=== PATIENT | female | born 1990 | race African-American/Black ===

== ENCOUNTER 2016-08-31 15:48 | Outpatient (CLI) | payer MEDICAID ==
[~2016-08-31 15:48] MED LIST: CETI10TA17 PO; CIPR500T78 PO; FLT11013 IH; FLUC100T6 PO; LISI5TAB14 PO; LOSA50TA36 PO; METF500T4 PO; METF750T2 PO; METR500T PO; METR500T21 PO; MULT-608; MUPI22OI TP; ONDA8TAB13 PO; TOPI50TA13 PO
[2016-08-31 16:35] VITALS: BP 121/81
--- NOTE | 2016-09-01 09:18 | Physician Query-Final Dx ---
PARKER PINEDO 09/01/16 0918: Clinic Account Progress/Dx Physician Query: Please give diagnosis Date of Service Aug 31, 2016 at 15:48 NED MULLINS DO 09/03/16 0920: Clinic Account Progress/Dx DIAGNOSIS: Diagnosis please check nursing notes on which physician they called.. I did not take a call nor know that this patient was there. PARKER PINEDO Sep 01, 2016 09:18 NED MULLINS DO Sep 03, 2016 09:20
--- NOTE | 2016-09-04 10:04 | Physician Query-Final Dx ---
PARKER PINEDO 09/04/16 1003: Clinic Account Progress/Dx Physician Query: Please give diagnosis Date of Service Aug 31, 2016 at 15:48 SELENE STONE MD 09/04/16 1236: Clinic Account Progress/Dx DIAGNOSIS: Diagnosis false labor PARKER PINEDO Sep 04, 2016 10:03 SELENE STONE MD Sep 04, 2016 12:36
== END 2016-08-31 16:35 | disposition home or self-care (01) ==
LOC: WSo 15:48 → LDRP 15:48 → WSo 16:35
PROVIDERS: ATTEND Obstetrics & Gynecology
DX: O47.9 False labor, unspecified (principal); Z3A.00 Weeks of gestation of pregnancy not specified
CPT/HCPCS: 99212

== ENCOUNTER 2016-10-04 20:58 | Outpatient (CLI) | payer MEDICAID ==
[~2016-10-04] VITALS: Ht 157.5 cm; Wt 103.9 kg
[2016-10-04 20:40] VITALS: BP 133/64
[2016-10-04 21:05] VITALS: BP 125/63
[2016-10-04 21:31] LABS: BILIRUBIN,URINE NEGATIVE (NEGATIVE); KETONES,URINE NEGATIVE (NEGATIVE); LEUKOCYTE ESTERASE ,URINE 3+ (NEGATIVE); NITRITE,URINE NEGATIVE (NEGATIVE); PH,URINE 8 (5-9); PROTEIN,URINE 1+ (NEGATIVE); UROBILINOGEN,URINE NORMAL (NORMAL)
[2016-10-04 21:41] LABS: SQUAMOUS EPITHELIAL CELL,UR >50 /HPF
[2016-10-04] MEDS ORDERED: PROMETHAZINE INJ 25 MG/ML (PHENERGAN) AMP IM ONE (22:00)
[2016-10-04] MEDS ORDERED: CEPH-507 PO (22:15)
[2016-10-04] MEDS ORDERED: CEPHALEXIN 250 MG (KEFLEX) CAP PO ONE (22:30)
[2016-10-04] MEDS ORDERED: APAP 300 MG/CODEINE 30 MG (TYLENOL #3) TAB PO ONE (23:00)
[2016-10-04] MEDS ORDERED: D5 LR IV SOLUTION 1,000 ML IV ONE (23:36)
[2016-10-05] MEDS ORDERED: ONDANSETRON 4 MG/2 ML (SDV) Z0FRAN ONE (00:19)
[2016-10-05] MEDS ORDERED: ONDANSETRON 4 MG/2 ML (SDV) Z0FRAN IVP PRN (00:30)
[2016-10-05] MEDS ORDERED: HYDROmorphone (DILAUDID) 2 MG/ML VIAL IVP ONE (00:30)
[2016-10-05] MEDS ORDERED: D5 LR IV SOLUTION 1,000 ML IV SCH (00:30)
[2016-10-05 00:40] VITALS: BP 126/66
[2016-10-05] MEDS ORDERED: ACET325T38 PO (06:03)
[2016-10-05] MEDS ORDERED: VALA500T PO (06:03)
[2016-10-05] MEDS ORDERED: SERT25TA PO (06:03)
[2016-10-05] MEDS ORDERED: PREN1TAB71 PO (06:03)
[2016-10-05] MEDS ORDERED: ASPI1TAB22 PO (06:03)
[2016-10-05 06:10] VITALS: BP 100/51
--- NOTE | 2016-10-05 08:27 | History & Physical-OB ---
OB - Chief Complaint & HPI Date Date of Admission: Date of Admission: Chief Complaint/History Hx : 2 Hx Para: 0 Expected Date of Delivery: January 06, 2017 Gestational Age in Weeks: 26 Other reason for admission: Patient admitted for observation overnight due to uncontrolled headache. Was given phenergan IM and continued to have nausea overnight, so IV with D5LR was started and 0.5 mg dilaudid given. Patient was able to rest afterward. Admission Nurse Assessment Rev: Yes History of Labs O pos Antibody neg RI RPR NR HIV NR HBsAg NR GC neg Allergies and Home Medications Allergies Coded Allergies: latex (Unverified Allergy, Unknown, 05/14/16) tramadol (Unverified Allergy, Unknown, 05/14/16) Home Medications Acetaminophen 325 Mg Tablet 1,000 MG PO PRN (Reported) Aspirin/Acetaminophen/Caffeine 1 Each Tablet 1 EACH PO PRN (Reported) Cephalexin 500 Mg Capsule 7Days 500 MG PO QID Prescribed by: EMANUEL DIAZ on 10/04/16 Vit/Iron Fumarate/FA 1 Each Tablet 1 EACH PO DAILY (Reported) Sertraline HCl 25 Mg Tablet 25 MG PO DAILY (Reported) Valacyclovir HCl 500 Mg Tablet 500 MG PO PRN (Reported) OB - History Hx of Present Care: Yes Ultrasounds: Normal mid trimester US Obstetrical Complications: None Medical Complications: Other (Migraines) Obstetrical History Hx : 2 Hx Para: 0 Hx Total # of Abortions (Spona: 1 Delivery History Hx Blood Disorders: No Adverse Rxn to Tranfusion: No Patient Past Medical History migraines Social History/Family History Recent Infectious Disease Expo: No Sexually Transmitted Disease: Yes (CHLAM AND GC) Immunizations Date of Influenza Vaccine: May 19, 2016 OB - Admission Exam Physical Exam Vitals: Vital Signs 10/04/16 10/05/16 20:40 06:10 Temp 97.2 Pulse 67 Resp 18 B/P 100/51 HEENT: NCAT Heart: Rhythm Normal Abdomen: Gravid Heart Rate: 130's Contractions on Admission: None Labs Laboratory Tests Test 10/04/16 21:00 Range/Units Urine Bacteria LARGE H /HPF Urine Bilirubin NEGATIVE NEGATIVE Urine Casts NONE /LPF Urine Clarity SLIGHTLY CLOUDY Urine Color YELLOW Urine Crystals NONE /LPF Urine Culture Indicated NO Urine Glucose (UA) NEGATIVE NEGATIVE Urine Ketones NEGATIVE NEGATIVE Urine Leukocyte Esterase 3+ H NEGATIVE Urine Mucus NEGATIVE /LPF Urine Nitrite NEGATIVE NEGATIVE Urine Protein 1+ H NEGATIVE Urine RBC NONE /HPF Urine RBC (Auto) NEGATIVE NEGATIVE Urine Specific [place] 1.010 L 1.016-1.022 Urine Squamous Epithelial Cells >50 H /HPF Urine Urobilinogen NORMAL NORMAL MG/DL Urine WBC 10-25 H /HPF Urine pH 8 5-9 OB - Assessment/Plan/Diagnosis Plan Other Plan Patient to try regular diet this am and Tylenol 3, if tolerates patient to be discharged. Discharge Diagnosis Diagnosis: 26 yo @ 26.5 Migraine headache- improved Nausea/ Vomitting- improved NED MULLINS DO Oct 05, 2016 08:27
[2016-10-05] MEDS ORDERED: CATHETER FLUSH 10 ML SYR IV PRN (08:30)
[2016-10-05] MEDS ORDERED: APAP 300 MG/CODEINE 30 MG (TYLENOL #3) TAB PO PRN (08:30)
[2016-10-05] MEDS ORDERED: ACET-789 PO (08:57)
[2016-10-05 09:00] VITALS: BP 133/67
[2016-12-18] MEDS ORDERED: DOCU100C37 PO (10:53)
[2016-12-18] MEDS ORDERED: IBUP-1773 PO (10:53)
[2016-12-18] MEDS ORDERED: HYDR-3812 PO (10:53)
== END 2016-10-05 10:15 | disposition home or self-care (01) ==
LOC: WSo 20:58 → LDRP 20:59 → WSo 10-05 10:15
PROVIDERS: ATTEND Obstetrics & Gynecology
DX: O99.353 Diseases of the nervous system complicating pregnancy, third trimester (principal); G43.909 Migraine, unspecified, not intractable, without status migrainosus; O21.9 Vomiting of pregnancy, unspecified; Z3A.26 26 weeks gestation of pregnancy
CPT/HCPCS: 81000; 96361; 96372; 96374; 99214

== ENCOUNTER → 2016-10-15 | Outpatient (CLI) | payer MEDICAID ==
[~2016-10-15] MED LIST changes: +ACET-789 PO; +ACET325T38 PO; +ASPI1TAB22 PO; +CEPH-507 PO; +DOCU100C37 PO; +FAMO-119 PO; +HYDR-3812 PO; +IBUP-1773 PO; +OMEP20TA33 PO; +OXYC-197 PO; +PREN1TAB71 PO; +SERT25TA PO; +VALA500T PO
--- NOTE | 2016-10-15 19:01 | Diagnostic Imaging Report ---
OB ultrasound. INDICATION: incomplete views. FINDINGS: The heart rate is 143 beats per minute. The placenta is posterior. There is no placenta previa. The amniotic fluid index is 9.4 cm. The posterior fossa, the lateral ventricles, stomach, four-chamber view, urinary bladder and two umbilical arteries are demonstrated. The spine appears unremarkable. No hydronephrosis or cystic mass in the region of the kidneys seen. The growth parameters are biparietal diameter at 26 weeks and 5 days, at 5th percentile, head circumference at 27 weeks and 1 day, 4th percentile, abdominal circumference at 26 weeks and 6 days, 10th percentile and femur length at 27 weeks and 4 days at 28th percentile. The average growth parameters are 27 weeks and 1 day. This compares to a gestational age of 28 weeks and 1 day based on dating by first trimester ultrasound performed 05/14/2016 with RENNY of 01/06/2017. IMPRESSION: Completed survey. The growth parameters are near the lower limits of normal. Followup studies to monitor growth suggested. Dictated by: Dictated on workstation # [id number]
== END ==
LOC: RAD 11:57
PROVIDERS: ATTEND Obstetrics & Gynecology
DX: Z36 Encounter for antenatal screening of mother (principal)
CPT/HCPCS: 76805

== ENCOUNTER 2016-10-26 17:11 | Outpatient (CLI) | payer OTHER, MEDICAID ==
[~2016-10-26] VITALS: Ht 156.2 cm; Wt 105.7 kg
[~2016-10-26 17:11] MED LIST changes: -DOCU100C37 PO; -FAMO-119 PO; -HYDR-3812 PO; -IBUP-1773 PO; -OMEP20TA33 PO; -OXYC-197 PO
[2016-10-26 17:27] VITALS: BP 133/68
--- NOTE | 2016-10-27 11:23 | Physician Query-Final Dx ---
PARKER PINEDO 10/27/16 1123: Clinic Account Progress/Dx Physician Query: Please give diagnosis Date of Service Oct 26, 2016 at 17:11 SELENE STONE MD 10/27/16 1728: Clinic Account Progress/Dx DIAGNOSIS: Diagnosis decreased movement PARKER PINEDO Oct 27, 2016 11:23 SELENE STONE MD Oct 27, 2016 17:28
[2016-12-18] MEDS ORDERED: HYDR-3812 PO (10:53)
[2016-12-18] MEDS ORDERED: DOCU100C37 PO (10:53)
[2016-12-18] MEDS ORDERED: IBUP-1773 PO (10:53)
== END 2016-10-26 18:30 | disposition home or self-care (01) ==
LOC: WSo 17:11 → LDRP 17:11 → WSo 18:30
PROVIDERS: ATTEND Obstetrics & Gynecology
DX: O36.8130 Decreased fetal movements, third trimester, not applicable or unspecified (principal); Z3A.29 29 weeks gestation of pregnancy
CPT/HCPCS: 99213

== ENCOUNTER 2016-11-15 17:49 | Outpatient (CLI) | payer OTHER, MEDICAID ==
[~2016-11-15] VITALS: Ht 157.5 cm; Wt 105.4 kg
[2016-11-15] VITALS (8 sets, daily range): BP systolic 101–124; BP diastolic 53–60
[2016-11-15] MEDS ORDERED: oxyCODONE/APAP 10/325MG (PERCOCET 10) TABLET PO ONE (18:15)
[2016-11-15 18:43] LABS: BASOPHILS % (AUTO) 0 % (0-10); EOSINOPHILS # (AUTO) 0.1 10^3/uL (0.0-0.3); EOSINOPHILS % (AUTO) 1 % (0-10); LYMPHOCYTES # (AUTO) 2.3 X 10^3 (1.0-4.0); LYMPHOCYTES % (AUTO) 21 % (12-44); MEAN CORPUSCULAR HEMOGLOBIN 31 PG (25-34); MEAN CORPUSCULAR HGB CONC 35 G/DL (32-36); MEAN CORPUSCULAR VOLUME 90 FL (80-99); MEAN PLATELET VOLUME 11.1 FL (7.4-10.4); MONOCYTES # (AUTO) 0.6 X 10^3 (0.0-1.0); MONOCYTES % (AUTO) 5 % (0-12); NEUTROPHILS % (AUTO) 73 % (42-75); PLATELET COUNT 253 10^3/uL (130-400); RED BLOOD COUNT 3.61 10^6/uL (4.35-5.85); WHITE BLOOD COUNT 10.9 10^3/uL (4.3-11.0)
[2016-11-15 18:53] LABS: PROTEIN/CREATININE RATIO 0.11
[2016-11-15 19:11] LABS: ALANINE AMINOTRANSFERASE 9 U/L (0-55); ALBUMIN 3.1 G/DL (3.2-4.5); ANION GAP 8 MMOL/L (5-14); ASPARTATE AMINO TRANSFERASE 14 U/L (5-34); BILIRUBIN,TOTAL 0.2 MG/DL (0.1-1.0); BLOOD UREA NITROGEN 7 MG/DL (7-18); BUN/CREATININE RATIO 11; CALCIUM 8.8 MG/DL (8.5-10.1); CARBON DIOXIDE 19 MMOL/L (21-32); CHLORIDE 111 MMOL/L (98-107); CREATININE SERUM 0.61 MG/DL (0.60-1.30); GFR ESTIMATED > 60; GLUCOSE 75 MG/DL (70-105); POTASSIUM 3.6 MMOL/L (3.6-5.0); SODIUM 138 MMOL/L (135-145)
[2016-11-15] MEDS ORDERED: ONDANSETRON 8 MG (ZOFRAN) ORAL DISSOLVE TAB ONE (19:40)
[2016-11-15] MEDS ORDERED: ONDANSETRON 8 MG (ZOFRAN) ORAL DISSOLVE TAB PO ONE (20:00)
--- NOTE | 2016-11-16 13:10 | Physician Query-Final Dx ---
AYE LEUNG 11/16/16 1310: Clinic Account Progress/Dx Physician Query: Please give diagnosis Date of Service Nov 15, 2016 at 17:49 SELENE STONE MD 11/17/16 0756: Clinic Account Progress/Dx DIAGNOSIS: Diagnosis hypertension AYE LEUNG Nov 16, 2016 13:10 SELENE STONE MD Nov 17, 2016 07:56
[2016-12-18] MEDS ORDERED: IBUP-1773 PO (10:53)
[2016-12-18] MEDS ORDERED: DOCU100C37 PO (10:53)
[2016-12-18] MEDS ORDERED: HYDR-3812 PO (10:53)
== END 2016-11-15 20:17 | disposition home or self-care (01) ==
LOC: DELPENDDIS → LDRP 17:49 → WSo 17:49
PROVIDERS: ATTEND Obstetrics & Gynecology
DX: O13.3 Gestational [pregnancy-induced] hypertension without significant proteinuria, third trimester (principal)
CPT/HCPCS: 36415; 80053; 82570; 84156; 85025; 99213

== ENCOUNTER 2016-12-07 12:15 | Outpatient (CLI) | payer OTHER, MEDICAID ==
[~2016-12-07] VITALS: Ht 157.5 cm; Wt 104.8 kg
[2016-12-07 12:20] VITALS: BP 130/69
[2016-12-07] MEDS ORDERED: OMEP20TA33 PO (12:49)
[2016-12-07 12:55] LABS: BILIRUBIN,URINE NEGATIVE (NEGATIVE); KETONES,URINE NEGATIVE (NEGATIVE); LEUKOCYTE ESTERASE ,URINE 2+ (NEGATIVE); NITRITE,URINE NEGATIVE (NEGATIVE); PH,URINE 6 (5-9); PROTEIN,URINE 1+ (NEGATIVE); UROBILINOGEN,URINE NORMAL (NORMAL)
--- NOTE | 2016-12-08 10:02 | Physician Query-Final Dx ---
PARKER PINEDO 12/08/16 1002: Clinic Account Progress/Dx Physician Query: Please give diagnosis Date of Service Dec 07, 2016 at 12:15 SELENE STONE MD 12/08/16 1833: Clinic Account Progress/Dx DIAGNOSIS: Diagnosis decreased movement and false labor PARKER PINEDO Dec 08, 2016 10:02 SELENE STONE MD Dec 08, 2016 18:33
[2016-12-18] MEDS ORDERED: HYDR-3812 PO (10:53)
[2016-12-18] MEDS ORDERED: IBUP-1773 PO (10:53)
[2016-12-18] MEDS ORDERED: DOCU100C37 PO (10:53)
== END 2016-12-07 13:40 | disposition home or self-care (01) ==
LOC: WSo 12:15 → LDRP 12:15 → WSo 13:40
PROVIDERS: ATTEND Obstetrics & Gynecology
DX: O47.03 False labor before 37 completed weeks of gestation, third trimester (principal); O36.8130 Decreased fetal movements, third trimester, not applicable or unspecified; Z3A.35 35 weeks gestation of pregnancy
CPT/HCPCS: 81000; 87088; 99213

== ENCOUNTER 2016-12-16 16:42 | Outpatient (CLI) | payer OTHER, MEDICAID ==
[~2016-12-16] VITALS: Ht 157.5 cm; Wt 104.8 kg
[~2016-12-16 16:42] MED LIST changes: +OMEP20TA33 PO
[2016-12-16 17:01] VITALS: BP 123/60
--- NOTE | 2016-12-16 18:30 | Diagnostic Imaging Report ---
INDICATION: Decreased movement. TECHNIQUE: The fetus was observed by the shear operator automatic for purposes of a nonstress biophysical profile evaluation. FINDINGS: Intrauterine is currently in a cephalic presentation. The placenta is along the fundal aspect without evidence for previa. cardiac activity at 123 beats per minute. Normal amount of amniotic fluid with an index at 12.4 cm. Biophysical Profile Scoring: breathin Body movement: 2 tone: 2 Amniotic fluid: 2 Total BPP Score: 8/8 IMPRESSION: 1. Normal biophysical profile score. Dictated by: Dictated on workstation # [id number]
--- NOTE | 2016-12-17 10:48 | Physician Query-Final Dx ---
PARKER PINEDO 12/17/16 1048: Clinic Account Progress/Dx Physician Query: Please give diagnosis Date of Service December 16, 2016 at 16:42 RADHA MUHAMMAD MD 12/17/16 1903: Clinic Account Progress/Dx DIAGNOSIS: Diagnosis Decreased movement at term PARKER PINEDO December 17, 2016 10:48 RADHA MUHAMMAD MD December 17, 2016 19:03
== END 2016-12-16 18:30 | disposition home or self-care (01) ==
LOC: WSo 16:42 → LDRP 16:44 → WSo 18:30
PROVIDERS: ATTEND Obstetrics & Gynecology
DX: O36.8130 Decreased fetal movements, third trimester, not applicable or unspecified (principal); Z3A.37 37 weeks gestation of pregnancy
CPT/HCPCS: 76819; 99213

== ENCOUNTER 2016-12-18 05:26 | Inpatient (IN) | payer MEDICAID ==
[~2016-12-18] VITALS: Ht 157.5 cm; Wt 103.9 kg
[2016-12-18] VITALS (8 sets, daily range): BP systolic 115–137; BP diastolic 56–70
[2016-12-18 06:05] LABS: BILIRUBIN,URINE NEGATIVE (NEGATIVE); KETONES,URINE NEGATIVE (NEGATIVE); LEUKOCYTE ESTERASE ,URINE 2+ (NEGATIVE); NITRITE,URINE NEGATIVE (NEGATIVE); PH,URINE 6.5 (5-9); PROTEIN,URINE 1+ (NEGATIVE); UROBILINOGEN,URINE NORMAL (NORMAL)
[2016-12-18] MEDS ORDERED: FAMO-119 PO (06:08)
[2016-12-18] MEDS ORDERED: D5 LR IV SOLUTION 1,000 ML IV SCH (09:24)
[2016-12-18] MEDS ORDERED: CATHETER FLUSH 10 ML SYR IV PRN (09:30)
[2016-12-18] MEDS ORDERED: FAMOTIDINE 20MG/2ML IV (PEPCID) IV ONE (09:30)
[2016-12-18] MEDS ORDERED: ceFAZolin 2 GM/50 ML NS 50 ML IV ONE (09:30)
[2016-12-18] MEDS ORDERED: METOCLOPRAMIDE INJ 10 MG/2 ML (REGLAN) IV ONE (09:30)
[2016-12-18] MEDS ORDERED: CITRIC ACID/SOB CIT (BICITRA) 30 ML UDC PO ONE (09:30)
--- NOTE | 2016-12-18 09:36 | History & Physical-OB ---
OB - Chief Complaint & HPI Date Date of Admission: Date of Admission: 12/18/2016 Chief Complaint/History OB-Reason for Admission/Chief: Onset of Labor Hx : 2 Hx Para: 0 Expected Date of Delivery: January 06, 2017 Gestational Age in Weeks: 37 Gestational Age in Days: 2 Indication for : other (Vaginal lesion with HSV history) Other reason for admission: Patient reports some non-compliance with taking Valtrex as directed, and has a questionable area that is erythematous and tender on the left vulva just outside of the hymenal ring. Admission Nurse Assessment Rev: Yes History of Labs O pos Antibody neg RI RPR NR HBsAg NR HIV NR GC neg GBS neg Allergies and Home Medications Allergies Coded Allergies: latex (Unverified Allergy, Unknown, 05/14/16) tramadol (Unverified Allergy, Unknown, 05/14/16) Home Medications Famotidine 20 Mg Tablet, 20 MG PO BID, (Reported) Vit/Iron Fumarate/FA 1 Each Tablet, 1 EACH PO DAILY, (Reported) Valacyclovir HCl 500 Mg Tablet, 500 MG PO PRN, (Reported) OB - History Hx of Present Care: Yes Ultrasounds: Normal mid trimester US Obstetrical Complications: None Medical Complications: None Obstetrical History Hx : 2 Hx Para: 0 Hx Total # of Abortions (Spona: 1 Delivery History Hx Blood Disorders: No Adverse Rxn to Tranfusion: No Patient Past Medical History migraines Social History/Family History Recent Infectious Disease Expo: No Sexually Transmitted Disease: Yes (CHLAM AND GC) Immunizations Date of Influenza Vaccine: May 19, 2016 OB - Admission Exam Physical Exam Vitals: Vital Signs 12/18/16 12/18/16 05:45 07:00 Temp 96.7 Pulse 88 Resp 20 B/P (MAP) 125/58 O2 Delivery Room Air HEENT: NCAT Heart: Rhythm Normal Lungs: Clear Abdomen: Gravid Extremities: Normal Reflexes: Normal Cervical Dilatation: 5cm Membranes: Intact Heart Rate: 130's Accelerations: Accelerations Present Decelerations: No Decelerations Short Term Variability: Present Fdc Variability: Average (6-25) Contractions on Admission: 6-10 Minutes Apart Intensity: Mild Labs Laboratory Tests Test 12/18/16 05:40 Range/Units Urine Color YELLOW Urine Clarity CLEAR Urine pH 6.5 5-9 Urine Specific [place] 1.015 L 1.016-1.022 Urine Protein 1+ H NEGATIVE Urine Glucose (UA) NEGATIVE NEGATIVE Urine Ketones NEGATIVE NEGATIVE Urine Nitrite NEGATIVE NEGATIVE Urine Bilirubin NEGATIVE NEGATIVE Urine Urobilinogen NORMAL NORMAL MG/DL Urine Leukocyte Esterase 2+ H NEGATIVE Urine RBC (Auto) NEGATIVE NEGATIVE Urine RBC NONE /HPF Urine WBC 5-10 H /HPF Urine Squamous Epithelial Cells 5-10 /HPF Urine Crystals NONE /LPF Urine Bacteria TRACE /HPF Urine Casts NONE /LPF Urine Mucus NEGATIVE /LPF Urine Culture Indicated YES OB - Assessment/Plan/Diagnosis Assessment Assessment: section Plan Plan: Section Discharge Diagnosis Diagnosis: 26 yo @ 37.1 Active labor Vulvovaginal lesion suspecious for HSV GBS neg NED MULLINS DO December 18, 2016 09:36
[2016-12-18 09:51] LABS: BASOPHILS % (AUTO) 0 % (0-10); EOSINOPHILS % (AUTO) 0 % (0-10); LYMPHOCYTES # (AUTO) 2.4 X 10^3 (1.0-4.0); LYMPHOCYTES % (AUTO) 20 % (12-44); MEAN CORPUSCULAR HEMOGLOBIN 30 PG (25-34); MEAN CORPUSCULAR HGB CONC 34 G/DL (32-36); MEAN CORPUSCULAR VOLUME 87 FL (80-99); MEAN PLATELET VOLUME 11.5 FL (7.4-10.4); MONOCYTES # (AUTO) 0.7 X 10^3 (0.0-1.0); MONOCYTES % (AUTO) 6 % (0-12); NEUTROPHILS # (AUTO) 8.8 X 10^3 (1.8-7.8); NEUTROPHILS % (AUTO) 73 % (42-75); PLATELET COUNT 249 10^3/uL (130-400); RED BLOOD COUNT 4.13 10^6/uL (4.35-5.85); RED CELL DISTRIBUTION WIDTH 13.4 % (10.0-14.5); WHITE BLOOD COUNT 11.9 10^3/uL (4.3-11.0)
[2016-12-18] MEDS ORDERED: LACTATED RINGERS 1,000 ML IV ONE (09:59)
[2016-12-18] MEDS ORDERED: LACTATED RINGERS 1,000 ML IV PRN (10:14)
[2016-12-18] MEDS ORDERED: OXYTOCIN/NORMAL SALINE 1,000 ML IV ONE (10:37)
[2016-12-18] MEDS ORDERED: BUPIVACAINE SPINAL 0.75% (SENSORCAINE) 2 ML AMP ONE (10:37)
[2016-12-18] MEDS ORDERED: fentaNYL INJECTION 100 MCG/2 ML AMP ONE (10:37)
[2016-12-18] MEDS ORDERED: OXYTOCIN/NORMAL SALINE 500 ML IV SCH (10:49)
--- NOTE | 2016-12-18 10:52 | Discharge Inst-Women's Service ---
Discharge Inst-Women's Serv Depart Medication/Instructions New, Converted or Re-Newed RX: RX on Chart Consults/Follow Up Additional Follow Up: Yes Orders/Referrals Dr. Bryant in 7-10 days Activity Activity: Activity as Tolerated Driving Instructions: No Driving for 1 Week NO SMOKING: NO SMOKING Nothing Inside Vagina: No Douching, No [place], No Tampons Diet Discharge Diet: No Restrictions Symptoms to Report to : Bleeding Excessive, Pain Increased, Fever Over 101 Degrees F, Vaginal Bleeding Increase, Questions/Concerns For Any Problems or Questions: Contact Your Physician Skin/Wound Care Infection Signs and Symptoms: Increased Redness, Foul Odor of Wound, Increased Drainage, Skin Itchy or Has a Rash, Increased Swelling, Temperature Above 101 F Operative Area Clean and Dry: Keep Incision Clean/Dry Stitches/Leyla/Dermabond: Dermabond, Care of Stitches Bathing Instructions: NED Velasquez DO December 18, 2016 10:52
[2016-12-18] MEDS ORDERED: HYDR-3812 PO (10:53)
[2016-12-18] MEDS ORDERED: IBUP-1773 PO (10:53)
[2016-12-18] MEDS ORDERED: DOCU100C37 PO (10:53)
[2016-12-18] MEDS ORDERED: ONDANSETRON 4 MG/2 ML (SDV) Z0FRAN IVP PRN (11:00)
[2016-12-18] MEDS ORDERED: MEASLES,MUMPS,RUBELLA 1 EA INJ SC SCH (11:00)
[2016-12-18] MEDS ORDERED: TETANUS,DIPTH,PERTUSS P/F (BOOSTRIX) 0.5 ML VIAL IM SCH (11:00)
[2016-12-18] MEDS ORDERED: HYDROmorphone (DILAUDID) 2 MG/ML VIAL IVP PRN (11:00)
[2016-12-18] MEDS ORDERED: PHENYLEPHRINE 100 MCG/ML 10 ML (ANESTHESIA) SYR ONE (11:37)
[2016-12-18] MEDS ORDERED: METHYLERGONOVINE 0.2 MG/ML (METHERGINE) AMP ONE (11:56)
[2016-12-18] MEDS ORDERED: METHYLERGONOVINE 0.2 MG/ML (METHERGINE) AMP IM ONE (12:15)
[2016-12-18] MEDS ORDERED: CATHETER FLUSH 10 ML SYR IV SCH (14:00)
[2016-12-18] MEDS: KETOROLAC 30 MG/ML VIAL IVP SCH ×2 (14:15→19:57)
[2016-12-18] MEDS: HYDROcodone/APAP 5 MG/325 MG (LORTAB) TAB PO PRN ×2 (14:15→18:21)
[2016-12-19] VITALS: BP 103/55
[2016-12-19] MEDS: HYDROcodone/APAP 5 MG/325 MG (LORTAB) TAB PO PRN ×2 (00:10→05:31)
[2016-12-19] MEDS: KETOROLAC 30 MG/ML VIAL IVP SCH (02:43)
[2016-12-19 04:00] VITALS: BP 108/61
[2016-12-19] MEDS: DOCUSATE SODIUM 100 MG (COLACE) CAP PO SCH ×2 (05:36→21:57)
[2016-12-19 06:02] LABS: BASOPHILS % (AUTO) 0 % (0-10); EOSINOPHILS % (AUTO) 0 % (0-10); LYMPHOCYTES # (AUTO) 0.9 X 10^3 (1.0-4.0); LYMPHOCYTES % (AUTO) 10 % (12-44); MEAN CORPUSCULAR HEMOGLOBIN 30 PG (25-34); MEAN CORPUSCULAR HGB CONC 34 G/DL (32-36); MEAN CORPUSCULAR VOLUME 89 FL (80-99); MEAN PLATELET VOLUME 11.7 FL (7.4-10.4); MONOCYTES # (AUTO) 0.5 X 10^3 (0.0-1.0); MONOCYTES % (AUTO) 6 % (0-12); NEUTROPHILS # (AUTO) 7.8 X 10^3 (1.8-7.8); NEUTROPHILS % (AUTO) 84 % (42-75); PLATELET COUNT 198 10^3/uL (130-400); RED BLOOD COUNT 3.76 10^6/uL (4.35-5.85); RED CELL DISTRIBUTION WIDTH 13.5 % (10.0-14.5); WHITE BLOOD COUNT 9.3 10^3/uL (4.3-11.0)
--- NOTE | 2016-12-19 07:34 | OPERATIVE REPORT ---
DATE OF SERVICE: 12/18/2016 PREOPERATIVE DIAGNOSES: 1. A 26-year-old at 37 weeks and one day gestation. 2. Active labor. 3. Active herpes simplex virus outbreak. POSTOPERATIVE DIAGNOSES: 1. A 26-year-old at 37 weeks and one day gestation. 2. Active labor. 3. Active herpes simplex virus outbreak. PROCEDURE: Primary low transverse section. SURGEON: James Mullins MD ANESTHESIA: Spinal. ESTIMATED BLOOD LOSS: 600 mL. URINE OUTPUT: 75 mL, clear at the end of procedure. FLUIDS: 1300 mL lactated Ringer's solution. FINDINGS: A live female weighing 6 pounds, 1 ounces. Apgars of 5, 8 and 9. Grossly normal appearing uterus, bilateral fallopian tubes and ovaries SPECIMEN SENT: None. INDICATIONS FOR PROCEDURE: This 26-year-old female presented to labor and delivery early this morning and found to be 3 cm at approximately 4:30 a.m. I presented to the hospital about 8 this morning and checked the patient, who was found to be 5 cm. However, upon my inspection, I did notice an area that was erythematous and possibly ulcerative at the hymenal ring just outside of it on the vulva on the left side. The patient does have a significant history of HSV and had an outbreak in the . She was on prophylaxis therapy. However, admits to missing of few doses. Due to my concerns of this being an HSV lesion, I discussed with the patient proceeding with delivery. Risk of procedure was discussed with the patient in details, including risk of bleeding, infection, damage to any surrounding structures including, but not limited to bowel, bladder, ureter, kidneys, damage to the infant, risk for hysterectomy, need for blood transfusion and even . After everything was discussed with the patient in detail, her consent was obtained after discussing the alternatives of delivery through HSV infected area. All of her questions were answered with her and her mother present. Consent was obtained. The patient taken to the operating room. OPERATIVE REPORT IN DETAIL: Once in the operating room, spinal anesthesia was found to be adequate, placed in the supine position with leftward tilt, prepped and draped in the normal sterile fashion. A Pfannenstiel skin incision was made with a knife and carried down to the underlying fascia using Bovie cautery. The fascial incision was extended laterally using Bovie cautery. The superior aspect of facial incision was then grasped with Raven clamps, tilted upward and dissected off the underlying rectus muscles. The inferior aspect of the fascial incisions was then grasped with Raven clamps, tilted upward and dissected off the underlying rectus muscles. The rectus muscles were then dissected down the midline using Stone scissors, which exposes the peritoneum and allows me to enter it bluntly. I extended peritoneal incision superiorly and inferiorly using the Metzenbaum scissors with good visualization of the underlying bowel and bladder. Once adequate peritoneal access was obtained, I placed the Willi reamer retractor at the peritoneal incision, which offers excellent lateral and side wall retraction. I identified the lower uterine segment, which was found to be grossly thinned out. I made a transverse incision through the vesicouterine peritoneum and bluntly dissected the bladder off of the lower uterine segment. I then proceeded with my myotomy in a low transverse fashion until membranes were visualized, at which point I extended the uterine incision laterally and superiorly using bandage scissors. An amniotomy was performed using an Allis clamp, clear fluid was noted. The infant was found to be in vertex presentation. With gentle fundal pressure, the 's head was elevated up out of the pelvis, into the incision and delivered to the incision, where the nares and oropharynx were copiously bulb suctioned. Anterior and posterior shoulders were delivered. The infant was then brought to the operative field, where the cord was doubly clamped and cut and infant handed off to waiting pediatric nurses in attendance. Cord blood was collected, three vessel cord with intact placenta delivered thereafter. IV Pitocin is initiated to facilitate uterine contraction. Uterine fundus became firmer with bimanual massage. The uterus was then exteriorized and cleared of all endometrial clots and debris. I then closed the uterine incision using 0 Vicryl suture in running locked fashion, a second layer of imbricating 0 Monocryl was placed. Excellent hemostasis was noted after doing so. I then placed the uterus, followed by fallopian tubes and ovaries back within the pelvis after inspecting them and copiously irrigated the pelvis using normal saline. No active bleeding was noted from any of my dissections points. I then placed Intercede antiadhesive on my low transverse incision and proceeded with closing the peritoneum using 2-0 Vicryl suture in a running fashion, the rectus muscles were reapproximated using 3-0 Vicryl in interrupted fashion, the fascia was reapproximated with 0 Vicryl suture in running fashion, the subcutaneous tissues were reapproximated using 3-0 plain in an interrupted subcutaneous stitch and the skin was reapproximated using 4-0 Monocryl in a running subcuticular. Dermabond was applied to the incision and the sterile dressing was adhesed with white tape. The patient tolerated the procedure well and was taken to the recovery area in stable condition. Lap and sponge counts correct at the end of the procedure. Instrument count was correct as well. Two gm of Ancef were given preoperatively for infection prophylaxis. Job ID: [id number] DocumentID: [id number] Dictated Date: 12/18/2016 11:54:57 Delivery Helper Date: 12/19/2016 05:19:54 Dictated By: JAMES MULLINS DO
--- NOTE | 2016-12-19 07:50 | Postpartum Progress Note ---
Post Op Post-operative Day #1 Subjective: Patient is without complaints. Ambulating, voiding after potts removed. Tolerating a regular diet without nausea or vomiting. Normal lochia. Pain is not well controlled on oral pain meds - reports lortab "takes the edge off" for 30 mins but then has quite a bit of pain again. Breast feeding/pumping. Objective: Vital Sign - Last 12Hours 12/19/16 12/19/16 00:00 04:00 Temp 98.0 97.8 Pulse 75 85 Resp 18 18 B/P (MAP) 103/55 108/61 Pulse Ox 97 92 O2 Delivery Room Air Room Air Intake and Output 12/19/16 00:00 Intake Total 3100 ml Output Total 350 ml Balance 2750 ml Physical Exam: General - Alert and oriented, no apparent distress Abdomen - Soft, appropriately tender to palpation, non-distended, fundus firm at umbilicus Incision - clean, dry and intact; no erythema or induration, no drainage Extremities - no edema, negative Heather's bilaterally Laboratory Tests Test 12/18/16 09:41 12/19/16 05:30 Range/Units White Blood Count 11.9 H 9.3 4.3-11.0 10^3/uL Red Blood Count 4.13 L 3.76 L 4.35-5.85 10^6/uL Hemoglobin 12.3 11.2 L 11.5-16.0 G/DL Hematocrit 36 33 L 35-52 % Mean Corpuscular Volume 87 89 80-99 FL Mean Corpuscular Hemoglobin 30 30 25-34 PG Mean Corpuscular Hemoglobin Concent 34 34 32-36 G/DL Red Cell Distribution Width 13.4 13.5 10.0-14.5 % Platelet Count 249 198 130-400 10^3/uL Mean Platelet Volume 11.5 H 11.7 H 7.4-10.4 FL Neutrophils (%) (Auto) 73 84 H 42-75 % Lymphocytes (%) (Auto) 20 10 L 12-44 % Monocytes (%) (Auto) 6 6 0-12 % Eosinophils (%) (Auto) 0 0 0-10 % Basophils (%) (Auto) 0 0 0-10 % Neutrophils # (Auto) 8.8 H 7.8 1.8-7.8 X 10^3 Lymphocytes # (Auto) 2.4 0.9 L 1.0-4.0 X 10^3 Monocytes # (Auto) 0.7 0.5 0.0-1.0 X 10^3 Eosinophils # (Auto) 0.0 0.0 0.0-0.3 10^3/uL Basophils # (Auto) 0.0 0.0 0.0-0.1 10^3/uL Assessment: 26 y/o post-operative day # 1, status post PLTCS for active labor with HSV outbreak. Recovering well, hemodynamically stable Rh+ Class III obesity Plan: Routine post-operative care. Will switch to percocet for oral pain control, continue scheduled motrin. Encourage breast feeding. Encourage ambulation. VTE prophylaxis: SCDs and Lovenox given multiple risk factors Plan for discharge POD#2-3 Vitals - Labs Vital Signs - I&O Vital Signs Date Time Temp Pulse Resp B/P (MAP) Pulse Ox O2 Delivery O2 Flow Rate FiO2 12/19/16 04:00 97.8 85 18 108/61 92 Room Air 12/19/16 00:00 98.0 75 18 103/55 97 Room Air 12/18/16 17:15 97.9 80 18 115/70 Room Air 12/18/16 13:25 97.9 82 20 137/67 Room Air 12/18/16 08:30 88 20 124/56 Room Air 12/18/16 08:00 90 18 123/58 Room Air I & O 12/19/16 07:00 Intake Total 3450 ml Output Total 825 ml Balance 2625 ml Labs Laboratory Tests 12/18/16 09:41: White Blood Count 11.9H, Red Blood Count 4.13L, Hemoglobin 12.3, Hematocrit 36, Mean Corpuscular Volume 87, Mean Corpuscular Hemoglobin 30, Mean Corpuscular Hemoglobin Concent 34, Red Cell Distribution Width 13.4, Platelet Count 249, Mean Platelet Volume 11.5H, Neutrophils (%) (Auto) 73, Lymphocytes (%) (Auto) 20 , Monocytes (%) (Auto) 6, Eosinophils (%) (Auto) 0, Basophils (%) (Auto) 0, Neutrophils # (Auto) 8.8H, Lymphocytes # (Auto) 2.4, Monocytes # (Auto) 0.7, Eosinophils # (Auto) 0.0, Basophils # (Auto) 0.0 12/19/16 05:30: White Blood Count 9.3, Red Blood Count 3.76L, Hemoglobin 11.2L, Hematocrit 33L, Mean Corpuscular Volume 89, Mean Corpuscular Hemoglobin 30, Mean Corpuscular Hemoglobin Concent 34, Red Cell Distribution Width 13.5, Platelet Count 198, Mean Platelet Volume 11.7H, Neutrophils (%) (Auto) 84H, Lymphocytes (%) (Auto) 10L, Monocytes (%) (Auto) 6, Eosinophils (%) (Auto) 0, Basophils (%) (Auto) 0, Neutrophils # (Auto) 7.8, Lymphocytes # (Auto) 0.9L, Monocytes # (Auto) 0.5, Eosinophils # (Auto) 0.0, Basophils # (Auto) 0.0 RADHA MUHAMMAD MD December 19, 2016 07:50
[2016-12-19] MEDS: IBUPROFEN 600 MG (MOTRIN) TAB PO SCH ×3 (08:08→21:55)
[2016-12-19 08:09] VITALS: BP 99/64
[2016-12-19] MEDS: ENOXAPARIN 40 MG/0.4 ML (LOVENOX) SYR SC SCH (09:33)
[2016-12-19] MEDS: oxyCODONE/APAP 5/325MG (PERCOCET 5) TABLET PO PRN ×4 (09:33→21:55)
--- NOTE | 2016-12-19 13:43 | Anesthesia-Regional Post-Op ---
Regional Patient Condition Mental Status: Alert, Oriented x3 Circulation: Same as Pre-Op Headache: Absent Sensation: Full Recovery Motor Block: Absent Post Op Complications Complications None Follow Up Care/Instructions Patient Instructions None needed. Anesthesia/Patient Condition Patient is doing well, no complaints, stable vital signs, no apparent adverse anesthesia problems. No complications reported per nursing. THIAGO BROWN CRNA December 19, 2016 13:43
[2016-12-19 13:45] VITALS: BP 116/65
[2016-12-19 19:45] VITALS: BP 108/60
[2016-12-20 02:00] VITALS: BP 104/62
[2016-12-20] MEDS: IBUPROFEN 600 MG (MOTRIN) TAB PO SCH ×2 (03:48→11:27)
[2016-12-20] MEDS: oxyCODONE/APAP 5/325MG (PERCOCET 5) TABLET PO PRN ×2 (03:48→08:39)
[2016-12-20 04:00] VITALS: BP 104/62
[2016-12-20] MEDS: DOCUSATE SODIUM 100 MG (COLACE) CAP PO SCH ×2 (08:39→08:40)
[2016-12-20] MEDS: ENOXAPARIN 40 MG/0.4 ML (LOVENOX) SYR SC SCH (08:40)
[2016-12-20] MEDS ORDERED: OXYC-197 PO (09:28)
[2016-12-20] MEDS ORDERED: fluCOnazole (DIFLUCAN) 100 MG TAB PO NR (09:30)
--- NOTE | 2016-12-20 09:30 | Postpartum Progress Note ---
Post Op Post-operative Day #2 Subjective: Patient is without complaints. Ambulating, voiding. Tolerating a regular diet without nausea or vomiting. Did have some nausea this morning before eating when taking narcotics. Does report percocet is working better than lortab did. Normal lochia. Pain is well controlled with oral pain medications. Passing flatus. Objective: Vital Sign - Last 12Hours 12/20/16 02:00 Temp 98.0 Pulse 76 Resp 18 B/P (MAP) 104/62 Pulse Ox 98 O2 Delivery Room Air Physical Exam: General - Alert and oriented, no apparent distress Abdomen - Soft, appropriately tender to palpation, non-distended, fundus firm at umbilicus Incision - clean, dry and intact; no erythema or induration, no drainage Extremities - no edema, negative Heather's bilaterally no new labs Assessment: 26 y/o post-operative day # 2, status post PLTCS for active labor with HSV outbreak. Recovering well, hemodynamically stable Rh+ Class III obesity Plan: Routine post-operative care. Encourage breast feeding. Encourage ambulation. VTE prophylaxis: SCDs and Lovenox given multiple risk factors Plan for discharge today, f/u with Dr. Bryant as per d/c instructions Vitals - Labs Vital Signs - I&O Vital Signs Date Time Temp Pulse Resp B/P (MAP) Pulse Ox O2 Delivery O2 Flow Rate FiO2 12/20/16 02:00 98.0 76 18 104/62 98 Room Air 12/19/16 19:45 97.8 76 18 108/60 97 Room Air 12/19/16 13:45 98.3 74 18 116/65 100 Room Air Labs Microbiology 12/18/16 Urine Culture - Preliminary, Resulted RADHA MUHAMMAD MD December 20, 2016 09:30
[2016-12-20 11:00] VITALS: BP 116/74
== END 2016-12-20 16:15 | disposition home or self-care (01) | DRG 765 ==
LOC: WSo 05:26 → LDRP 05:28 → WSo 09:25 → LDRP 09:26 → WS 12:55
PROVIDERS: ADMIT Obstetrics & Gynecology; ATTEND Obstetrics & Gynecology
PROC: 10D00Z1 Extraction of Products of Conception, Low, Open Approach (ICD-10-PCS; principal; 2016-12-18 10:47)
DX: O98.513 Other viral diseases complicating pregnancy, third trimester (principal); Z3A.37 37 weeks gestation of pregnancy; Z68.41 Body mass index [BMI] 40.0-44.9, adult; E66.9 Obesity, unspecified; Z37.0 Single live birth
CPT/HCPCS: 36415; 81000; 85025; 86850; 86900; 86901; 87088; 94664; 99212

== ENCOUNTER 2016-12-27 15:50 | Emergency (ER) | payer MEDICAID ==
[~2016-12-27] VITALS: Ht 157.5 cm; Wt 104.3 kg
[~2016-12-27 15:50] MED LIST changes: +DOCU100C37 PO; +FAMO-119 PO; +HYDR-3812 PO; +IBUP-1773 PO; +OXYC-197 PO
--- NOTE | 2016-12-27 16:24 | ED Fever ---
History of Present Illness General Chief Complaint: Skin/Wound Problems Stated Complaint: POST OP/BILAT LEG SWELLING/FEVER/INCISION PAIN Nursing Triage Note: to ER with complaints of incisional drainage, which is not noted upon exam, bilateral lower extremity edema, and chills at home. Patient is slightly febrile upon exam. Sepsis Screen: Possible Sepsis Risk Source: patient Exam Limitations: no limitations History of Present Illness Time seen by provider: 16:16 Initial Comments Patient presents with a one-day history of abdominal pain around her wound from 9 days ago and fever MAXIMUM TEMPERATURE of 102.8. The patient took Tylenol and ibuprofen at 3:00 this afternoon. She was still febrile upon arrival 100.8. She is having pain around the incision site and swelling there that has gotten worse and she saw her OB Dr. MULLINS on approximately 4 days ago. The past day she also started developing some swelling around her ankles and her legs are very tender. She remarks that yesterday she went on a long road trip with her significant other to [place] for a constitution party and she just sat during the constitution party. She also is sedentary at home and does not attend with job. She has been using her Percocet daily to control the pain. She is not on any kind of control. She denies any shortness of breath or chest pain. She remarks that her lochia has been this morning heavier than a heavy period which is the heaviest is been since her . Right now she says it's about the same as a regular period which for her is normally heavy. She had the at 37 weeks because she was having gestational hypertension on chronic essential hypertension. Prior to she was controlled losartan. She is on nothing right now other than vitamins. She denies dysuria or discharge. She is both breast and bottle feeding and denies any redness, swelling, hot breasts. No cough or SOB. delivered at 37 weeks by primary C/S. Allergies and Home Medications Allergies Coded Allergies: latex (Unverified Allergy, Unknown, 05/14/16) tramadol (Unverified Allergy, Unknown, 05/14/16) Home Medications Docusate Sodium 100 Mg Capsule, 100 MG PO BID, #40 Prescribed by: NED MULLINS on 12/18/16 1053 Famotidine 20 Mg Tablet, 20 MG PO BID, (Reported) Ibuprofen 600 Mg Tablet, 600 MG PO Q6H, #80 Prescribed by: NED MULLINS on 12/18/16 1053 Oxycodone HCl/Acetaminophen 1 Each Tablet, 1-2 EACH PO Q4H PRN for pain, #40 Prescribed by: RADHA MUHAMMAD on 12/20/16 0928 Vit/Iron Fumarate/FA 1 Each Tablet, 1 EACH PO DAILY, (Reported) Constitutional: see HPI, chills, fever, malaise EENTM: no symptoms reported Respiratory: No cough, No dyspnea on exertion, No orthopnea, No phlegm, No short of breath, No wheezing Cardiovascular: No chest pain, edema Gastrointestinal: see HPI, abdominal pain Genitourinary: see HPI : No Past Ykdklla-Elbrvp-Kzinsp Hx Patient Social History Alcohol Use: Denies Use Recreational Drug Use: No Smoking Status: Former Smoker Type Used: Cigarettes 2nd Hand Smoke Exposure: No Recent Foreign Travel: No Contact w/Someone Who Travel: No Recent Infectious Disease Expo: No Recent Hopitalizations: Yes ( 12/18/16) Immunizations Up To Date Tetanus Booster (TDap): Less than 5yrs PED Vaccines UTD: Yes Date of Influenza Vaccine: May 19, 2016 Seasonal Allergies Seasonal Allergies: Yes Surgeries HX Surgeries: Yes (L ANKLE; D&C, BX NECK) Surgeries: Adenoidectomy, Section, Orthopedic, Tonsillectomy Respiratory Hx Respiratory Disorders: No Respiratory Disorders: Asthma Cardiovascular Hx Cardiac Disorders: Yes Cardiac Disorders: Hypertension Neurological Hx Neurological Disorders: Yes Neurological Disorders: Headaches /Migraines Reproductive System Hx Reproductive Disorders: Yes Sexually Transmitted Disease: Yes HIV/AIDS: No Female Reproductive Disorders: Polycystic Ovarian Dis Genitourinary Hx Genitourinary Disorders: No Gastrointestinal Hx Gastrointestinal Disorders: No Gastrointestinal Disorders: Colitis Musculoskeletal Hx Musculoskeletal Disorders: No Musculoskeletal Disorders: Scoliosis Endocrine Hx Endocrine Disorders: No HEENT HX ENT Disorders: No Cancer Hx Cancer: No Psychosocial Hx Psychiatric Problems: No Behavioral Health Disorders: Anxiety Integumentary HX Skin/Integumentary Disorder: No Skin/Integumentary Disorders: Eczema, Recent Skin Changes, Herpes Blood Transfusions Hx Blood Disorders: No Adverse Reaction to a Blood Tr: No Family Medical History Significant Family History: No Pertinent Family Hx Family Medial History: Alcoholism 19 FATHER (father) Aphasia Arthritis 19 MOTHER (maternal grandmother, mother) Asthma 19 MOTHER (maternal grandmother, sister) Cardiovascular disease 19 FATHER (father) 19 MOTHER (maternal grandparents.) Cataracts 19 MOTHER (grandparents) Completed stroke 19 MOTHER (grandfatgher) Coronary thrombosis 19 MOTHER (grandfather) Dementia 19 MOTHER (grandmother) Diabetes mellitus 19 MOTHER (mother, grandfather) Drug abuse 19 FATHER (father) 19 MOTHER (mother) Dysphasia 19 MOTHER (grandfather) Fibrocystic disease of breast 19 MOTHER (mother) Hypercholesterolemia 19 MOTHER (grandmother, mother) Hypertension 19 FATHER (father) 19 MOTHER (mother, grandfather) Kidney disease 19 MOTHER (grandfather) Myocardial infarction 19 FATHER (dad) 19 MOTHER (grandfather) Psychosocial problem 19 MOTHER (mother-anxiety, depression grandmother. grandfather) Respiratory disorder 19 MOTHER (grandmother- COPD) Seizure disorder Thyroid disease 19 MOTHER (grandfather) Physical Exam Vital Signs Vital Sign - Last 12Hours 12/27/16 16:08 Temp 100.6 Pulse 101 Resp 18 B/P (MAP) 154/71 Pulse Ox 94 O2 Delivery Room Air Capillary Refill : Less Than 3 Seconds General Appearance: WD/WN, mild distress Eyes: Bilateral Eye EOMI, Bilateral Eye Normal Inspection, Bilateral Eye PERRL HEENT: PERRL/EOMI, normal ENT inspection, pharynx normal Neck: non-tender, full range of motion, supple, normal inspection Respiratory: chest non-tender, lungs clear, normal breath sounds, no respiratory distress, no accessory muscle use Cardiovascular: normal peripheral pulses, regular rate, rhythm, no gallop, no JVD, no murmur, other (trace nayeli pedal edema) Gastrointestinal: normal bowel sounds, soft, no organomegaly, other (Uterus fundus palpable between pubis symphisis and umbilicus, approx grapefruit size. Pfannenstiel incision is well approximated without palpable mass, induration, or erythema or discharge.) Genital/Rectal: other (she has some blood at the introitus and dark maroon discharge 15 20 cc in the vaginal vault. 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 II-XII nml as tested, no motor/sensory deficits, alert, oriented x 3 Skin: normal color, warm/dry Lymphatic: no adenopathy Focused Exam Evaluation Sepsis Stage: Sepsis Possible Source: Skin/Soft Tissue Time of Focused Exam: 17:09 Respiratory: Chest Non Tender, Lungs Clear, Normal Breath Sounds, No Accessory Muscle Use, No Respiratory Distress Cardiovascular: Regular Rate, Rhythm, No Gallop, No JVD, No Murmur, Normal Peripheral Pulses, Other (trace bilateral edema) Capillary Refill: Less Than 3 Seconds Peripheral Pulses: 3+ Dorsalis Pedis (R), 3+ Left Dors-Pedis (L) Skin: normal color, warm/dry, other (well-healing Pfannenstiel wound lower abdomen) Lactic Acid Level Laboratory Tests Test 12/27/16 16:30 Lactic Acid Level 1.81 MMOL/L (0.50-2.00) Progress/Results/Core Measures Results/Orders Lab Results Laboratory Tests Test 12/27/16 16:30 12/27/16 16:45 Range/Units White Blood Count 10.7 4.3-11.0 10^3/uL Red Blood Count 3.35 L 4.35-5.85 10^6/uL Hemoglobin 9.9 L 11.5-16.0 G/DL Hematocrit 30 L 35-52 % Mean Corpuscular Volume 90 80-99 FL Mean Corpuscular Hemoglobin 30 25-34 PG Mean Corpuscular Hemoglobin Concent 33 32-36 G/DL Red Cell Distribution Width 12.9 10.0-14.5 % Platelet Count 290 130-400 10^3/uL Mean Platelet Volume 10.4 7.4-10.4 FL Neutrophils (%) (Auto) 84 H 42-75 % Lymphocytes (%) (Auto) 9 L 12-44 % Monocytes (%) (Auto) 7 0-12 % Eosinophils (%) (Auto) 0 0-10 % Basophils (%) (Auto) 0 0-10 % Neutrophils # (Auto) 8.9 H 1.8-7.8 X 10^3 Lymphocytes # (Auto) 1.0 1.0-4.0 X 10^3 Monocytes # (Auto) 0.7 0.0-1.0 X 10^3 Eosinophils # (Auto) 0.0 0.0-0.3 10^3/uL Basophils # (Auto) 0.0 0.0-0.1 10^3/uL Prothrombin Time 14.1 12.2-14.7 SEC INR Comment 1.1 0.8-1.4 Activated Partial Thromboplast Time 38 H 24-35 SEC Sodium Level 139 135-145 MMOL/L Potassium Level 3.7 3.6-5.0 MMOL/L Chloride Level 109 H 98-107 MMOL/L Carbon Dioxide Level 18 L 21-32 MMOL/L Anion Gap 12 5-14 MMOL/L Blood Urea Nitrogen 14 7-18 MG/DL Creatinine 1.00 0.60-1.30 MG/DL Estimat Glomerular Filtration Rate > 60 BUN/Creatinine Ratio 14 Glucose Level 106 H 70-105 MG/DL Lactic Acid Level 1.81 0.50-2.00 MMOL/L Calcium Level 8.7 8.5-10.1 MG/DL Total Bilirubin 0.6 0.1-1.0 MG/DL Aspartate Amino Transf (AST/SGOT) 11 5-34 U/L Alanine Aminotransferase (ALT/SGPT) 11 0-55 U/L Alkaline Phosphatase 70 40-136 U/L Total Protein 5.9 L 6.4-8.2 G/DL Albumin 3.0 L 3.2-4.5 G/DL Amylase Level 41 25-125 U/L Lipase 12 8-78 U/L Thyroid Stimulating Hormone (TSH) 1.28 0.35-4.94 UIU/ML Urine Color YELLOW Urine Clarity CLEAR Urine pH 6 5-9 Urine Specific [place] 1.010 L 1.016-1.022 Urine Protein NEGATIVE NEGATIVE Urine Glucose (UA) NEGATIVE NEGATIVE Urine Ketones NEGATIVE NEGATIVE Urine Nitrite NEGATIVE NEGATIVE Urine Bilirubin NEGATIVE NEGATIVE Urine Urobilinogen NORMAL NORMAL MG/DL Urine Leukocyte Esterase 3+ H NEGATIVE Urine RBC (Auto) 5+ H NEGATIVE Urine RBC 2-5 H /HPF Urine WBC 5-10 H /HPF Urine Squamous Epithelial Cells 2-5 /HPF Urine Crystals NONE /LPF Urine Bacteria NEGATIVE /HPF Urine Casts NONE /LPF Urine Mucus NEGATIVE /LPF Urine Culture Indicated YES My Orders Orders - SHILPA COLE Us Venous Lower Ext Nayeli (12/27/16 16:24) Amylase (12/27/16 16:24) Cbc With Automated Diff (12/27/16 16:24) Comprehensive Metabolic Panel (12/27/16 16:24) Lactic Acid Analyzer (12/27/16 16:24) Lipase (12/27/16 16:24) Protime With Inr (12/27/16 16:24) Partial Thromboplastin Time (12/27/16 16:24) Thyroid Stimulating Hormone (12/27/16 16:24) Ua Culture If Indicated (12/27/16 16:24) Blood Culture (12/27/16 16:24) Saline Lock/Iv-Start (12/27/16 16:24) Urine Culture (12/27/16 16:45) Ceftriaxone Injection (Rocephin Injectio (12/27/16 17:15) Vital Signs/I&O Vital Sign - Last 12Hours 12/27/16 16:08 Temp 100.6 Pulse 101 Resp 18 B/P (MAP) 154/71 Pulse Ox 94 O2 Delivery Room Air Blood Pressure Mean: 98 Progress Note : Time: 16:36 Progress Note Patient with 9 day fever 2.8 and history of gestational hypertension as well as essential hypertension now with swelling and abdominal pain so there is some concern for help syndrome. While her wound is tender it is very unremarkable on exam and appears very well-healed. There is also the possibility she could be having a DVT with a recent history of travel, delivery, surgery and sedentary lifestyle. She is having no shortness of breath, tachypnea or hypoxemia but positive for tachycardia. We will get an ultrasound of her deep veins. We'll also obtain liver enzymes, PT INR, PTT, CBC and a urinalysis as well as a lactate and 2 blood cultures. With her fever and tachycardia as well as concern for her urine infection it is reasonable to call her septic. 1715: Liver enzymes and PT/INR were normal. No elevated white count. Platelets normal. Hb down a point from post-op with 9.9 mg/dl. PTT only marginally elevated. UA is contaminated but may be indicative of a UTI. We will give a gram or Rocephin. In view of an UTI and not very severe lower abdominal wall pain that has not required any pain meds since being here a more urgent surgical cause of abd pain like torsion or ovaries, fallopian's, uterus is much less likely. A cephalosporin such as Keflex would be useful against urinary tract infections as well as safe for breast-feeding mom's and can have some benefit if there is any skin or soft tissue infection concerns such as wound. Diagnostic Imaging Diagonstic Imaging: Ultrasound Plain Films/CT/US/NM/MRI: leg (Nayeli Deep veins) Comments Neg US Duplex Reviewed: Reviewed by Me Consults Consults : Consulting Physician: NED MULLINS DO Consults Notes 1700: Discussed the case with her OB doctor. Only lab back yet was the CBC.Wanted to ask about US of Uterus and Uterine size and lochia. He says if the patient doesn't meet admission criteria that he wanted to see her this week. He doesn't think that an ultrasound is sensitive enough to show anything especially if she doesn't have anything showing at the os and she had a C- section so retained placenta is very unlikely. Departure Impression Impression: Primary Impression: Fever Qualified Codes: R50.9 - Fever, unspecified Additional Impressions: Abdominal pain Qualified Codes: R10.30 - Lower abdominal pain, unspecified UTI (urinary tract infection) Qualified Codes: N30.01 - Acute cystitis with hematuria Disposition: HOME, SELF-CARE Condition: Stable Departure-Patient Inst. Decision time for Depature: 17:50 Referrals: NED MULLINS DO (PCP) Primary Care Physician ZEINA TRIPP DO (Family) Primary Care Physician Patient Instructions: Urinary Tract Infection, Adult (DC) Add. Discharge Instructions: You appear to have a urinary tract infection which is common after delivery. You have been given an antibiotic by IV in the ER and will be allowed to go home with a similar antibiotic to be taken twice daily with some food. It is considered generally safe for breast-feeding but if your baby starts having any diarrhea or concerning symptoms then you should discontinue breast-feeding and pump and dump rest milk until 3 days after you're finished with the antibiotic. You should continue to drink plenty of fluids and use your pain meds appropriately. If you're getting constipated you should use MiraLAX to keep your stool soft. Monitor your wound and if you see any bright redness, draining or increasing pain at the site you should bring this up with your cargo inspector or bring yourself back to the ER if the symptoms are severe. You should make an appointment to see your cargo inspector this week in follow-up from this ER visit. Your blood pressure was elevated in the ER today and you should discuss with her cargo inspector and your personal physician using a medicine to control this as uncontrolled blood pressure can lead to an increased lifelong risk of heart attack and stroke as well as other problems. All discharge instructions reviewed with patient and/or family. Voiced understanding. Scripts Cephalexin (Keflex) 500 Mg Capsule 500 MG PO BID WITH MEALS for 10 Days, #20 CAP 0 Refills Prov: SHILPA COLE 12/27/16 Copy Copies To 1: ZEINA TRIPP DO Copies To 2: NED MULLINS DO SHILPA COLE December 27, 2016 16:24
[2016-12-27 16:44] LABS: BASOPHILS % (AUTO) 0 % (0-10); EOSINOPHILS % (AUTO) 0 % (0-10); LYMPHOCYTES % (AUTO) 9 % (12-44); MEAN CORPUSCULAR HEMOGLOBIN 30 PG (25-34); MEAN CORPUSCULAR HGB CONC 33 G/DL (32-36); MEAN CORPUSCULAR VOLUME 90 FL (80-99); MEAN PLATELET VOLUME 10.4 FL (7.4-10.4); MONOCYTES # (AUTO) 0.7 X 10^3 (0.0-1.0); MONOCYTES % (AUTO) 7 % (0-12); NEUTROPHILS # (AUTO) 8.9 X 10^3 (1.8-7.8); NEUTROPHILS % (AUTO) 84 % (42-75); PLATELET COUNT 290 10^3/uL (130-400); RED BLOOD COUNT 3.35 10^6/uL (4.35-5.85); RED CELL DISTRIBUTION WIDTH 12.9 % (10.0-14.5); WHITE BLOOD COUNT 10.7 10^3/uL (4.3-11.0)
[2016-12-27 17:03] LABS: BILIRUBIN,URINE NEGATIVE (NEGATIVE); KETONES,URINE NEGATIVE (NEGATIVE); LEUKOCYTE ESTERASE ,URINE 3+ (NEGATIVE); NITRITE,URINE NEGATIVE (NEGATIVE); PH,URINE 6 (5-9); PROTEIN,URINE NEGATIVE (NEGATIVE); UROBILINOGEN,URINE NORMAL (NORMAL)
[2016-12-27 17:05] LABS: ALANINE AMINOTRANSFERASE 11 U/L (0-55); AMYLASE 41 U/L (25-125); ANION GAP 12 MMOL/L (5-14); ASPARTATE AMINO TRANSFERASE 11 U/L (5-34); BILIRUBIN,TOTAL 0.6 MG/DL (0.1-1.0); BLOOD UREA NITROGEN 14 MG/DL (7-18); BUN/CREATININE RATIO 14; CALCIUM 8.7 MG/DL (8.5-10.1); CARBON DIOXIDE 18 MMOL/L (21-32); CHLORIDE 109 MMOL/L (98-107); GFR ESTIMATED > 60; GLUCOSE 106 MG/DL (70-105); LIPASE 12 U/L (8-78); POTASSIUM 3.7 MMOL/L (3.6-5.0); SODIUM 139 MMOL/L (135-145); TOTAL PROTEIN 5.9 G/DL (6.4-8.2)
[2016-12-27 17:09] LABS: INR 1.1 (0.8-1.4); PROTHROMBIN TIME PATIENT 14.1 SEC (12.2-14.7)
[2016-12-27] MEDS ORDERED: cefTRIAXone INJECTION 1,000 MG in NS (IVPB) 50 ML IV ONE (17:15)
[2016-12-27 17:25] LABS: THYROID STIMULATING HORMONE 1.28 UIU/ML (0.35-4.94)
[2016-12-27] MEDS ORDERED: CEPH-507 PO (17:42)
--- NOTE | 2016-12-27 18:00 | Diagnostic Imaging Report ---
CLINICAL INDICATION: Patient with bilateral leg swelling postop on 12/18/2016. COMPARISON: None. PROCEDURE: Real-time bilateral lower extremity venous Doppler duplex evaluation is performed from the inguinal region through the popliteal fossa. The calf venous structures are also evaluated. FINDINGS: The deep venous system is well visualized and is easily compressible. There is no evidence of deep venous thrombosis, valvular incompetence, or significant collateral circulation. IMPRESSION: There is no ultrasound Doppler evidence of deep venous thrombosis in the bilateral lower extremities. Dictated by: Dictated on workstation # [id number]
[2016-12-27 18:07] VITALS: BP 151/75
== END 2016-12-27 18:07 | disposition home or self-care (01) ==
LOC: EDUNIT# 15:50 → ER 15:52
DX: O86.22 Infection of bladder following delivery (principal); O16.5 Unspecified maternal hypertension, complicating the puerperium; R50.9 Fever, unspecified; R60.9 Edema, unspecified; G89.18 Other acute postprocedural pain
CPT/HCPCS: 36415; 80053; 81000; 82150; 83605; 83690; 84443; 85025; 85610; 85730; 87040; 87088; 93970; 96374

== ENCOUNTER 2017-04-04 16:11 | Emergency (ER) | payer MEDICAID ==
[~2017-04-04] VITALS: Ht 157.5 cm; Wt 98.0 kg
[~2017-04-04 16:11] MED LIST changes: +ASPI-789 PO; -ASPI1TAB22 PO
[2017-04-04 16:33] LABS: BILIRUBIN,URINE NEGATIVE (NEGATIVE); KETONES,URINE NEGATIVE (NEGATIVE); LEUKOCYTE ESTERASE ,URINE NEGATIVE (NEGATIVE); NITRITE,URINE NEGATIVE (NEGATIVE); PH,URINE 8 (5-9); PROTEIN,URINE NEGATIVE (NEGATIVE); UROBILINOGEN,URINE NORMAL (NORMAL)
[2017-04-04] MEDS ORDERED: KETOROLAC 30 MG/ML VIAL IVP STA (16:36)
[2017-04-04] MEDS ORDERED: NS IV 1000 ML 1,000 ML IV ONE (16:36)
[2017-04-04] MEDS ORDERED: VALA10004 PO (16:38)
[2017-04-04] MEDS ORDERED: TOPI15CA6 PO (16:38)
[2017-04-04] MEDS ORDERED: LOSA25TA21 PO (16:38)
[2017-04-04] MEDS ORDERED: BIRTH CONTROL (16:38)
[2017-04-04] MEDS ORDERED: SERT25TA PO (16:38)
--- NOTE | 2017-04-04 16:43 | ED GU-Female ---
General Chief Complaint: -Female Stated Complaint: SPOTTING/PELVIC PAIN Nursing Triage Note: PT HAVING SPOTTING AND LOW ABD PAIN Nursing Sepsis Screen: No Definite Risk Source: patient Exam Limitations: no limitations History of Present Illness Time seen by provider: 16:32 Initial Comments 26 yo female patient presents to the ED with c/o 3-4 onset of vaginal spotting with moderate to severe lower abdominal pain beginning this AM. Denies fever, chills, n/v/d, dysuria, frequency, or hematuria. MANAGER ACTUARIAL is Dr. Bryant. Delivered 3 months ago. Timing/Duration: getting worse Severity/Quality: cramping, stabbing Location: suprapubic Radiation: none Activities at Onset: none Prior Genitourinary Problems: none Sexual [place] History: less than 2 months ago, single partner Modifying Factors: Worsens With Movement, Worsens With Palpation Allergies and Home Medications Allergies Coded Allergies: latex (Unverified Allergy, Unknown, 05/14/16) tramadol (Unverified Allergy, Unknown, 05/14/16) Home Medications Losartan Potassium 25 Mg Tablet, 25 MG PO DAILY, (Reported) Sertraline HCl 25 Mg Tablet, Unknown Dose PO, (Reported) Topiramate 15 Mg Cap.sprink, Unknown Dose PO, (Reported) Valacyclovir HCl 1,000 Mg Tablet, Unknown Dose PO, (Reported) [ Control] , Unknown Dose, (Reported) Constitutional: No chills, No fever, No malaise Respiratory: no symptoms reported Cardiovascular: no symptoms reported Gastrointestinal: see HPI, abdominal pain, No constipation, No diarrhea, No nausea, No vomiting Genitourinary: see HPI, denies burning, denies discharge (denies yellow or green dsch), denies dysuria, denies frequency, denies flank pain, denies hematuria, pain, other (vaginal spotting) : No LMP: Mar 26, 2017 Musculoskeletal: No back pain Psychiatric/Neurological: No Symptoms Reported All Other Systemes Reviewed Negative Unless Noted: Yes (Negative excepted noted.) Past Nlunkna-Kfhpzx-Pcvnfi Hx Patient Social History Alcohol Use: Denies Use Recreational Drug Use: No Smoking Status: Current Everyday Smoker Type Used: Cigarettes 2nd Hand Smoke Exposure: No Recent Foreign Travel: No Contact w/Someone Who Travel: No Recent Infectious Disease Expo: No Recent Hopitalizations: Yes ( 12/18/16) Immunizations Up To Date Tetanus Booster (TDap): Less than 5yrs PED Vaccines UTD: Yes Date of Influenza Vaccine: May 19, 2016 Seasonal Allergies Seasonal Allergies: Yes Surgeries HX Surgeries: Yes (L ANKLE; D&C, BX NECK) Surgeries: Adenoidectomy, Section, Orthopedic, Tonsillectomy Respiratory Hx Respiratory Disorders: No Respiratory Disorders: Asthma Cardiovascular Hx Cardiac Disorders: Yes Cardiac Disorders: Hypertension Neurological Hx Neurological Disorders: Yes Neurological Disorders: Headaches /Migraines Reproductive System : No Hx : 2 Hx Para: 1 Hx Total # of Abortions (Spona: 1 Hx Reproductive Disorders: Yes Sexually Transmitted Disease: Yes HIV/AIDS: No Female Reproductive Disorders: Polycystic Ovarian Dis Genitourinary Hx Genitourinary Disorders: No Gastrointestinal Hx Gastrointestinal Disorders: No Gastrointestinal Disorders: Colitis Musculoskeletal Hx Musculoskeletal Disorders: No Musculoskeletal Disorders: Scoliosis Endocrine Hx Endocrine Disorders: No HEENT HX ENT Disorders: No Cancer Hx Cancer: No Psychosocial Hx Psychiatric Problems: No Behavioral Health Disorders: Anxiety Integumentary HX Skin/Integumentary Disorder: No Skin/Integumentary Disorders: Eczema, Recent Skin Changes, Herpes Blood Transfusions Hx Blood Disorders: No Adverse Reaction to a Blood Tr: No Reviewed Nursing Assessment Reviewed/Agree w Nursing PMH: Yes Family Medical History Significant Family History: No Pertinent Family Hx Family Medial History: Alcoholism 19 FATHER (father) Aphasia Arthritis 19 MOTHER (maternal grandmother, mother) Asthma 19 MOTHER (maternal grandmother, sister) Cardiovascular disease 19 FATHER (father) 19 MOTHER (maternal grandparents.) Cataracts 19 MOTHER (grandparents) Completed stroke 19 MOTHER (grandfatgher) Coronary thrombosis 19 MOTHER (grandfather) Dementia 19 MOTHER (grandmother) Diabetes mellitus 19 MOTHER (mother, grandfather) Drug abuse 19 FATHER (father) 19 MOTHER (mother) Dysphasia 19 MOTHER (grandfather) Fibrocystic disease of breast 19 MOTHER (mother) Hypercholesterolemia 19 MOTHER (grandmother, mother) Hypertension 19 FATHER (father) 19 MOTHER (mother, grandfather) Kidney disease 19 MOTHER (grandfather) Myocardial infarction 19 FATHER (dad) 19 MOTHER (grandfather) Psychosocial problem 19 MOTHER (mother-anxiety, depression grandmother. grandfather) Respiratory disorder 19 MOTHER (grandmother- COPD) Seizure disorder Thyroid disease 19 MOTHER (grandfather) Physical Exam Vital Signs Vital Sign - Last 12Hours 04/04/17 04/04/17 16:25 19:23 Temp 99.2 Pulse 79 Resp 18 B/P (MAP) 123/66 Pulse Ox 99 O2 Delivery Room Air Capillary Refill : Less Than 3 Seconds General Appearance: WD/WN, no apparent distress, other (patient sitting up in bed with her legs crossed.) HEENT: PERRL/EOMI, pharynx normal Neck: supple, normal inspection Cardiovascular: normal peripheral pulses, regular rate, rhythm, no edema, no murmur Respiratory: lungs clear, normal breath sounds, no respiratory distress, no accessory muscle use Gastrointestinal: normal bowel sounds, soft, no organomegaly, No distended, guarding (suprapubic and LLQ), No rebound, tenderness (suprapubic and LLQ) Back: normal inspection, no CVA tenderness Extremities: no pedal edema, normal capillary refill Neurologic/Psychiatric: alert, normal mood/affect, oriented x 3 Skin: normal color, warm/dry Progress/Results/Core Measures Results/Orders Lab Results Laboratory Tests Test 04/04/17 16:20 04/04/17 16:50 Range/Units Urine Color YELLOW Urine Clarity CLEAR Urine pH 8 5-9 Urine Specific [place] 1.010 L 1.016-1.022 Urine Protein NEGATIVE NEGATIVE Urine Glucose (UA) NEGATIVE NEGATIVE Urine Ketones NEGATIVE NEGATIVE Urine Nitrite NEGATIVE NEGATIVE Urine Bilirubin NEGATIVE NEGATIVE Urine Urobilinogen NORMAL NORMAL MG/DL Urine Leukocyte Esterase NEGATIVE NEGATIVE Urine RBC (Auto) 3+ H NEGATIVE Urine RBC NONE /HPF Urine WBC NONE /HPF Urine Squamous Epithelial Cells 2-5 /HPF Urine Crystals NONE /LPF Urine Bacteria NEGATIVE /HPF Urine Casts NONE /LPF Urine Mucus NEGATIVE /LPF Urine Culture Indicated NO White Blood Count 10.5 4.3-11.0 10^3/uL Red Blood Count 4.21 L 4.35-5.85 10^6/uL Hemoglobin 12.8 11.5-16.0 G/DL Hematocrit 38 35-52 % Mean Corpuscular Volume 91 80-99 FL Mean Corpuscular Hemoglobin 30 25-34 PG Mean Corpuscular Hemoglobin Concent 34 32-36 G/DL Red Cell Distribution Width 12.9 10.0-14.5 % Platelet Count 280 130-400 10^3/uL Mean Platelet Volume 11.8 H 7.4-10.4 FL Neutrophils (%) (Auto) 61 42-75 % Lymphocytes (%) (Auto) 31 12-44 % Monocytes (%) (Auto) 4 0-12 % Eosinophils (%) (Auto) 3 0-10 % Basophils (%) (Auto) 0 0-10 % Neutrophils # (Auto) 6.4 1.8-7.8 X 10^3 Lymphocytes # (Auto) 3.3 1.0-4.0 X 10^3 Monocytes # (Auto) 0.5 0.0-1.0 X 10^3 Eosinophils # (Auto) 0.3 0.0-0.3 10^3/uL Basophils # (Auto) 0.0 0.0-0.1 10^3/uL Sodium Level 140 135-145 MMOL/L Potassium Level 4.1 3.6-5.0 MMOL/L Chloride Level 111 H 98-107 MMOL/L Carbon Dioxide Level 20 L 21-32 MMOL/L Anion Gap 9 5-14 MMOL/L Blood Urea Nitrogen 19 H 7-18 MG/DL Creatinine 0.86 0.60-1.30 MG/DL Estimat Glomerular Filtration Rate > 60 BUN/Creatinine Ratio 22 Glucose Level 83 70-105 MG/DL Calcium Level 9.3 8.5-10.1 MG/DL Total Bilirubin 0.3 0.1-1.0 MG/DL Aspartate Amino Transf (AST/SGOT) 13 5-34 U/L Alanine Aminotransferase (ALT/SGPT) 13 0-55 U/L Alkaline Phosphatase 54 40-136 U/L Total Protein 7.0 6.4-8.2 GM/DL Albumin 4.0 3.2-4.5 GM/DL My Orders Orders - ORTIZ RAY Urine Bedside (04/04/17 16:24) Ua Culture If Indicated (04/04/17 16:24) Cbc With Automated Diff (04/04/17 16:36) Comprehensive Metabolic Panel (04/04/17 16:36) Saline Lock/Iv-Start (04/04/17 16:36) Ketorolac Injection (Toradol Injection) (04/04/17 16:36) Ns Iv 1000 Ml (Sodium Chloride 0.9%) (04/04/17 16:36) Us Non Ob Pelvis Comp/Transvag (04/04/17 16:36) Iv Push Dubbing Machine Operator Ed (04/04/17 ) Medications Given in ED Vital Signs/I&O Blood Pressure Mean: 85 Point of Care Testing Urine -Bedside: Negative Diagnostic Imaging Diagonstic Imaging: Ultrasound Plain Films/CT/US/NM/MRI: pelvis Comments FINDINGS: The uterus is normal in size, shape and position. Myometrium and endometrium appear normal. Ovaries appear normal and have normal blood flow. There is no free fluid. IMPRESSION: Negative pelvic sonogram. Dictated by: Dictated on workstation # [id number] Reviewed: Reviewed by Me (radiology report reviewed by me) Departure Communication Progress Notes all laboratory and diagnostic findings discussed with the patient. patient refuses pelvic exam and states she would like to f/u with dr. bryant for pelvic. i have stressed the importance of contacting his office wednesday for appointment time. patient verbalizes understanding. patient case discussed with dr. friedman, he agrees with the plan of care. Impression Impression: Primary Impression: Abdominal pain Qualified Codes: R10.30 - Lower abdominal pain, unspecified Additional Impression: Vaginal spotting Disposition: HOME, SELF-CARE Condition: Improved Departure-Patient Inst. Decision time for Depature: 18:30 Referrals: KENDALL DAVIS (PCP) Primary Care Physician [facility] (Family) Primary Care Physician Patient Instructions: Acute Abdomen (Belly Pain), Adult (DC), IRREGULAR VAGINAL BLEEDING Add. Discharge Instructions: All discharge instructions reviewed with patient and/or family. Voiced understanding. Tylenol extra strength [id number] as directed for pain. Ibuprofen 800 mg by mouth every 8 hours as needed for pain. No intercourse until seen by Dr. Bryant. Follow-up with Dr. Bryant this week for recheck and for pelvic exam. Call for appointment time. Return immediately to the emergency department for worsened symptoms, fever, inability to urinate, rectal bleeding, black stools, abdominal swelling, or any other concerns. ORTIZ RAY Apr 04, 2017 4:43 pm
[2017-04-04 16:59] LABS: BASOPHILS % (AUTO) 0 % (0-10); EOSINOPHILS # (AUTO) 0.3 10^3/uL (0.0-0.3); EOSINOPHILS % (AUTO) 3 % (0-10); LYMPHOCYTES # (AUTO) 3.3 X 10^3 (1.0-4.0); LYMPHOCYTES % (AUTO) 31 % (12-44); MEAN CORPUSCULAR HEMOGLOBIN 30 PG (25-34); MEAN CORPUSCULAR HGB CONC 34 G/DL (32-36); MEAN CORPUSCULAR VOLUME 91 FL (80-99); MEAN PLATELET VOLUME 11.8 FL (7.4-10.4); MONOCYTES # (AUTO) 0.5 X 10^3 (0.0-1.0); MONOCYTES % (AUTO) 4 % (0-12); NEUTROPHILS # (AUTO) 6.4 X 10^3 (1.8-7.8); NEUTROPHILS % (AUTO) 61 % (42-75); PLATELET COUNT 280 10^3/uL (130-400); RED BLOOD COUNT 4.21 10^6/uL (4.35-5.85); RED CELL DISTRIBUTION WIDTH 12.9 % (10.0-14.5); WHITE BLOOD COUNT 10.5 10^3/uL (4.3-11.0)
[2017-04-04 17:20] LABS: ALANINE AMINOTRANSFERASE 13 U/L (0-55); ANION GAP 9 MMOL/L (5-14); ASPARTATE AMINO TRANSFERASE 13 U/L (5-34); BILIRUBIN,TOTAL 0.3 MG/DL (0.1-1.0); BLOOD UREA NITROGEN 19 MG/DL (7-18); BUN/CREATININE RATIO 22; CALCIUM 9.3 MG/DL (8.5-10.1); CARBON DIOXIDE 20 MMOL/L (21-32); CHLORIDE 111 MMOL/L (98-107); CREATININE SERUM 0.86 MG/DL (0.60-1.30); GFR ESTIMATED > 60; GLUCOSE 83 MG/DL (70-105); POTASSIUM 4.1 MMOL/L (3.6-5.0); SODIUM 140 MMOL/L (135-145)
--- NOTE | 2017-04-04 18:17 | Diagnostic Imaging Report ---
INDICATION: Pelvic pain. EXAMINATION: Pelvic sonogram, transabdominal and endovaginal scanning was performed. FINDINGS: The uterus is normal in size, shape and position. Myometrium and endometrium appear normal. Ovaries appear normal and have normal blood flow. There is no free fluid. IMPRESSION: Negative pelvic sonogram. Dictated by: Dictated on workstation # [id number]
[2017-04-04 19:23] VITALS: BP 124/83
== END 2017-04-04 19:23 | disposition home or self-care (01) ==
LOC: EDUNIT# 16:11 → ER 16:13
DX: N93.9 Abnormal uterine and vaginal bleeding, unspecified (principal); R10.30 Lower abdominal pain, unspecified; G43.909 Migraine, unspecified, not intractable, without status migrainosus; I10 Essential (primary) hypertension; J45.909 Unspecified asthma, uncomplicated; F41.9 Anxiety disorder, unspecified; F17.210 Nicotine dependence, cigarettes, uncomplicated; Z87.39 Personal history of other diseases of the musculoskeletal system and connective tissue; Z87.19 Personal history of other diseases of the digestive system; Z87.42 Personal history of other diseases of the female genital tract; Z86.19 Personal history of other infectious and parasitic diseases; Z90.89 Acquired absence of other organs; Z90.49 Acquired absence of other specified parts of digestive tract; Z87.59 Personal history of other complications of pregnancy, childbirth and the puerperium; Z32.02 Encounter for pregnancy test, result negative
CPT/HCPCS: 36415; 76830; 76856; 80053; 81000; 84703; 85025; 96361; 96374; 99282

== ENCOUNTER → 2018-03-17 | Outpatient (CLI) | payer MEDICAID ==
[~2018-03-17] MED LIST changes: +ACHD5005 PO; +BIRTH CONTROL; -HYDR-3812 PO; +LOSA25TA21 PO; -METF500T4 PO; +METF500T5 PO; +TOPI15CA6 PO; +VALA10004 PO
--- NOTE | 2018-03-17 16:49 | Diagnostic Imaging Report ---
INDICATION: Undergoing anatomical assessment. TECHNIQUE: Multiple real-time grayscale images were obtained over the gravid uterus. COMPARISON: None FINDINGS: There is presence of a single viable intrauterine currently in a variable presentation. Placenta fundal aspect without previa. There is normal amount of amniotic fluid present. anatomical assessment demonstrates nonvisualization of the cardiac structures owing to positioning. Otherwise, the kidneys, bladder, stomach, intracranial structures, three-vessel cord and its insertion site as well as spine appear unremarkable. Maternal adnexa not imaged. Cervical length at 4.1 cm. Biometrical measurements are as follows: Biparietal 4.74 cm, age 20 weeks 3 days. Head circumference 17.39 cm, age 20 weeks 0 days. Abdominal circumference 14.26 cm, age 19 weeks 5 days. Femur length 3.19 cm, age 20 weeks 0 days. Sonographic estimate age: 20 weeks 1 days. Sonographic estimated date of delivery: 08/03/2018. Estimated Weight: 314 gm (+/- 46 gm). LMP percentile: 27%. heart rate: 153 beats per minute. number: 1 of 1. IMPRESSION: 1. Single viable intrauterine currently in a variable presentation. Sonographically estimated age 20 weeks 1 day for an estimated date of delivery August 03, 2018. 2. No abnormality is noted at this time. However, four-chamber heart structures are not well assessed owing to positioning. Dictated by: Dictated on workstation # [id number]
== END ==
LOC: RAD 14:03
PROVIDERS: ATTEND Obstetrics & Gynecology
DX: Z34.92 Encounter for supervision of normal pregnancy, unspecified, second trimester (principal); Z3A.20 20 weeks gestation of pregnancy
CPT/HCPCS: 76805

== ENCOUNTER 2018-03-25 10:50 | Emergency (ER) | payer MEDICAID ==
[~2018-03-25] VITALS: Ht 157.5 cm; Wt 104.3 kg
--- OUTSIDE RECORDS SUMMARY | 2018-03-25 10:58 | XMS REPORT ---
Author Author MARY HALL Organization [facility] Address [address] [place] [address] Care Team Providers Care Program Admin Name Role Phone MARY HALL Unavailable PROBLEMS Type Condition ICD9-CM Code [id number] Code Onset Dates Condition Status SNOMED Code Problem Metabolic syndrome E88.81 Active 637110316 Problem Polycystic ovaries E28.2 Active 06580761 Problem Hx of migraines Z86.69 Active 514564310 Problem Chronic headaches R51 Active 541352438 Problem Major depressive disorder, single episode, severe F32.2 Active 100748613116 Problem HTN (hypertension) I10 Active 52912992 Problem Irregular menses N92.6 Active 06087237 Problem Morbid obesity, unspecified obesity type E66.01 Active 218079322 Problem Anxiety state, unspecified F41.1 Active 775969934 Problem Obesity, unspecified E66.9 Active 420860839 ALLERGIES Substance Reaction Event Type Date Status Ultram nausea and vomiting Drug Allergy Oct, Active Latex Unknown Non Drug Allergy Oct, Active ENCOUNTERS Encounter Location Date Diagnosis [facility] [id number] [place] [address] Oct, Sore throat J02.9 ; Viral pharyngitis J02.9 and BMI 40.0- 44.9, adult Z68.41 [facility] [address] [address] Jul, Sore throat J02.9 and Pharyngitis due to other organism J02.8 [facility] [address] [place] [phone] May, Encounter for immunization Z23 [facility] [id number] [place] [address] Mar, Gastroenteritis and colitis, viral A08.4 [facility] [id number] [place] [address] 15 Mar, 2017 Acute middle ear effusion, right H65.191 [facility] [id number] [place] [address] 11 Mar, 2017 Neck pain M54.2 and Chronic headaches R51 [place] [address] [address] 10 Mar, 2017 Chronic headaches R51 ; Neck pain M54.2 ; HTN (hypertension ) I10 ; Major depressive disorder, single episode, severe F32.2 and Polycystic ovaries E28.2 [place] [address] [address] Jan, HTN (hypertension) I10 [place] [address] [address] Jan, [place] [address] [address] Sep, Major depressive disorder, single episode, severe F32.2 [place] [address] [address] Sep, [place] [address] [address] Jul, Gastroenteritis K52.9 [place] [address] [address] 23 Jun, 2016 Tinea pedis of both feet B35.3 and Normal in multigravida in first trimester Z34.81 [place] [address] [address] 14 Jun, 2016 Visit for TB skin test Z11.1 [place] [address] [address] 11 Jun, 2016 Pre-employment drug screening Z02.1 [place] [address] [address] [address] 30 Apr, 2016 [place] [id number] [place] [address] 21 Apr, 2016 confirmed by positive urine test Z32.01 and in first trimester with history of infertility, antepartum O09.01 [facility] [address] [place] [address] 08 Apr, 2016 Laceration T14.8 [facility] [id number] [place] [address] 05 Mar, 2016 Pelvic cramping R10.2 ; Other specified bacterial agents as the cause of diseases classified elsewhere B96.89 and Acute vaginitis N76.0 [place] [id number] [place] [address] 08 Feb, 2016 [place] [id number] [place] [address] Feb, Lower abdominal pain R10.30 ; Metabolic syndrome E88.81 and Morbid obesity, unspecified obesity type E66.01 [place] [id number] [place] [address] Feb, Encounter for test, result unknown Z32.00 [place] [address] [place] [address] December, Herpes simplex vulvovaginitis A60.04 [place] [id number] [place] [address] December, Morbid obesity, unspecified obesity type E66.01 [place] [id number] [place] [address] Nov, Perineal irritation L98.9 [place] [id number] [place] [address] Oct, [place] [id number] [place] [address] Oct, HTN (hypertension) I10 ; Obesity, unspecified E66.9 ; Polycystic ovaries E28.2 ; Hx of migraines Z86.69 ; Headache R51 and Fungal dermatitis B36.9 [place] [id number] [place] [address] Oct, [address] [address] Sep, Metabolic syndrome E88.81 ; Chronic headaches R51 ; Polycystic ovaries E28.2 ; History of PCOS Z87.42 and HTN (hypertension) I10 [address] [address] Aug, [address] [address] Jul, Low grade intrepith lesion cyto smr crvx (LGSIL) R87.[address] [address] Jul, Encounter for screening for malignant neoplasm of cervix Z12.4 ; Well woman exam Z01.419 ; Morbid obesity, unspecified obesity type E66.01 ; Unprotected sexual intercourse Z72.51 ; Vaginal discharge N89.8 ; Lower abdominal pain R10.30 ; Cervicitis N72 ; History of PCOS Z87.42 ; Vaginal dryness N89.8 and Hx of migraines Z86.[address] [address] Jun, Nausea & vomiting R11.2 ; Acute upper respiratory infection , unspecified J06.9 and Other viral agents as the cause of diseases classified elsewhere B97.[address] [address] May, Chronic headaches R51 ; Metabolic syndrome E88.81 ; Environmental allergies Z91.09 and HTN (hypertension) I10 [address] [address] May, [facility] [address] [address] 18 Apr, 2015 Kimberly albicans infection 112.9 [facility] [address] [place] [address] 15 Apr, 2015 [facility] [address] [place] [address] 14 Apr, 2015 [facility] [id number] [place] [address] Apr, Obesity, unspecified 278.00 ; Polycystic ovaries 256.4 ; Headache 784.0 ; Environmental allergies V15.09 and UTI (urinary tract infection ) 599.0 [facility] [address] [address] Feb, Routine general medical examination at a health care facility V70.0 ; Polycystic ovaries 256.4 ; Obesity, unspecified 278.00 and Essential hypertension 401.9 [facility] [address] [address] Nov, [facility] [address] [place] [address] Nov, [facility] [address] [place] [address] Oct, [facility] [address] [place] [address] Oct, [facility] [address] [address] Sep, [facility] [address] [address] Sep, [facility] [address] [place] [address] Sep, [facility] [address], [place] [address] Sep, [facility] [id number] [address] Sep, [facility] [address], [place] [address] Sep, [facility] [address] [address] Aug, [facility] [address] [place] [address] Aug, [facility] [address], [place] [address] Aug, [facility] [address] [address] Aug, [facility] [address], [place] [address] Aug, IMMUNIZATIONS No Known Immunizations SOCIAL HISTORY Never Assessed REASON FOR VISIT Sore throat PLAN OF CARE Activity Details Follow Up prn Reason: VITAL SIGNS Height 62 in 2017-10-28 Weight 231.6 lbs 2017-10-28 Temperature 98.7 degrees Fahrenheit 2017-10-28 Heart Rate 80 bpm 2017-10-28 Respiratory Rate 20 2017-10-28 BMI 42.36 kg/m2 2017-10-28 Blood pressure systolic 118 mmHg 2017-10-28 Blood pressure diastolic 74 mmHg 2017-10-28 MEDICATIONS Medication Instructions Dosage Frequency Start Date End Date Duration Status Lo Loestrin Fe 1 MG-10 MCG / 10 MCG Orally Once a day 1 tablet 24h Not-Taking Promethazine-Codeine 6.25-10 MG/5ML Orally every 6 hrs 5 ml as needed 6h 13 Jul, 2017 Not-Taking Valacyclovir HCl 500 MG Orally Once a day (increase to twice daily x 5 days for acute recurrence) 1 tablet 30 Not-Taking Losartan Potassium 50 mg Orally Once a day 1 tablet 24h Not-Taking Zoloft 25 MG Orally Once a day 1 tablet 24h Not-Taking Flonase 50 mcg/actuation 1 sprays by Nasal route 2 times per day in each nostril Aug, Not-Taking metformin 500 mg take 1 tablet (500 mg) by oral route once daily with the evening meal Aug, Not-Taking Not-Taking Tizanidine HCl 4 MG Orally one hour before bed 1 tablet as needed Mar Not-Taking Topamax 50 mg Orally Twice a day 1 tablet 12h Mar, 30 day(s) Not-Taking Ketoconazole 2 % Externally Once a day 1 application to affected area 24h 23 Jun, 2016 Not-Taking ProAir HFA 90 mcg/actuation inhale 2 puffs by Inhalation route every 4 hours as needed PRN shortness of breath/cough Aug, Active Nystatin 108349 UNIT/GM Externally Twice a day 1 application to affected area 12h 24 Oct, 2015 Not-Taking Topamax 50 mg TAKE ONE TABLET BY MOUTH TWICE DAILY 30 Not-Taking metformin 1,000 mg take 1 tablet (1,000 mg) by oral route once daily Aug, Not-Taking RESULTS Name Result Date Reference Range STREP A (IN HOUSE) 2017-10-28 STREP A negative Control + Lot # [id number] Exp date 06/15/2018 PROCEDURES Procedure Date Ordered Result Body Site STREP A ASSAY W/OPTIC October 28, 2017 INSTRUCTIONS MEDICATIONS ADMINISTERED No Known Medications MEDICAL (GENERAL) HISTORY Type Description Date Medical History hypertension Medical History PCOS Medical History Ulcers as a kid Surgical History D and C 12/2013 Surgical History left ankle surgery 2004 Surgical History tonsillectomy Surgical History c section 2017 Hospitalization History surgery Hospitalization History child
--- OUTSIDE RECORDS SUMMARY | 2018-03-25 10:59 | XMS REPORT ---
Author Author NORMAN THOMAS Organization [facility] Address [address] [place] [address] Care Team Providers Care Reinforcer Name Role Phone NORMAN THOMAS Unavailable PROBLEMS Type Condition ICD9-CM Code RDB30-TP Code Onset Dates Condition Status SNOMED Code Problem Metabolic syndrome E88.81 Active 794061987 Problem Polycystic ovaries E28.2 Active 80405086 Problem Hx of migraines Z86.69 Active 640151189 Problem Chronic headaches R51 Active 880404828 Problem Major depressive disorder, single episode, severe F32.2 Active 259498682305 Problem HTN (hypertension) I10 Active 59893416 Problem Irregular menses N92.6 Active 25059007 Problem Morbid obesity, unspecified obesity type E66.01 Active 837204131 Problem Anxiety state, unspecified F41.1 Active 537377962 Problem Obesity, unspecified E66.9 Active 948629679 ALLERGIES Substance Reaction Event Type Date Status Ultram nausea and vomiting Drug Allergy Jul, Active Latex Unknown Non Drug Allergy Jul, Active ENCOUNTERS Encounter Location Date Diagnosis [facility] [id number] [place] [address] Oct, Sore throat J02.9 ; Viral pharyngitis J02.9 and BMI 40.0- 44.9, adult Z68.41 [facility] [id number] [place] [address]858 Jul, Sore throat J02.9 and Pharyngitis due to other organism J02.8 [facility] [employer] [id number] [place] [id number] May, Encounter for immunization Z23 [facility] [id number] [place] [address]62 [address]256 Mar, Gastroenteritis and colitis, viral A08.4 [facility] [id number] [place] [address]73 [address]95 15 Mar, 2017 Acute middle ear effusion, right H65.191 [facility] [id number] [place] [address] 23852- 0057 Mar, Neck pain M54.2 and Chronic headaches R51 [facility] [address] [address] Mar, Chronic headaches R51 ; Neck pain M54.2 ; HTN (hypertension ) I10 ; Major depressive disorder, single episode, severe F32.2 and Polycystic ovaries E28.2 [place] [address] [address] Jan, HTN (hypertension) I10 [place] [address] [address] Jan, [place] [address] [address] Sep, Major depressive disorder, single episode, severe F32.2 [place] [address] [address] Sep, [facility] [address] [address] Jul, Gastroenteritis K52.9 [place] [address] [address]- [address]146 23 Jun, 2016 Tinea pedis of both feet B35.3 and Normal in multigravida in first trimester Z34.81 [place] [address] [address]- [address]37 14 Jun, 2016 Visit for TB skin test Z11.1 [place] [id number] [place] [address] 50779- 6357 11 Jun, 2016 Pre-employment drug screening Z02.1 [place] [address] [address]- 68[address] 30 Apr, 2016 [place] [id number] [place] [address] 66838- 9783 Apr, confirmed by positive urine test Z32.01 and in first trimester with history of infertility, antepartum O09.01 [facility] [address] [place] [address] 83384 -3095 08 Apr, 2016 Laceration T14.8 [facility] [id number] [place] [address] 82735 -2340 Mar, Pelvic cramping R10.2 ; Other specified bacterial agents as the cause of diseases classified elsewhere B96.89 and Acute vaginitis N76.0 [place] [id number] [place] [address]15- 9149 Feb, [place] [id number] [place] [address] 04105- 7013 Feb, Lower abdominal pain R10.30 ; Metabolic syndrome E88.81 and Morbid obesity, unspecified obesity type E66.01 [place] [id number] [place] [address] 14058- 2789 Feb, Encounter for test, result unknown Z32.00 [place] [id number] [place] [address] 29921- 8365 December, Herpes simplex vulvovaginitis A60.04 [place] [id number] [place] [address] 77318- 2029 December, Morbid obesity, unspecified obesity type E66.01 [place] [id number] [place] [address]48- 6332 Nov, Perineal irritation L98.9 [place] [id number] [place] [address] 99955- 4579 Oct, [place] [id number] [place] [address] 22302- 7228 Oct, HTN (hypertension) I10 ; Obesity, unspecified E66.9 ; Polycystic ovaries E28.2 ; Hx of migraines Z86.69 ; Headache R51 and Fungal dermatitis B36.[address] [address] Oct, [address] [address]- 9[address] Sep, Metabolic syndrome E88.81 ; Chronic headaches R51 ; Polycystic ovaries E28.2 ; History of PCOS Z87.42 and HTN (hypertension) I10 [address] [address]- [address]70 Aug, [address] [address] Jul, Low grade intrepith lesion cyto smr crvx (LGSIL) R87.[address] [address]- [address] Jul, Encounter for screening for malignant neoplasm of cervix Z12.4 ; Well woman exam Z01.419 ; Morbid obesity, unspecified obesity type E66.01 ; Unprotected sexual intercourse Z72.51 ; Vaginal discharge N89.8 ; Lower abdominal pain R10.30 ; Cervicitis N72 ; History of PCOS Z87.42 ; Vaginal dryness N89.8 and Hx of migraines Z86.[address] [address]- [address] Jun, Nausea & vomiting R11.2 ; Acute upper respiratory infection , unspecified J06.9 and Other viral agents as the cause of diseases classified elsewhere B97.[address] [address] 25[address] May, Chronic headaches R51 ; Metabolic syndrome E88.81 ; Environmental allergies Z91.09 and HTN (hypertension) I10 [address] [address]- 4941 May, [address] [id number] [address] 18 Apr, 2015 Kimberly albicans infection 112.9 [facility] [address] [place] [address] 7[address]01- 7174 15 Apr, 2015 [facility] [address] [address] 98[address] 14 Apr, 2015 [facility] [id number] [place] [address] 19385- 2538 Apr, Obesity, unspecified 278.00 ; Polycystic ovaries 256.4 ; Headache 784.0 ; Environmental allergies V15.09 and UTI (urinary tract infection ) 599.0 [facility] [address] [place] [address] 35186- 8727 Feb, Polycystic ovaries 256.4 ; Obesity, unspecified 278.00 ; Routine general medical examination at a health care facility V70.0 and Essential hypertension 401.9 [facility] [address] [address] Nov, [facility] [address] [address] 3[address] Nov, [facility] [id number] [place] [address] 46649- 7001 Oct, [facility] [address] [address] 9[address] Oct, [facility] [address] [address] Sep, [facility] [address] [address] 4[address] Sep, [facility] [id number] [place] [address] 647215- 4389 Sep, [facility] [id number] Sep, [facility] [address] [address] 9[address] Sep, [facility] [id number] [address] Sep, [facility] [id number] [address] 390[address] Aug, [facility] [id number] [address]- 5428 Aug, [facility] [id number] [address]- 8[address] Aug, [facility] [address] [address] 3169 Aug, [facility] [id number] [address] Aug, IMMUNIZATIONS No Known Immunizations SOCIAL HISTORY Never Assessed REASON FOR VISIT sore throat [facility] 3-[facility] VITAL SIGNS Height 62 in 2017-07-28 Weight 228 lbs 2017-07-28 Temperature 97.8 degrees Fahrenheit 2017-07-28 Heart Rate 72 bpm 2017-07-28 Respiratory Rate 22 2017-07-28 BMI 41.70 kg/m2 2017-07-28 Blood pressure systolic 120 mmHg 2017-07-28 Blood pressure diastolic 58 mmHg 2017-07-28 MEDICATIONS Medication Instructions Dosage Frequency Start Date End Date Duration Status Diflucan 150 MG Orally Once a day 1 tablet 24h Jul, Jul, 03 days Active Valacyclovir HCl 500 MG Orally Once a day (increase to twice daily x 5 days for acute recurrence) 1 tablet 30 Active Topamax 50 mg TAKE ONE TABLET BY MOUTH TWICE DAILY 30 Not-Taking Amoxicillin 500 MG Orally every 12 hrs 1 capsule 12h Jul, Jul, 10 day(s) Active ProAir HFA 90 mcg/actuation inhale 2 puffs by Inhalation route every 4 hours as needed PRN shortness of breath/cough Aug, Active Not-Taking Topamax 50 mg Orally Twice a day 1 tablet 12h 10 Mar, 2017 30 day(s) Active Promethazine-Codeine 6.25-10 MG/5ML Orally every 6 hrs 5 ml as needed 6h 13 Jul, 2017 Active Zoloft 25 MG Orally Once a day 1 tablet 24h Not-Taking Losartan Potassium 50 mg Orally Once a day 1 tablet 24h Active metformin 500 mg take 1 tablet (500 mg) by oral route once daily with the evening meal Aug, Not-Taking Lo Loestrin Fe 1 MG-10 MCG / 10 MCG Orally Once a day 1 tablet 24h Active Flonase 50 mcg/actuation 1 sprays by Nasal route 2 times per day in each nostril Aug, Not-Taking Nystatin 237119 UNIT/GM Externally Twice a day 1 application to affected area 12h Oct, Not-Taking Ketoconazole 2 % Externally Once a day 1 application to affected area 24h Jun, Not-Taking metformin 1,000 mg take 1 tablet (1,000 mg) by oral route once daily Aug, Not-Taking Tizanidine HCl 4 MG Orally one hour before bed 1 tablet as needed Mar Active RESULTS Name Result Date Reference Range STREP A (IN HOUSE) 2017-07-28 STREP A negative Control + Lot # [id number] Exp date 07-15-18 PROCEDURES Procedure Date Ordered Result Body Site STREP A ASSAY W/OPTIC Jul 28, 2017 INSTRUCTIONS MEDICATIONS ADMINISTERED No Known Medications MEDICAL (GENERAL) HISTORY Type Description Date Medical History hypertension Medical History PCOS Medical History Ulcers as a kid Surgical History D and C 12/2013 Surgical History left ankle surgery 2004 Surgical History tonsillectomy Surgical History c section 2017 Hospitalization History surgery Hospitalization History child
--- OUTSIDE RECORDS SUMMARY | 2018-03-25 10:59 | XMS REPORT ---
Author Author RYAN TALBOT [facility] Address [address] [place] [address] Care Team Providers Care Jira Administrator Name Role Phone RYAN TALBOT Unavailable PROBLEMS Type Condition ICD9-CM Code CDC39-CC Code Onset Dates Condition Status SNOMED Code Problem Metabolic syndrome E88.81 Active 402925041 Problem Polycystic ovaries E28.2 Active 11208472 Problem Hx of migraines Z86.69 Active 792763276 Problem Chronic headaches R51 Active 027235343 Problem Major depressive disorder, single episode, severe F32.2 Active 207042286494 Problem HTN (hypertension) I10 Active 59325957 Problem Irregular menses N92.6 Active 13453370 Problem Morbid obesity, unspecified obesity type E66.01 Active 504139101 Problem Anxiety state, unspecified F41.1 Active 227486177 Problem Obesity, unspecified E66.9 Active 091426355 ALLERGIES No Information SOCIAL HISTORY Never Assessed PLAN OF CARE Activity Details Follow Up 1 Week Reason:BH F/U VITAL SIGNS MEDICATIONS Medication Instructions Dosage Frequency Start Date End Date Duration Status ProAir HFA 90 mcg/actuation inhale 2 puffs by Inhalation route every 4 hours as needed PRN shortness of breath/cough Aug, Active Active Valacyclovir HCl 500 MG Orally Once a day (increase to twice daily x 5 days for acute recurrence) 1 tablet December, Active RESULTS No Results PROCEDURES Procedure Date Ordered Result Body Site Psych diagnostic evaluation, established patient Oct 06, 2016 IMMUNIZATIONS No Known Immunizations MEDICAL (GENERAL) HISTORY Type Description Date Medical History hypertension Medical History PCOS Medical History Ulcers as a kid Surgical History D and C 12/2013 Surgical History left ankle surgery 2004 Surgical History tonsillectomy Surgical History c section 2017 Hospitalization History surgery Hospitalization History child
--- OUTSIDE RECORDS SUMMARY | 2018-03-25 11:00 | XMS REPORT ---
Author Author SASCHA Torres Organization [facility] Address [address] [place] [address] Care Team Providers Care Classification Case Manager Name Role Phone SASCHA Torres Unavailable PROBLEMS Type Condition ICD9-CM Code TYT53-WY Code Onset Dates Condition Status SNOMED Code Problem Metabolic syndrome E88.81 Active 158042588 Problem Polycystic ovaries E28.2 Active 12923220 Problem Hx of migraines Z86.69 Active 147716686 Problem Chronic headaches R51 Active 078004840 Problem Major depressive disorder, single episode, severe F32.2 Active 835302314534 Problem HTN (hypertension) I10 Active 38784166 Problem Irregular menses N92.6 Active 38962695 Problem Morbid obesity, unspecified obesity type E66.01 Active 749944574 Problem Anxiety state, unspecified F41.1 Active 352854598 Problem Obesity, unspecified E66.9 Active 969189240 ALLERGIES Substance Reaction Event Type Date Status Ultram nausea and vomiting Drug Allergy Mar, Active Latex Unknown Non Drug Allergy Mar, Active ENCOUNTERS Encounter Location Date Diagnosis [facility] [id number] [place] [address] Oct, Sore throat J02.9 ; Viral pharyngitis J02.9 and BMI 40.0- 44.9, adult Z68.41 [facility] [address], [place] [address] Jul, Sore throat J02.9 and Pharyngitis due to other organism J02.8 [facility] [address] [id number] May, Encounter for immunization Z23 [facility] [id number] [place] [address]35 Mar, Gastroenteritis and colitis, viral A08.4 [facility] [id number] [place] [address]14 -5633 Mar, Acute middle ear effusion, right H65.191 [facility] [id number] [place] [address] 33757- 5425 Mar, Neck pain M54.2 and Chronic headaches R51 [place] [address] [address] Mar, Chronic headaches R51 ; Neck pain M54.2 ; HTN (hypertension ) I10 ; Major depressive disorder, single episode, severe F32.2 and Polycystic ovaries E28.2 [place] [id number] [place] [address] 20776- 6368 Jan, HTN (hypertension) I10 [place] [address] [address]- 6882 Jan, [place] [id number] [place] [address] 38545- 3746 Sep, Major depressive disorder, single episode, severe F32.2 [place] [id number] [place] [address] 38993- 4157 Sep, [place] [id number] [place] [address] 55302- 8220 Jul, Gastroenteritis K52.9 [place] [id number] [place] [address] 86813- 9967 Jun, Tinea pedis of both feet B35.3 and Normal in multigravida in first trimester Z34.81 [place] [id number] [place] [address] 96378- 8416 14 Jun, 2016 Visit for TB skin test Z11.1 [place] [id number] [place] [address] 05770- 8248 11 Jun, 2016 Pre-employment drug screening Z02.1 [place] [id number] [place] [address] 26688- 9804 30 Apr, 2016 [place] [id number] [place] [address] 35066- 8656 Apr, confirmed by positive urine test Z32.01 and in first trimester with history of infertility, antepartum O09.01 [facility] [place] [id number] [place] [address] 70900 -0862 08 Apr, 2016 Laceration T14.8 [facility] [place] [id number] [place] [address] 91233 -0259 Mar, Pelvic cramping R10.2 ; Other specified bacterial agents as the cause of diseases classified elsewhere B96.89 and Acute vaginitis N76.0 [place] [id number] [place] [address]49- 0611 Feb, [place] [address] [address]- [address]326 Feb, Lower abdominal pain R10.30 ; Metabolic syndrome E88.81 and Morbid obesity, unspecified obesity type E66.01 [place] [id number] [place] [address] 37688- 4720 Feb, Encounter for test, result unknown Z32.00 [place] [id number] [place] [address] 99741- 4234 December, Herpes simplex vulvovaginitis A60.04 [place] [id number] [place] [address] 28878- 7040 December, Morbid obesity, unspecified obesity type E66.01 [place] [id number] [place] [address] 53492- 5292 Nov, Perineal irritation L98.9 [place] [id number] [place] [address]72- 1962 Oct, [place] [address] [address]- 3862 Oct, HTN (hypertension) I10 ; Obesity, unspecified E66.9 ; Polycystic ovaries E28.2 ; Hx of migraines Z86.69 ; Headache R51 and Fungal dermatitis B36.9 [place] [id number] [place] [address] 60685- 1588 Oct, [address] [address]- 1072 Sep, Metabolic syndrome E88.81 ; Chronic headaches R51 ; Polycystic ovaries E28.2 ; History of PCOS Z87.42 and HTN (hypertension) I10 [address] [address]- 8299 Aug, [address] 14163- 5867 Jul, Low grade intrepith lesion cyto smr crvx (LGSIL) R87.[address] 22571- 8699 Jul, Encounter for screening for malignant neoplasm of cervix Z12.4 ; Well woman exam Z01.419 ; Morbid obesity, unspecified obesity type E66.01 ; Unprotected sexual intercourse Z72.51 ; Vaginal discharge N89.8 ; Lower abdominal pain R10.30 ; Cervicitis N72 ; History of PCOS Z87.42 ; Vaginal dryness N89.8 and Hx of migraines Z86.69 [place] [id number] [place] [address] 89092- 1566 Jun, Nausea & vomiting R11.2 ; Acute upper respiratory infection , unspecified J06.9 and Other viral agents as the cause of diseases classified elsewhere B97.[address] 37937- 3860 May, Chronic headaches R51 ; Metabolic syndrome E88.81 ; Environmental allergies Z91.09 and HTN (hypertension) I10 [address] 91606- 0448 May, [facility] [address], [place] [address]- [address] 18 Apr, 2015 Kimberly albicans infection 112.9 [facility] [address] [address] 15 Apr, 2015 [facility] [address], [place] [address]- 4120 14 Apr, 2015 [facility] [address] [place] [address] 735624- 2834 Apr, Obesity, unspecified 278.00 ; Polycystic ovaries 256.4 ; Headache 784.0 ; Environmental allergies V15.09 and UTI (urinary tract infection ) 599.0 [facility] [address], [place] [address]- [address] Feb, Polycystic ovaries 256.4 ; Obesity, unspecified 278.00 ; Routine general medical examination at a health care facility V70.0 and Essential hypertension 401.9 [facility] [address], [place] [address] 7[address] Nov, [facility] [address], [place] [address]- 3516 Nov, [facility] [address], [place] [address]- 6132 Oct, [facility] [address], [place] [address] 9310 Oct, [facility] [address], [place] [address]- 1700 Sep, [facility] [address], [place] [address]- 9862 Sep, [facility] [address], [place] [address]- 5080 Sep, [facility] [id number], [place] [address]- 0089 Sep, [facility] [address] [facility] [id number] [address] Sep, [facility] [address], [place] [address]- 0377 Sep, [facility] [address], [place] [address]- 3244 Aug, [facility] [address], [place] [address]- 0388 Aug, [facility] [address], [place] [address]- 5320 Aug, [facility] [address], [place] [address]- 57[address] Aug, [facility] [address], [place] [address]- 97[address] Aug, IMMUNIZATIONS No Known Immunizations SOCIAL HISTORY Never Assessed REASON FOR VISIT N/V/D since yesterday. [email or web address] PLAN OF CARE Activity Details Follow Up prn Reason: VITAL SIGNS Height 62 in 2017-04-13 Weight 218.2 lbs 2017-04-13 Temperature 97.9 degrees Fahrenheit 2017-04-13 Heart Rate 84 bpm 2017-04-13 Respiratory Rate 20 2017-04-13 BMI 39.90 kg/m2 2017-04-13 Blood pressure systolic 126 mmHg 2017-04-13 Blood pressure diastolic 76 mmHg 2017-04-13 MEDICATIONS Medication Instructions Dosage Frequency Start Date End Date Duration Status Zoloft 25 MG Orally Once a day 1 tablet 24h Active Losartan Potassium 50 mg Orally Once a day 1 tablet 24h Active Tizanidine HCl 4 MG Orally one hour before bed 1 tablet as needed Mar Active Valacyclovir HCl 500 MG Orally Once a day (increase to twice daily x 5 days for acute recurrence) 1 tablet 30 Active ProAir HFA 90 mcg/actuation inhale 2 puffs by Inhalation route every 4 hours as needed PRN shortness of breath/cough Aug, Active Topamax 50 mg Orally Twice a day 1 tablet 12h Mar, 30 day(s) Active Lo Loestrin Fe 1 MG-10 MCG / 10 MCG Orally Once a day 1 tablet 24h Active RESULTS No Results PROCEDURES No Known procedures INSTRUCTIONS MEDICATIONS ADMINISTERED No Known Medications MEDICAL (GENERAL) HISTORY Type Description Date Medical History hypertension Medical History PCOS Medical History Ulcers as a kid Surgical History D and C 12/2013 Surgical History left ankle surgery 2004 Surgical History tonsillectomy Surgical History c section 2017 Hospitalization History surgery Hospitalization History child
--- OUTSIDE RECORDS SUMMARY | 2018-03-25 11:01 | XMS REPORT ---
Author Author KENDALL Travis Organization [facility] Address [address] [place] [address] Care Team Providers Care Comptroller Name Role Phone robinERIC KENDALL Unavailable PROBLEMS Type Condition ICD9-CM Code [id number] Code Onset Dates Condition Status SNOMED Code Problem Metabolic syndrome E88.81 Active 844343248 Problem Polycystic ovaries E28.2 Active 70350061 Problem Hx of migraines Z86.69 Active 683762504 Problem Chronic headaches R51 Active 914513056 Problem Major depressive disorder, single episode, severe F32.2 Active 484812575800 Problem HTN (hypertension) I10 Active 63226775 Problem Irregular menses N92.6 Active 64811664 Problem Morbid obesity, unspecified obesity type E66.01 Active 330797910 Problem Anxiety state, unspecified F41.1 Active 857474283 Problem Obesity, unspecified E66.9 Active 627506549 ALLERGIES No Information ENCOUNTERS Encounter Location Date Diagnosis [facility] [id number] [place] [address] Oct, Sore throat J02.9 ; Viral pharyngitis J02.9 and BMI 40.0- 44.9, adult Z68.41 [facility] [id number] [place] [address] Jul, Sore throat J02.9 and Pharyngitis due to other organism J02.8 [facility] [id number] [place] [id number] May, Encounter for immunization Z23 [facility] [id number] [place] [address] Mar, Gastroenteritis and colitis, viral A08.4 [facility] [id number] [place] [address] 15 Mar, 2017 Acute middle ear effusion, right H65.191 [facility] [address] [address] 11 Mar, 2017 Neck pain M54.2 and Chronic headaches R51 [place] [id number] [place] [address]87[address] 10 Mar, 2017 Chronic headaches R51 ; Neck pain M54.2 ; HTN (hypertension ) I10 ; Major depressive disorder, single episode, severe F32.2 and Polycystic ovaries E28.2 [place] [address] [address] Jan, HTN (hypertension) I10 [place] [address] [address] Jan, [place] [address] [address] Sep, Major depressive disorder, single episode, severe F32.2 [place] [id number] [place] [address] Sep, [place] [id number] [place] [address] 49[address]- [address] Jul, Gastroenteritis K52.9 [place] [id number] [place] [address]- 8832 23 Jun, 2016 Tinea pedis of both feet B35.3 and Normal in multigravida in first trimester Z34.81 [place] [id number] [place] [address] 86231- 5517 14 Jun, 2016 Visit for TB skin test Z11.1 [place] [id number] [place] [address] 39151- 0[address] 11 Jun, 2016 Pre-employment drug screening Z02.1 [place] [id number] [place] [address]38- [address] 30 Apr, 2016 [place] [address] [place] [address] 85594- [address]88 Apr, confirmed by positive urine test Z32.01 and in first trimester with history of infertility, antepartum O09.01 [facility] [address] [address] 08 Apr, 2016 Laceration T14.8 [facility] [place] [id number] [place] [address] Mar, Pelvic cramping R10.2 ; Other specified bacterial agents as the cause of diseases classified elsewhere B96.89 and Acute vaginitis N76.0 [place] [id number] [place] [address]- 4699 Feb, [place] [id number] [place] [address] 66195- 1549 Feb, Lower abdominal pain R10.30 ; Metabolic syndrome E88.81 and Morbid obesity, unspecified obesity type E66.01 [place] [id number] [place] [address]79- 7751 Feb, Encounter for test, result unknown Z32.00 [place] [id number] [place] [address] 14189- 5184 December, Herpes simplex vulvovaginitis A60.04 [place] [id number] [place] [address]3766- 2[address] December, Morbid obesity, unspecified obesity type E66.01 [place] [id number] [place] [address] 9[address]89- 1795 Nov, Perineal irritation L98.9 [place] [id number] [place] [address]32- 7633 Oct, [place] [id number] [place] [address] 99405- 2330 Oct, HTN (hypertension) I10 ; Obesity, unspecified E66.9 ; Polycystic ovaries E28.2 ; Hx of migraines Z86.69 ; Headache R51 and Fungal dermatitis B36.[address] [address] Oct, [address] [address]- [address] 09 Sep, 2015 Metabolic syndrome E88.81 ; Chronic headaches R51 ; Polycystic ovaries E28.2 ; History of PCOS Z87.42 and HTN (hypertension) I10 [address] [address] Aug, [address] [address]- [address] Jul, Low grade intrepith lesion cyto smr crvx (LGSIL) R87.[address] [address] Jul, Encounter for screening for malignant neoplasm of cervix Z12.4 ; Well woman exam Z01.419 ; Morbid obesity, unspecified obesity type E66.01 ; Unprotected sexual intercourse Z72.51 ; Vaginal discharge N89.8 ; Lower abdominal pain R10.30 ; Cervicitis N72 ; History of PCOS Z87.42 ; Vaginal dryness N89.8 and Hx of migraines Z86.[address] [address] Jun, Nausea & vomiting R11.2 ; Acute upper respiratory infection , unspecified J06.9 and Other viral agents as the cause of diseases classified elsewhere B97.89 [place] [id number] [place] [address] 05441[address] 3846 May, Chronic headaches R51 ; Metabolic syndrome E88.81 ; Environmental allergies Z91.09 and HTN (hypertension) I10 [address] [address] May, [address] [address] 18 Apr, 2015 Kimberly albicans infection 112.9 [facility] [address] [address] 15 Apr, 2015 [facility] [address] [address] 14 Apr, 2015 [facility] [address] [place] [address] 611869- 1974 Apr, Obesity, unspecified 278.00 ; Polycystic ovaries 256.4 ; Headache 784.0 ; Environmental allergies V15.09 and UTI (urinary tract infection ) 599.0 [facility] [address] [place] [address] 946412- 9537 Feb, Polycystic ovaries 256.4 ; Obesity, unspecified 278.00 ; Routine general medical examination at a health care facility V70.0 and Essential hypertension 401.9 [facility] [address] [place] [address] 59319- 6060 Nov, [facility] [address] [address] Nov, [facility] [address] [address] Oct, [facility] [address] [address] Oct, [facility] [address] [address] Sep, [facility] [address] [address] Sep, [facility] [address] [address] Sep, [facility] [address] [address] Sep, [facility] [address] [place] [address] 02570- 4865 Sep, [facility] [address] [facility] [id number] [address] Sep, [facility] [id number] [address] Aug, [facility] [address] [facility] [id number] [address] Aug, [facility] [id number] [address] Aug, [facility] [address] [facility] [id number] [address] Aug, [facility] [id number] [address] Aug, IMMUNIZATIONS No Known Immunizations SOCIAL HISTORY Never Assessed REASON FOR VISIT Other PLAN OF CARE VITAL SIGNS MEDICATIONS Medication Instructions Dosage Frequency Start Date End Date Duration Status Losartan Potassium 50 mg Orally Once a day 1 tablet 24h 30 days Active RESULTS No Results PROCEDURES No Known [...]
--- OUTSIDE RECORDS SUMMARY | 2018-03-25 11:04 | XMS REPORT | Continuity of Care Document ---
Author Author [facility] Address Unknown Phone Unavailable Allergies Active Description Code Type Severity Reaction Onset Reported/Identified Relationship to Patient Clinical Status Yes NKANo Known Allergies NKA Miscellaneous Allergy Mild N/A 08/10/2009 Yes latex OA N/A N/A 09/03/2014 Yes latex [id number] Drug Allergy Unknown N/A 05/14/2016 Yes tramadol [id number] Drug Allergy Unknown N/A 05/14/2016 Medications There is no data. Problems Date Dx Coded Attending Type Code Diagnosis Diagnosed By 11/15/2006 Ot 719.46 11/15/2006 Ot 724.2 11/15/2006 Ot V57.1 04/04/2008 LUCINA CORTEZ APRN A V70.5 PREEMPLOYMENT/PRESCHOOL EXAM 04/04/2008 DORA FRANCISCO APRN V70.5 PREEMPLOYMENT/PRESCHOOL EXAM 04/04/2008 LUCINA CORTEZ APRN A V70.5 PREEMPLOYMENT/PRESCHOOL EXAM 04/04/2008 LORRIE BOND APRN V70.5 PREEMPLOYMENT/PRESCHOOL EXAM 04/04/2008 LORRIE BOND APRN V70.5 PREEMPLOYMENT/PRESCHOOL EXAM 04/04/2008 MERLENE GUIDO MD V70.5 PREEMPLOYMENT/PRESCHOOL EXAM 09/03/2014 LUCINA CORTEZ APRN A 278.00 OBESITY 09/03/2014 LUCINA CORTEZ APRN A 465.9 UPPER RESPIRATORY INFECTION 09/03/2014 DORA FRANCISCO APRN R 278.00 OBESITY 09/03/2014 DORA FRANCISCO APRN R 465.9 UPPER RESPIRATORY INFECTION 09/03/2014 LUCINA CORTEZ APRN A 278.00 OBESITY 09/03/2014 LUCINA CORTEZ APRN A 465.9 UPPER RESPIRATORY INFECTION 09/03/2014 LORRIE BOND APRN R 278.00 OBESITY 09/03/2014 VARUN HOME MAKER, LORRIE R 465.9 UPPER RESPIRATORY INFECTION 09/03/2014 VARUN HOME [employer]KER, LORRIE R 278.00 OBESITY 09/03/2014 [employer], LORRIE R 465.9 UPPER RESPIRATORY INFECTION 09/03/2014 [place], MERLENE 278.00 OBESITY 09/03/2014 [place], MERLENE 465.9 UPPER RESPIRATORY INFECTION 09/10/2014 DANA HOME MAKER, LUCINA A 256.4 POLYCYSTIC OVARIES 09/10/2014 DANA HOME MAKER, LUCINA A 300.00 ANXIETY STATE UNSPECIFIED 09/10/2014 DANA HOME MAKER, LUCINA A 626.4 IRREGULAR MENSTRUAL CYCLE 09/10/2014 DANA HOME MAKER, LUCINA A V74.5 STD SCREEN 09/10/2014 MARYAM DONAHUEN, DORA R 256.4 POLYCYSTIC OVARIES 09/10/2014 MARYAM DONAHUEN, DORA R 300.00 ANXIETY STATE UNSPECIFIED 09/10/2014 MARYAM DONAHUEN, DORA R 626.4 IRREGULAR MENSTRUAL CYCLE 09/10/2014 MARYAM DONAHUEN, DORA R V74.5 STD SCREEN 09/10/2014 DANA HOME MAKER, LUCINA A 256.4 POLYCYSTIC OVARIES 09/10/2014 DANA HOME MAKER, LUCINA A 300.00 ANXIETY STATE UNSPECIFIED 09/10/2014 DANA HOME MAKER, LUCINA A 626.4 IRREGULAR MENSTRUAL CYCLE 09/10/2014 DANA HOME MAKER, LUCINA A V74.5 STD SCREEN 09/10/2014 VARUN DONAHUEN, LORRIE R 256.4 POLYCYSTIC OVARIES 09/10/2014 VARUN DONAHUEN, LORRIE R 300.00 ANXIETY STATE UNSPECIFIED 09/10/2014 VARUN DONAHUEN, LORRIE R 626.4 IRREGULAR MENSTRUAL CYCLE 09/10/2014 VARUN DONAHUEN, LORRIE R V74.5 STD SCREEN 09/10/2014 VARUN DONAHUEN, LORRIE R 256.4 POLYCYSTIC OVARIES 09/10/2014 VARUN DONAHUEN, LORRIE R 300.00 ANXIETY STATE UNSPECIFIED 09/10/2014 VARUN DONAHUEN, LORRIE R 626.4 IRREGULAR MENSTRUAL CYCLE 09/10/2014 VARUN DONAHUEN, LORRIE R V74.5 STD SCREEN 09/10/2014 MERLENE GUIDO MD 256.4 POLYCYSTIC OVARIES 09/10/2014 MERLENE GUIDO MD 300.00 ANXIETY STATE UNSPECIFIED 09/10/2014 MERLENE GUIDO MD 626.4 IRREGULAR MENSTRUAL CYCLE 09/10/2014 MERLENE GUIDO MD V74.5 STD SCREEN 09/24/2014 DAVID FRANCISCO APRNIA R 487.1 INFLUENZA 09/24/2014 LUCINA CORTEZ APRN A 487.1 INFLUENZA 09/24/2014 VARUN MONTELONGO, LORRIE R 487.1 INFLUENZA 09/24/2014 VARUN MONTELONGO, LORRIE R 487.1 INFLUENZA 09/24/2014 MERLENE GUIDO MD 487.1 INFLUENZA 10/11/2014 LUCINA CORTEZ APRN A 796.2 ELEVATED BLOOD PRESSURE READING WITHOUT DIAGNOSIS OF HYPERTENSION 10/11/2014 VARUN MONTELONGO, LORRIE R 796.2 ELEVATED BLOOD PRESSURE READING WITHOUT DIAGNOSIS OF HYPERTENSION 10/11/2014 VARUN MONTELONGO, LORRIE R 796.2 ELEVATED BLOOD PRESSURE READING WITHOUT DIAGNOSIS OF HYPERTENSION 10/11/2014 MERLENE GUIDO MD 796.2 ELEVATED BLOOD PRESSURE READING WITHOUT DIAGNOSIS OF HYPERTENSION 11/08/2014 LUCINA CORTEZ APRN A V72.62 LAB SCREENING- GENERAL PHYSICAL 11/08/2014 VARUN MONTELONGO, LORRIE R V72.62 LAB SCREENING- GENERAL PHYSICAL 11/08/2014 VARUN MONTELONGO, LORRIE R V72.62 LAB SCREENING- GENERAL PHYSICAL 11/08/2014 MERLENE GUIDO MD V72.62 LAB SCREENING- GENERAL PHYSICAL 11/22/2014 KOBE BOND APRNINA R 401.1 HYPERTENSION, BENIGN ESSENTIAL 11/22/2014 VARUN MONTELONGO LORRIE R 623.5 LEUKORRHEA NOT SPECIFIED INFECTIVE 11/22/2014 VARUN MONTELONGO, LORIRE R 788.41 URINARY FREQUENCY 11/22/2014 VARUN MONTELONGO, LORRIE R V70.0 ROUTINE GENERAL MEDICAL EXAMINATION AT A HEALTH CARE FACILITY 11/22/2014 KOBE BOND APRNINA R 401.1 HYPERTENSION, BENIGN ESSENTIAL 11/22/2014 VARUN MONTELONGO, LORRIE R 623.5 LEUKORRHEA NOT SPECIFIED INFECTIVE 11/22/2014 VARUN MONTELONGO, LORRIE R 788.41 URINARY FREQUENCY 11/22/2014 VARUN MONTELONGO, LORRIE R V70.0 ROUTINE GENERAL MEDICAL EXAMINATION AT A HEALTH CARE FACILITY 11/22/2014 MERLENE GUIDO MD 401.1 HYPERTENSION, BENIGN ESSENTIAL 11/22/2014 MERLENE GUIDO MD 623.5 LEUKORRHEA NOT SPECIFIED INFECTIVE 11/22/2014 MERLENE GUIDO MD 788.41 URINARY FREQUENCY 11/22/2014 MERLENE GUIDO MD V70.0 ROUTINE GENERAL MEDICAL EXAMINATION AT A HEALTH CARE FACILITY 12/07/2014 MERLENE GUIDO MD 466.0 ACUTE BRONCHITIS 01/06/2015 [place], CARMELITA Balderas Ot 599.0 URIN TRACT INFECTION NOS 01/06/2015 [place] [place], CARMELITA Balderas Ot 789.04 ABDOMINAL PAIN, LEFT LOWER QUADRANT 05/11/2015 ORTIZ DELACRUZ L Ot 616.10 VAGINITIS NOS 05/11/2015 ASHA DELACRUZEN L Ot 878.6 OPEN WOUND OF VAGINA 05/11/2015 ORTIZ DELACRUZ L Ot 911.0 ABRASION TRUNK 05/11/2015 ORTIZ DELACRUZ L Ot E928.8 ACCIDENT NEC 05/14/2016 NORMAN DE LA CRUZ DO Ot E66.9 OBESITY, UNSPECIFIED 05/14/2016 NORMAN DE LA CRUZ DO Ot O26.891 OT RELATED CONDITIONS, FIRST 05/14/2016 NORMAN DE LA CRUZ DO Ot R10.32 LEFT LOWER QUADRANT PAIN 05/14/2016 NORMAN DE LA CRUZ DO Ot Z3A.01 LESS THAN 8 WEEKS GESTATION OF 05/15/2016 NORMAN DE LA CRUZ DO Ot E66.9 OBESITY, UNSPECIFIED 05/15/2016 NORMAN DE LA CRUZ DO Ot O26.891 OT RELATED CONDITIONS, FIRST 05/15/2016 NORMAN DE LA CRUZ DO Ot R10.32 LEFT LOWER QUADRANT PAIN 05/15/2016 NORMAN DE LA CRUZ DO Ot Z3A.01 LESS THAN 8 WEEKS GESTATION OF 07/11/2016 CESAR ESTRADA DO Ot R11.10 VOMITING, UNSPECIFIED 07/11/2016 CESAR ESTRADA DO Ot Z3A.14 14 WEEKS GESTATION OF 07/11/2016 CESAR ESTRADA DO Ot Z53.21 PROC/TRTMT NOT CRD OUT D/T PT LV BEF SEE 07/13/2016 CESAR ESTRADA DO Ot R11.10 VOMITING, UNSPECIFIED 07/13/2016 CESAR ESTRADA DO Ot Z3A.14 14 WEEKS GESTATION OF 07/13/2016 CESAR ESTRADA DO, Ot Z53.21 PROC/TRTMT NOT CRD OUT D/T PT LV BEF SEE 07/16/2016 CESAR ESTRADA DO Ot R11.10 VOMITING, UNSPECIFIED 07/16/2016 CESAR ESTRADA DO Ot Z3A.14 14 WEEKS GESTATION OF 07/16/2016 CESAR ESTRADA DO Ot Z53.21 PROC/TRTMT NOT CRD OUT D/T PT LV BEF SEE 07/30/2016 CESAR ESTRADA DO Ot R11.10 VOMITING, UNSPECIFIED 07/30/2016 CESAR ESTRADA DO Ot Z3A.14 14 WEEKS GESTATION OF 07/30/2016 CESAR ESTRADA DO Ot Z53.21 PROC/TRTMT NOT CRD OUT D/T PT LV BEF SEE 08/31/2016 FENECH DO NED S Ot O47.9 FALSE LABOR, UNSPECIFIED 08/31/2016 FENECH DO NED S Ot Z3A.00 WEEKS OF GESTATION OF NOT SPEC 09/09/2016 FENECH DO NED S Ot O47.9 FALSE LABOR, UNSPECIFIED 09/09/2016 FENECH DO, NED S Ot Z3A.00 WEEKS OF GESTATION OF NOT SPEC 10/05/2016 FENECH DO, NED S Ot G43.909 MIGRAINE, UNSP, NOT INTRACTABLE, WITHOUT 10/05/2016 FENECH DO, NED S Ot O21.9 VOMITING OF , UNSPECIFIED 10/05/2016 FENECH DO, NED S Ot O99.353 DISEASES OF THE NERVOUS SYS COMP PREGNAN 10/05/2016 FENECH DO, NED S Ot Z3A.26 26 WEEKS GESTATION OF 10/05/2016 FENECH DO, NED S Ot G43.909 MIGRAINE, UNSP, NOT INTRACTABLE, WITHOUT 10/05/2016 FENECH DO, NED S Ot O21.9 VOMITING OF , UNSPECIFIED 10/05/2016 FENECH DO, NED S Ot O99.353 DISEASES OF THE NERVOUS SYS COMP PREGNAN 10/05/2016 FENECH DO, NED S Ot Z3A.26 26 WEEKS GESTATION OF 10/10/2016 FENECH DO, NED S Ot G43.909 MIGRAINE, UNSP, NOT INTRACTABLE, WITHOUT 10/10/2016 FENECH DO, NED S Ot O21.9 VOMITING OF , UNSPECIFIED 10/10/2016 NED MULLINS DO Ot O99.353 DISEASES OF THE NERVOUS SYS COMP PREGNAN 10/10/2016 NED MULLINS DO, Ot Z3A.26 26 WEEKS GESTATION OF 10/15/2016 NED MULLINS DO Ot Z36 ENCOUNTER FOR SCREENING OF MOT 10/16/2016 NED MULLINS DO Ot Z36 ENCOUNTER FOR SCREENING OF MOT 10/21/2016 NED MULLINS DO Ot Z36 ENCOUNTER FOR SCREENING OF MOT 10/26/2016 SELENE STONE MD, Ot O36.8130 DECREASED MOVEMENTS, THIRD TRIMEST 10/26/2016 SELENE STONE MD, Ot Z3A.29 29 WEEKS GESTATION OF 10/28/2016 SELENE STONE MD, Ot O36.8130 DECREASED MOVEMENTS, THIRD TRIMEST 10/28/2016 SELENE STONE MD, Ot Z3A.29 29 WEEKS GESTATION OF 10/28/2016 NED MULLINS DO Ot Z36 ENCOUNTER FOR SCREENING OF MOT 11/03/2016 NED MULLINS DO Ot Z36 ENCOUNTER FOR SCREENING OF MOT 11/15/2016 SELENE STONE MD, Ot O13.3 GESTATIONAL HTN W/O SIGNIFICANT PROTEINU 11/18/2016 SELENE STONE MD, Ot O13.3 GESTATIONAL HTN W/O SIGNIFICANT PROTEINU 12/07/2016 SELENE STONE MD, Ot O36.8130 DECREASED MOVEMENTS, THIRD TRIMEST 12/07/2016 SELENE STONE MD, Ot O47.03 FALSE LABOR BEFORE 37 COMPLETED WEEKS OF 12/07/2016 SELENE STONE MD, Ot Z3A.35 35 WEEKS GESTATION OF 12/09/2016 SELENE STONE MD, Ot O36.8130 DECREASED MOVEMENTS, THIRD TRIMEST 12/09/2016 SELENE STONE MD, Ot O47.03 FALSE LABOR BEFORE 37 COMPLETED WEEKS OF 12/09/2016 SELENE STONE MD, Ot Z3A.35 35 WEEKS GESTATION OF 12/16/2016 NED MULLINS DO, Ot O36.8130 DECREASED MOVEMENTS, THIRD TRIMEST 12/16/2016 FENECH DO, NED S Ot Z3A.37 37 WEEKS GESTATION OF 12/18/2016 NED MULLINS DO Ot O36.8130 DECREASED MOVEMENTS, THIRD TRIMEST 12/18/2016 NED MULLINS DO Ot Z3A.37 37 WEEKS GESTATION OF 12/20/2016 NED MULLINS DO Ot E66.9 OBESITY, UNSPECIFIED 12/20/2016 NED MULLINS DO Ot O98.513 OTHER VIRAL DISEASES COMPLICATING PREGNA 12/20/2016 NED MULLINS DO Ot Z37.0 SINGLE LIVE 12/20/2016 NED MULLINS DO Ot Z3A.37 37 WEEKS GESTATION OF 12/20/2016 NED MULLINS DO Ot Z68.41 BODY MASS INDEX (BMI) 40.0-44.9, ADULT 12/27/2016 SHILPA COLE MD Ot G89.18 OTHER ACUTE POSTPROCEDURAL PAIN 12/27/2016 SHILPA COLE MD Ot O16.5 UNSPECIFIED MATERNAL HYPERTENSION, COMP 12/27/2016 SHILPA COLE MD Ot O86.22 INFECTION OF BLADDER FOLLOWING DELIVERY 12/27/2016 SHILPA COLE MD Ot R10.30 LOWER ABDOMINAL PAIN, UNSPECIFIED 12/27/2016 SHILPA COLE MD Ot R50.9 FEVER, UNSPECIFIED 12/27/2016 SHILPA COLE MD Ot R60.9 EDEMA, UNSPECIFIED 01/02/2017 SHILPA COLE MD Ot G89.18 OTHER ACUTE POSTPROCEDURAL PAIN 01/02/2017 SHILPA COLE MD Ot O16.5 UNSPECIFIED MATERNAL HYPERTENSION, COMP 01/02/2017 SHILPA COLE MD Ot O86.22 INFECTION OF BLADDER FOLLOWING DELIVERY 01/02/2017 SHILPA COLE MD Ot R10.30 LOWER ABDOMINAL PAIN, UNSPECIFIED 01/02/2017 SHILPA COLE MD Ot R50.9 FEVER, UNSPECIFIED 01/02/2017 SHILPA COLE MD Ot R60.9 EDEMA, UNSPECIFIED 04/04/2017 ORTIZ DELACRUZ Ot F17.210 NICOTINE DEPENDENCE, CIGARETTES, UNCOMPL 04/04/2017 ORTIZ DELACRUZ Ot F41.9 ANXIETY DISORDER, UNSPECIFIED 04/04/2017 ORTIZ DELACRUZ Ot G43.909 MIGRAINE, UNSP, NOT INTRACTABLE, WITHOUT 04/04/2017 ORTIZ DELACRUZ Ot I10 ESSENTIAL (PRIMARY) HYPERTENSION 04/04/2017 ORTIZ DELACRUZ Ot J45.909 UNSPECIFIED ASTHMA, UNCOMPLICATED 04/04/2017 ORTIZ DELACRUZ Ot N93.9 ABNORMAL UTERINE AND VAGINAL BLEEDING, U 04/04/2017 ORTIZ DELACRUZ Ot R10.30 LOWER ABDOMINAL PAIN, UNSPECIFIED 04/04/2017 ORTIZ DELACRUZ Ot Z32.02 ENCOUNTER FOR TEST, RESULT NEG 04/04/2017 ORTIZ DELACRUZ Ot Z86.19 PERSONAL HISTORY OF OTHER INFECTIOUS AND 04/04/2017 ORTIZ DELACRUZ Ot Z87.19 PERSONAL HISTORY OF OTHER DISEASES OF TH 04/04/2017 ORTIZ DELACRUZ Ot Z87.39 PERSONAL HISTORY OF DISEASES OF THE MS S 04/04/2017 ORTIZ DELACRUZ Ot Z87.42 PERSONAL HISTORY OF OTH DISEASES OF THE 04/04/2017 ORTIZ DELACRUZ Ot Z87.59 PERSONAL HISTORY OF COMP OF PREG, CHLDBR 04/04/2017 ORTIZ DELACRUZ Ot Z90.49 ACQUIRED ABSENCE OF OTHER SPECIFIED PART 04/04/2017 ORTIZ DELACRUZ Ot Z90.89 ACQUIRED ABSENCE OF OTHER ORGANS 04/05/2017 ORTIZ DELACRUZ Ot F17.210 NICOTINE DEPENDENCE, CIGARETTES, UNCOMPL 04/05/2017 ORTIZ DELACRUZ Ot F41.9 ANXIETY DISORDER, UNSPECIFIED 04/05/2017 ORTIZ DELACRUZ Ot G43.909 MIGRAINE, UNSP, NOT INTRACTABLE, WITHOUT 04/05/2017 ORTIZ DELACRUZ Ot I10 ESSENTIAL (PRIMARY) HYPERTENSION 04/05/2017 ORTIZ DELACRUZ Ot J45.909 UNSPECIFIED ASTHMA, UNCOMPLICATED 04/05/2017 ORTIZ DELACRUZ Ot N93.9 ABNORMAL UTERINE AND VAGINAL BLEEDING, U 04/05/2017 ORTIZ DELACRUZ Ot R10.30 LOWER ABDOMINAL PAIN, UNSPECIFIED 04/05/2017 ORTIZ DELACRUZ Ot Z32.02 ENCOUNTER FOR TEST, RESULT NEG 04/05/2017 ORTIZ DELACRUZ Ot Z86.19 PERSONAL HISTORY OF OTHER INFECTIOUS AND 04/05/2017 ORTIZ DELACRUZ Ot Z87.19 PERSONAL HISTORY OF OTHER DISEASES OF TH 04/05/2017 ORTIZ DELACRUZ Ot Z87.39 PERSONAL HISTORY OF DISEASES OF THE MS S 04/05/2017 ORTIZ DELACRUZ Ot Z87.42 PERSONAL HISTORY OF OTH DISEASES OF THE 04/05/2017 ORTIZ DELACRUZ Ot Z87.59 PERSONAL HISTORY OF COMP OF PREG, CHLDBR 04/05/2017 ORTIZ DELACRUZ Ot Z90.49 ACQUIRED ABSENCE OF OTHER SPECIFIED PART 04/05/2017 ORTIZ DELACRUZ Ot Z90.89 ACQUIRED ABSENCE OF OTHER ORGANS 04/07/2017 ORTIZ DELACRUZ Ot F17.210 NICOTINE DEPENDENCE, CIGARETTES, UNCOMPL 04/07/2017 ORTIZ DELACRUZ Ot F41.9 ANXIETY DISORDER, UNSPECIFIED 04/07/2017 ORTIZ DELACRUZ Ot G43.909 MIGRAINE, UNSP, NOT INTRACTABLE, WITHOUT 04/07/2017 ORTIZ DELACRUZ Ot I10 ESSENTIAL (PRIMARY) HYPERTENSION 04/07/2017 ORTIZ DELACRUZ Ot J45.909 UNSPECIFIED ASTHMA, UNCOMPLICATED 04/07/2017 ORTIZ DELACRUZ Ot N93.9 ABNORMAL UTERINE AND VAGINAL BLEEDING, U 04/07/2017 ORTIZ DELACRUZ Ot R10.30 LOWER ABDOMINAL PAIN, UNSPECIFIED 04/07/2017 ORTIZ DELACRUZ Ot Z32.02 ENCOUNTER FOR TEST, RESULT NEG 04/07/2017 ORTIZ DELACRUZ Ot Z86.19 PERSONAL HISTORY OF OTHER INFECTIOUS AND 04/07/2017 ORTIZ DELACRUZ Ot Z87.19 PERSONAL HISTORY OF OTHER DISEASES OF TH 04/07/2017 ORTIZ DELACRUZ Ot Z87.39 PERSONAL HISTORY OF DISEASES OF THE MS S 04/07/2017 ORTIZ DELACRUZ Ot Z87.42 PERSONAL HISTORY OF OTH DISEASES OF THE 04/07/2017 ORTIZ DELACRUZ Ot Z87.59 PERSONAL HISTORY OF COMP OF PREG, CHLDBR 04/07/2017 ORTIZ DELACRUZ Ot Z90.49 ACQUIRED ABSENCE OF OTHER SPECIFIED PART 04/07/2017 ORTIZ DELACRUZ Ot Z90.89 ACQUIRED ABSENCE OF OTHER ORGANS Procedures Code Description [place] [address] INFLUENZA A & B (IN-HOUSE) 09/24/2014 14163 CULTURE URINE 11/22/2014 41714 GC/CHLAM URINE (STATE) 11/22/2014 95127 UA W/ CULTURE IF INDICATED 11/22/2014 51745 ROUTINE VENIPUNCTURE 11/26/2014 5336282 GFR CALC (RESULT ONLY) 11/26/2014 54349 CMP 11/26/2014 15105 LIPID PANEL 11/26/2014 86462 TSH 11/26/2014 98919 INSULIN LEVEL 11/26/2014 99608 CBC 11/27/2014 [id number] EXTRACTION OF POC, LOW CERVICAL, OPEN AP 12/18/2016 Results Test Result Range Complete urinalysis with reflex to culture - 05/14/16 04:58 Urine color determination YELLOW NRG Urine clarity determination CLEAR NRG Urine pH measurement by test strip 6.5 5-9 Specific gravity of urine by test strip 1.010 1.016- 1.022 Urine protein assay by test strip, semi-quantitative NEGATIVE NEGATIVE Urine glucose detection by automated test strip NEGATIVE NEGATIVE Erythrocytes detection in urine sediment by light microscopy NEGATIVE NEGATIVE Urine ketones detection by automated test strip NEGATIVE NEGATIVE Urine nitrite detection by test strip NEGATIVE NEGATIVE Urine total bilirubin detection by test strip NEGATIVE NEGATIVE Urine urobilinogen measurement by automated test strip (mass/volume) NORMAL NORMAL Urine leukocyte esterase detection by dipstick NEGATIVE NEGATIVE Automated urine sediment erythrocyte count by microscopy (number/high power field) NONE NRG Automated urine sediment leukocyte count by microscopy (number/high power field ) NONE NRG Bacteria detection in urine sediment by light microscopy TRACE NRG Squamous epithelial cells detection in urine sediment by light microscopy 5-10 NRG Crystals detection in urine sediment by light microscopy NONE NRG Casts detection in urine sediment by light microscopy NONE NRG Mucus detection in urine sediment by light microscopy NEGATIVE NRG Complete urinalysis with reflex to culture NO NRG Serum or plasma choriogonadotropin measurement (units/volume) - 05/14/16 04:58 Serum or plasma choriogonadotropin measurement (units/volume) 55172 m[iU]/mL <5 Chlamydia trachomatis DNA detection by probe and signal amplification method - 05/14/16 04:58 Chlamydia trachomatis DNA detection by probe and target amplification method Negative Negative Urine Neisseria gonorrhoeae DNA assay - 05/14/16 04:58 Gonorrhea amp DNA-urine Negative Negative Complete urinalysis with reflex to culture - 10/04/16 21:00 Urine color determination YELLOW NRG Urine clarity determination SLIGHTLY CLOUDY NRG Urine pH measurement by test strip 8 5-9 Specific gravity of urine by test strip 1.010 1.016- 1.022 Urine protein assay by test strip, semi-quantitative 1+ NEGATIVE Urine glucose detection by automated test strip NEGATIVE NEGATIVE Erythrocytes detection in urine sediment by light microscopy NEGATIVE NEGATIVE Urine ketones detection by automated test strip NEGATIVE NEGATIVE Urine nitrite detection by test strip NEGATIVE NEGATIVE Urine total bilirubin detection by test strip NEGATIVE NEGATIVE Urine urobilinogen measurement by automated test strip (mass/volume) NORMAL NORMAL Urine leukocyte esterase detection by dipstick 3+ NEGATIVE Automated urine sediment erythrocyte count by microscopy (number/high power field) NONE NRG Automated urine sediment leukocyte count by microscopy (number/high power field ) [HPF] NRG Bacteria detection in urine sediment by light microscopy LARGE NRG Squamous epithelial cells detection in urine sediment by light microscopy >50 NRG Crystals detection in urine sediment by light microscopy NONE NRG Casts detection in urine sediment by light microscopy NONE NRG Mucus detection in urine sediment by light microscopy NEGATIVE NRG Complete urinalysis with reflex to culture NO NRG Urine protein/creatinine mass ratio - 11/15/16 18:05 Urine protein measurement (mass/volume) 11 mg/dL 6-12 Urine creatinine measurement (mass/volume) 100 mg/dL 30- 125 Urine protein/creatinine mass ratio 0.11 NRG Complete blood count (CBC) with automated white blood cell (WBC) differential - 11/15/16 18:37 Blood leukocytes automated count (number/volume) 10.9 10*3/uL 4.3-11.0 Blood erythrocytes automated count (number/volume) 3.61 10*6/uL 4.35-5.85 Venous blood hemoglobin measurement (mass/volume) 11.2 g/dL 11.5-16.0 Blood hematocrit (volume fraction) 32 % 35-52 Automated erythrocyte mean corpuscular volume 90 [foz_us] 80-99 Automated erythrocyte mean corpuscular hemoglobin (mass per erythrocyte) 31 pg 25-34 Automated erythrocyte mean corpuscular hemoglobin concentration measurement ( mass/volume) 35 g/dL 32-36 Automated erythrocyte distribution width ratio 13.0 % 10.0-14.5 Automated blood platelet count (count/volume) 253 10*3/uL 130-400 Automated blood platelet mean volume measurement 11.1 [foz_us] 7.4-10.4 Automated blood neutrophils/100 leukocytes 73 % 42-75 Automated blood lymphocytes/100 leukocytes 21 % 12-44 Blood monocytes/100 leukocytes 5 % 0-12 Automated blood eosinophils/100 leukocytes 1 % 0-10 Automated blood basophils/100 leukocytes 0 % 0-10 Blood neutrophils automated count (number/volume) 8.0 10*3 1.8-7.8 Blood lymphocytes automated count (number/volume) 2.3 10*3 1.0-4.0 Blood monocytes automated count (number/volume) 0.6 10*3 0.0-1.0 Automated eosinophil count 0.1 10*3/uL 0.0-0.3 Automated blood basophil count (count/volume) 0.0 10*3/uL 0.0-0.1 Comprehensive metabolic panel - 11/15/16 18:37 Serum or plasma sodium measurement (moles/volume) 138 mmol/L 135-145 Serum or plasma potassium measurement (moles/volume) 3.6 mmol/L 3.6-5.0 Serum or plasma chloride measurement (moles/volume) 111 mmol/L 98-107 Carbon dioxide 19 mmol/L 21-32 Serum or plasma anion gap determination (moles/volume) 8 mmol/L 5-14 Serum or plasma urea nitrogen measurement (mass/volume) 7 mg/dL 7-18 Serum or plasma creatinine measurement (mass/volume) 0.61 mg/dL 0.60-1.30 Serum or plasma urea nitrogen/creatinine mass ratio 11 NRG Serum or plasma creatinine measurement with calculation of estimated glomerular filtration rate > NRG Serum or plasma glucose measurement (mass/volume) 75 mg/dL 70-105 Serum or plasma calcium measurement (mass/volume) 8.8 mg/dL 8.5-10.1 Serum or plasma total bilirubin measurement (mass/volume) 0.2 mg/dL 0.1-1.0 Serum or plasma alkaline phosphatase measurement (enzymatic activity/volume) 78 U/L 40-136 Serum or plasma aspartate aminotransferase measurement (enzymatic activity/ volume) 14 U/L 5-34 Serum or plasma alanine aminotransferase measurement (enzymatic activity/volume ) 9 U/L 0-55 Serum or plasma protein measurement (mass/volume) 6.0 g/dL 6.4-8.2 Serum or plasma albumin measurement (mass/volume) 3.1 g/dL 3.2-4.5 Complete urinalysis with reflex to culture - 12/07/16 12:45 Urine color determination YELLOW NRG Urine clarity determination CLEAR NRG Urine pH measurement by test strip 6 5-9 Specific gravity of urine by test strip 1.015 1.016- 1.022 Urine protein assay by test strip, semi-quantitative 1+ NEGATIVE Urine glucose detection by automated test strip 1+ NEGATIVE Erythrocytes detection in urine sediment by light microscopy NEGATIVE NEGATIVE Urine ketones detection by automated test strip NEGATIVE NEGATIVE Urine nitrite detection by test strip NEGATIVE NEGATIVE Urine total bilirubin detection by test strip NEGATIVE NEGATIVE Urine urobilinogen measurement by automated test strip (mass/volume) NORMAL NORMAL Urine leukocyte esterase detection by dipstick 2+ NEGATIVE Automated urine sediment erythrocyte count by microscopy (number/high power field) NONE NRG Automated urine sediment leukocyte count by microscopy (number/high power field ) [HPF] NRG Bacteria detection in urine sediment by light microscopy TRACE NRG Squamous epithelial cells detection in urine sediment by light microscopy 10-25 NRG Crystals detection in urine sediment by light microscopy NONE NRG Casts detection in urine sediment by light microscopy NONE NRG Mucus detection in urine sediment by light microscopy NEGATIVE NRG Complete urinalysis with reflex to culture YES NRG Bacterial urine culture - 12/07/16 12:45 Bacterial urine culture [id number] NRG COLONY COUNT 10,000/ML - 100,000/ML NRG FREE TEXT ENTRY 2 MIXED GRAM POSITIVE LINDEN NRG Complete urinalysis with reflex to culture - 12/18/16 05:40 Urine color determination YELLOW NRG Urine clarity determination CLEAR NRG Urine pH measurement by test strip 6.5 5-9 Specific gravity of urine by test strip 1.015 1.016- 1.022 Urine protein assay by test strip, semi-quantitative 1+ NEGATIVE Urine glucose detection by automated test strip NEGATIVE NEGATIVE Erythrocytes detection in urine sediment by light microscopy NEGATIVE NEGATIVE Urine ketones detection by automated test strip NEGATIVE NEGATIVE Urine nitrite detection by test strip NEGATIVE NEGATIVE Urine total bilirubin detection by test strip NEGATIVE NEGATIVE Urine urobilinogen measurement by automated test strip (mass/volume) NORMAL NORMAL Urine leukocyte esterase detection by dipstick 2+ NEGATIVE Automated urine sediment erythrocyte count by microscopy (number/high power field) NONE NRG Automated urine sediment leukocyte count by microscopy (number/high power field ) [HPF] NRG Bacteria detection in urine sediment by light microscopy TRACE NRG Squamous epithelial cells detection in urine sediment by light microscopy 5-10 NRG Crystals detection in urine sediment by light microscopy NONE NRG Casts detection in urine sediment by light microscopy NONE NRG Mucus detection in urine sediment by light microscopy NEGATIVE NRG Complete urinalysis with reflex to culture YES NRG Bacterial urine culture - 12/18/16 05:40 Bacterial urine culture [id number] NRG COLONY COUNT 10,000/ML - 100,000/ML NRG FTX;REPORTABLE PLUS, NRG URINE CULTURE RESULTS 10,000/ML - 100,000/ML NRG FREE TEXT ENTRY 2 MIXED GRAM POSITIVES NRG Complete blood count (CBC) with automated white blood cell (WBC) differential - 12/18/16 09:41 Blood leukocytes automated count (number/volume) 11.9 10*3/uL 4.3-11.0 Blood erythrocytes automated count (number/volume) 4.13 10*6/uL 4.35-5.85 Venous blood hemoglobin measurement (mass/volume) 12.3 g/dL 11.5-16.0 Blood hematocrit (volume fraction) 36 % 35-52 Automated erythrocyte mean corpuscular volume 87 [[id number]] 80-99 Automated erythrocyte mean corpuscular hemoglobin (mass per erythrocyte) 30 pg 25-34 Automated erythrocyte mean corpuscular hemoglobin concentration measurement ( mass/volume) 34 g/dL 32-36 Automated erythrocyte distribution width ratio 13.4 % 10.0-14.5 Automated blood platelet count (count/volume) 249 10*3/uL 130-400 Automated blood platelet mean volume measurement 11.5 [foz_us] 7.4-10.4 Automated blood neutrophils/100 leukocytes 73 % 42-75 Automated blood lymphocytes/100 leukocytes 20 % 12-44 Blood monocytes/100 leukocytes 6 % 0-12 Automated blood eosinophils/100 leukocytes 0 % 0-10 Automated blood basophils/100 leukocytes 0 % 0-10 Blood neutrophils automated count (number/volume) 8.8 10*3 1.8-7.8 Blood lymphocytes automated count (number/volume) 2.4 10*3 1.0-4.0 Blood monocytes automated count (number/volume) 0.7 10*3 0.0-1.0 Automated eosinophil count 0.0 10*3/uL 0.0-0.3 Automated blood basophil count (count/volume) 0.0 10*3/uL 0.0-0.1 Blood type T Indirect antibody screen panel - 12/18/16 09:41 ABO+Rh group OP NRG Transfusion band number [id number] NRG Blood group antibody screen NEGATIVE NRG Complete blood count (CBC) with automated white blood cell (WBC) differential - 12/19/16 05:30 Blood leukocytes automated count (number/volume) 9.3 10*3/uL 4.3-11.0 Blood erythrocytes automated count (number/volume) 3.76 10*6/uL 4.35-5.85 Venous blood hemoglobin measurement (mass/volume) 11.2 g/dL 11.5-16.0 Blood hematocrit (volume fraction) 33 % 35-52 Automated erythrocyte mean corpuscular volume 89 [foz_us] 80-99 Automated erythrocyte mean corpuscular hemoglobin (mass per erythrocyte) 30 pg 25-34 Automated erythrocyte mean corpuscular hemoglobin concentration measurement ( mass/volume) 34 g/dL 32-36 Automated erythrocyte distribution width ratio 13.5 % 10.0-14.5 Automated blood platelet count (count/volume) 198 10*3/uL 130-400 Automated blood platelet mean volume measurement 11.7 [foz_us] 7.4-10.4 Automated blood neutrophils/100 leukocytes 84 % 42-75 Automated blood lymphocytes/100 leukocytes 10 % 12-44 Blood monocytes/100 leukocytes 6 % 0-12 Automated blood eosinophils/100 leukocytes 0 % 0-10 Automated blood basophils/100 leukocytes 0 % 0-10 Blood neutrophils automated count (number/volume) 7.8 10*3 1.8-7.8 Blood lymphocytes automated count (number/volume) 0.9 10*3 1.0-4.0 Blood monocytes automated count (number/volume) 0.5 10*3 0.0-1.0 Automated eosinophil count 0.0 10*3/uL 0.0-0.3 Automated blood basophil count (count/volume) 0.0 10*3/uL 0.0-0.1 Complete blood count (CBC) with automated white blood cell (WBC) differential - 12/27/16 16:30 Blood leukocytes automated count (number/volume) 10.7 10*3/uL 4.3-11.0 Blood erythrocytes automated count (number/volume) 3.35 10*6/uL 4.35-5.85 Venous blood hemoglobin measurement (mass/volume) 9.9 g/dL 11.5-16.0 Blood hematocrit (volume fraction) 30 % 35-52 Automated erythrocyte mean corpuscular volume 90 [foz_us] 80-99 Automated erythrocyte mean corpuscular hemoglobin (mass per erythrocyte) 30 pg 25-34 Automated erythrocyte mean corpuscular hemoglobin concentration measurement ( mass/volume) 33 g/dL 32-36 Automated erythrocyte distribution width ratio 12.9 % 10.0-14.5 Automated blood platelet count (count/volume) 290 10*3/uL 130-400 Automated blood platelet mean volume measurement 10.4 [foz_us] 7.4-10.4 Automated blood neutrophils/100 leukocytes 84 % 42-75 Automated blood lymphocytes/100 leukocytes 9 % 12-44 Blood monocytes/100 leukocytes 7 % 0-12 Automated blood eosinophils/100 leukocytes 0 % 0-10 Automated blood basophils/100 leukocytes 0 % 0-10 Blood neutrophils automated count (number/volume) 8.9 10*3 1.8-7.8 Blood lymphocytes automated count (number/volume) 1.0 10*3 1.0-4.0 Blood monocytes automated count (number/volume) 0.7 10*3 0.0-1.0 Automated eosinophil count 0.0 10*3/uL 0.0-0.3 Automated blood basophil count (count/volume) 0.0 10*3/uL 0.0-0.1 Blood lactic acid measurement (moles/volume) - 12/27/16 16:30 Blood lactic acid measurement (moles/volume) 1.81 mmol/L 0.50-2.00 Comprehensive metabolic panel - 12/27/16 16:30 Serum or plasma sodium measurement (moles/volume) 139 mmol/L 135-145 Serum or plasma potassium measurement (moles/volume) 3.7 mmol/L 3.6-5.0 Serum or plasma chloride measurement (moles/volume) 109 mmol/L 98-107 Carbon dioxide 18 mmol/L 21-32 Serum or plasma anion gap determination (moles/volume) 12 mmol/L 5-14 Serum or plasma urea nitrogen measurement (mass/volume) 14 mg/dL 7-18 Serum or plasma creatinine measurement (mass/volume) 1.00 mg/dL 0.60-1.30 Serum or plasma urea nitrogen/creatinine mass ratio 14 NRG Serum or plasma creatinine measurement with calculation of estimated glomerular filtration rate > NRG Serum or plasma glucose measurement (mass/volume) 106 mg/dL 70-105 Serum or plasma calcium measurement (mass/volume) 8.7 mg/dL 8.5-10.1 Serum or plasma total bilirubin measurement (mass/volume) 0.6 mg/dL 0.1-1.0 Serum or plasma alkaline phosphatase measurement (enzymatic activity/volume) 70 U/L 40-136 Serum or plasma aspartate aminotransferase measurement (enzymatic activity/ volume) 11 U/L 5-34 Serum or plasma alanine aminotransferase measurement (enzymatic activity/volume ) 11 U/L 0-55 Serum or plasma protein measurement (mass/volume) 5.9 g/dL 6.4-8.2 Serum or plasma albumin measurement (mass/volume) 3.0 g/dL 3.2-4.5 Serum or plasma amylase measurement (enzymatic activity/volume) - 12/27/16 16: 30 Serum or plasma amylase measurement (enzymatic activity/volume) 41 U /L 25-125 Lipase - 12/27/16 16:30 Lipase 12 U/L 8-78 PT panel in platelet poor plasma by coagulation assay - 12/27/16 16:30 Prothrombin time (PT) in platelet poor plasma by coagulation assay 14.1 s 12.2-14.7 INR in platelet poor plasma or blood by coagulation assay 1.1 0.8-1.4 Activated partial thromboplastin time (aPTT) in platelet poor plasma bycoagulation assay - 12/27/16 16:30 Activated partial thromboplastin time (aPTT) in platelet poor plasma bycoagulation assay 38 s 24-35 THYROID STIMULATING HORMONE - 12/27/16 16:30 THYROID STIMULATING HORMONE 1.28 u[iU]/mL 0.35-4.94 Bacterial blood culture - 12/27/16 16:30 Bacterial blood culture NG NRG Complete urinalysis with reflex to culture - 12/27/16 16:45 Urine color determination YELLOW NRG Urine clarity determination CLEAR NRG Urine pH measurement by test strip 6 5-9 Specific gravity of urine by test strip 1.010 1.016- 1.022 Urine protein assay by test strip, semi-quantitative NEGATIVE NEGATIVE Urine glucose detection by automated test strip NEGATIVE NEGATIVE Erythrocytes detection in urine sediment by light microscopy 5+ NEGATIVE Urine ketones detection by automated test strip NEGATIVE NEGATIVE Urine nitrite detection by test strip NEGATIVE NEGATIVE Urine total bilirubin detection by test strip NEGATIVE NEGATIVE Urine urobilinogen measurement by automated test strip (mass/volume) NORMAL NORMAL Urine leukocyte esterase detection by dipstick 3+ NEGATIVE Automated urine sediment erythrocyte count by microscopy (number/high power field) [HPF] NRG Automated urine sediment leukocyte count by microscopy (number/high power field ) [HPF] NRG Bacteria detection in urine sediment by light microscopy NEGATIVE NRG Squamous epithelial cells detection in urine sediment by light microscopy 2-5 NRG Crystals detection in urine sediment by light microscopy NONE NRG Casts detection in urine sediment by light microscopy NONE NRG Mucus detection in urine sediment by light microscopy NEGATIVE NRG Complete urinalysis with reflex to culture YES NRG Bacterial urine culture - 12/27/16 16:45 Bacterial urine culture [id number] NRG COLONY COUNT >100,000/ML NRG FTX;REPORTABLE PLUS, NRG FREE TEXT ENTRY 2 MIXED GRAM POSITIVES <10,000/ML NRG Bacterial blood culture - 12/27/16 17:00 Bacterial blood culture NG NRG Complete urinalysis with reflex to culture - 04/04/17 16:20 Urine color determination YELLOW NRG Urine clarity determination CLEAR NRG Urine pH measurement by test strip 8 5-9 Specific gravity of urine by test strip 1.010 1.016- 1.022 Urine protein assay by test strip, semi-quantitative NEGATIVE NEGATIVE Urine glucose detection by automated test strip NEGATIVE NEGATIVE Erythrocytes detection in urine sediment by light microscopy 3+ NEGATIVE Urine ketones detection by automated test strip NEGATIVE NEGATIVE Urine nitrite detection by test strip NEGATIVE NEGATIVE Urine total bilirubin detection by test strip NEGATIVE NEGATIVE Urine urobilinogen measurement by automated test strip (mass/volume) NORMAL NORMAL Urine leukocyte esterase detection by dipstick NEGATIVE NEGATIVE Automated urine sediment erythrocyte count by microscopy (number/high power field) NONE NRG Automated urine sediment leukocyte count by microscopy (number/high power field ) NONE NRG Bacteria detection in urine sediment by light microscopy NEGATIVE NRG Squamous epithelial cells detection in urine sediment by light microscopy 2-5 NRG Crystals detection in urine sediment by light microscopy NONE NRG Casts detection in urine sediment by light microscopy NONE NRG Mucus detection in urine sediment by light microscopy NEGATIVE NRG Complete urinalysis with reflex to culture NO NRG Complete blood count (CBC) with automated white blood cell (WBC) differential - 04/04/17 16:50 Blood leukocytes automated count (number/volume) 10.5 10*3/uL 4.3-11.0 Blood erythrocytes automated count (number/volume) 4.21 10*6/uL 4.35-5.85 Venous blood hemoglobin measurement (mass/volume) 12.8 g/dL 11.5-16.0 Blood hematocrit (volume fraction) 38 % 35-52 Automated erythrocyte mean corpuscular volume 91 [foz_us] 80-99 Automated erythrocyte mean corpuscular hemoglobin (mass per erythrocyte) 30 pg 25-34 Automated erythrocyte mean corpuscular hemoglobin concentration measurement ( mass/volume) 34 g/dL 32-36 Automated erythrocyte distribution width ratio 12.9 % 10.0-14.5 Automated blood platelet count (count/volume) 280 10*3/uL 130-400 Automated blood platelet mean volume measurement 11.8 [foz_us] 7.4-10.4 Automated blood neutrophils/100 leukocytes 61 % 42-75 Automated blood lymphocytes/100 leukocytes 31 % 12-44 Blood monocytes/100 leukocytes 4 % 0-12 Automated blood eosinophils/100 leukocytes 3 % 0-10 Automated blood basophils/100 leukocytes 0 % 0-10 Blood neutrophils automated count (number/volume) 6.4 10*3 1.8-7.8 Blood lymphocytes automated count (number/volume) 3.3 10*3 1.0-4.0 Blood monocytes automated count (number/volume) 0.5 10*3 0.0-1.0 Automated eosinophil count 0.3 10*3/uL 0.0-0.3 Automated blood basophil count (count/volume) 0.0 10*3/uL 0.0-0.1 Comprehensive metabolic panel - 04/04/17 16:50 Serum or plasma sodium measurement (moles/volume) 140 mmol/L 135-145 Serum or plasma potassium measurement (moles/volume) 4.1 mmol/L 3.6-5.0 Serum or plasma chloride measurement (moles/volume) 111 mmol/L 98-107 Carbon dioxide 20 mmol/L 21-32 Serum or plasma anion gap determination (moles/volume) 9 mmol/L 5-14 Serum or plasma urea nitrogen measurement (mass/volume) 19 mg/dL 7-18 Serum or plasma creatinine measurement (mass/volume) 0.86 mg/dL 0.60-1.30 Serum or plasma urea nitrogen/creatinine mass ratio 22 NRG Serum or plasma creatinine measurement with calculation of estimated glomerular filtration rate > NRG Serum or plasma glucose measurement (mass/volume) 83 mg/dL 70-105 Serum or plasma calcium measurement (mass/volume) 9.3 mg/dL 8.5-10.1 Serum or plasma total bilirubin measurement (mass/volume) 0.3 mg/dL 0.1-1.0 Serum or plasma alkaline phosphatase measurement (enzymatic activity/volume) 54 U/L 40-136 Serum or plasma aspartate aminotransferase measurement (enzymatic activity/ volume) 13 U/L 5-34 Serum or plasma alanine aminotransferase measurement (enzymatic activity/volume ) 13 U/L 0-55 Serum or plasma protein measurement (mass/volume) 7.0 g/dL 6.4-8.2 Serum or plasma albumin measurement (mass/volume) 4.0 g/dL 3.2-4.5 Encounters ACCT No. Visit Date/Time Discharge Status Pt. Type Provider Facility Loc./Unit Complaint [id number] 12/07/2014 11:41:00 12/07/2014 23:59:59 CLS Outpatient MERLENE GUIDO MD [id number] 11/26/2014 08:46:00 11/26/2014 23:59:59 CLS Outpatient LORRIE BOND APRN [id number] 11/22/2014 14:55:00 11/22/2014 23:59:59 CLS Outpatient LORRIE BOND APRN [id number] 11/08/2014 15:59:00 11/08/2014 23:59:59 CLS Outpatient LUCINA CORTEZ APRN [id number] 09/24/2014 13:29:00 09/24/2014 23:59:59 CLS Outpatient DORA FRANCSICO APRN [id number] 09/10/2014 16:54:00 09/10/2014 23:59:59 CLS Outpatient LUCINA CORTEZ APRN [id number] 03/17/2018 14:00:00 03/17/2018 23:59:59 CLS Preadmit NED MULLINS DO [facility] RAD [id number] 04/20/2017 09:13:00 04/20/2017 23:59:59 CLS Preadmit SUSAN KENDALLYOVANY OLIVARES [facility] REHAB CERVICITIS [id number] 04/04/2017 16:13:00 04/04/2017 19:23:00 DIS Emergency ORTIZ DELACRUZ [facility] ER SPOTTING/PELVIC PAIN [id number] 12/27/2016 15:52:00 12/27/2016 18:07:00 DIS Emergency SHILPA COLE MD [facility] ER POST OP/BILAT LEG SWELLING /FEVER/INCISION PAIN [id number] 12/18/2016 09:26:00 12/20/2016 16:15:00 DIS Inpatient NED MULLINS DO [facility] WS CONTRACTIONS,FLUID LEAKAGE ,LABOR [id number] 12/16/2016 16:42:00 12/16/2016 18:30:00 DIS Outpatient NED MULLINS DO [facility] WSo DECREASED MOVEMENT [id number] 12/07/2016 12:15:00 12/07/2016 13:40:00 DIS Outpatient SELENE STONE MD [facility] WSo CONTRACTIONS [id number] 11/15/2016 17:49:00 11/15/2016 20:17:00 DIS Outpatient SELENE STONE MD [facility] WSo ELEV BP [id number] 10/26/2016 17:11:00 10/26/2016 18:30:00 DIS Outpatient SELENE STONE MD [facility] WSo CONTRACTIONS/ DECREASED MOVEMENT [id number] 10/15/2016 11:57:00 10/15/2016 23:59:59 CLS Outpatient NED MULLINS DO [facility] RAD ,INCOMPLETE VIEWS [id number] 10/04/2016 20:58:00 10/05/2016 10:15:00 DIS Outpatient NED MULLINS DO [facility] WSo HEADACHE [id number] 08/31/2016 15:48:00 08/31/2016 16:35:00 DIS Outpatient NED MULLINS DO [facility] WSo FALL/STOMACH PAIN/ VAG PRESSURE [id number] 07/10/2016 23:34:00 07/11/2016 00:16:00 DIS Emergency CESAR ESTRADA DO [facility] ER VOMITING BLOOD,14WKS PREG [id number] 05/14/2016 04:34:00 05/14/2016 07:29:00 DIS Emergency NORMAN DE LA CRUZ DO D [facility] ER 7 1/2 WKS PREG,SEVERE CRAMPING,F[place] [id number] 05/11/2015 16:39:00 05/11/2015 19:36:00 DIS Emergency ORTIZ DELACRUZ [facility] ER VAG TEAR [id number] 01/06/2015 03:13:00 01/06/2015 04:43:00 DIS Emergency CARMELITA DONG MD [facility] ER ABD PAIN [id number] 02/26/2015 13:45:00 Document Registration [id number] 02/26/2015 13:45:00 Document Registration [id number] 02/26/2015 13:45:00 Document Registration [id number] 02/26/2015 13:45:00 Document Registration [id number] 02/26/2015 13:45:00 Document Registration [id number] 02/26/2015 13:45:00 Document Registration [id number] 02/26/2015 13:45:00 Document Registration [id number] 02/26/2015 13:45:00 Document Registration [id number] 02/26/2015 13:45:00 Document Registration [id number] 02/26/2015 13:45:00 Document Registration [id number] 11/15/2006 15:32:00 Document Registration [id number] 10/28/2017 15:05:00 10/28/2017 23:59:59 CLS Outpatient [facility]
--- NOTE | 2018-03-25 11:44 | ED General ---
General Chief Complaint: Dizziness/Syncope Stated Complaint: FAINT,DIZZINESS,21 WKS PREG Source of Information: Patient Exam Limitations: No Limitations History of Present Illness Date Seen by Provider: Mar 25, 2018 Time Seen by Provider: 11:40 Initial Comments Patient is a 27-year-old female who presents to the emergency room with complaints of feeling like she could pass out at different times for 2-3 days. She reports that yesterday it was at its worst when she was at the swimming pool and she stood up and had to sit back down immediately because she thought she was going to pass out. She is 21 weeks . Her OYSTER HARVESTER is Dr. MULLINS and they instructed her to come to the emergency room today. She denies any cramping, spotting, or discharge and has felt the baby move today. Timing/Duration: 2-3 Days Associated Systoms: No Seizure, No Shortness of Air; Syncope; No Weakness Allergies and Home Medications Allergies Coded Allergies: latex (Unverified Allergy, Unknown, 05/14/16) tramadol (Unverified Allergy, Unknown, 05/14/16) Home Medications Losartan Potassium 25 Mg Tablet, 25 MG PO DAILY, (Reported) Patient Home Medication List Home Medication List Reviewed: Yes Review of Systems Constitutional: see HPI; No chills; dizziness; No fever Psychiatric/Neurological: See HPI, Other (syncopy) All Other Systems Reviewed Negative Unless Noted: Yes Past Jqktgwo-Ubzvlb-Sldpto Hx Past Med/Social Hx: Reviewed Nursing Past Med/Soc Hx Patient Social History Type Used: Cigarettes Former Smoker, Quit: Jun 16, 2016 2nd Hand Smoke Exposure: No Recent Foreign Travel: No Contact w/Someone Who Travel: No Recent Hopitalizations: Yes ( 12/18/16) Immunizations Up To Date Tetanus Booster (TDap): Less than 5yrs PED Vaccines UTD: Yes Date of Influenza Vaccine: May 19, 2016 Seasonal Allergies Seasonal Allergies: Yes Past Medical History Surgeries: Yes (D&C, biopsy on neck) Adenoidectomy, Section, Orthopedic, Tonsillectomy Respiratory: Yes Asthma Currently Using CPAP: No Currently Using BIPAP: No Cardiac: Yes Hypertension Neurological: Yes Headaches /Migraines Reproductive Disorders: Yes Female Reproductive Disorders: Polycystic Ovarian Dis Sexually Transmitted Disease: Yes HIV/AIDS: No Genitourinary: No Gastrointestinal: Yes Colitis Musculoskeletal: Yes Scoliosis Endocrine: No HEENT: No Cancer: No Psychosocial: Yes Anxiety Integumentary: Yes Eczema, Recent Skin Changes, Herpes Blood Disorders: No Adverse Reaction/Blood Tranf: No Family Medical History Reviewed Nursing Family Hx Alcoholism 19 FATHER (father) Aphasia Arthritis 19 MOTHER (maternal grandmother, mother) Asthma 19 MOTHER (maternal grandmother, sister) Cardiovascular disease 19 FATHER (father) 19 MOTHER (maternal grandparents.) Cataracts 19 MOTHER (grandparents) Completed stroke 19 MOTHER (grandfatgher) Coronary thrombosis 19 MOTHER (grandfather) Dementia 19 MOTHER (grandmother) Diabetes mellitus 19 MOTHER (mother, grandfather) Drug abuse 19 FATHER (father) 19 MOTHER (mother) Dysphasia 19 MOTHER (grandfather) Fibrocystic disease of breast 19 MOTHER (mother) Hypercholesterolemia 19 MOTHER (grandmother, mother) Hypertension 19 FATHER (father) 19 MOTHER (mother, grandfather) Kidney disease 19 MOTHER (grandfather) Myocardial infarction 19 FATHER (dad) 19 MOTHER (grandfather) Psychosocial problem 19 MOTHER (mother-anxiety, depression grandmother. grandfather) Respiratory disorder 19 MOTHER (grandmother- COPD) Seizure disorder Thyroid disease 19 MOTHER (grandfather) No Pertinent Family Hx Physical Exam Vital Signs Vital Signs - First Documented 03/25/18 11:30 Temp 98.5 Pulse 96 Resp 18 B/P (MAP) 133/70 (91) Pulse Ox 98 O2 Delivery Room Air Capillary Refill : Height, Weight, BMI Height: 5'2.00" Weight: 216lbs. 0.0oz. 97.143678jr; 41.9 BMI Method:Stated General Appearance: No Apparent Distress, WD/WN Eyes: Bilateral Eye Normal Inspection, Bilateral Eye PERRL, Bilateral Eye EOMI HEENT: TMs Normal, Normal ENT Inspection, Pharynx Normal Neck: Full Range of Motion, Normal Inspection, Non Tender, Supple Respiratory: Chest Non Tender, Lungs Clear, Normal Breath Sounds, No Accessory Muscle Use, No Respiratory Distress Cardiovascular: Regular Rate, Rhythm, No Edema, No Gallop, No JVD, No Murmur, Normal Peripheral Pulses Neurologic/Psychiatric: Alert, Oriented x3, Normal Mood/Affect Skin: Normal Color, Warm/Dry Lymphatic: No Adenopathy Progress/Results/Core Measures Suspected Sepsis SIRS Temperature: Pulse: Respiratory Rate: Laboratory Tests 03/25/18 12:11: White Blood Count 10.7 Blood Pressure / Mean: Laboratory Tests 03/25/18 12:11: Creatinine 0.62, Platelet Count 238, Total Bilirubin 0.4 Results/Orders Lab Results My Orders Vital Signs/I&O Capillary Refill : Progress Note : Progress Note I have seen and evaluated the patient. She has been informed of laboratory findings. She agrees with plan of care, close follow up with physician and OB, and return precautions were given. ECG Initial ECG Impression Date: Mar 25, 2018 Initial ECG Impression Time: 11:56 Initial ECG Rhythm: Normal Sinus Initial ECG Intervals: Normal Initial ECG Impression: Normal Initial ECG Comparisson: No Previous ECG Available Comment Dr. Gamino reviewed the EKG as well. Departure Impression Primary Impression: Dehydration Additional Impression: Syncope Disposition: 01 HOME, SELF-CARE Condition: Stable/Unchanged Departure-Patient Inst. Decision time for Depature: 13:31 Referrals: [facility] (PCP/Family) Primary Care Physician Patient Instructions: Syncope (Fainting) (DC) Add. Discharge Instructions: Follow-up with [facility] within 1 week for recheck. Return back to the emergency room for any worsening symptoms or any other concerns as needed especially if he should have these feelings again. Follow-up with Dr. Mullins within 1 week for recheck. Drink plenty of fluids including water. All discharge instructions reviewed with patient and/or family. Voiced understanding. GROVER PEREZ Mar 25, 2018 11:44
[2018-03-25 12:00] VITALS: BP_SYST 114; BP_SYST 117; BP_SYST 119; BP_DIAS 59; BP_DIAS 66; BP_DIAS 71
[2018-03-25 12:21] LABS: BILIRUBIN,URINE NEGATIVE (NEGATIVE); CLARITY,URINE CLEAR; COLOR,URINE YELLOW; GLUCOSE, URINE (UA) 2+ (NEGATIVE); KETONES,URINE NEGATIVE (NEGATIVE); LEUKOCYTE ESTERASE ,URINE 2+ (NEGATIVE); NITRITE,URINE NEGATIVE (NEGATIVE); PH,URINE 6 (5-9); PROTEIN,URINE NEGATIVE (NEGATIVE); UROBILINOGEN,URINE NORMAL (NORMAL)
[2018-03-25 12:23] LABS: BASOPHILS % (AUTO) 0 % (0-10); EOSINOPHILS % (AUTO) 0 % (0-10); HEMATOCRIT 32 % (35-52); HEMOGLOBIN 11.1 G/DL (11.5-16.0); LYMPHOCYTES # (AUTO) 1.8 X 10^3 (1.0-4.0); LYMPHOCYTES % (AUTO) 17 % (12-44); MEAN CORPUSCULAR HEMOGLOBIN 31 PG (25-34); MEAN CORPUSCULAR HGB CONC 34 G/DL (32-36); MEAN CORPUSCULAR VOLUME 90 FL (80-99); MEAN PLATELET VOLUME 11.3 FL (7.4-10.4); MONOCYTES # (AUTO) 0.5 X 10^3 (0.0-1.0); MONOCYTES % (AUTO) 5 % (0-12); NEUTROPHILS # (AUTO) 8.4 X 10^3 (1.8-7.8); NEUTROPHILS % (AUTO) 78 % (42-75); PLATELET COUNT 238 10^3/uL (130-400); RED BLOOD COUNT 3.61 10^6/uL (4.35-5.85); RED CELL DISTRIBUTION WIDTH 13.8 % (10.0-14.5); WHITE BLOOD COUNT 10.7 10^3/uL (4.3-11.0)
[2018-03-25 12:35] LABS: BACTERIA,URINE TRACE /HPF; SQUAMOUS EPITHELIAL CELL,UR 25-50 /HPF; WBC,URINE 0-2 /HPF
[2018-03-25 12:43] LABS: ALANINE AMINOTRANSFERASE 11 U/L (0-55); ALBUMIN 3.4 GM/DL (3.2-4.5); ALKALINE PHOSPHATASE 52 U/L (40-136); BILIRUBIN,TOTAL 0.4 MG/DL (0.1-1.0); BUN/CREATININE RATIO 13; CALCIUM 9.6 MG/DL (8.5-10.1); CARBON DIOXIDE 20 MMOL/L (21-32); CHLORIDE 110 MMOL/L (98-107); CREATININE SERUM 0.62 MG/DL (0.60-1.30); GFR ESTIMATED > 60; GLUCOSE 102 MG/DL (70-105); POTASSIUM 3.7 MMOL/L (3.6-5.0); SODIUM 138 MMOL/L (135-145); TOTAL PROTEIN 6.4 GM/DL (6.4-8.2)
[2018-03-25] MEDS ORDERED: NS IV 500 ML 500 ML IV SCH (13:00)
[2018-03-25 13:44] VITALS: BP 112/64
== END 2018-03-25 13:44 | disposition home or self-care (01) ==
LOC: EDUNIT# 10:50 → ER 10:54
DX: O99.282 Endocrine, nutritional and metabolic diseases complicating pregnancy, second trimester (principal); E86.0 Dehydration; O99.89 Other specified diseases and conditions complicating pregnancy, childbirth and the puerperium; R55 Syncope and collapse; O16.2 Unspecified maternal hypertension, second trimester; O99.352 Diseases of the nervous system complicating pregnancy, second trimester; G43.909 Migraine, unspecified, not intractable, without status migrainosus; O99.512 Diseases of the respiratory system complicating pregnancy, second trimester; J45.909 Unspecified asthma, uncomplicated; O99.342 Other mental disorders complicating pregnancy, second trimester; F41.9 Anxiety disorder, unspecified; Z90.89 Acquired absence of other organs; Z87.448 Personal history of other diseases of urinary system; Z87.19 Personal history of other diseases of the digestive system; Z82.49 Family history of ischemic heart disease and other diseases of the circulatory system; Z87.59 Personal history of other complications of pregnancy, childbirth and the puerperium; Z87.891 Personal history of nicotine dependence; Z91.040 Latex allergy status; Z88.6 Allergy status to analgesic agent; Z3A.21 21 weeks gestation of pregnancy
CPT/HCPCS: 36415; 80053; 81000; 85025; 93005; 96360

== ENCOUNTER 2018-05-26 14:00 | Observation (INO) | payer MEDICAID ==
[~2018-05-26] VITALS: Ht 157.5 cm; Wt 104.3 kg
[~2018-05-26 14:00] MED LIST changes: -LOSA25TA21 PO; +LOSA25TA6 PO; -LOSA50TA36 PO; +LOSA50TA7 PO; +METF-397 PO; -METF500T5 PO; -OXYC-197 PO; +OXYC1TAB87 PO
[2018-05-26] MEDS ORDERED: NS IV 1000 ML 1,000 ML ONE (14:35)
[2018-05-26] MEDS ORDERED: MELA1TAB9 PO (14:39)
[2018-05-26] MEDS ORDERED: DIPH25CA79 PO (14:39)
[2018-05-26] MEDS ORDERED: PREN-37 PO (14:39)
[2018-05-26] MEDS ORDERED: FLU QUADRIvalent (5+ YOA) 2018-2019 (AFLURIA) 0.5 ML IM ONE (14:45)
[2018-05-26] MEDS: BETAMETHASONE ACE/NA PHOS 6 MG/ML (CELESTONE SOLUSPAN) IM SCH (15:15)
[2018-05-26 16:10] VITALS: BP 129/59
[2018-05-26] MEDS ORDERED: INDOMETHACIN 25 MG (INDOCIN) CAP PO ONE ×3 (17:00→23:16)
[2018-05-26 17:35] VITALS: BP 128/61
[2018-05-26] MEDS: ONDANSETRON 4 MG/2 ML (SDV) Z0FRAN IVP PRN (18:31)
[2018-05-26 19:10] VITALS: BP 115/55
[2018-05-26] MEDS: NS IV 1000 ML 1,000 ML IV SCH (19:24)
[2018-05-26 21:25] VITALS: BP 121/54
--- NOTE | 2018-05-26 21:39 | History & Physical-OB ---
OB - Chief Complaint & HPI Date/Time Date of Admission: Date of Admission: May 26, 2018 at 2:14 pm Date seen by a Provider: May 26, 2018 Time Seen by a Provider: 14:30 Chief Complaint/History OB-Reason for Admission/Chief: Labor Hx : 2 Hx Para: 1 Expected Date of Delivery: Aug 03, 2018 Gestational Age in Weeks: 30 Gestational Age in Days: 1 Other reason for admission: Patient presented with contractions and decreased movement Admission Nurse Assessment Rev: Yes History of Labs O pos Antibody neg RI RPR NR HIV NR HBsAg NR GC neg GBS unknown Allergies and Home Medications Allergies Coded Allergies: latex (Unverified Allergy, Unknown, 05/14/16) tramadol (Unverified Allergy, Unknown, 05/14/16) Home Medications Diphenhydramine HCl 25 Mg Capsule, 25 MG PO HS, (Reported) Losartan Potassium 25 Mg Tablet, 25 MG PO DAILY, (Reported) Melatonin/Pyridoxine HCl (B6) 1 Each Tablet, 1 EACH PO HS, (Reported) Vit/Iron Fumarate/FA 1 Each Tablet, 1 EACH PO DAILY, (Reported) Patient Home Medication List Home Medication List Reviewed: Yes OB - History Hx of Present Care: Yes Ultrasounds: Normal mid trimester US Obstetrical Complications: None Medical Complications: None Obstetrical History Hx : 2 Hx Para: 1 Delivery History Hx Blood Disorders: No Adverse Rxn to Tranfusion: No Patient Past Medical History migraines Social History/Family History HIV/AIDS: No Recent Infectious Disease Expo: No Sexually Transmitted Disease: Yes 2nd Hand Smoke Exposure: No Immunizations Hepatitis A: Yes Hepatitis B: Yes Tetanus Booster (TDap): Less than 5yrs Date of Influenza Vaccine: May 19, 2016 OB - Admission Exam Physical Exam Vitals: Vital Signs 05/26/18 19:10 Temp 96.7 Pulse 72 Resp 18 B/P (MAP) 115/55 (75) HEENT: NCAT Heart: Rhythm Normal Lungs: Clear Abdomen: Gravid Extremities: Normal Reflexes: Normal Cervical Dilatation: 3cm Effacement: 50% Station: Ballotable Membranes: Intact Heart Rate: 140's Accelerations: Accelerations Present Decelerations: No Decelerations Short Term Variability: Present 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 Admission Status: Observation Reason for Inpatient Admission: contractions Plan Other Plan Patient admitted for obs and given IVF bolus with NS, and dose of betamethasone. She was noted to be ctx q 3 min after bolus, but no cervical change was made. I started the patient on a tocolytic course of indocin 100 mg PO then 50 q 6 x 7 total doses. I discussed with her the plan for tocolysis so that we can administer 2nd dose of BMZ. If contractions subside tomorrow will dc patient home with pelvic restrictions and bedrest due to labor. If contractions continue and cervical change is made, despite indocin tocolysis will consider transfer. Patient demonstrates understanding of plan. NED MULLINS DO May 26, 2018 9:39 pm
[2018-05-26] MEDS ORDERED: diphenhydrAMINE 25 MG TAB (BENADRYL) PO ONE ×2 (22:00→22:16)
[2018-05-26] MEDS ORDERED: MELATONIN 3 MG TABLET PO SCH (22:00)
[2018-05-26 22:16] LABS: BASOPHILS % (AUTO) 0 % (0-10); EOSINOPHILS % (AUTO) 0 % (0-10); HEMATOCRIT 33 % (35-52); HEMOGLOBIN 11.2 G/DL (11.5-16.0); LYMPHOCYTES % (AUTO) 7 % (12-44); MEAN CORPUSCULAR HEMOGLOBIN 30 PG (25-34); MEAN CORPUSCULAR HGB CONC 34 G/DL (32-36); MEAN CORPUSCULAR VOLUME 89 FL (80-99); MEAN PLATELET VOLUME 10.9 FL (7.4-10.4); MONOCYTES # (AUTO) 0.1 X 10^3 (0.0-1.0); MONOCYTES % (AUTO) 1 % (0-12); NEUTROPHILS # (AUTO) 13.5 X 10^3 (1.8-7.8); NEUTROPHILS % (AUTO) 92 % (42-75); PLATELET COUNT 258 10^3/uL (130-400); RED BLOOD COUNT 3.73 10^6/uL (4.35-5.85); RED CELL DISTRIBUTION WIDTH 13.2 % (10.0-14.5); WHITE BLOOD COUNT 14.7 10^3/uL (4.3-11.0)
[2018-05-26 22:18] LABS: BILIRUBIN,URINE NEGATIVE (NEGATIVE); CLARITY,URINE CLEAR; COLOR,URINE YELLOW; GLUCOSE, URINE (UA) 4+ (NEGATIVE); KETONES,URINE 4+ (NEGATIVE); LEUKOCYTE ESTERASE ,URINE 1+ (NEGATIVE); NITRITE,URINE NEGATIVE (NEGATIVE); PH,URINE 5 (5-9); PROTEIN,URINE 2+ (NEGATIVE); UROBILINOGEN,URINE 1 MG/DL (NORMAL)
[2018-05-26 22:43] LABS: RBC,URINE RARE /HPF; WBC,URINE 0-2 /HPF
[2018-05-26] MEDS ORDERED: MELATONIN 3 MG TABLET ONE (22:47)
[2018-05-26 22:51] LABS: BAND NEUTROPHILS 0 %; BASOPHILS % (MANUAL) 0 %; EOSINOPHILS % (MANUAL) 0 %; LYMPHOCYTES % (MANUAL) 4 %; MONOCYTES % (MANUAL) 0 %; NEUTROPHILS % (MANUAL) 96 %; RBC MORPH NORMAL
[2018-05-26] MEDS: INDOMETHACIN 25 MG (INDOCIN) CAP PO SCH (23:29)
[2018-05-26 23:32] VITALS: BP 108/52
[2018-05-27] MEDS: NS IV 1000 ML 1,000 ML IV SCH ×2 (03:32→11:32)
[2018-05-27 03:38] VITALS: BP 122/58
[2018-05-27] MEDS: INDOMETHACIN 25 MG (INDOCIN) CAP PO SCH ×2 (05:50→12:16)
--- NOTE | 2018-05-27 08:12 | Progress Note-Standard ---
Standard Progress Note Progress Notes/Assess & Plan Date Seen by a Provider: May 27, 2018 Time Seen by a Provider: 07:30 Progress/Assessment & Plan Patient doing much better this morning still having rare contractions but nothing regular or terribly uncomfortable. No ctx noted on FHT. FHT reassuring and reactive. Continue plan of care as detailed in H and P and plan for DC later today. NED MULLINS DO May 27, 2018 8:12 am
[2018-05-27] MEDS ORDERED: INDO25CA15 PO ×2 (08:20)
[2018-05-27 08:53] VITALS: BP 117/58
[2018-05-27 11:00] VITALS: BP 97/49
[2018-05-27] MEDS: ONDANSETRON 4 MG/2 ML (SDV) Z0FRAN IVP PRN (11:34)
[2018-05-27] MEDS ORDERED: FLU QUADRIvalent (5+ YOA) 2018-2019 (AFLURIA) 0.5 ML IM ONE (15:44)
[2018-05-27] MEDS: BETAMETHASONE ACE/NA PHOS 6 MG/ML (CELESTONE SOLUSPAN) IM SCH (15:51)
--- OUTSIDE RECORDS SUMMARY | 2018-06-01 15:02 | XMS REPORT | Continuity of Care Document ---
Author Author [facility] Address Unknown Phone Unavailable Allergies Active Description Code Type Severity Reaction Onset Reported/Identified Relationship to Patient Clinical Status Yes NKANo Known Allergies NKA Miscellaneous Allergy Mild N/A 08/10/2009 Yes latex OA N/A N/A 09/03/2014 Yes latex [id number] Drug Allergy Unknown N/A 05/14/2016 Yes tramadol [id number] Drug Allergy Unknown N/A 05/14/2016 Medications There [...] BOND APRN R 278.00 OBESITY 09/03/2014 VARUN ASTROCHEMIST, LORRIE R 465.9 UPPER RESPIRATORY INFECTION 09/03/2014 VARUN ASTROCHEMIST, LORRIE R 278.00 OBESITY 09/03/2014 VARUN ASTROCHEMIST, LORRIE R 465.9 UPPER RESPIRATORY INFECTION 09/03/2014 HAY NATION, MERLENE 278.00 OBESITY 09/03/2014 [place], MERLENE 465.9 UPPER RESPIRATORY INFECTION 09/10/2014 DANA ASTROCHEMIST, LUCINA A 256.4 POLYCYSTIC OVARIES 09/10/2014 DANA ASTROCHEMIST, LUCINA A 300.00 ANXIETY STATE UNSPECIFIED 09/10/2014 DANA ASTROCHEMIST, LUCINA A 626.4 IRREGULAR MENSTRUAL CYCLE 09/10/2014 DANA ASTROCHEMIST, LUCINA A V74.5 STD SCREEN 09/10/2014 MARYAM DONAHUEN, DORA R 256.4 POLYCYSTIC OVARIES 09/10/2014 MARYAM DONAHUEN, DORA R 300.00 ANXIETY STATE UNSPECIFIED 09/10/2014 MARYAM DONAHUEN, DORA R 626.4 IRREGULAR MENSTRUAL CYCLE 09/10/2014 MARYAM DONAHUEN, DORA R V74.5 STD SCREEN 09/10/2014 DANA ASTROCHEMIST, LUCINA A 256.4 POLYCYSTIC OVARIES 09/10/2014 DANA ASTROCHEMIST, LUCINA A 300.00 ANXIETY STATE UNSPECIFIED 09/10/2014 DANA ASTROCHEMIST, LUCINA A 626.4 IRREGULAR MENSTRUAL CYCLE 09/10/2014 DANA ASTROCHEMIST, LUCINA A V74.5 STD SCREEN 09/10/2014 VARUN [...] APRNINA R 401.1 HYPERTENSION, BENIGN ESSENTIAL 11/22/2014 VRAUN MONTELONGO LORRIE R 623.5 LEUKORRHEA NOT SPECIFIED [...] Z3A.29 29 WEEKS GESTATION OF 10/28/2016 SELENE STOEN MD, Ot O36.8130 DECREASED MOVEMENTS, THIRD TRIMEST [...] Ot Z90.89 ACQUIRED ABSENCE OF OTHER ORGANS 03/25/2018 Ot E86.0 DEHYDRATION 03/25/2018 Ot F41.9 ANXIETY DISORDER, UNSPECIFIED 03/25/2018 Ot G43.909 MIGRAINE, UNSP, NOT INTRACTABLE, WITHOUT 03/25/2018 Ot J45.909 UNSPECIFIED ASTHMA, UNCOMPLICATED 03/25/2018 Ot O16.2 UNSPECIFIED MATERNAL HYPERTENSION, SECON 03/25/2018 Ot O99.282 ENDO, NUTRITIONAL AND METAB DISEASES COM 03/25/2018 Ot O99.342 OTH MENTAL DISORDERS COMP , SEC 03/25/2018 Ot O99.352 DISEASES OF THE NERVOUS SYS COMP PREGNAN 03/25/2018 Ot O99.512 DISEASES OF THE RESP SYS COMP , 03/25/2018 Ot O99.89 OTH DISEASES AND CONDITIONS COMPL PREG/C 03/25/2018 Ot R55 SYNCOPE AND COLLAPSE 03/25/2018 Ot Z3A.21 21 WEEKS GESTATION OF 03/25/2018 Ot Z82.49 FAMILY HX OF ISCHEM HEART DIS AND OTH DI 03/25/2018 Ot Z87.19 PERSONAL HISTORY OF OTHER DISEASES OF TH 03/25/2018 Ot Z87.448 PERSONAL HISTORY OF OTHER DISEASES OF UR 03/25/2018 Ot Z87.59 PERSONAL HISTORY OF COMP OF PREG, CHLDBR 03/25/2018 Ot Z87.891 PERSONAL HISTORY OF NICOTINE DEPENDENCE 03/25/2018 Ot Z88.6 ALLERGY STATUS TO ANALGESIC AGENT STATUS 03/25/2018 Ot Z90.89 ACQUIRED ABSENCE OF OTHER ORGANS 03/25/2018 Ot Z91.040 LATEX ALLERGY STATUS Procedures Code [place] [address] INFLUENZA A & B (IN-HOUSE) 09/24/2014 32942 CULTURE URINE 11/22/2014 20925 GC/CHLAM URINE (STATE) 11/22/2014 18290 UA W/ CULTURE IF INDICATED 11/22/2014 09725 ROUTINE VENIPUNCTURE 11/26/2014 2966930 GFR CALC (RESULT ONLY) 11/26/2014 03408 CMP 11/26/2014 58721 LIPID PANEL 11/26/2014 46123 TSH 11/26/2014 18940 INSULIN LEVEL 11/26/2014 35320 CBC 11/27/2014 [id number] EXTRACTION OF POC, LOW CERVICAL, OPEN AP [...] 04:58 Serum or plasma choriogonadotropin measurement (units/volume) 75591 m[iU]/mL <5 Chlamydia trachomatis DNA detection by [...] culture - 12/07/16 12:45 Bacterial urine culture [id number] NRG COLONY COUNT 10,000/ML - 100,000/ML NRG [...] culture - 12/18/16 05:40 Bacterial urine culture [id number] NRG COLONY COUNT 10,000/ML - 100,000/ML NRG [...] ABO+Rh group OP NRG Transfusion band number [id number] NR Blood group antibody screen NEGATIVE NR Complete blood count (CBC) with automated white [...] culture - 12/27/16 16:45 Bacterial urine culture [id number] NRG COLONY COUNT >100,000/ML NRG FTX;REPORTABLE PLUS, [...] plasma albumin measurement (mass/volume) 4.0 g/dL 3.2-4.5 Complete urinalysis with reflex to culture - 03/25/18 11:52 Urine color determination YELLOW NRG Urine clarity determination CLEAR NRG Urine pH measurement by test strip 6 5-9 Specific gravity of urine by test strip 1.020 1.016- 1.022 Urine protein assay by test strip, semi-quantitative NEGATIVE NEGATIVE Urine glucose detection by automated test strip 2+ NEGATIVE Erythrocytes detection in urine sediment by [...] detection in urine sediment by light microscopy 25-50 NRG Crystals detection in urine sediment by light microscopy NONE NRG Casts detection in urine sediment by light microscopy NONE NRG Mucus detection in urine sediment by light microscopy NEGATIVE NRG Complete urinalysis with reflex to culture NO NRG Complete blood count (CBC) with automated white blood cell (WBC) differential - 03/25/18 12:11 Blood leukocytes automated count (number/volume) 10.7 10*3/uL 4.3-11.0 Blood erythrocytes automated count (number/volume) 3.61 10*6/uL 4.35-5.85 Venous blood hemoglobin measurement (mass/volume) 11.1 g/dL 11.5-16.0 Blood hematocrit (volume fraction) 32 % 35-52 Automated erythrocyte mean corpuscular volume 90 [foz_us] 80-99 Automated erythrocyte mean corpuscular hemoglobin (mass per erythrocyte) 31 pg 25-34 Automated erythrocyte mean corpuscular hemoglobin concentration measurement ( mass/volume) 34 g/dL 32-36 Automated erythrocyte distribution width ratio 13.8 % 10.0-14.5 Automated blood platelet count (count/volume) 238 10*3/uL 130-400 Automated blood platelet mean volume measurement 11.3 [foz_us] 7.4-10.4 Automated blood neutrophils/100 leukocytes 78 % 42-75 Automated blood lymphocytes/100 leukocytes 17 % 12-44 Blood monocytes/100 leukocytes 5 % 0-12 Automated blood eosinophils/100 leukocytes 0 % 0-10 Automated blood basophils/100 leukocytes 0 % 0-10 Blood neutrophils automated count (number/volume) 8.4 10*3 1.8-7.8 Blood lymphocytes automated count (number/volume) 1.8 10*3 1.0-4.0 Blood monocytes automated count (number/volume) 0.5 10*3 0.0-1.0 Automated eosinophil count 0.0 10*3/uL 0.0-0.3 Automated blood basophil count (count/volume) 0.0 10*3/uL 0.0-0.1 Comprehensive metabolic panel - 03/25/18 12:11 Serum or plasma sodium measurement (moles/volume) 138 mmol/L 135-145 Serum or plasma potassium measurement (moles/volume) 3.7 mmol/L 3.6-5.0 Serum or plasma chloride measurement (moles/volume) 110 mmol/L 98-107 Carbon dioxide 20 mmol/L 21-32 Serum or plasma anion gap determination (moles/volume) 8 mmol/L 5-14 Serum or plasma urea nitrogen measurement (mass/volume) 8 mg/dL 7-18 Serum or plasma creatinine measurement (mass/volume) 0.62 mg/dL 0.60-1.30 Serum or plasma urea nitrogen/creatinine mass ratio 13 NRG Serum or plasma creatinine measurement with calculation of estimated glomerular filtration rate > NRG Serum or plasma glucose measurement (mass/volume) 102 mg/dL 70-105 Serum or plasma calcium measurement (mass/volume) 9.6 mg/dL 8.5-10.1 Serum or plasma total bilirubin measurement (mass/volume) 0.4 mg/dL 0.1-1.0 Serum or plasma alkaline phosphatase measurement (enzymatic activity/volume) 52 U/L 40-136 Serum or plasma aspartate aminotransferase measurement (enzymatic activity/ volume) 13 U/L 5-34 Serum or plasma alanine aminotransferase measurement (enzymatic activity/volume ) 11 U/L 0-55 Serum or plasma protein measurement (mass/volume) 6.4 g/dL 6.4-8.2 Serum or plasma albumin measurement (mass/volume) 3.4 g/dL 3.2-4.5 CALCIUM CORRECTED 10.1 mg/dL 8.5-10.1 Complete urinalysis with reflex to culture - 05/26/18 21:55 Urine color determination YELLOW NRG Urine clarity determination CLEAR NRG Urine pH measurement by test strip 5 5-9 Specific gravity of urine by test strip 1.025 1.016- 1.022 Urine protein assay by test strip, semi-quantitative 2+ NEGATIVE Urine glucose detection by automated test strip 4+ NEGATIVE Erythrocytes detection in urine sediment by light microscopy NEGATIVE NEGATIVE Urine ketones detection by automated test strip 4+ NEGATIVE Urine nitrite detection by test strip NEGATIVE NEGATIVE Urine total bilirubin detection by test strip NEGATIVE NEGATIVE Urine urobilinogen measurement by automated test strip (mass/volume) 1 mg/dL NORMAL Urine leukocyte esterase detection by dipstick 1+ NEGATIVE Automated urine sediment erythrocyte count by microscopy (number/high power field) RARE NRG Automated urine sediment leukocyte count by microscopy (number/high power field ) [HPF] NRG Bacteria detection in urine sediment by light microscopy NONE NRG Squamous epithelial cells detection in urine sediment by light microscopy 2-5 NRG Crystals detection in urine sediment by light microscopy NONE NRG Casts detection in urine sediment by light microscopy NONE NRG Mucus detection in urine sediment by light microscopy MODERATE NRG Complete urinalysis with reflex to culture NO NRG Complete blood count (CBC) with automated white blood cell (WBC) differential - 05/26/18 22:09 Blood leukocytes automated count (number/volume) 14.7 10*3/uL 4.3-11.0 Blood erythrocytes automated count (number/volume) 3.73 10*6/uL 4.35-5.85 Venous blood hemoglobin measurement (mass/volume) 11.2 g/dL 11.5-16.0 Blood hematocrit (volume fraction) 33 % 35-52 Automated erythrocyte mean corpuscular volume 89 [foz_us] 80-99 Automated erythrocyte mean corpuscular hemoglobin (mass per erythrocyte) 30 pg 25-34 Automated erythrocyte mean corpuscular hemoglobin concentration measurement ( mass/volume) 34 g/dL 32-36 Automated erythrocyte distribution width ratio 13.2 % 10.0-14.5 Automated blood platelet count (count/volume) 258 10*3/uL 130-400 Automated blood platelet mean volume measurement 10.9 [foz_us] 7.4-10.4 Automated blood neutrophils/100 leukocytes 92 % 42-75 Automated blood lymphocytes/100 leukocytes 7 % 12-44 Blood monocytes/100 leukocytes 1 % 0-12 Automated blood eosinophils/100 leukocytes 0 % 0-10 Automated blood basophils/100 leukocytes 0 % 0-10 Blood neutrophils automated count (number/volume) 13.5 10*3 1.8-7.8 Blood lymphocytes automated count (number/volume) 1.0 10*3 1.0-4.0 Blood monocytes automated count (number/volume) 0.1 10*3 0.0-1.0 Automated eosinophil count 0.0 10*3/uL 0.0-0.3 Automated blood basophil count (count/volume) 0.0 10*3/uL 0.0-0.1 Blood manual differential performed detection - 05/26/18 22:09 Blood monocytes/100 leukocytes 0 % NRG Manual blood segmented neutrophils/100 leukocytes 96 % NRG Blood band neutrophils/100 leukocytes 0 % NRG Manual blood lymphocytes/100 leukocytes 4 % NRG Manual eosinophils/100 leukocytes in nose 0 % NRG Manual blood basophils/100 leukocytes 0 % NRG Blood erythrocyte morphology finding identification NORMAL NRG Complete blood count (CBC) with automated white blood cell (WBC) differential - 05/29/18 18:07 Blood leukocytes automated count (number/volume) 12.1 10*3/uL 4.3-11.0 Blood erythrocytes automated count (number/volume) 3.19 10*6/uL 4.35-5.85 Venous blood hemoglobin measurement (mass/volume) 9.7 g/dL 11.5-16.0 Blood hematocrit (volume fraction) 29 % 35-52 Automated erythrocyte mean corpuscular volume 91 [foz_us] 80-99 Automated erythrocyte mean corpuscular hemoglobin (mass per erythrocyte) 30 pg 25-34 Automated erythrocyte mean corpuscular hemoglobin concentration measurement ( mass/volume) 34 g/dL 32-36 Automated erythrocyte distribution width ratio 13.3 % 10.0-14.5 Automated blood platelet count (count/volume) 228 10*3/uL 130-400 Automated blood platelet mean volume measurement 11.1 [foz_us] 7.4-10.4 Automated blood neutrophils/100 leukocytes 73 % 42-75 Automated blood lymphocytes/100 leukocytes 18 % 12-44 Blood monocytes/100 leukocytes 9 % 0-12 Automated blood eosinophils/100 leukocytes 0 % 0-10 Automated blood basophils/100 leukocytes 0 % 0-10 Blood neutrophils automated count (number/volume) 8.8 10*3 1.8-7.8 Blood lymphocytes automated count (number/volume) 2.1 10*3 1.0-4.0 Blood monocytes automated count (number/volume) 1.1 10*3 0.0-1.0 Automated eosinophil count 0.0 10*3/uL 0.0-0.3 Automated blood basophil count (count/volume) 0.0 10*3/uL 0.0-0.1 Comprehensive metabolic panel - 05/29/18 18:07 Serum or plasma sodium measurement (moles/volume) 139 mmol/L 135-145 Serum or plasma potassium measurement (moles/volume) 3.7 mmol/L 3.6-5.0 Serum or plasma chloride measurement (moles/volume) 111 mmol/L 98-107 Carbon dioxide 18 mmol/L 21-32 Serum or plasma anion gap determination (moles/volume) 10 mmol/L 5-14 Serum or plasma urea nitrogen measurement (mass/volume) 6 mg/dL 7-18 Serum or plasma creatinine measurement (mass/volume) 0.60 mg/dL 0.60-1.30 Serum or plasma urea nitrogen/creatinine mass ratio 10 NRG Serum or plasma creatinine measurement with calculation of estimated glomerular filtration rate > NRG Serum or plasma glucose measurement (mass/volume) 92 mg/dL 70-105 Serum or plasma calcium measurement (mass/volume) 8.6 mg/dL 8.5-10.1 Serum or plasma total bilirubin measurement (mass/volume) 0.2 mg/dL 0.1-1.0 Serum or plasma alkaline phosphatase measurement (enzymatic activity/volume) 63 U/L 40-136 Serum or plasma aspartate aminotransferase measurement (enzymatic activity/ volume) 51 U/L 5-34 Serum or plasma alanine aminotransferase measurement (enzymatic activity/volume ) 50 U/L 0-55 Serum or plasma protein measurement (mass/volume) 5.8 g/dL 6.4-8.2 Serum or plasma albumin measurement (mass/volume) 3.2 g/dL 3.2-4.5 CALCIUM CORRECTED 9.2 mg/dL 8.5-10.1 Encounters ACCT No. Visit Date/Time Discharge Status Pt. Type Provider Facility Loc./Unit Complaint [id number] 12/07/2014 11:41:00 12/07/2014 23:59:59 CLS Outpatient MERLENE GUIDO MD [id number] 11/26/2014 08:46:00 11/26/2014 23:59:59 CLS Outpatient VARUN MONTELONGO LORRIE R [id number] 11/22/2014 14:55:00 11/22/2014 23:59:59 CLS Outpatient VARUN MONTELONGO LORRIE R [id number] 11/08/2014 15:59:00 11/08/2014 23:59:59 CLS Outpatient DANA MONTELONGO LUCINA Gonzalez [id number] 09/24/2014 13:29:00 09/24/2014 23:59:59 CLS Outpatient MARYAM ASTROCHEMIST DORA Vargas [id number] 09/10/2014 16:54:00 09/10/2014 23:59:59 CLS Outpatient KATHYA CORTEZ APRNTUSHAR Gonzalez [id number] 05/29/2018 17:23:00 05/29/2018 18:55:00 DIS Outpatient NED MULLINS DO [facility] WSo CONTRACTIONS [id number] 03/17/2018 14:00:00 03/17/2018 23:59:59 CLS Preadmit NED MULLINS DO [facility] RAD [id number] 04/20/2017 09:13:00 04/20/2017 23:59:59 CLS Preadmit KENDALL DAVIS [facility] REHAB CERVICITIS [id number] 04/04/2017 16:13:00 04/04/2017 19:23:00 DIS Emergency ORTIZ DELACRUZ [facility] ER SPOTTING/PELVIC PAIN [id number] 12/27/2016 15:52:00 12/27/2016 18:07:00 DIS Emergency SHILPA COLE MD [facility] ER POST OP/BILAT LEG SWELLING /FEVER/INCISION PAIN [id number] 12/18/2016 09:26:00 12/20/2016 16:15:00 DIS Inpatient NED MULLINS DO [facility] WS CONTRACTIONS,FLUID LEAKAGE ,LABOR [id number] 12/16/2016 16:42:00 12/16/2016 18:30:00 DIS Outpatient [facility]EL[facility] DECREASED MOV[facility] [id number] 12/07/2016 12:15:00 12/07/2016 13:40:00 DIS Outpatient SEL[facility] STONE [facility] CONTRACTIONS [id number] 11/15/2016 17:49:00 11/15/2016 20:17:00 DIS Outpatient SELENE STONE MD [facility] ELEV BP [id number] 10/26/2016 17:11:00 10/26/2016 18:30:00 DIS Outpatient SELENE STONE MD [facility] CONTRACTIONS/ DECREASED MOVEMENT [id number] 10/15/2016 11:57:00 10/15/2016 23:59:59 CLS Outpatient NED MULLINS DO [facility] RAD ,INCOMPLETE VIEWS [id number] 10/04/2016 20:58:00 10/05/2016 10:15:00 DIS Outpatient NED MULLINS DO [facility] HEADACHE [id number] 08/31/2016 15:48:00 08/31/2016 16:35:00 DIS Outpatient JESÚSECH DO NED Polo [facility] FALL/STOMACH PAIN/ VAG PRESSURE [id number] 07/10/2016 23:34:00 07/11/2016 00:16:00 DIS Emergency CESAR ESTRADA DO [facility] ER VOMITING BLOOD,14WKS PREG [id number] 05/14/2016 04:34:00 05/14/2016 07:29:00 DIS Emergency NORMAN DE LA CRUZ DO [facility] ER 7 1/2 WKS PREG,SEVERE CRAMPING,FALL [place] [id number] 05/11/2015 16:39:00 05/11/2015 19:36:00 DIS Emergency ORTIZ DELACRUZ [facility] ER VAG TEAR [id number] 01/06/2015 03:13:00 01/06/2015 04:43:00 DIS Emergency CARMELITA DONG MD [facility] ER ABD PAIN [id number] 05/26/2018 14:14:00 ACT Inpatient FENECH DO, NED S [facility] WS DECREASED MOVEMENT [id number] 03/25/2018 12:24:00 Document Registration [id number] 02/26/2015 13:45:00 Document Registration [id number] 02/26/2015 13:45:00 Document Registration [id number] 02/26/2015 13:45:00 Document Registration [id number] 02/26/2015 13:45:00 Document Registration [id number] 02/26/2015 13:45:00 Document Registration [id number] 02/26/2015 13:45:00 Document Registration [id number] 02/26/2015 13:45:00 Document Registration [id number] 02/26/2015 13:45:00 Document Registration [id number] 02/26/2015 13:45:00 Document Registration [id number] 02/26/2015 13:45:00 Document Registration [id number] 11/15/2006 15:32:00 Document Registration [id number] 10/28/2017 15:05:00 10/28/2017 23:59:59 [facility] Outpatient [facility]
== END 2018-05-27 15:57 | disposition home or self-care (01) ==
LOC: LDRP 14:00 → INTOOBSV 14:14 → UNDOADMOB 14:14 → LDRP 20:56 → WS 05-27 16:10 → LDRP 05-27 17:49
PROVIDERS: ADMIT Obstetrics & Gynecology; ATTEND Obstetrics & Gynecology
DX: O60.03 Preterm labor without delivery, third trimester (principal); O36.8130 Decreased fetal movements, third trimester, not applicable or unspecified; Z3A.30 30 weeks gestation of pregnancy; Z23 Encounter for immunization
CPT/HCPCS: 36415; 81000; 85007; 85027; 90686; 96361; 96372; 96374; 96376; 99211; G0378

== ENCOUNTER 2018-05-29 17:23 | Outpatient (CLI) | payer MEDICAID ==
[~2018-05-29] VITALS: Ht 157.5 cm; Wt 107.0 kg
[2018-05-29 17:22] VITALS: BP 131/60
[~2018-05-29 17:23] MED LIST changes: +DIPH25CA79 PO; +INDO25CA15 PO; +MELA1TAB9 PO; +PREN-37 PO
[2018-05-29 18:21] LABS: BASOPHILS % (AUTO) 0 % (0-10); EOSINOPHILS % (AUTO) 0 % (0-10); HEMATOCRIT 29 % (35-52); HEMOGLOBIN 9.7 G/DL (11.5-16.0); LYMPHOCYTES # (AUTO) 2.1 X 10^3 (1.0-4.0); LYMPHOCYTES % (AUTO) 18 % (12-44); MEAN CORPUSCULAR HEMOGLOBIN 30 PG (25-34); MEAN CORPUSCULAR HGB CONC 34 G/DL (32-36); MEAN CORPUSCULAR VOLUME 91 FL (80-99); MEAN PLATELET VOLUME 11.1 FL (7.4-10.4); MONOCYTES # (AUTO) 1.1 X 10^3 (0.0-1.0); MONOCYTES % (AUTO) 9 % (0-12); NEUTROPHILS # (AUTO) 8.8 X 10^3 (1.8-7.8); NEUTROPHILS % (AUTO) 73 % (42-75); PLATELET COUNT 228 10^3/uL (130-400); RED BLOOD COUNT 3.19 10^6/uL (4.35-5.85); RED CELL DISTRIBUTION WIDTH 13.3 % (10.0-14.5); WHITE BLOOD COUNT 12.1 10^3/uL (4.3-11.0)
[2018-05-29 18:36] LABS: ALANINE AMINOTRANSFERASE 50 U/L (0-55); ALBUMIN 3.2 GM/DL (3.2-4.5); ALKALINE PHOSPHATASE 63 U/L (40-136); BILIRUBIN,TOTAL 0.2 MG/DL (0.1-1.0); BUN/CREATININE RATIO 10; CALCIUM 8.6 MG/DL (8.5-10.1); CARBON DIOXIDE 18 MMOL/L (21-32); CHLORIDE 111 MMOL/L (98-107); GFR ESTIMATED > 60; GLUCOSE 92 MG/DL (70-105); POTASSIUM 3.7 MMOL/L (3.6-5.0); SODIUM 139 MMOL/L (135-145); TOTAL PROTEIN 5.8 GM/DL (6.4-8.2)
== END 2018-05-30 12:29 | disposition home or self-care (01) ==
LOC: WSo 17:23 → LDRP 17:25 → WSo 18:55
PROVIDERS: ATTEND Obstetrics & Gynecology
DX: O47.03 False labor before 37 completed weeks of gestation, third trimester (principal); Z3A.30 30 weeks gestation of pregnancy
CPT/HCPCS: 36415; 80053; 85025; 99214

== ENCOUNTER 2018-07-02 04:20 | Outpatient (CLI) | payer MEDICAID ==
[~2018-07-02] VITALS: Ht 157.5 cm; Wt 103.9 kg
[~2018-07-02 04:20] MED LIST changes: +METR-197 PO; -METR500T21 PO
[2018-07-02 04:30] VITALS: BP 120/58
[2018-07-02] MEDS ORDERED: VALA500T4 PO (04:38)
== END 2018-07-02 05:25 | disposition home or self-care (01) ==
LOC: WSo 04:20 → LDRP 04:22 → WSo 05:25
PROVIDERS: ATTEND Obstetrics & Gynecology
DX: O36.8130 Decreased fetal movements, third trimester, not applicable or unspecified (principal); Z3A.35 35 weeks gestation of pregnancy

== ENCOUNTER 2018-07-05 15:32 | Outpatient (CLI) | payer MEDICAID ==
[~2018-07-05] VITALS: Ht 157.5 cm; Wt 104.8 kg
[2018-07-05 15:20] VITALS: BP 130/84
[~2018-07-05 15:32] MED LIST changes: +VALA500T4 PO
== END 2018-07-05 16:38 | disposition home or self-care (01) ==
LOC: WSo 15:32 → LDRP 15:34 → WSo 16:38
PROVIDERS: ATTEND Obstetrics & Gynecology
DX: O36.8130 Decreased fetal movements, third trimester, not applicable or unspecified (principal); Z3A.35 35 weeks gestation of pregnancy
CPT/HCPCS: 99213

== ENCOUNTER 2018-07-13 08:31 | Inpatient (IN) | payer MEDICAID ==
[~2018-07-13] VITALS: Ht 157.5 cm; Wt 103.9 kg
[2018-07-13] VITALS (8 sets, daily range): BP systolic 136–156; BP diastolic 65–92
[2018-07-13] MEDS ORDERED: FAMO-119 PO (08:41)
[2018-07-13] MEDS ORDERED: FAMOTIDINE 20MG/2ML IV (PEPCID) IVP ONE (09:00)
[2018-07-13] MEDS ORDERED: METOCLOPRAMIDE INJ 10 MG/2 ML (REGLAN) IV ONE (09:00)
[2018-07-13] MEDS ORDERED: CITRIC ACID/SOB CIT (BICITRA) 30 ML UDC PO ONE (09:00)
[2018-07-13] MEDS ORDERED: CATHETER FLUSH 10 ML SYR IV PRN (09:00)
[2018-07-13] MEDS: LACTATED RINGERS 1,000 ML IV PRN ×2 (09:08→09:44)
[2018-07-13 09:10] LABS: BASOPHILS % (AUTO) 0 % (0-10); EOSINOPHILS % (AUTO) 0 % (0-10); HEMATOCRIT 32 % (35-52); HEMOGLOBIN 10.9 G/DL (11.5-16.0); LYMPHOCYTES # (AUTO) 2.3 X 10^3 (1.0-4.0); LYMPHOCYTES % (AUTO) 21 % (12-44); MEAN CORPUSCULAR HEMOGLOBIN 29 PG (25-34); MEAN CORPUSCULAR HGB CONC 34 G/DL (32-36); MEAN CORPUSCULAR VOLUME 86 FL (80-99); MONOCYTES # (AUTO) 0.7 X 10^3 (0.0-1.0); MONOCYTES % (AUTO) 7 % (0-12); NEUTROPHILS # (AUTO) 7.9 X 10^3 (1.8-7.8); NEUTROPHILS % (AUTO) 72 % (42-75); PLATELET COUNT 249 10^3/uL (130-400); RED BLOOD COUNT 3.75 10^6/uL (4.35-5.85); RED CELL DISTRIBUTION WIDTH 14.3 % (10.0-14.5)
[2018-07-13 09:32] LABS: BILIRUBIN,URINE NEGATIVE (NEGATIVE); CLARITY,URINE CLEAR; COLOR,URINE YELLOW; GLUCOSE, URINE (UA) NEGATIVE (NEGATIVE); KETONES,URINE NEGATIVE (NEGATIVE); LEUKOCYTE ESTERASE ,URINE 2+ (NEGATIVE); NITRITE,URINE NEGATIVE (NEGATIVE); PH,URINE 6 (5-9); PROTEIN,URINE NEGATIVE (NEGATIVE); UROBILINOGEN,URINE NORMAL (NORMAL)
[2018-07-13] MEDS ORDERED: LIDOCAINE PF 2% 5 ML (XYLOCAINE) VIAL ONE (09:45)
[2018-07-13] MEDS ORDERED: fentaNYL INJECTION 100 MCG/2 ML AMP ONE (09:45)
[2018-07-13] MEDS ORDERED: OXYTOCIN/NORMAL SALINE 1,000 ML IV ONE (09:45)
[2018-07-13] MEDS ORDERED: BUPIVACAINE SPINAL 0.75% (SENSORCAINE) 2 ML AMP ONE (09:45)
--- NOTE | 2018-07-13 09:45 | History & Physical-OB ---
OB - Chief Complaint & HPI Date/Time Date of Admission: Date of Admission: Jul 13, 2018 at 8:47 am Date seen by a Provider: Jul 13, 2018 Time Seen by a Provider: 09:45 Chief Complaint/History OB-Reason for Admission/Chief: Onset of Labor Hx : 2 Hx Para: 1 Expected Date of Delivery: Aug 03, 2018 Gestational Age in Weeks: 3 Gestational Age in Days: 1 Indication for : desires repeat Admission Nurse Assessment Rev: Yes History of Labs O pos Antibody neg RI RPR NR HBsAg NR HIV NR GC neg GBS pos Allergies and Home Medications Allergies Coded Allergies: latex (Unverified Allergy, Unknown, 05/14/16) tramadol (Unverified Allergy, Unknown, 05/14/16) Home Medications Diphenhydramine HCl 25 Mg Capsule, 25 MG PO HS, (Reported) Famotidine 20 Mg Tablet, 20 MG PO BID, (Reported) Melatonin/Pyridoxine HCl (B6) 1 Each Tablet, 1 EACH PO HS, (Reported) Vit/Iron Fumarate/FA 1 Each Tablet, 1 EACH PO DAILY, (Reported) Valacyclovir HCl 500 Mg Tablet, 500 MG PO BID, (Reported) Patient Home Medication List Home Medication List Reviewed: Yes OB - History Hx of Present Care: Yes Ultrasounds: Normal mid trimester US Obstetrical Complications: None Medical Complications: None Obstetrical History Hx : 2 Hx Para: 1 Delivery History Hx Blood Disorders: No Adverse Rxn to Tranfusion: No Patient Past Medical History migraines, HSV Social History/Family History HIV/AIDS: No Recent Infectious Disease Expo: No Sexually Transmitted Disease: Yes 2nd Hand Smoke Exposure: No Immunizations Hepatitis A: Yes Hepatitis B: Yes Tetanus Booster (TDap): Less than 5yrs Date of Influenza Vaccine: May 27, 2018 OB - Admission Exam Physical Exam HEENT: NCAT Heart: Rhythm Normal Lungs: Clear Abdomen: Gravid Extremities: Normal Reflexes: Normal Cervical Dilatation: 5cm Effacement: 75% Station: -1 Membranes: Intact Heart Rate: 130's Accelerations: Accelerations Present Decelerations: No Decelerations Short Term Variability: Present Envelope Stuffer Variability: Average (6-25) Contractions on Admission: 6-10 Minutes Apart Intensity: Moderate Labs Laboratory Tests Test 07/13/18 09:00 07/13/18 09:25 Range/Units White Blood Count 11.0 4.3-11.0 10^3/uL Red Blood Count 3.75 L 4.35-5.85 10^6/uL Hemoglobin 10.9 L 11.5-16.0 G/DL Hematocrit 32 L 35-52 % Mean Corpuscular Volume 86 80-99 FL Mean Corpuscular Hemoglobin 29 25-34 PG Mean Corpuscular Hemoglobin Concent 34 32-36 G/DL Red Cell Distribution Width 14.3 10.0-14.5 % Platelet Count 249 130-400 10^3/uL Mean Platelet Volume 11.0 H 7.4-10.4 FL Neutrophils (%) (Auto) 72 42-75 % Lymphocytes (%) (Auto) 21 12-44 % Monocytes (%) (Auto) 7 0-12 % Eosinophils (%) (Auto) 0 0-10 % Basophils (%) (Auto) 0 0-10 % Neutrophils # (Auto) 7.9 H 1.8-7.8 X 10^3 Lymphocytes # (Auto) 2.3 1.0-4.0 X 10^3 Monocytes # (Auto) 0.7 0.0-1.0 X 10^3 Eosinophils # (Auto) 0.0 0.0-0.3 10^3/uL Basophils # (Auto) 0.0 0.0-0.1 10^3/uL OB - Assessment/Plan/Diagnosis Assessment Assessment: active labor, section Admission Dx 28yo @ 37weeks Active labor term Previous Hx of HSV GBS pos Family hx of ovarian cancer Admission Status: Inpatient Order (span 2 midnights) Reason for Inpatient Admission: Active labor term Previous Plan Plan: Section NED MULLINS DO Jul 13, 2018 9:45 am
[2018-07-13 09:47] LABS: BACTERIA,URINE FEW /HPF
[2018-07-13] MEDS ORDERED: ceFAZolin 2 GM IV Premixed 50 ML ONE (10:11)
[2018-07-13] MEDS ORDERED: ceFAZolin 2 GM IV Premixed 50 ML IV ONE (10:15)
[2018-07-13] MEDS ORDERED: PHENYLEPHRINE 100 MCG/ML 10 ML (ANESTHESIA) SYR ONE (10:43)
[2018-07-13] MEDS ORDERED: HYDROcodone/APAP 5 MG/325 MG (LORTAB) TAB PO PRN (11:15)
[2018-07-13] MEDS ORDERED: MEASLES,MUMPS,RUBELLA 1 EA INJ SC SCH (11:15)
[2018-07-13] MEDS ORDERED: OXYTOCIN/NORMAL SALINE 500 ML IV SCH (11:15)
[2018-07-13] MEDS ORDERED: TETANUS,DIPTH,PERTUSS P/F (BOOSTRIX) 0.5 ML VIAL IM SCH (11:15)
[2018-07-13] MEDS ORDERED: HYDROmorphone 2 MG/ML VIAL (DILAUDID) IV PRN (11:15)
[2018-07-13] MEDS ORDERED: ONDANSETRON 4 MG/2 ML (SDV) Z0FRAN IVP PRN (11:15)
[2018-07-13] MEDS ORDERED: BUPIVACAINE 0.5% 30 ML (SENSORCAINE) VIAL ONE (11:19)
[2018-07-13] MEDS: KETOROLAC 30 MG/ML VIAL IVP SCH ×2 (13:00→21:05)
--- NOTE | 2018-07-13 16:52 | Discharge Inst-Women's Service ---
Discharge Inst-Women's Serv Depart Medication/Instructions New, Converted or Re-Newed RX: RX on Chart Final Diagnosis POD 2 RLTCS, Acute blood loss anemia Consults/Follow Up Additional Follow Up: Yes Orders/Referrals DR. Bryant in 7-10 days and in 6 weeks Activity Activity: Activity as Tolerated Driving Instructions: No Driving for 1 Week NO SMOKING: NO SMOKING Nothing Inside Vagina: No Douching, No [place], No Tampons Diet Discharge Diet: No Restrictions Symptoms to Report to : Bleeding Excessive, Pain Increased, Fever Over 101 Degrees F, Vaginal Bleeding Increase, Questions/Concerns For Any Problems or Questions: Contact Your Physician Skin/Wound Care Infection Signs and Symptoms: Increased Redness, Foul Odor of Wound, Increased Drainage, Skin Itchy or Has a Rash, Increased Swelling, Temperature Above 101 F Operative Area Clean and Dry: Keep Incision Clean/Dry Stitches/Leyla/Dermabond: Dermabond, Care of Stitches Bathing Instructions: NED Velasquez DO Jul 13, 2018 4:51 pm
[2018-07-13] MEDS ORDERED: DOCU100C37 PO (16:53)
[2018-07-13] MEDS ORDERED: IBUP-844 PO (16:53)
[2018-07-13] MEDS ORDERED: ACHD5005 PO (16:53)
[2018-07-13] MEDS: CATHETER FLUSH 10 ML SYR IV SCH ×2 (17:01→21:05)
[2018-07-13] MEDS: DOCUSATE SODIUM 100 MG (COLACE) CAP PO SCH (21:05)
[2018-07-13] MEDS ORDERED: oxyCODONE/APAP 5/325MG (PERCOCET 5) TABLET ONE (21:59)
[2018-07-13] MEDS: oxyCODONE/APAP 5/325MG (PERCOCET 5) TABLET PO PRN (22:02)
--- NOTE | 2018-07-13 23:28 | OPERATIVE REPORT ---
DATE OF SERVICE: PREOPERATIVE DIAGNOSES: 1. A 28-year-old G3, P1 at 37 weeks gestation. 2. Active labor. 3. Previous . 4. Family history of ovarian cancer. POSTOPERATIVE DIAGNOSES: 1. A 28-year-old G3, P1 at 37 weeks gestation. 2. Active labor. 3. Previous . 4. Family history of ovarian cancer. PROCEDURE: Repeat low transverse section with risk reducing bilateral salpingectomy bilaterally. SURGEON: James Mullins D.O. ANESTHESIA: Spinal. ESTIMATED BLOOD LOSS: 500 mL. URINE OUTPUT: 75 mL, clear at the end of the procedure. FLUIDS: 1200 mL of lactated Ringer's solution. FINDINGS: Live female , weight pending. Apgars of 8 and 9. Grossly normal appearing uterus, bilateral fallopian tubes and ovaries. SPECIMENS SENT: Bilateral fallopian tubes and placenta. INDICATIONS FOR PROCEDURE: This 28-year-old female, presented to the labor and delivery unit in active labor, making cervical change from earlier in the week 3 cm to 5 cm on presentation in the labor unit. Due to the patient's presentation of active labor and request for repeat we decided to proceed with repeat today. Risks of the procedure had been reviewed with the patient in detail as well as a risk reducing salpingectomy, which we had discussed in the office and obtained consent for in the office prior to this appointment and this visit. After all of her questions were answered, consent was obtained in the preoperative area and the patient was taken to the operating room. OPERATIVE REPORT IN DETAIL: Once in the operating room, spinal anesthesia was found to have adequate, she was placed in supine position with leftward tilt, prepped and draped in normal sterile fashion. A Pfannenstiel skin incision was made through the previously existing scar using a knife and carried down to the underlying fascia using Bovie cautery. Fascial incision extended laterally using Bovie cautery. Superior aspect of the fascial incision was then grasped with Raven clamps, tented up and dissected off the underlying rectus muscles. The inferior aspect of the fascial incision was then grasped with Raven clamps, tented up and dissected off the underlying rectus muscles. Rectus muscle was then dissected down the midline using Stone scissors, which exposed with the peritoneum, which entered bluntly and extended using blunt extension. An Willi ring retractor was placed in the peritoneal incision, which offered excellent lateral sidewall retraction. I then identified the lower uterine segment, which was found to be thinned out. I made an incision through the vesicouterine peritoneum and bluntly dissecting off the lower uterine segment. I proceeded with myotomy until membranes are visualized, at which point I extended the uterine incision laterally and superiorly using bandage scissors. Amniotomy was then performed using Allis clamp, clear fluid was noted. The infant was found in the vertex presentation. With gentle fundal pressure, the 's head delivered through the incision where the nares and oropharynx bulb suctioned. Anterior and posterior shoulders were delivered. The infant was then brought to the operative field. The cord was doubly clamped and cut. Infant was handed off to the waiting pediatric nurses in attendance. Cord blood was collected. Three-vessel cord was intact. Placenta was delivered spontaneously thereafter. IV Pitocin was initiated to facilitate uterine contraction. Uterine fundus clamps were bimanual massage. The uterus was exteriorized and cleared of endometrial clots and debris. I then proceeded with closing the uterine incision using 0 Vicryl suture in running locked fashion. Second layer of imbricating 0 Monocryl was placed. Excellent hemostasis was noted after doing this. I then took my attention to the fallopian tubes. I performed the following dissection bilaterally. Starting at the proximal isthmic insertion point of the fallopian tube on the uterus, I grasped across it using a LigaSure and bipolar cauterized and transected using the LigaSure. I then take this dissection down the mesosalpinx, amputating the fallopian tube from its blood supply. After this was done bilaterally, I then placed the uterus back within the pelvis and copiously irrigated the pelvis using normal saline. Once again, there was no active bleeding noted from any of my dissection planes. I then placed Interceed antiadhesive over my low transverse incision. I then proceeded with closing the peritoneum after removing the Willi ring retractor. The peritoneum was closed using 3-0 Vicryl suture in running fashion. The rectus muscles reapproximated using 3-0 Vicryl suture in interrupted fashion. The fascia reapproximated using 0 Vicryl suture in running fashion. Subcutaneous tissue was reapproximated using 3-0 plain in interrupted subcutaneous stitch and skin reapproximated using 4-0 Monocryl in a running subcuticular. Dermabond was applied to the incision. A sterile dressing was adhesed with white tape. The patient tolerated the procedure well and sent to the recovery in stable condition. Lap, sponge count correct at the end of the procedure. Instruments counts correct as well. Two grams of Ancef were given preoperatively for infection prophylaxis. Job ID: [id number] DocumentID: [id number] Dictated Date: 07/13/2018 13:43:50 Roastmaster Date: 07/13/2018 23:27:44 Dictated By: JAMES MULLINS DO
[2018-07-14 00:15] VITALS: BP 117/59
[2018-07-14 04:00] VITALS: BP 124/77
[2018-07-14] MEDS: KETOROLAC 30 MG/ML VIAL IVP SCH (05:14)
[2018-07-14] MEDS: CATHETER FLUSH 10 ML SYR IV SCH (05:14)
[2018-07-14] MEDS: oxyCODONE/APAP 5/325MG (PERCOCET 5) TABLET PO PRN ×4 (06:13→23:32)
[2018-07-14 06:18] LABS: BASOPHILS % (AUTO) 0 % (0-10); EOSINOPHILS # (AUTO) 0.1 10^3/uL (0.0-0.3); EOSINOPHILS % (AUTO) 1 % (0-10); HEMATOCRIT 28 % (35-52); HEMOGLOBIN 9.1 G/DL (11.5-16.0); LYMPHOCYTES # (AUTO) 2.2 X 10^3 (1.0-4.0); LYMPHOCYTES % (AUTO) 20 % (12-44); MEAN CORPUSCULAR HEMOGLOBIN 29 PG (25-34); MEAN CORPUSCULAR HGB CONC 33 G/DL (32-36); MEAN CORPUSCULAR VOLUME 88 FL (80-99); MEAN PLATELET VOLUME 11.2 FL (7.4-10.4); MONOCYTES # (AUTO) 0.9 X 10^3 (0.0-1.0); MONOCYTES % (AUTO) 8 % (0-12); NEUTROPHILS % (AUTO) 72 % (42-75); PLATELET COUNT 194 10^3/uL (130-400); RED BLOOD COUNT 3.15 10^6/uL (4.35-5.85); WHITE BLOOD COUNT 11.2 10^3/uL (4.3-11.0)
[2018-07-14] MEDS ORDERED: OXYC1TAB87 PO (07:25)
[2018-07-14 08:30] VITALS: BP 128/81
[2018-07-14] MEDS: DOCUSATE SODIUM 100 MG (COLACE) CAP PO SCH ×2 (09:14→23:32)
[2018-07-14] MEDS: IBUPROFEN 600 MG (MOTRIN) TAB PO SCH ×2 (15:23→20:44)
--- NOTE | 2018-07-14 16:38 | Postpartum Progress Note ---
Note Note Day # 1 Subjective: Patient is without complaints. Ambulating, voiding. Tolerating a regular diet without nausea or vomiting. Normal lochia. Pain is well controlled with oral pain medications. Objective: Vital Sign - Last 24 Hours 07/13/18 07/13/18 07/14/18 07/14/18 17:30 21:05 00:15 04:00 Temp 98.1 98.3 98.8 Pulse 93 90 90 Resp 18 18 18 B/P (MAP) 143/92 (109) 117/59 (78) 124/77 (93) Pulse Ox 98 98 98 O2 Delivery Room Air Room Air Room Air Room Air 07/14/18 08:30 Temp 97.5 Pulse 78 Resp 18 B/P (MAP) 128/81 (97) Intake and Output 07/13/18 07/13/18 07/14/18 15:00 23:00 07:00 Intake Total 50 ml 1440 ml 800 ml Output Total 75 ml 375 ml 900 ml Balance -25 ml 1065 ml -100 ml Physical Exam: General - Alert and oriented, no apparent distress Abdomen - Soft, appropriately tender to palpation, non-distended, fundus firm at umbilicus Extremities - no edema, negative Heather's bilaterally Assessment: POD 1 RLTCS w/ RRS Acute blood loss anemia Plan: Routine care. Encourage breast feeding. Encourage ambulation. Ferrous sulfate supplementation. Plan for discharge today Vitals - Labs Vital Signs - I&O Vital Signs Date Time Temp Pulse Resp B/P (MAP) Pulse Ox O2 Delivery O2 Flow Rate FiO2 07/14/18 08:30 97.5 78 18 128/81 (97) 07/14/18 04:00 98.8 90 18 124/77 (93) 98 Room Air 07/14/18 00:15 98.3 90 18 117/59 (78) 98 Room Air 07/13/18 21:05 98.1 93 18 143/92 (109) 98 Room Air 07/13/18 17:30 Room Air I & O 07/14/18 07:00 Intake Total 2290 ml Output Total 1350 ml Balance 940 ml Labs Laboratory Tests 07/14/18 06:10: White Blood Count 11.2H, Red Blood Count 3.15L, Hemoglobin 9.1L, Hematocrit 28L , Mean Corpuscular Volume 88, Mean Corpuscular Hemoglobin 29, Mean Corpuscular Hemoglobin Concent 33, Red Cell Distribution Width 14.0, Platelet Count 194, Mean Platelet Volume 11.2H, Neutrophils (%) (Auto) 72, Lymphocytes (%) (Auto) 20 , Monocytes (%) (Auto) 8, Eosinophils (%) (Auto) 1, Basophils (%) (Auto) 0, Neutrophils # (Auto) 8.0H, Lymphocytes # (Auto) 2.2, Monocytes # (Auto) 0.9, Eosinophils # (Auto) 0.1, Basophils # (Auto) 0.0 Microbiology 07/13/18 Urine Culture - Final, Complete Group B Streptococci See Report NED MULLINS DO Jul 14, 2018 4:38 pm
[2018-07-14 17:30] VITALS: BP 126/68
[2018-07-14 20:40] VITALS: BP 128/79
[2018-07-15] MEDS: IBUPROFEN 600 MG (MOTRIN) TAB PO SCH ×3 (03:11→08:40)
[2018-07-15 03:12] VITALS: BP 137/82
[2018-07-15] MEDS: oxyCODONE/APAP 5/325MG (PERCOCET 5) TABLET PO PRN ×2 (03:12→08:44)
[2018-07-15] MEDS: CATHETER FLUSH 10 ML SYR IV SCH ×3 (05:43→06:30)
[2018-07-15 08:35] VITALS: BP 146/82
[2018-07-15] MEDS: DOCUSATE SODIUM 100 MG (COLACE) CAP PO SCH (08:40)
--- NOTE | 2018-07-15 08:50 | Postpartum Progress Note ---
Note Note Day # 2 Subjective: Patient is without complaints. Ambulating, voiding. Tolerating a regular diet without nausea or vomiting. Normal lochia. Pain is well controlled with oral pain medications. Objective: Vital Sign - Last 24 Hours 07/14/18 07/14/18 07/15/18 07/15/18 17:30 20:40 03:12 08:35 Temp 98.0 98.9 99.1 Pulse 87 72 90 85 Resp 18 18 18 18 B/P (MAP) 126/68 (87) 128/79 (95) 137/82 (100) 146/82 (103) Pulse Ox 99 98 99 O2 Delivery Room Air Intake and Output 07/14/18 07/14/18 07/15/18 15:00 23:00 07:00 Intake Total 800 ml 450 ml Output Total 500 ml 650 ml Balance 300 ml -200 ml Physical Exam: General - Alert and oriented, no apparent distress Abdomen - Soft, appropriately tender to palpation, non-distended, fundus firm at umbilicus Extremities - no edema, negative Heather's bilaterally Incision- c/d/i Assessment: POD 2 RLTCS w/ RRS Acute blood loss anemia Plan: Routine care. Encourage breast feeding. Encourage ambulation. Ferrous sulfate supplementation. Plan for discharge today Vitals - Labs Vital Signs - I&O Vital Signs Date Time Temp Pulse Resp B/P (MAP) Pulse Ox O2 Delivery O2 Flow Rate FiO2 07/15/18 08:35 99.1 85 18 146/82 (103) 99 Room Air 07/15/18 03:12 98.9 90 18 137/82 (100) 98 07/14/18 20:40 98.0 72 18 128/79 (95) 99 07/14/18 17:30 87 18 126/68 (87) I & O 07/15/18 07:00 Intake Total 1250 ml Output Total 1150 ml Balance 100 ml Labs Microbiology 07/13/18 Urine Culture - Final, Complete Group B Streptococci See Report NED MULLINS DO Jul 15, 2018 8:50 am
== END 2018-07-15 12:20 | disposition home or self-care (01) | DRG 784 ==
LOC: WSo 08:31 → LDRP 08:31 → WSo 08:46 → LDRP 08:47
PROVIDERS: ADMIT Obstetrics & Gynecology; ATTEND Obstetrics & Gynecology
PROC: 0UT70ZZ Resection of Bilateral Fallopian Tubes, Open Approach (ICD-10-PCS; 2018-07-13)
PROC: 10D00Z1 Extraction of Products of Conception, Low, Open Approach (ICD-10-PCS; principal; 2018-07-13 10:23)
DX: O34.211 Maternal care for low transverse scar from previous cesarean delivery (principal); O98.513 Other viral diseases complicating pregnancy, third trimester; B00.9 Herpesviral infection, unspecified; O99.820 Streptococcus B carrier state complicating pregnancy; O99.353 Diseases of the nervous system complicating pregnancy, third trimester; G43.909 Migraine, unspecified, not intractable, without status migrainosus; O99.03 Anemia complicating the puerperium; D64.9 Anemia, unspecified; Z80.41 Family history of malignant neoplasm of ovary; Z3A.37 37 weeks gestation of pregnancy; Z37.0 Single live birth
CPT/HCPCS: 36415; 81000; 85025; 86850; 86900; 86901; 87088; 88302; 88307; 94664; 99212

== ENCOUNTER → 2018-11-25 | Outpatient (CLI) | payer MEDICAID ==
[~2018-11-25] MED LIST changes: +IBUP-844 PO; +LOSA25TA41 PO; -LOSA25TA6 PO; +LOSA50TA63 PO; -LOSA50TA7 PO; +METR-145 PO; -METR-197 PO
--- NOTE | 2018-11-25 15:41 | Diagnostic Imaging Report ---
US NON OB PELVIS COMP/TRANSVAG Technique: Transabdominal and transvaginal grayscale, color Doppler and pulse duplex imaging of the pelvis was performed. Indication: Chronic pelvic pain and dyspareunia. Findings: The uterus measures 9.5 x 4.9 x 4.1 cm. The myometrium is normal in echogenicity without discrete mass. The endometrium measures up to 0.2 cm where visualized, and is normal in echogenicity. The right ovary measures 4.4 x 2.6 x 2.7 cm. The left ovary measures 4.6 x 3.2 x 2.8 cm. Both ovaries are physiologic in appearance. Blood flow is seen in both ovaries on color doppler imaging. No suspicious adnexal mass or fluid collection. Trace simple free pelvic fluid. Impression: 1. Physiologic appearance of the ovaries and endometrium. 2. Trace free pelvic fluid is likely physiologic in nature. Dictated by: Dictated on workstation # [id number]
== END ==
LOC: RAD 13:24
PROVIDERS: ATTEND Obstetrics & Gynecology
DX: N94.19 Other specified dyspareunia (principal); R10.2 Pelvic and perineal pain
CPT/HCPCS: 76830; 76856

== ENCOUNTER 2019-03-06 09:05 | Outpatient (CLI) | payer MEDICAID ==
[~2019-03-06] VITALS: Ht 157.5 cm; Wt 108.0 kg
[2019-03-06 09:13] VITALS: BP 132/82
[2019-03-06 09:47] LABS: BASOPHILS % (AUTO) 0 % (0-10); EOSINOPHILS # (AUTO) 0.2 10^3/uL (0.0-0.3); EOSINOPHILS % (AUTO) 2 % (0-10); HEMATOCRIT 43 % (35-52); HEMOGLOBIN 13.8 G/DL (11.5-16.0); LYMPHOCYTES % (AUTO) 24 % (12-44); MEAN CORPUSCULAR HEMOGLOBIN 29 PG (25-34); MEAN CORPUSCULAR HGB CONC 32 G/DL (32-36); MEAN CORPUSCULAR VOLUME 90 FL (80-99); MEAN PLATELET VOLUME 10.7 FL (7.4-10.4); MONOCYTES # (AUTO) 0.3 X 10^3 (0.0-1.0); MONOCYTES % (AUTO) 4 % (0-12); NEUTROPHILS # (AUTO) 5.9 X 10^3 (1.8-7.8); NEUTROPHILS % (AUTO) 70 % (42-75); PLATELET COUNT 253 10^3/uL (130-400); RED CELL DISTRIBUTION WIDTH 14.6 % (10.0-14.5); WHITE BLOOD COUNT 8.4 10^3/uL (4.3-11.0)
[2019-03-06] MEDS ORDERED: CITA20TA9 PO (09:49)
[2019-03-09] MEDS ORDERED: IBUP-844 PO (10:55)
[2019-03-09] MEDS ORDERED: HYDR-34 PO (10:55)
[2019-03-09] MEDS ORDERED: DOCU100C37 PO (10:55)
[2019-03-09] MEDS ORDERED: SIME80TA16 PO (10:55)
== END 2019-03-06 09:32 | disposition home or self-care (01) ==
LOC: PREOP 09:05
PROVIDERS: ATTEND Obstetrics & Gynecology
DX: Z01.812 Encounter for preprocedural laboratory examination (principal); N94.6 Dysmenorrhea, unspecified
CPT/HCPCS: 36415; 85025; 86850; 86900; 86901; 87081

== ENCOUNTER 2019-03-09 08:50 | Day surgery (SDC) | payer MEDICAID ==
[~2019-03-09] VITALS: Ht 157.5 cm; Wt 108.0 kg
[~2019-03-09 08:50] MED LIST changes: +CITA20TA9 PO
[2019-03-09] MEDS ORDERED: LACTATED RINGERS 1,000 ML IV ONE (08:58)
--- OUTSIDE RECORDS SUMMARY | 2019-03-09 08:58 | XMS REPORT ---
Author Author LUCINA Wong Organization [facility] Address [address] [place] [address] Care Team Providers Care Creamery Worker Name Role Phone LUCINA Wong Unavailable PROBLEMS Type Condition ICD9-CM Code [id number] Code Onset Dates Condition Status SNOMED Code Problem Metabolic syndrome E88.81 Active 562581295 Problem Hx of migraines Z86.69 Active 290077853 Problem Polycystic ovaries E28.2 Active 27625665 Problem HTN (hypertension) I10 Active 69462863 Problem Chronic headaches R51 Active 958137046 Problem Major depressive disorder, single episode, severe F32.2 Active 560123009429 Problem Morbid obesity, unspecified obesity type E66.01 Active 847393344 Problem Irregular menses N92.6 Active 61419476 Problem Obesity, unspecified E66.9 Active 424154729 Problem Anxiety state, unspecified F41.1 Active 556622440 ALLERGIES No Information ENCOUNTERS Encounter Location Date Diagnosis [facility] [id number] [place] [address] Oct, Sore throat J02.9 ; Viral pharyngitis J02.9 and BMI 40.0-44.9, adult Z68.41 [facility] [address] [address] Jul, Sore throat J02.9 and Pharyngitis due to other organism J02.8 [facility] [address] [id number] May, Encounter for immunization Z23 [facility] [id number] [place] [address] Mar, Gastroenteritis and colitis, viral A08.4 [facility] [address] [place] [address] 15 Mar, 2017 Acute middle ear effusion, right H65.191 [facility] [id number] [place] [address] 11 Mar, 2017 Neck pain M54.2 and Chronic headaches R51 [facility] [id number] [place] [address] 10 Mar, 2017 Chronic headaches R51 ; Neck pain M54.2 ; HTN (hypertension) I10 ; Major depressive disorder, single episode, severe F32.2 and Polycystic ovaries E28.2 [facility] [id number] [place] [address] Jan, HTN (hypertension) I10 [facility] [id number] [place] [address] Jan, [address] [address] Sep, Major depressive disorder, single episode, severe F32.2 [facility] [id number] [place] [address] Sep, [address] [address] Jul, Gastroenteritis K52.9 [facility] [id number] [place] [address] Jun, Tinea pedis of both feet B35.3 and Normal in multigravida in first trimester Z34.81 [facility] [id number] [place] [address] 14 Jun, 2016 Visit for TB skin test Z11.1 [place] [address] [address] 11 Jun, 2016 Pre-employment drug screening Z02.1 [facility] [id number] [place] [address] 30 Apr, 2016 [facility] [id number] [place] [address] Apr, confirmed by positive urine test Z32.01 and in first trimester with history of infertility, antepartum O09.01 [facility] [id number] [place] [address] 08 Apr, 2016 Laceration T14.8 [facility] [id number] [place] [address] Mar, Pelvic cramping R10.2 ; Other specified bacterial agents as the cause of diseases classified elsewhere B96.89 and Acute vaginitis N76.0 [facility] [id number] [place] [address] Feb, [place] [address] [address] Feb, Lower abdominal pain R10.30 ; Metabolic syndrome E88.81 and Morbid obesity, unspecified obesity type E66.01 [facility] [id number] [place] [address] Feb, Encounter for test, result unknown Z32.00 [facility] [id number] [place] [address] December, Herpes simplex vulvovaginitis A60.04 [facility] [id number] [place] [address] December, Morbid obesity, unspecified obesity type E66.01 [facility] [id number] [place] [address] Nov, Perineal irritation L98.9 [facility] [id number] [place] [address] Oct, [facility] [id number] [place] [address] Oct, HTN (hypertension) I10 ; Obesity, unspecified E66.9 ; Polycystic ovaries E28.2 ; Hx of migraines Z86.69 ; Headache R51 and Fungal dermatitis B36.[address] [address] Oct, [address] [address] 09 Sep, 2015 Metabolic syndrome E88.81 ; Chronic headaches R51 ; Polycystic ovaries E28.2 ; History of PCOS Z87.42 and HTN (hypertension) I10 [address] [address] Aug, [address] [address] Jul, Low grade intrepith lesion cyto smr crvx (LGSIL) R87.[address] [address] Jul, Encounter for screening for malignant neoplasm of cervix Z12.4 ; Well woman exam Z01.419 ; Morbid obesity, unspecified obesity type E66.01 ; Unprotected sexual intercourse Z72.51 ; Vaginal discharge N89.8 ; Lower abdominal pain R10.30 ; Cervicitis N72 ; History of PCOS Z87.42 ; Vaginal dryness N89.8 and Hx of migraines Z86.69 [address] [id number] [place] [address] Jun, Nausea & vomiting R11.2 ; Acute upper respiratory infection, unspecified J06.9 and Other viral agents as the cause of diseases classified elsewhere B97.89 [id number] [place] [address] May, Chronic headaches R51 ; Metabolic syndrome E88.81 ; Environmental allergies Z91.09 and HTN (hypertension) I10 [id number] [place] [address] May, [address] [address] 18 Apr, 2015 Kimberly albicans infection 112.9 [facility] [address] [place] [address] 15 Apr, 2015 [facility] [address] [place] [address] 14 Apr, 2015 [facility] [address] [place] [address] Apr, Obesity, unspecified 278.00 ; Polycystic ovaries 256.4 ; Headache 784.0 ; Environmental allergies V15.09 and UTI (urinary tract infection) 599.0 [facility] [id number] [place] [address] Feb, Routine general medical examination at a health care facility V70.0 ; Polycystic ovaries 256.4 ; Obesity, unspecified 278.00 and Essential hypertension 401.9 [facility] [address] [place] [address] Nov, [facility] [address] [place] [address] Nov, [facility] [id number] [place] [address] Oct, [facility] [address] [place] [address] Oct, [facility] [address] [place] [address] Sep, [facility] [address] [place] [address] Sep, [facility] [address] [place] [address] Sep, [facility] [address] [place] [address] Sep, [facility] [address] [place] [address] Sep, [facility] [address] [facility] [id number] [address] Sep, [facility] [id number] [place] [address] Aug, [facility] [address] [facility] [id number] [address] Aug, [facility] [id number] [address] Aug, [facility] [address] [facility] [id number] [address] Aug, [facility] [id number] [place] [address] Aug, IMMUNIZATIONS No Known Immunizations SOCIAL HISTORY Never Assessed REASON FOR VISIT PLAN OF CARE VITAL SIGNS Height 62 in 2014-10-11 Weight 274 lbs 2014-10-11 Temperature 97 degrees Fahrenheit 2014-10-11 Heart Rate 88 bpm 2014-10-11 Respiratory Rate 22 2014-10-11 Blood pressure systolic 147 mmHg 2014-10-11 Blood pressure diastolic 73 mmHg 2014-10-11 MEDICATIONS No Known Medications RESULTS No Results PROCEDURES No Known procedures [...]
--- OUTSIDE RECORDS SUMMARY | 2019-03-09 08:58 | XMS REPORT ---
Author Author LUCINA Wong Organization [facility] [place] Address [address] [place] [address] Care Team Providers Care Systems Consultant Name Role Phone LUCINA Wong Unavailable PROBLEMS Type Condition ICD9-CM Code ROS74-AH Code Onset Dates Condition Status SNOMED Code Problem Metabolic syndrome E88.81 Active 080688824 Problem Hx of migraines Z86.69 Active 514009902 Problem Polycystic ovaries E28.2 Active 26367884 Problem HTN (hypertension) I10 Active 02454477 Problem Chronic headaches R51 Active 725653697 Problem Major depressive disorder, single episode, severe F32.2 Active 591713853447 Problem Morbid obesity, unspecified obesity type E66.01 Active 776467655 Problem Irregular menses N92.6 Active 74962903 Problem Obesity, unspecified E66.9 Active 121328723 Problem Anxiety state, unspecified F41.1 Active [id number] ALLERGIES No Information ENCOUNTERS Encounter Location Date Diagnosis [facility] [id number] [place] [address] Oct, Sore throat J02.9 ; Viral pharyngitis J02.9 and BMI 40.0-44.9, adult Z68.41 [facility] [address] [address] Jul, Sore throat J02.9 and Pharyngitis due to other organism J02.8 [facility] [address] [id number] May, Encounter for immunization Z23 [facility] [id number] [place] [address] Mar, Gastroenteritis and colitis, viral A08.4 [facility] [address] [place] [address] 15 Mar, 2017 Acute middle ear effusion, right H65.191 [facility] [place] [id number] [place] [address] 11 Mar, 2017 Neck pain M54.2 and Chronic headaches R51 [facility] [place] [id number] [place] [address] 10 Mar, 2017 Chronic headaches R51 ; Neck pain M54.2 ; HTN (hypertension) I10 ; Major depressive disorder, single episode, severe F32.2 and Polycystic ovaries E28.2 [place] [id number] [place] [address] Jan, HTN (hypertension) I10 [place] [id number] [place] [address] Jan, [place] [address] [address] Sep, Major depressive disorder, single episode, severe F32.2 [facility] [place] [id number] [place] [address] Sep, [place] [address] [address] Jul, Gastroenteritis K52.9 [place] [id number] [place] [address] Jun, Tinea pedis of both feet B35.3 and Normal in multigravida in first trimester Z34.81 [place] [id number] [place] [address] 14 Jun, 2016 Visit for TB skin test Z11.1 [place] [address] [address] 11 Jun, 2016 Pre-employment drug screening Z02.1 [place] [id number] [place] [address] 30 Apr, 2016 [place] [id number] [place] [address] Apr, confirmed by positive urine test Z32.01 and in first trimester with history of infertility, antepartum O09.01 [facility] [id number] [place] [address] 08 Apr, 2016 Laceration T14.8 [facility] [id number] [place] [address] Mar, Pelvic cramping R10.2 ; Other specified bacterial agents as the cause of diseases classified elsewhere B96.89 and Acute vaginitis N76.0 [place] [id number] [place] [address] Feb, [place] [address] [address] Feb, Lower abdominal pain R10.30 ; Metabolic syndrome E88.81 and Morbid obesity, unspecified obesity type E66.01 [place] [id number] [place] [address] Feb, Encounter for test, result unknown Z32.00 [place] [id number] [place] [address] December, Herpes simplex vulvovaginitis A60.04 [place] [id number] [place] [address] December, Morbid obesity, unspecified obesity type E66.01 [place] [id number] [place] [address] Nov, Perineal irritation L98.9 [place] [id number] [place] [address] Oct, [place] [id number] [place] [address] Oct, HTN (hypertension) I10 ; Obesity, unspecified E66.9 ; Polycystic ovaries E28.2 ; Hx of migraines Z86.69 ; Headache R51 and Fungal dermatitis B36.[address] [address] Oct, [address] [address] 09 Sep, 2015 Metabolic syndrome E88.81 ; Chronic headaches R51 ; Polycystic ovaries E28.2 ; History of PCOS Z87.42 and HTN (hypertension) I10 [address] [address] Aug, [address] [address] Jul, Low grade intrepith lesion cyto smr crvx (LGSIL) R87.[address] [address] Jul, Encounter for screening for malignant neoplasm of cervix Z12.4 ; Well woman exam Z01.419 ; Morbid obesity, unspecified obesity type E66.01 ; Unprotected sexual intercourse Z72.51 ; Vaginal discharge N89.8 ; Lower abdominal pain R10.30 ; Cervicitis N72 ; History of PCOS Z87.42 ; Vaginal dryness N89.8 and Hx of migraines Z86.69 [address] [id number] [place] [address] Jun, Nausea & vomiting R11.2 ; Acute upper respiratory infection, unspecified J06.9 and Other viral agents as the cause of diseases classified elsewhere B97.89 [id number] [place] [address] May, Chronic headaches R51 ; Metabolic syndrome E88.81 ; Environmental allergies Z91.09 and HTN (hypertension) I10 [address] [id number] [place] [address] May, [address] [address] 18 Apr, 2015 Kimberly albicans infection 112.9 [facility] [place] [address] [address] 15 Apr, 2015 [facility] [place] [address] [address] 14 Apr, 2015 [facility] [place] [address] [address] Apr, Obesity, unspecified 278.00 ; Polycystic ovaries 256.4 ; Headache 784.0 ; Environmental allergies V15.09 and UTI (urinary tract infection) 599.0 [facility] [place] [address] [place] [address] Feb, Routine general medical examination at a health care facility V70.0 ; Polycystic ovaries 256.4 ; Obesity, unspecified 278.00 and Essential hypertension 401.9 [facility] [place] [address] [address] Nov, [facility] [place] [address] [address] Nov, [facility] [place] [address] [place] [address] Oct, [facility] [place] [address] [address] Oct, [facility] [place] [address] [address] Sep, [facility] [place] [address] [address] Sep, [facility] [place] [address] [address] Sep, [facility] [place] [address] [address] Sep, [facility] [place] [address] [address] Sep, [facility] [place] [address] [facility] [id number] [address] Sep, [facility] [place] [id number] [address] Aug, [facility] [place] [address] [facility] [id number] [address] Aug, [facility] [place] [id number] [address] Aug, [facility] [place] [address] [facility] [id number] [place] [address] Aug, [facility] [place] [id number] [address] Aug, IMMUNIZATIONS No Known Immunizations SOCIAL HISTORY Never Assessed REASON FOR VISIT PLAN OF CARE VITAL SIGNS Height 62 in 2014-09-10 Weight 278.9 lbs 2014-09-10 Temperature 97.4 degrees Fahrenheit 2014-09-10 Heart Rate 90 bpm 2014-09-10 Respiratory Rate 20 2014-09-10 Blood pressure systolic 140 mmHg 2014-09-10 Blood pressure diastolic 85 mmHg 2014-09-10 MEDICATIONS No Known Medications RESULTS No Results PROCEDURES Procedure Date Ordered Result Body Site TRICHOMONAS VAGIN, DIR PROBE Sep 10, 2014 CHYLMD TRACH, DNA, AMP PROBE Sep 10, 2014 HIV-1 Sep 10, 2014 BLOOD SEROLOGY, QUALITATIVE Sep 10, 2014 GLYCATED HEMOGLOBIN TEST Sep 10, 2014 VENIPUNCT, ROUTINE* Sep 10, 2014 INSTRUCTIONS MEDICATIONS ADMINISTERED No Known Medications MEDICAL (GENERAL) HISTORY Type Description Date Medical History hypertension Medical History PCOS Medical History Ulcers as a kid Surgical History D and C 12/2013 Surgical History left ankle surgery 2004 Surgical History tonsillectomy Surgical History c section 2017 Hospitalization History surgery Hospitalization History child
--- OUTSIDE RECORDS SUMMARY | 2019-03-09 08:58 | XMS REPORT ---
Author Author LUCINA Wong Organization [facility] [place] Address [address] [place] [address] Care Team Providers Care Tool Filer Hand Name Role Phone LUCINA Wong Unavailable PROBLEMS Type Condition ICD9-CM Code FFN45-DE Code Onset Dates Condition Status SNOMED Code Problem Metabolic syndrome E88.81 Active 334218005 Problem Hx of migraines Z86.69 Active 299369894 Problem Polycystic ovaries E28.2 Active 51116227 Problem HTN (hypertension) I10 Active 17215815 Problem Chronic headaches R51 Active 599563693 Problem Major depressive disorder, single episode, severe F32.2 Active 669053148370 Problem Morbid obesity, unspecified obesity type E66.01 Active 692507699 Problem Irregular menses N92.6 Active 64997883 Problem Obesity, unspecified E66.9 Active 365814671 Problem Anxiety state, unspecified F41.1 Active 888960648 ALLERGIES No Information ENCOUNTERS Encounter Location Date Diagnosis [facility] [id number] [place] [address] Oct, Sore throat J02.9 ; Viral pharyngitis J02.9 and BMI 40.0-44.9, adult Z68.41 [facility] [address] [address] Jul, Sore throat J02.9 and Pharyngitis due to other organism J02.8 [facility] [address] [id number] May, Encounter for immunization Z23 [facility] [id number] [place] [address] Mar, Gastroenteritis and colitis, viral A08.4 [facility] [address] [place] [address] 15 Mar, 2017 Acute middle ear effusion, right H65.191 [facility] [place] [id number] [place] [address] 11 Mar, 2017 Neck pain M54.2 and Chronic headaches R51 [facility] [place] [id number] [place] [address] 10 Mar, 2017 Chronic headaches R51 ; Neck pain M54.2 ; HTN (hypertension) I10 ; Major depressive disorder, single episode, severe F32.2 and Polycystic ovaries E28.2 [place] [id number] [place] [address] Jan, HTN (hypertension) I10 [place] [id number] [place] [address] Jan, [place] [address] [address] Sep, Major depressive disorder, single episode, severe F32.2 [facility] [place] [id number] [place] [address] Sep, [place] [address] [address] Jul, Gastroenteritis K52.9 [place] [id number] [place] [address] Jun, Tinea pedis of both feet B35.3 and Normal in multigravida in first trimester Z34.81 [place] [id number] [place] [address] 14 Jun, 2016 Visit for TB skin test Z11.1 [place] [address] [address] 11 Jun, 2016 Pre-employment drug screening Z02.1 [place] [id number] [place] [address] 30 Apr, 2016 [place] [id number] [place] [address] Apr, confirmed by positive urine test Z32.01 and in first trimester with history of infertility, antepartum O09.01 [facility] [id number] [place] [address] 08 Apr, 2016 Laceration T14.8 [facility] [id number] [place] [address] Mar, Pelvic cramping R10.2 ; Other specified bacterial agents as the cause of diseases classified elsewhere B96.89 and Acute vaginitis N76.0 [place] [id number] [place] [address] Feb, [place] [address] [address] Feb, Lower abdominal pain R10.30 ; Metabolic syndrome E88.81 and Morbid obesity, unspecified obesity type E66.01 [place] [id number] [place] [address] Feb, Encounter for test, result unknown Z32.00 [place] [id number] [place] [address] December, Herpes simplex vulvovaginitis A60.04 [place] [id number] [place] [address] December, Morbid obesity, unspecified obesity type E66.01 [place] [id number] [place] [address] Nov, Perineal irritation L98.9 [place] [id number] [place] [address] Oct, [place] [id number] [place] [address] Oct, HTN (hypertension) I10 ; Obesity, unspecified E66.9 ; Polycystic ovaries E28.2 ; Hx of migraines Z86.69 ; Headache R51 and Fungal dermatitis B36.[address] [address] Oct, [address] [address] 09 Sep, 2015 Metabolic syndrome E88.81 ; Chronic headaches R51 ; Polycystic ovaries E28.2 ; History of PCOS Z87.42 and HTN (hypertension) I10 [address] [address] Aug, [address] [address] Jul, Low grade intrepith lesion cyto smr crvx (LGSIL) R87.[address] [address] Jul, Encounter for screening for malignant neoplasm of cervix Z12.4 ; Well woman exam Z01.419 ; Morbid obesity, unspecified obesity type E66.01 ; Unprotected sexual intercourse Z72.51 ; Vaginal discharge N89.8 ; Lower abdominal pain R10.30 ; Cervicitis N72 ; History of PCOS Z87.42 ; Vaginal dryness N89.8 and Hx of migraines Z86.69 [id number] [place] [address] Jun, Nausea & vomiting R11.2 ; Acute upper respiratory infection, unspecified J06.9 and Other viral agents as the cause of diseases classified elsewhere B97.89 [address] [id number] [place] [address] May, Chronic headaches R51 ; Metabolic syndrome E88.81 ; Environmental allergies Z91.09 and HTN (hypertension) I10 [address] [id number] [place] [address] May, [address] [address] 18 Apr, 2015 Kimberly albicans infection 112.9 [facility] [place] [address], [place] [address] 15 Apr, 2015 [facility] [place] [address], [place] [address] 14 Apr, 2015 [facility] [place] [address], [place] [address] Apr, Obesity, unspecified 278.00 ; Polycystic ovaries 256.4 ; Headache 784.0 ; Environmental allergies V15.09 and UTI (urinary tract infection) 599.0 [facility] [place] [address] [place] [address] Feb, Routine general medical examination at a health care facility V70.0 ; Polycystic ovaries 256.4 ; Obesity, unspecified 278.00 and Essential hypertension 401.9 [facility] [place] [address], [place] [address] Nov, [facility] [place] [address], [place] [address] Nov, [facility] [place] [address] [place] [address] Oct, [facility] [place] [address], [place] [address] Oct, [facility] [place] [address], [place] [address] Sep, [facility] [place] [address], [place] [address] Sep, [facility] [place] [address], [place] [address] Sep, [facility] [place] [address], [place] [address] Sep, [facility] [place] [address], [place] [address] Sep, [facility] [place] [address] [facility] [id number] [address] Sep, [facility] [place] [address], [place] [address] Aug, [facility] [place] [address], [place] [address] Aug, [facility] [place] [address], [place] [address] Aug, [facility] [place] [address], [place] [address] Aug, [facility] [place] [address], [place] [address] Aug, IMMUNIZATIONS No Known Immunizations SOCIAL HISTORY Never Assessed REASON FOR VISIT PLAN OF CARE VITAL SIGNS MEDICATIONS No Known Medications RESULTS No Results [...]
--- OUTSIDE RECORDS SUMMARY | 2019-03-09 08:58 | XMS REPORT ---
Author Author LUCINA Wong Organization [facility] Address [address] [place] [address] Care Team Providers Care Digital Forensic Examiner Name Role Phone LUCINA Wong Unavailable PROBLEMS Type Condition ICD9-CM Code GOC20-FQ Code Onset Dates Condition Status SNOMED Code Problem Metabolic syndrome E88.81 Active 991842784 Problem Hx of migraines Z86.69 Active 337237018 Problem Polycystic ovaries E28.2 Active 77654756 Problem HTN (hypertension) I10 Active 65523464 Problem Chronic headaches R51 Active 752133692 Problem Major depressive disorder, single episode, severe F32.2 Active 794161601804 Problem Morbid obesity, unspecified obesity type E66.01 Active 477547114 Problem Irregular menses N92.6 Active 17906673 Problem Obesity, unspecified E66.9 Active 313702578 Problem Anxiety state, unspecified F41.1 Active 948462967 ALLERGIES No Information ENCOUNTERS Encounter Location Date Diagnosis [facility] [id number] [place] [address] Oct, Sore throat J02.9 ; Viral pharyngitis J02.9 and BMI 40.0-44.9, adult Z68.41 [facility] [address] [address] Jul, Sore throat J02.9 and Pharyngitis due to other organism J02.8 [facility] [address] [id number] May, Encounter for immunization Z23 [facility] [id number] [place] [address] Mar, Gastroenteritis and colitis, viral A08.4 [facility] [address] [place] [address] 15 Mar, 2017 Acute middle ear effusion, right H65.191 [facility] [id number] [place] [address] 11 Mar, 2017 Neck pain M54.2 and Chronic headaches R51 [facility] [id number] [place] [address] 10 Mar, 2017 Chronic headaches R51 ; Neck pain M54.2 ; HTN (hypertension) I10 ; Major depressive disorder, single episode, severe F32.2 and Polycystic ovaries E28.2 [place] [id number] [place] [address] Jan, HTN (hypertension) I10 [place] [id number] [place] [address] Jan, [place] [address] [address] Sep, Major depressive disorder, single episode, severe F32.2 [facility] [id number] [place] [address] Sep, [place] [address] [address] Jul, Gastroenteritis K52.9 [place] [id number] [place] [address] Jun, Tinea pedis of both feet B35.3 and Normal in multigravida in first trimester Z34.81 [place] [id number] [place] [address] 14 Jun, 2016 Visit for TB skin test Z11.1 [place] [address] [address] 11 Jun, 2016 Pre-employment drug screening Z02.1 [place] [id number] [place] [address] 30 Apr, 2016 [place] [id number] [place] [address] Apr, confirmed by positive urine test Z32.01 and in first trimester with history of infertility, antepartum O09.01 [facility] [id number] [place] [address] 08 Apr, 2016 Laceration T14.8 [facility] [id number] [place] [address] Mar, Pelvic cramping R10.2 ; Other specified bacterial agents as the cause of diseases classified elsewhere B96.89 and Acute vaginitis N76.0 [place] [id number] [place] [address] Feb, [place] [address] [address] Feb, Lower abdominal pain R10.30 ; Metabolic syndrome E88.81 and Morbid obesity, unspecified obesity type E66.01 [place] [id number] [place] [address] Feb, Encounter for test, result unknown Z32.00 [place] [id number] [place] [address] December, Herpes simplex vulvovaginitis A60.04 [place] [id number] [place] [address] December, Morbid obesity, unspecified obesity type E66.01 [place] [id number] [place] [address] Nov, Perineal irritation L98.9 [place] [id number] [place] [address] Oct, [place] [id number] [place] [address] Oct, HTN (hypertension) I10 ; Obesity, unspecified E66.9 ; Polycystic ovaries E28.2 ; Hx of migraines Z86.69 ; Headache R51 and Fungal dermatitis B36.[address] [address] Oct, [address] [address] 09 Sep, 2015 Metabolic syndrome E88.81 ; Chronic headaches R51 ; Polycystic ovaries E28.2 ; History of PCOS Z87.42 and HTN (hypertension) I10 [address] [address] Aug, [address] [address] Jul, Low grade intrepith lesion cyto smr crvx (LGSIL) R87.[address] [address] Jul, Encounter for screening for malignant neoplasm of cervix Z12.4 ; Well woman exam Z01.419 ; Morbid obesity, unspecified obesity type E66.01 ; Unprotected sexual intercourse Z72.51 ; Vaginal discharge N89.8 ; Lower abdominal pain R10.30 ; Cervicitis N72 ; History of PCOS Z87.42 ; Vaginal dryness N89.8 and Hx of migraines Z86.69 [place] [id number] [place] [address] Jun, Nausea & vomiting R11.2 ; Acute upper respiratory infection, unspecified J06.9 and Other viral agents as the cause of diseases classified elsewhere B97.89 [place] [id number] [place] [address] May, Chronic headaches R51 ; Metabolic syndrome E88.81 ; Environmental allergies Z91.09 and HTN (hypertension) I10 [place] [id number] [place] [address] May, [address] [address] 18 Apr, 2015 Kimberly albicans infection 112.9 [facility] [address] [address] 15 Apr, 2015 [facility] [address] [address] 14 Apr, 2015 [facility] [address] [address] Apr, Obesity, unspecified 278.00 ; Polycystic ovaries 256.4 ; Headache 784.0 ; Environmental allergies V15.09 and UTI (urinary tract infection) 599.0 [facility] [address] [place] [address] Feb, Routine general medical examination at a health care facility V70.0 ; Polycystic ovaries 256.4 ; Obesity, unspecified 278.00 and Essential hypertension 401.9 [facility] [address] [address] Nov, [facility] [address] [address] Nov, [facility] [address] [place] [address] Oct, [facility] [address] [address] Oct, [facility] [address] [address] Sep, [facility] [address] [address] Sep, [facility] [address] [address] Sep, [facility] [address] [address] Sep, [facility] [address] [address] Sep, [facility] [address] [facility] [id number] [address] Sep, [facility] [id number] [address] Aug, [facility] [address] [facility] [id number] [address] Aug, [facility] [id number] [address] Aug, [facility] [address] [facility] [id number] [address] Aug, [facility] [id number] [address] Aug, IMMUNIZATIONS No Known Immunizations SOCIAL HISTORY Never Assessed REASON FOR VISIT PLAN OF CARE VITAL SIGNS Height 62 in 2014-11-08 Weight 280.9 lbs 2014-11-08 Temperature 96.4 degrees Fahrenheit 2014-11-08 Heart Rate 88 bpm 2014-11-08 Respiratory Rate 20 2014-11-08 Blood pressure systolic 132 mmHg 2014-11-08 Blood pressure diastolic 90 mmHg 2014-11-08 MEDICATIONS No Known Medications RESULTS No Results PROCEDURES No Known procedures INSTRUCTIONS MEDICATIONS ADMINISTERED No Known Medications MEDICAL (GENERAL) HISTORY Type Description Date Medical History hypertension Medical History PCOS Medical History Ulcers as a kid Surgical History D and C 12/2013 Surgical History left ankle surgery 2004 Surgical History tonsillectomy Surgical History c section 2016 Hospitalization History surgery Hospitalization History child
--- OUTSIDE RECORDS SUMMARY | 2019-03-09 08:59 | XMS REPORT ---
Author Author Migration, Doctor Organization [facility] Address Unknown Phone Unavailable Care Team Providers Care Morning Nanny Name Role Phone Migration, Doctor Unavailable Unavailable PROBLEMS Type Condition ICD9-CM Code XVV62-JC Code Onset Dates Condition Status SNOMED Code Problem Metabolic syndrome E88.81 Active 628762461 Problem Hx of migraines Z86.69 Active 508748866 Problem Polycystic ovaries E28.2 Active 85918828 Problem HTN (hypertension) I10 Active 22074394 Problem Chronic headaches R51 Active 526977874 Problem Major depressive disorder, single episode, severe F32.2 Active 787616654322 Problem Morbid obesity, unspecified obesity type E66.01 Active 095075708 Problem Irregular menses N92.6 Active 74050605 Problem Obesity, unspecified E66.9 Active 402641724 Problem Anxiety state, unspecified F41.1 Active 390699807 ALLERGIES Substance Reaction Event Type Date Status Latex Unknown Non Drug Allergy Nov, Active ENCOUNTERS Encounter Location Date Diagnosis [facility] [address] [address] Oct, Sore throat J02.9 ; Viral pharyngitis J02.9 and BMI 40.0-44.9, adult Z68.41 [facility] [address] [address] Jul, Sore throat J02.9 and Pharyngitis due to other organism J02.8 [facility] [id number] [place] [id number] May, Encounter for immunization Z23 [facility] [id number] [place] [address] Mar, Gastroenteritis and colitis, viral A08.4 [facility] [address] [address] Mar, Acute middle ear effusion, right H65.191 [facility] [id number] [place] [address] 11 Mar, 2017 Neck pain M54.2 and Chronic headaches R51 [facility] [id number] [place] [address] 10 Mar, 2017 Chronic headaches R51 ; Neck pain M54.2 ; HTN (hypertension) I10 ; Major depressive disorder, single episode, severe F32.2 and Polycystic ovaries E28.2 [place] [id number] [place] [address] Jan, HTN (hypertension) I10 [place] [id number] [place] [address] Jan, [place] [id number] [place] [address] Sep, Major depressive disorder, single episode, severe F32.2 [place] [id number] [place] [address] Sep, [place] [id number] [place] [address] Jul, Gastroenteritis K52.9 [place] [id number] [place] [address] 23 Jun, 2016 Tinea pedis of both feet B35.3 and Normal in multigravida in first trimester Z34.81 [place] [id number] [place] [address] 14 Jun, 2016 Visit for TB skin test Z11.1 [place] [address] [address] 11 Jun, 2016 Pre-employment drug screening Z02.1 [place] [id number] [place] [address] 30 Apr, 2016 [place] [address] [address] Apr, confirmed by positive urine test Z32.01 and in first trimester with history of infertility, antepartum O09.01 [facility] [place] [id number] [place] [address] 08 Apr, 2016 Laceration T14.8 [facility] [place] [id number] [place] [address] Mar, Pelvic cramping R10.2 ; Other specified bacterial agents as the cause of diseases classified elsewhere B96.89 and Acute vaginitis N76.0 [place] [address] [address] Feb, [place] [address] [address] Feb, Lower abdominal pain R10.30 ; Metabolic syndrome E88.81 and Morbid obesity, unspecified obesity type E66.01 [place] [id number] [place] [address] Feb, Encounter for test, result unknown Z32.00 [place] [address] [address] December, Herpes simplex vulvovaginitis A60.04 [place] [address] [address] December, Morbid obesity, unspecified obesity type E66.01 [place] [id number] [place] [address] Nov, Perineal irritation L98.9 [place] [address] [address] Oct, [place] [address] [address] Oct, HTN (hypertension) I10 ; Obesity, unspecified E66.9 ; Polycystic ovaries E28.2 ; Hx of migraines Z86.69 ; Headache R51 and Fungal dermatitis B36.9 [place] [id number] [place] [address] Oct, [address] [address] 09 Sep, 2015 Metabolic syndrome E88.81 ; Chronic headaches R51 ; Polycystic ovaries E28.2 ; History of PCOS Z87.42 and HTN (hypertension) I10 [address] [address] Aug, [address] [address] Jul, Low grade intrepith lesion cyto smr crvx (LGSIL) R87.[address] [address] 10 Jul, 2015 Encounter for screening for malignant neoplasm of cervix Z12.4 ; Well woman exam Z01.419 ; Morbid obesity, unspecified obesity type E66.01 ; Unprotected sexual intercourse Z72.51 ; Vaginal discharge N89.8 ; Lower abdominal pain R10.30 ; Cervicitis N72 ; History of PCOS Z87.42 ; Vaginal dryness N89.8 and Hx of migraines Z86.69 [address] [place] [address] Jun, Nausea & vomiting R11.2 ; Acute upper respiratory infection, unspecified J06.9 and Other viral agents as the cause of diseases classified elsewhere B97.89 [place] [id number] [place] [address] May, Chronic headaches R51 ; Metabolic syndrome E88.81 ; Environmental allergies Z91.09 and HTN (hypertension) I10 [place] [id number] [place] [address] May, [place] [id number] [place] [address] Apr, Kimberly albicans infection 112.9 [facility] [address] [address] 15 Apr, 2015 [facility] [address] [address] 14 Apr, 2015 [facility] [address] [address] 09 Apr, 2015 Obesity, unspecified 278.00 ; Polycystic ovaries 256.4 ; Headache 784.0 ; Environmental allergies V15.09 and UTI (urinary tract infection) 599.0 [facility] [address] [address] Feb, Routine general medical examination at a health care facility V70.0 ; Polycystic ovaries 256.4 ; Obesity, unspecified 278.00 and Essential hypertension 401.9 [facility] [address] [address] Nov, [facility] [address] [address] Nov, [facility] [address] [address] Oct, [facility] [address] [address] Oct, [facility] [address] [address] Sep, [facility] [address] [address] Sep, [facility] [id number] [address] Sep, [facility] [address] [address] Sep, [facility] [id number] [address] Sep, [facility] [id number] [address] Sep, [facility] [address] [facility] [facility] [id number] [address] Aug, [facility] [id number] [address] Aug, [facility] [address] [facility] [facility] [id number] [address] Aug, [facility] [id number] [address] Aug, [facility] [address] [facility] [facility] [id number] [address] Aug, IMMUNIZATIONS No Known Immunizations SOCIAL HISTORY Never Assessed REASON FOR VISIT EMR[place] [place] OF CARE VITAL SIGNS MEDICATIONS Medication Instructions Dosage Frequency Start Date End Date Duration Status metformin 1,000 mg take 1 tablet (1,000 mg) by oral route once daily Aug, Active Flonase 50 mcg/actuation 1 sprays by Nasal route 2 times per day in each nostril Aug, Active NuvaRing 0.12-0.015 mg/24 hr 1 ea by Vaginal route every 4 weeks Insert ring and remove every 21 days Sep, Active metformin 500 mg take 1 tablet (500 mg) by oral route once daily with the evening meal Aug, Active ProAir HFA 90 mcg/actuation inhale 2 puffs by Inhalation route every 4 hours as needed PRN shortness of breath/cough Aug, Active RESULTS No Results PROCEDURES No Known [...]
[2019-03-09 09:00] VITALS: BP 124/80
[2019-03-09] MEDS ORDERED: ceFAZolin 2 GM/50 ML NS 50 ML IV ONE (09:00)
[2019-03-09] MEDS ORDERED: metroNIDAZOLE 500MG/100ML IVPB 100 ML IV ONE (09:00)
--- OUTSIDE RECORDS SUMMARY | 2019-03-09 09:04 | XMS REPORT | Continuity of Care Document ---
Author Organization Unknown Address Unknown Allergies Active Description Code Type Severity Reaction Onset Reported/Identified Relationship to Patient Clinical Status Yes NKANo Known Allergies NKA Miscellaneous Allergy Mild N/A 08/10/2009 Yes latex OA N/A N/A 09/03/2014 Yes latex [id number] Drug Allergy Unknown N/A 05/14/2016 Yes tramadol [id number] Drug Allergy Unknown N/A 05/14/2016 Medications There is no data. Problems Date Dx Coded Attending Type Code Diagnosis Diagnosed By 11/15/2006 Ot 719.46 11/15/2006 Ot 724.2 11/15/2006 Ot V57.1 04/04/2008 LUCINA CORTEZ APRN A V70.5 PREEMPLOYMENT/PRESCHOOL EXAM 04/04/2008 DORA FRANCISCO APRN R V70.5 PREEMPLOYMENT/PRESCHOOL EXAM 04/04/2008 LUCINA CORTEZ APRN A V70.5 PREEMPLOYMENT/PRESCHOOL EXAM 04/04/2008 LORRIE BOND APRN R V70.5 PREEMPLOYMENT/PRESCHOOL EXAM 04/04/2008 LORRIE BOND APRN R V70.5 PREEMPLOYMENT/PRESCHOOL EXAM 04/04/2008 MERLENE GUIDO MD V70.5 PREEMPLOYMENT/PRESCHOOL EXAM 09/03/2014 LUCINA CORTEZ APRN A 278.00 OBESITY 09/03/2014 LUCINA CORTEZ APRN A 465.9 UPPER RESPIRATORY INFECTION 09/03/2014 DORA FRANCISCO APRN R 278.00 OBESITY 09/03/2014 DORA FRANCISCO APRN R 465.9 UPPER RESPIRATORY INFECTION 09/03/2014 KATHYA CORTEZ APRNIDI A 278.00 OBESITY 09/03/2014 LUCINA CORTEZ APRN A 465.9 UPPER RESPIRATORY INFECTION 09/03/2014 LORRIE BOND APRN R 278.00 OBESITY 09/03/2014 VARUN UI APPLICATION DEVELOPER, LORRIE R 465.9 UPPER RESPIRATORY INFECTION 09/03/2014 VARUN UI APPLICATION DEVELOPER, LORRIE R 278.00 OBESITY 09/03/2014 VARUN DONAHUEN, LORRIE R 465.9 UPPER RESPIRATORY INFECTION 09/03/2014 MERLENE GUIDO MD 278.00 OBESITY 09/03/2014 MERLENE GUIDO MD 465.9 UPPER RESPIRATORY INFECTION 09/10/2014 DANA UI APPLICATION DEVELOPER, LUCINA A 256.4 POLYCYSTIC OVARIES 09/10/2014 DANA UI APPLICATION DEVELOPER, LUCINA A 300.00 ANXIETY STATE UNSPECIFIED 09/10/2014 DANA UI APPLICATION DEVELOPER, LUCINA A 626.4 IRREGULAR MENSTRUAL CYCLE 09/10/2014 DANA UI APPLICATION DEVELOPER, LUCINA A V74.5 STD SCREEN 09/10/2014 MARYAM DONAHUEN, DORA R 256.4 POLYCYSTIC OVARIES 09/10/2014 MARYAM DONAHUEN, DORA R 300.00 ANXIETY STATE UNSPECIFIED 09/10/2014 MARYAM DONAHUEN, DORA R 626.4 IRREGULAR MENSTRUAL CYCLE 09/10/2014 MARYAM DONAHUEN, DORA R V74.5 STD SCREEN 09/10/2014 DANA UI APPLICATION DEVELOPER, LUCINA A 256.4 POLYCYSTIC OVARIES 09/10/2014 DANA UI APPLICATION DEVELOPER, LUCINA A 300.00 ANXIETY STATE UNSPECIFIED 09/10/2014 DANA UI APPLICATION DEVELOPER, LUCINA A 626.4 IRREGULAR MENSTRUAL CYCLE 09/10/2014 DANA UI APPLICATION DEVELOPER, LUCINA A V74.5 STD SCREEN 09/10/2014 VARUN [...] LUCINA CORTEZ APRN A 487.1 INFLUENZA 09/24/2014 LORRIE BOND APRN R 487.1 INFLUENZA 09/24/2014 VARUN MONTELONGO, LORRIE R 487.1 INFLUENZA 09/24/2014 MERLENE GUIDO MD 487.1 INFLUENZA 10/11/2014 LUCINA CORTEZ APRN A 796.2 ELEVATED BLOOD PRESSURE READING WITHOUT DIAGNOSIS OF HYPERTENSION 10/11/2014 VARUN MONTELONGO, LORRIE R 796.2 ELEVATED BLOOD PRESSURE READING WITHOUT DIAGNOSIS OF HYPERTENSION 10/11/2014 LORRIE BOND APRN R 796.2 ELEVATED BLOOD PRESSURE READING WITHOUT DIAGNOSIS OF HYPERTENSION 10/11/2014 MERLENE GUIDO MD 796.2 ELEVATED BLOOD PRESSURE READING WITHOUT DIAGNOSIS OF HYPERTENSION 11/08/2014 LUCINA CORTEZ APRN A V72.62 LAB SCREENING- GENERAL PHYSICAL 11/08/2014 KOBE BOND APRNINA R V72.62 LAB SCREENING- GENERAL PHYSICAL 11/08/2014 KOBE BOND APRNINA R V72.62 LAB SCREENING- GENERAL PHYSICAL 11/08/2014 MERLENE GUIDO MD V72.62 LAB SCREENING- GENERAL PHYSICAL 11/22/2014 LORRIE BOND APRN R 401.1 HYPERTENSION, BENIGN ESSENTIAL 11/22/2014 KOBE BOND APRNINA R 623.5 LEUKORRHEA NOT SPECIFIED INFECTIVE 11/22/2014 KOBE BOND APRNINA R 788.41 URINARY FREQUENCY 11/22/2014 KOBE BOND APRNINA R V70.0 ROUTINE GENERAL MEDICAL EXAMINATION AT A HEALTH CARE FACILITY 11/22/2014 LORRIE BOND APRN R 401.1 HYPERTENSION, BENIGN ESSENTIAL 11/22/2014 KOBE BOND APRNINA R 623.5 LEUKORRHEA NOT SPECIFIED INFECTIVE 11/22/2014 KOBE BOND APRNINA R 788.41 URINARY FREQUENCY 11/22/2014 VARUN MONTELONGO, [...] PAIN, LEFT LOWER QUADRANT 05/11/2015 ORTIZ DELACRUZ Ot 616.10 VAGINITIS NOS 05/11/2015 ORTIZ DELACRUZ Ot 878.6 OPEN WOUND OF VAGINA 05/11/2015 ORTIZ DELACRUZ Ot 911.0 ABRASION TRUNK 05/11/2015 ORTIZ DELACRUZ Ot E928.8 ACCIDENT NEC 05/14/2016 NORMAN DE [...] LESS THAN 8 WEEKS GESTATION OF 07/11/2016 SEAN PELAEZCESAR Ot R11.10 VOMITING, UNSPECIFIED 07/11/2016 SEAN PELAEZCESAR Ot Z3A.14 14 WEEKS GESTATION OF 07/11/2016 SEAN PELAEZCESAR Ot Z53.21 PROC/TRTMT NOT CRD OUT D/T PT LV BEF SEE 07/13/2016 SEAN PELAEZCESAR Ot R11.10 VOMITING, UNSPECIFIED 07/13/2016 SEAN PELAEZCESAR Ot Z3A.14 14 WEEKS GESTATION OF 07/13/2016 SEAN CESAR Ot Z53.21 PROC/TRTMT NOT CRD OUT D/T [...] D/T PT [facility] BEF SEE 08/31/2016 FENECH DO, NED S Ot O47.9 FALSE LABOR, UNSPECIFIED 08/31/2016 FENECH DO, NED S Ot Z3A.00 WEEKS OF GESTATION OF NOT SPEC 09/09/2016 FENECH DO, NED S Ot O47.9 FALSE LABOR, UNSPECIFIED [...] Ot O21.9 VOMITING OF , UNSPECIFIED 10/10/2016 FENECH DO, NED S Ot O99.353 DISEASES OF THE NERVOUS SYS COMP PREGNAN 10/10/2016 NED MULLINS DO Ot Z3A.26 26 WEEKS GESTATION OF 10/15/2016 NED MULLINS DO Ot Z36 ENCOUNTER FOR SCREENING OF MOT 10/16/2016 NED MULLINS DO Ot Z36 ENCOUNTER FOR SCREENING OF MOT 10/21/2016 NED MULLINS DO Ot Z36 ENCOUNTER FOR SCREENING OF MOT 10/26/2016 SELENE STONE MD Ot O36.8130 DECREASED MOVEMENTS, THIRD TRIMEST 10/26/2016 SELENE STONE MD, Ot Z3A.29 29 WEEKS GESTATION OF 10/28/2016 SELENE STONE MD, Ot O36.8130 DECREASED MOVEMENTS, THIRD TRIMEST 10/28/2016 SELENE STONE MD, Ot Z3A.29 29 WEEKS GESTATION OF 10/28/2016 NED MULLINS DO Ot Z36 ENCOUNTER FOR SCREENING OF MOT 11/03/2016 NED MULLINS DO Ot Z36 ENCOUNTER FOR SCREENING OF MOT 11/15/2016 SELENE STONE MD Ot O13.3 GESTATIONAL HTN W/O SIGNIFICANT PROTEINU 11/18/2016 SELENE STONE MD, Ot O13.3 GESTATIONAL HTN W/O SIGNIFICANT PROTEINU 12/07/2016 SELENE STONE MD Ot O36.8130 DECREASED MOVEMENTS, THIRD TRIMEST 12/07/2016 SELENE STONE MD Ot O47.03 FALSE LABOR BEFORE 37 COMPLETED WEEKS OF 12/07/2016 SELENE STONE MD, Ot Z3A.35 35 WEEKS GESTATION OF 12/09/2016 SELENE STONE MD Ot O36.8130 DECREASED MOVEMENTS, THIRD TRIMEST 12/09/2016 SELENE STONE MD, Ot O47.03 FALSE LABOR BEFORE 37 COMPLETED WEEKS OF 12/09/2016 SELENE STONE MD, Ot Z3A.35 35 WEEKS GESTATION OF 12/16/2016 NED MULLINS DO Ot O36.8130 DECREASED MOVEMENTS, THIRD TRIMEST 12/16/2016 NED MULLINS DO Ot Z3A.37 37 WEEKS GESTATION OF 12/18/2016 [...] BLADDER FOLLOWING DELIVERY 12/27/2016 SHILPA COLE MD J Ot R10.30 LOWER ABDOMINAL PAIN, UNSPECIFIED 12/27/2016 SHILPA COLE MD Ot R50.9 FEVER, UNSPECIFIED 12/27/2016 SHILPA COLE MD Ot R60.9 EDEMA, UNSPECIFIED 01/02/2017 SHILPA COLE MD J Ot G89.18 OTHER ACUTE POSTPROCEDURAL PAIN 01/02/2017 SHILPA COLE MD Ot O16.5 UNSPECIFIED MATERNAL HYPERTENSION, COMP 01/02/2017 SHILPA COLE MD J Ot O86.22 INFECTION OF BLADDER FOLLOWING DELIVERY 01/02/2017 SHILPA COLE MD J Ot R10.30 LOWER ABDOMINAL PAIN, UNSPECIFIED 01/02/2017 SHILPA COLE MD Ot R50.9 FEVER, UNSPECIFIED 01/02/2017 SHILPA COLE MD J Ot R60.9 EDEMA, UNSPECIFIED 04/04/2017 ORTIZ DELACRUZ [...] ORGANS 03/25/2018 Ot Z91.040 LATEX ALLERGY STATUS 05/27/2018 HARPREET PELAEZ NED Polo Ot O36.8130 DECREASED MOVEMENTS, THIRD TRIMEST 05/27/2018 HARPREET PELAEZ NED Polo Ot O60.03 LABOR WITHOUT DELIVERY, THIRD TR 05/27/2018 HARPREET PELAEZ NED Polo Ot Z23 ENCOUNTER FOR IMMUNIZATION 05/27/2018 HARPREET PELAEZ NED Melani Ot Z3A.30 30 WEEKS GESTATION OF 05/30/2018 JESÚSOSCAR PELAEZ NED Polo Ot O47.03 FALSE LABOR BEFORE 37 COMPLETED WEEKS OF 05/30/2018 HARPREET PELAEZNED Ot Z3A.30 30 WEEKS GESTATION OF 06/02/2018 JESÚSOSCAR PELAEZ NED Melani Ot O47.03 FALSE LABOR BEFORE 37 COMPLETED WEEKS OF 06/02/2018 JESÚSOSCAR PELAEZ NED Melani Ot Z3A.30 30 WEEKS GESTATION OF 07/02/2018 SELENE TSONE MD Ot O36.8130 DECREASED MOVEMENTS, THIRD TRIMEST 07/02/2018 SELENE STONE MD Ot Z3A.35 35 WEEKS GESTATION OF 07/05/2018 DONATO JULIETA PELAEZLisa Jhaveri Ot O36.8130 DECREASED MOVEMENTS, THIRD TRIMEST 07/05/2018 DONATO DOJULIETAA Shakila Ot Z3A.35 35 WEEKS GESTATION OF 2018 DONATO DOHENRI Ot O36.8130 DECREASED MOVEMENTS, THIRD TRIMEST 2018 DONATO DO HENRI Shakila Ot Z3A.35 35 WEEKS GESTATION OF 07/15/2018 NED MULLINS DO Ot B00.9 HERPESVIRAL INFECTION, UNSPECIFIED 07/15/2018 NED MULLINS DO Ot D64.9 ANEMIA, UNSPECIFIED 07/15/2018 NED MULLINS DO Ot G43.909 MIGRAINE, UNSP, NOT INTRACTABLE, WITHOUT 07/15/2018 NED MULLINS DO Ot O34.211 MATERN CARE FOR LOW TRANSVERSE SCAR FROM 07/15/2018 NED MULLINS DO Ot O98.513 OTHER VIRAL DISEASES COMPLICATING PREGNA 07/15/2018 NED MULLINS DO Ot O99.03 ANEMIA COMPLICATING THE PUERPERIUM 07/15/2018 NED MULLINS DO Ot O99.353 DISEASES OF THE NERVOUS SYS COMP PREGNAN 07/15/2018 NED MULLINS DO Ot O99.820 STREPTOCOCCUS B CARRIER STATE COMPLICATI 07/15/2018 NED MULLINS DO Ot Z37.0 SINGLE LIVE 07/15/2018 NED MULLINS DO, Ot Z3A.37 37 WEEKS GESTATION OF 07/15/2018 NED MULLINS DO Ot Z80.41 FAMILY HISTORY OF MALIGNANT NEOPLASM OF 11/23/2018 NED MULLINS DO Ot Z36 ENCOUNTER FOR SCREENING OF MOT 11/23/2018 NED MULLINS DO, Ot Z34.92 ENCNTR FOR SUPRVSN OF NORMAL PREG, UNSP, 11/23/2018 NED MULLINS DO Ot Z3A.20 20 WEEKS GESTATION OF 11/28/2018 NED MULLINS DO Ot N94.19 OTHER SPECIFIED DYSPAREUNIA 11/28/2018 HARPREET PELAEZ NED Melani Ot R10.2 PELVIC AND PERINEAL PAIN Procedures Code Description [place] [address] INFLUENZA A & B (IN-HOUSE) 09/24/2014 37111 CULTURE URINE 11/22/2014 56840 GC/CHLAM URINE (STATE) 11/22/2014 78497 UA W/ CULTURE IF INDICATED 11/22/2014 98024 ROUTINE VENIPUNCTURE 11/26/2014 [id number] GFR CALC (RESULT ONLY) 11/26/2014 20022 CMP 11/26/2014 61776 LIPID PANEL 11/26/2014 29498 TSH 11/26/2014 92096 INSULIN LEVEL 11/26/2014 70925 CBC 11/27/2014 [id number] EXTRACTION OF POC, LOW CERVICAL, OPEN AP 12/18/2016 [id number] RESECTION OF BILATERAL FALLOPIAN TUBES, 07/13/2018 [id number] EXTRACTION OF PRODUCTS OF CONCEPTION, LO 07/13/2018 Results Test Result Range Complete urinalysis with reflex to culture - 05/14/16 04:58 Urine color determination YELLOW NRG Urine clarity determination CLEAR NRG Urine pH measurement by test strip 6.5 5-9 Specific gravity of urine by test strip 1.010 1.016-1.022 Urine protein assay by test strip, semi-quantitative [...] sediment leukocyte count by microscopy (number/high power field) NONE NRG Bacteria detection in urine sediment [...] 04:58 Serum or plasma choriogonadotropin measurement (units/volume) 16595 m[iU]/mL <5 Chlamydia trachomatis DNA detection by [...] gravity of urine by test strip 1.010 1.016-1.022 Urine protein assay by test strip, semi-quantitative [...] sediment leukocyte count by microscopy (number/high power field) [HPF] NRG Bacteria detection in urine sediment [...] 6-12 Urine creatinine measurement (mass/volume) 100 mg/dL 30-125 Urine protein/creatinine mass ratio 0.11 NRG Complete [...] Automated erythrocyte mean corpuscular hemoglobin concentration measurement (mass/volume) 35 g/dL 32-36 Automated erythrocyte distribution width ratio 13.0 % 10.0- 14.5 Automated blood platelet count (count/volume) 253 10*3/uL [...] Blood monocytes automated count (number/volume) 0.6 10*3 0.0- 1.0 Automated eosinophil count 0.1 10*3/uL 0.0-0.3 Automated [...] Serum or plasma aspartate aminotransferase measurement (enzymatic activity/volume) 14 U/L 5-34 Serum or plasma alanine aminotransferase measurement (enzymatic activity/volume) 9 U/L 0-55 Serum or plasma protein measurement (mass/volume) 6.0 g/dL 6.4-8.2 Serum or plasma albumin measurement (mass/volume) 3.1 g/dL 3.2-4.5 Complete urinalysis with reflex to culture - 12/07/16 12:45 Urine color determination YELLOW NRG Urine clarity determination CLEAR NRG Urine pH measurement by test strip 6 5-9 Specific gravity of urine by test strip 1.015 1.016-1.022 Urine protein assay by test strip, semi-quantitative [...] sediment leukocyte count by microscopy (number/high power field) [HPF] NRG Bacteria detection in urine sediment [...] culture - 12/07/16 12:45 Bacterial urine culture [id number] NRG COLONY COUNT 10,000/ML - 100,000/ML NRG FREE TEXT ENTRY 2 MIXED GRAM POSITIVE LINDEN NRG Complete urinalysis with reflex to culture - 12/18/16 05:40 Urine color determination YELLOW NRG Urine clarity determination CLEAR NRG Urine pH measurement by test strip 6.5 5-9 Specific gravity of urine by test strip 1.015 1.016-1.022 Urine protein assay by test strip, semi-quantitative [...] sediment leukocyte count by microscopy (number/high power field) [HPF] NRG Bacteria detection in urine sediment [...] culture - 12/18/16 05:40 Bacterial urine culture [id number] NRG COLONY COUNT 10,000/ML - 100,000/ML NRG [...] Automated erythrocyte mean corpuscular hemoglobin concentration measurement (mass/volume) 34 g/dL 32-36 Automated erythrocyte distribution width ratio 13.4 % 10.0- 14.5 Automated blood platelet count (count/volume) 249 10*3/uL [...] Blood monocytes automated count (number/volume) 0.7 10*3 0.0- 1.0 Automated eosinophil count 0.0 10*3/uL 0.0-0.3 Automated blood basophil count (count/volume) 0.0 10*3/uL 0.0-0.1 Blood type T Indirect antibody screen panel - 12/18/16 09:41 ABO+Rh group OP NRG Transfusion band number [id number] NRG Blood group antibody screen NEGATIVE NRG [...] Automated erythrocyte mean corpuscular hemoglobin concentration measurement (mass/volume) 34 g/dL 32-36 Automated erythrocyte distribution width ratio 13.5 % 10.0- 14.5 Automated blood platelet count (count/volume) 198 10*3/uL [...] Blood monocytes automated count (number/volume) 0.5 10*3 0.0- 1.0 Automated eosinophil count 0.0 10*3/uL 0.0-0.3 Automated [...] Automated erythrocyte mean corpuscular hemoglobin concentration measurement (mass/volume) 33 g/dL 32-36 Automated erythrocyte distribution width ratio 12.9 % 10.0- 14.5 Automated blood platelet count (count/volume) 290 10*3/uL [...] Blood monocytes automated count (number/volume) 0.7 10*3 0.0- 1.0 Automated eosinophil count 0.0 10*3/uL 0.0-0.3 Automated blood basophil count (count/volume) 0.0 10*3/uL 0.0-0.1 Blood lactic acid measurement (moles/volume) - 12/27/16 16:30 Blood lactic acid measurement (moles/volume) 1.81 mmol/L 0.50- 2.00 Comprehensive metabolic panel - 12/27/16 16:30 Serum [...] Serum or plasma aspartate aminotransferase measurement (enzymatic activity/volume) 11 U/L 5-34 Serum or plasma alanine aminotransferase measurement (enzymatic activity/volume) 11 U/L 0-55 Serum or plasma protein measurement (mass/volume) 5.9 g/dL 6.4-8.2 Serum or plasma albumin measurement (mass/volume) 3.0 g/dL 3.2-4.5 Serum or plasma amylase measurement (enzymatic activity/volume) - 12/27/16 16:30 Serum or plasma amylase measurement (enzymatic activity/volume) 41 U/L 25-125 Lipase - 12/27/16 16:30 Lipase 12 [...] gravity of urine by test strip 1.010 1.016-1.022 Urine protein assay by test strip, semi-quantitative [...] sediment leukocyte count by microscopy (number/high power field) [HPF] NRG Bacteria detection in urine sediment [...] culture - 12/27/16 16:45 Bacterial urine culture [id number] NRG COLONY COUNT >100,000/ML NRG FTX;REPORTABLE PLUS, NRG FREE TEXT ENTRY 2 MIXED GRAM POSITIVES <10,000/ML NRG Bacterial blood culture - 12/27/16 17:00 Bacterial blood culture NG NRG Complete urinalysis with reflex to culture - 04/04/17 16:20 Urine color determination YELLOW NRG Urine clarity determination CLEAR NRG Urine pH measurement by test strip 8 5-9 Specific gravity of urine by test strip 1.010 1.016-1.022 Urine protein assay by test strip, semi-quantitative [...] sediment leukocyte count by microscopy (number/high power field) NONE NRG Bacteria detection in urine sediment [...] Automated erythrocyte mean corpuscular hemoglobin concentration measurement (mass/volume) 34 g/dL 32-36 Automated erythrocyte distribution width ratio 12.9 % 10.0- 14.5 Automated blood platelet count (count/volume) 280 10*3/uL [...] Blood monocytes automated count (number/volume) 0.5 10*3 0.0- 1.0 Automated eosinophil count 0.3 10*3/uL 0.0-0.3 Automated [...] Serum or plasma aspartate aminotransferase measurement (enzymatic activity/volume) 13 U/L 5-34 Serum or plasma alanine aminotransferase measurement (enzymatic activity/volume) 13 U/L 0-55 Serum or plasma protein measurement (mass/volume) 7.0 g/dL 6.4-8.2 Serum or plasma albumin measurement (mass/volume) 4.0 g/dL 3.2-4.5 Complete urinalysis with reflex to culture - 03/25/18 11:52 Urine color determination YELLOW NRG Urine clarity determination CLEAR NRG Urine pH measurement by test strip 6 5-9 Specific gravity of urine by test strip 1.020 1.016-1.022 Urine protein assay by test strip, semi-quantitative [...] sediment leukocyte count by microscopy (number/high power field) [HPF] NRG Bacteria detection in urine sediment [...] Automated erythrocyte mean corpuscular hemoglobin concentration measurement (mass/volume) 34 g/dL 32-36 Automated erythrocyte distribution width ratio 13.8 % 10.0- 14.5 Automated blood platelet count (count/volume) 238 10*3/uL [...] Blood monocytes automated count (number/volume) 0.5 10*3 0.0- 1.0 Automated eosinophil count 0.0 10*3/uL 0.0-0.3 Automated [...] Serum or plasma aspartate aminotransferase measurement (enzymatic activity/volume) 13 U/L 5-34 Serum or plasma alanine aminotransferase measurement (enzymatic activity/volume) 11 U/L 0-55 Serum or plasma protein measurement (mass/volume) 6.4 g/dL 6.4-8.2 Serum or plasma albumin measurement (mass/volume) 3.4 g/dL 3.2-4.5 CALCIUM CORRECTED 10.1 mg/dL 8.5-10.1 Complete urinalysis with reflex to culture - 05/26/18 21:55 Urine color determination YELLOW NRG Urine clarity determination CLEAR NRG Urine pH measurement by test strip 5 5-9 Specific gravity of urine by test strip 1.025 1.016-1.022 Urine protein assay by test strip, semi-quantitative [...] sediment leukocyte count by microscopy (number/high power field) [HPF] NRG Bacteria detection in urine sediment [...] Automated erythrocyte mean corpuscular hemoglobin concentration measurement (mass/volume) 34 g/dL 32-36 Automated erythrocyte distribution width ratio 13.2 % 10.0- 14.5 Automated blood platelet count (count/volume) 258 10*3/uL [...] Blood monocytes automated count (number/volume) 0.1 10*3 0.0- 1.0 Automated eosinophil count 0.0 10*3/uL 0.0-0.3 Automated [...] Automated erythrocyte mean corpuscular hemoglobin concentration measurement (mass/volume) 34 g/dL 32-36 Automated erythrocyte distribution width ratio 13.3 % 10.0- 14.5 Automated blood platelet count (count/volume) 228 10*3/uL [...] Blood monocytes automated count (number/volume) 1.1 10*3 0.0- 1.0 Automated eosinophil count 0.0 10*3/uL 0.0-0.3 Automated [...] Serum or plasma aspartate aminotransferase measurement (enzymatic activity/volume) 51 U/L 5-34 Serum or plasma alanine aminotransferase measurement (enzymatic activity/volume) 50 U/L 0-55 Serum or plasma protein measurement (mass/volume) 5.8 g/dL 6.4-8.2 Serum or plasma albumin measurement (mass/volume) 3.2 g/dL 3.2-4.5 CALCIUM CORRECTED 9.2 mg/dL 8.5-10.1 Streptococcus agalactiae detection by organism specific culture - 07/02/18 05:10 Streptococcus agalactiae detection by organism specific culture TNP NRG Complete blood count (CBC) with automated white blood cell (WBC) differential - 07/13/18 09:00 Blood leukocytes automated count (number/volume) 11.0 10*3/uL 4.3-11.0 Blood erythrocytes automated count (number/volume) 3.75 10*6/uL 4.35-5.85 Venous blood hemoglobin measurement (mass/volume) 10.9 g/dL 11.5-16.0 Blood hematocrit (volume fraction) 32 % 35-52 Automated erythrocyte mean corpuscular volume 86 [foz_us] 80-99 Automated erythrocyte mean corpuscular hemoglobin (mass per erythrocyte) 29 pg 25-34 Automated erythrocyte mean corpuscular hemoglobin concentration measurement (mass/volume) 34 g/dL 32-36 Automated erythrocyte distribution width ratio 14.3 % 10.0- 14.5 Automated blood platelet count (count/volume) 249 10*3/uL 130-400 Automated blood platelet mean volume measurement 11.0 [foz_us] 7.4-10.4 Automated blood neutrophils/100 leukocytes 72 % 42-75 Automated blood lymphocytes/100 leukocytes 21 % 12-44 Blood monocytes/100 leukocytes 7 % 0-12 Automated blood eosinophils/100 leukocytes 0 % 0-10 Automated blood basophils/100 leukocytes 0 % 0-10 Blood neutrophils automated count (number/volume) 7.9 10*3 1.8-7.8 Blood lymphocytes automated count (number/volume) 2.3 10*3 1.0-4.0 Blood monocytes automated count (number/volume) 0.7 10*3 0.0- 1.0 Automated eosinophil count 0.0 10*3/uL 0.0-0.3 Automated blood basophil count (count/volume) 0.0 10*3/uL 0.0-0.1 Blood type T Indirect antibody screen panel - 07/13/18 09:00 ABO+Rh group OP NRG Transfusion band number [id number] NRG Blood group antibody screen NEGATIVE NRG Complete urinalysis with reflex to culture - 07/13/18 09:25 Urine color determination YELLOW NRG Urine clarity determination CLEAR NRG Urine pH measurement by test strip 6 5-9 Specific gravity of urine by test strip 1.020 1.016-1.022 Urine protein assay by test strip, semi-quantitative [...] sediment leukocyte count by microscopy (number/high power field) [HPF] NRG Bacteria detection in urine sediment by light microscopy FEW NRG Squamous epithelial cells detection in urine sediment by light microscopy 5-10 NRG Crystals detection in urine sediment by light microscopy NONE NRG Casts detection in urine sediment by light microscopy NONE NRG Mucus detection in urine sediment by light microscopy MODERATE NRG Complete urinalysis with reflex to culture YES NRG Renal epithelial cells detection in urine sediment by light microscopy NONE NRG Bacterial urine culture - 07/13/18 09:25 Bacterial urine culture SEE REPORT NRG COLONY COUNT . NRG Complete blood count (CBC) with automated white blood cell (WBC) differential - 07/14/18 06:10 Blood leukocytes automated count (number/volume) 11.2 10*3/uL 4.3-11.0 Blood erythrocytes automated count (number/volume) 3.15 10*6/uL 4.35-5.85 Venous blood hemoglobin measurement (mass/volume) 9.1 g/dL 11.5-16.0 Blood hematocrit (volume fraction) 28 % 35-52 Automated erythrocyte mean corpuscular volume 88 [foz_us] 80-99 Automated erythrocyte mean corpuscular hemoglobin (mass per erythrocyte) 29 pg 25-34 Automated erythrocyte mean corpuscular hemoglobin concentration measurement (mass/volume) 33 g/dL 32-36 Automated erythrocyte distribution width ratio 14.0 % 10.0- 14.5 Automated blood platelet count (count/volume) 194 10*3/uL 130-400 Automated blood platelet mean volume measurement 11.2 [foz_us] 7.4-10.4 Automated blood neutrophils/100 leukocytes 72 % 42-75 Automated blood lymphocytes/100 leukocytes 20 % 12-44 Blood monocytes/100 leukocytes 8 % 0-12 Automated blood eosinophils/100 leukocytes 1 % 0-10 Automated blood basophils/100 leukocytes 0 % 0-10 Blood neutrophils automated count (number/volume) 8.0 10*3 1.8-7.8 Blood lymphocytes automated count (number/volume) 2.2 10*3 1.0-4.0 Blood monocytes automated count (number/volume) 0.9 10*3 0.0- 1.0 Automated eosinophil count 0.1 10*3/uL 0.0-0.3 Automated blood basophil count (count/volume) 0.0 10*3/uL 0.0-0.1 CULTURE, GENITAL - 03/02/19 16:27 CULTURE, GENITAL SEE NOTE NRG GC/CHLAMYDIA (SWAB OR URINE)-RAPID - 03/02/19 16:27 CHLAMYDIA TRACHOMATIS RNA, TMA NOT DETECTED NOT DETECTED NEISSERIA GONORRHOEAE RNA, TMA NOT DETECTED NOT DETECTED COMMENT NRG Methicillin resistant Staphylococcus aureus (MRSA) screening culture - 03/06/19 09:22 Methicillin resistant Staphylococcus aureus (MRSA) screening culture NEG NRG Complete blood count (CBC) with automated white blood cell (WBC) differential - 03/06/19 09:25 Blood leukocytes automated count (number/volume) 8.4 10*3/uL 4.3-11.0 Blood erythrocytes automated count (number/volume) 4.77 10*6/uL 4.35-5.85 Venous blood hemoglobin measurement (mass/volume) 13.8 g/dL 11.5-16.0 Blood hematocrit (volume fraction) 43 % 35-52 Automated erythrocyte mean corpuscular volume 90 [foz_us] 80-99 Automated erythrocyte mean corpuscular hemoglobin (mass per erythrocyte) 29 pg 25-34 Automated erythrocyte mean corpuscular hemoglobin concentration measurement (mass/volume) 32 g/dL 32-36 Automated erythrocyte distribution width ratio 14.6 % 10.0- 14.5 Automated blood platelet count (count/volume) 253 10*3/uL 130-400 Automated blood platelet mean volume measurement 10.7 [foz_us] 7.4-10.4 Automated blood neutrophils/100 leukocytes 70 % 42-75 Automated blood lymphocytes/100 leukocytes 24 % 12-44 Blood monocytes/100 leukocytes 4 % 0-12 Automated blood eosinophils/100 leukocytes 2 % 0-10 Automated blood basophils/100 leukocytes 0 % 0-10 Blood neutrophils automated count (number/volume) 5.9 10*3 1.8-7.8 Blood lymphocytes automated count (number/volume) 2.0 10*3 1.0-4.0 Blood monocytes automated count (number/volume) 0.3 10*3 0.0- 1.0 Automated eosinophil count 0.2 10*3/uL 0.0-0.3 Automated blood basophil count (count/volume) 0.0 10*3/uL 0.0-0.1 Blood type T Indirect antibody screen panel - 03/06/19 09:25 WRISTBAND NUMBER TNP NRG ABO+Rh group OP NRG Blood group antibody screen NEGATIVE NRG Encounters ACCT No. Visit Date/Time Discharge Status Pt. Type Provider Facility Loc./Unit Complaint [id number] 12/07/2014 11:41:00 12/07/2014 23:59:59 CLS Outpatient MERLENE GUIDO MD [id number] 11/26/2014 08:46:00 11/26/2014 23:59:59 CLS Outpatient LORRIE BOND APRN [id number] 11/22/2014 14:55:00 11/22/2014 23:59:59 CLS Outpatient LORRIE BOND APRN [id number] 11/08/2014 15:59:00 11/08/2014 23:59:59 CLS Outpatient LUCINA CORTEZ APRN [id number] 09/24/2014 13:29:00 09/24/2014 23:59:59 CLS Outpatient DORA FRANCISCO APRN [id number] 09/10/2014 16:54:00 09/10/2014 23:59:59 CLS Outpatient LUCINA CORTEZ APRN [id number] 03/06/2019 09:05:00 03/06/2019 09:32:00 DIS Outpatient NED MULLINS DO [facility] PREOP ABNORMAL UTERINE BLEEDING [id number] 11/25/2018 13:24:00 11/25/2018 23:59:59 CLS Outpatient NED MULLINS DO [facility] RAD CHRONIC PELVIC PAIN IN FEMALE [id number] 07/13/2018 08:47:00 07/15/2018 12:20:00 DIS Inpatient NED MULLINS DO [facility] LDRP LABOR-REPEAT C/S [id number] 07/05/2018 15:32:00 07/05/2018 16:38:00 DIS Outpatient DONATO HENRI [facility] WSo CONTRACTIONS, PELVIC PAIN,DECREASED MOVEMENT [id number] 07/02/2018 04:20:00 07/02/2018 05:25:00 DIS Outpatient [facility] [place], SELENE Matthews [facility] WSo CONTRACTIONS,STS SPOTTING YESTERDAY [id number] 05/29/2018 17:23:00 05/29/2018 18:55:00 DIS Outpatient NED MULLINS DO [facility] WSo CONTRACTIONS [id number] 05/26/2018 14:00:00 05/27/2018 15:57:00 DIS Inpatient NED MULLINS DO [facility] LDRP DECREASED MOVEMENT [id number] 03/17/2018 14:00:00 03/17/2018 23:59:59 CLS Outpatient NED MULLINS DO [facility] RAD [id number] 04/20/2017 09:13:00 04/20/2017 23:59:59 CLS Preadmit KENDALL DAVIS [facility] REHAB CERVICITIS [id number] 04/04/2017 16:13:00 04/04/2017 19:23:00 DIS Emergency ORTIZ DELACRUZ [facility] ER SPOTTING/PELVIC PAIN [id number] 12/27/2016 15:52:00 12/27/2016 18:07:00 DIS Emergency SHILPA COLE MD [facility] ER POST OP/BILAT LEG SWELLING/FEVER/INCISION PAIN [id number] 12/18/2016 09:26:00 12/20/2016 16:15:00 DIS Inpatient NED MULLINS DO [facility] WS CONTRACTIONS,FLUID LEAKAGE,LABOR [id number] 12/16/2016 16:42:00 12/16/2016 18:30:00 DIS Out[facility] DECRE[facility]ED [facility] [id number] 12/07/2016 12:15:00 12/07/2016 13:40:00 DIS Outpatient [facility] CONTR[facility] [id number] 11/15/2016 17:49:00 11/15/2016 20:17:00 DIS Outpatient SELENE STONE MD [facility] WSo ELEV BP [id number] 10/26/2016 17:11:00 10/26/2016 18:30:00 DIS Outpatient SELENE STONE MD [facility] WSo CONTRACTIONS/DECREASED MOVEMENT [id number] 10/15/2016 11:57:00 10/15/2016 23:59:59 CLS Outpatient NED MULLINS DO [facility] RAD ,INCOMPLETE VIEWS [id number] 10/04/2016 20:58:00 10/05/2016 10:15:00 DIS Outpatient NED MULLINS DO [facility] WSo HEADACHE [id number] 08/31/2016 15:48:00 08/31/2016 16:35:00 DIS Outpatient NED MULLINS DO [facility] WSo FALL/STOMACH PAIN/VAG PRESSURE [id number] 07/10/2016 23:34:00 07/11/2016 00:16:00 DIS Emergency SEAN CESAR PELAEZ [facility] ER VOMITING BLOOD,14WKS PREG [id number] 05/14/2016 04:34:00 05/14/2016 07:29:00 DIS Emergency JONO DO, NORMAN D [facility] ER 7 1/2 WKS PREG,SEVERE CRAMPING,[place] [id number] 05/11/2015 16:39:00 05/11/2015 19:36:00 DIS Emergency ORTIZ DELACRUZ [facility] ER VAG TEAR [id number] 01/06/2015 03:13:00 01/06/2015 04:43:00 DIS Emergency CARMELITA DONG MD [facility] ER ABD PAIN [id number] 03/09/2019 09:15:00 [facility] [id number] 03/25/2018 12:24:00 Document Registration [id number] 02/26/2015 13:45:00 Document Registration [id number] 02/26/2015 13:45:00 Document Registration [id number] 02/26/2015 13:45:00 Document Registration [id number] 02/26/2015 13:45:00 Document Registration [id number] 02/26/2015 13:45:00 Document Registration [id number] 02/26/2015 13:45:00 Document Registration [id number] 02/26/2015 13:45:00 Document Registration [id number] 02/26/2015 13:45:00 Document Registration [id number] 02/26/2015 13:45:00 Document Registration [id number] 02/26/2015 13:45:00 Document Registration [id number] 11/15/2006 15:32:00 Document Registration [id number] 03/02/2019 15:50:00 03/02/2019 23:59:59 [facility] [id number] 03/02/2019 15:50:00 Document Registration
--- NOTE | 2019-03-09 09:16 | Progress Note-Pre Operative ---
Pre-Operative Progress Note H&P Reviewed The H&P was reviewed, patient examined and no changes noted. Date Seen by Provider: Mar 09, 2019 Time Seen by Provider: : Date H&P Reviewed: Mar 09, 2019 Time H&P Reviewed: : Pre-Operative Diagnosis: NED PARIS DO Mar 09, 2019 09:16
[2019-03-09] MEDS ORDERED: FAMOTIDINE 20MG/2ML IV (PEPCID) ONE (09:26)
[2019-03-09] MEDS ORDERED: ONDANSETRON 4 MG/2 ML (SDV) Z0FRAN ONE ×4 (09:26→13:26)
[2019-03-09] MEDS ORDERED: SCOPOLAMINE 1.5 MG (TRANSDERM-SCOP) PATCH ONE (09:26)
[2019-03-09] MEDS ORDERED: metroNIDAZOLE 500MG/100ML IVPB 100 ML ONE (09:26)
[2019-03-09] MEDS ORDERED: MIDAZOLAM 2 MG/2 ML (VERSED) VIAL ONE ×2 (09:26→10:17)
[2019-03-09] MEDS ORDERED: ceFAZolin 2 GM/50 ML NS 50 ML ONE (09:27)
[2019-03-09] MEDS ORDERED: MIDAZOLAM 2 MG/2 ML (VERSED) VIAL IVP ONE (09:45)
[2019-03-09] MEDS ORDERED: SCOPOLAMINE 1.5 MG (TRANSDERM-SCOP) PATCH TD ONE (09:45)
[2019-03-09] MEDS ORDERED: FAMOTIDINE 20MG/2ML IV (PEPCID) IVP ONE (09:45)
[2019-03-09] MEDS ORDERED: ONDANSETRON 4 MG/2 ML (SDV) Z0FRAN IVP ONE (09:45)
[2019-03-09] MEDS: LACTATED RINGERS 1,000 ML IV PRN ×2 (10:03→11:50)
[2019-03-09] MEDS ORDERED: GLYCOPYRROLATE 0.2 MG/ML (ROBINUL) 2 ML VIAL ONE (10:16)
[2019-03-09] MEDS ORDERED: proPOfol 200 MG/20 ML (DIPRIVAN) VIAL IV ONE (10:16)
[2019-03-09] MEDS ORDERED: NEOSTIGMINE 3 MG/3 ML VIAL ONE (10:16)
[2019-03-09] MEDS ORDERED: DEXAMETHASONE 10 MG/ML (DECADRON) 1 ML VIAL ONE (10:16)
[2019-03-09] MEDS ORDERED: LIDOCAINE PF 2% 5 ML (XYLOCAINE) VIAL ONE (10:16)
[2019-03-09] MEDS ORDERED: ROCURONIUM 10 MG/ML 5 ML SYRINGE IV ONE ×2 (10:16→11:36)
[2019-03-09] MEDS ORDERED: SEVOFLURANE (ULTANE) 15 ML INHAL SOLN ONE ×2 (10:16→12:07)
[2019-03-09] MEDS ORDERED: fentaNYL INJECTION 100 MCG/2 ML AMP ONE (10:17)
[2019-03-09] MEDS ORDERED: THROMBIN 5,000 UNIT (RECOTHROM) VIAL ONE (10:25)
[2019-03-09] MEDS ORDERED: BUPIVACAINE 0.25% 30 ML (SENSORCAINE) VIAL ONE (10:25)
[2019-03-09] MEDS ORDERED: LACTATED RINGERS 1,000 ML IV SCH (10:47)
--- NOTE | 2019-03-09 10:49 | Discharge Inst-Women's Service ---
Discharge Inst-Women's Serv Depart Medication/Instructions New, Converted or Re-Newed RX: RX on Chart Consults/Follow Up Additional Follow Up: Yes Orders/Referrals Dr. Bryant in 7-10 days and in 8 weeks Activity Activity: Activity as Tolerated Driving Instructions: No Driving for 1 Week NO SMOKING: NO SMOKING Nothing Inside Vagina: No Douching, No [place], No Tampons Diet Discharge Diet: No Restrictions Symptoms to Report to : Bleeding Excessive, Pain Increased, Fever Over 101 Degrees F, Vaginal Bleeding Increase, Questions/Concerns For Any Problems or Questions: Contact Your Physician Skin/Wound Care Infection Signs and Symptoms: Increased Redness, Foul Odor of Wound, Increased Drainage, Skin Itchy or Has a Rash, Increased Swelling, Temperature Above 101 F Operative Area Clean and Dry: Keep Incision Clean/Dry Stitches/Leyla/Dermabond: Dermabond, Care of Stitches Bathing Instructions: NED Velasquez DO Mar 09, 2019 10:49
[2019-03-09] MEDS ORDERED: IBUP-844 PO (10:55)
[2019-03-09] MEDS ORDERED: SIME80TA16 PO (10:55)
[2019-03-09] MEDS ORDERED: DOCU100C37 PO (10:55)
[2019-03-09] MEDS ORDERED: HYDR-34 PO (10:55)
[2019-03-09] MEDS ORDERED: CHLORASEPTIC LOZENGE MM PRN (11:00)
[2019-03-09] MEDS ORDERED: SIMETHICONE 80 MG (MYLICON) CHEW PO PRN (11:00)
[2019-03-09] MEDS ORDERED: ZOLPIDEM 5 MG (AMBIEN) TAB PO PRN (11:00)
[2019-03-09] MEDS ORDERED: ANTACID SUSP 30 ML UDC (MYLANTA) PO PRN (11:00)
[2019-03-09] MEDS ORDERED: ONDANSETRON 4 MG/2 ML (SDV) Z0FRAN IV PRN (11:00)
[2019-03-09] MEDS ORDERED: morphine INJ 10 MG/ML 1ML (SYR OR VIAL) ONE (12:28)
[2019-03-09] MEDS ORDERED: HYDROmorphone 2 MG/ML VIAL (DILAUDID) ONE ×2 (12:28→12:59)
[2019-03-09] MEDS ORDERED: KETOROLAC 30 MG/ML VIAL ONE (12:28)
[2019-03-09] MEDS: KETOROLAC 30 MG/ML VIAL IV PRN ×2 (12:47→19:18)
[2019-03-09] MEDS ORDERED: HYDROmorphone 2 MG/ML VIAL (DILAUDID) IV ONE (13:00)
[2019-03-09] MEDS ORDERED: ONDANSETRON 4 MG/2 ML (SDV) Z0FRAN IVP PRN (13:00)
[2019-03-09] MEDS ORDERED: morphine INJ 10 MG/ML 1ML (SYR OR VIAL) IVP ONE (13:00)
--- NOTE | 2019-03-09 13:55 | NUR ---
pt transferred to room 303 via bed with PACU staff @ side. report received from ONESIMO Gray. care assumed of pt.
[2019-03-09 14:00] VITALS: BP 126/78
--- NOTE | 2019-03-09 14:00 | NUR ---
initial assessment completed, see interventions for further. abd daniella x3, D/I. Band-Aids covering. potts to DD with cloudy urine noted in chamber. SCD's to LE's. IV site patent. s/o @ side. call light within reach.
--- NOTE | 2019-03-09 14:14 | NUR ---
Dr. Bryant was called r/t pt's c/o pain. Dilaudid IV order received.
[2019-03-09] MEDS ORDERED: HYDROmorphone 2 MG/ML VIAL (DILAUDID) IV PRN (14:45)
--- NOTE | 2019-03-09 15:24 | OPERATIVE REPORT ---
DATE OF SERVICE: PREOPERATIVE DIAGNOSES: 1. A 28-year-old female with dysfunctional uterine bleeding. 2. BMI greater than 35. POSTOPERATIVE DIAGNOSES: 1. A 28-year-old female with dysfunctional uterine bleeding. 2. BMI greater than 35. PROCEDURE: Robotic-assisted total laparoscopic hysterectomy. SURGEON: James Bryant DO ANESTHESIA: General endotracheal. ESTIMATED BLOOD LOSS: 50 mL. URINE OUTPUT: 150 mL clear at the end of the procedure. FLUIDS: 1200 mL lactated Ringer's solution. FINDINGS: A grossly normal appearing uterus with dense serosal adhesions in the anterior cul-de-sac including the vesicouterine peritoneum, which was completely obliterated by these adhesions. Grossly normal appearing bilateral ovaries. Absence of bilateral fallopian tubes. SPECIMEN SENT: Uterus and cervix. INDICATIONS FOR PROCEDURE: This 28-year-old female is the patient who has been a long ongoing patient in my office for almost 5 years now. She has undergone 2 pregnancies under my care. After this last , she did no longer desire any further childbearing and underwent bilateral salpingectomy at the time of repeat . Since that timeframe, she has noted significantly worsening periods. We had attempted a Mirena IUD, Depo-Provera injections and oral contraceptive pills in order to try to control her bleeding, none of which were helping her and she had episodes of bleeding that were heavy enough that brought her to the Emergency Department. We discussed proceeding with endometrial ablation; however, due to her risk factors of obesity and family history of endometrial cancer, we both decided this would probably not be a good fix long-term since the patient had already undergone a sterilization procedure, we discussed proceeding with robotic hysterectomy. Risks of the procedure were discussed with the patient in detail including risk of bleeding, infection, damage to surrounding structures including but not limited to bowel, bladder, ureter, kidneys, possible need for reoperation, postoperative complications that could occur, recovery timeframe and even were discussed with the patient. After all of her questions were answered, consent was obtained in the preoperative area with her present and the patient was taken to the operating room. OPERATIVE REPORT IN DETAIL: Once in the operating room, general anesthesia was found to be adequate. She was placed in the dorsal lithotomy position, prepped and draped in normal sterile fashion. A timeout was performed. Latex-free Mejia catheter was then placed using sterile technique. A weighted speculum inserted to the patient's vagina. Right angle retractor was used to visualize the cervix, which was grasped at 12 o'clock position using a long Allis clamp and then 0 Vicryl suture was then placed in the anterior lip of the cervix and the clamp was then removed. The 0 Vicryl suture was then used as my retraction point. After sounding the uterine cavity depth to 8 cm, select a 8 cm Shefali uterine manipulator tip and a 3.5 cm colpotomy ring. I advanced the manipulator tip into the uterus deploying the balloon and advancing the colpotomy ring around the vaginal fornix. I am able to appreciate excellent bimanual manipulation on exam. I then performed a change of gloves after removing all the other instruments from the patient's vagina and took my attention to the abdomen. Infraumbilically, I infiltrated this area using 0.25% Marcaine and make an 8 mm incision with a knife and directed Veress needle through the incision until intraperitoneal placement was confirmed using saline drop test. An opening pressure of 5 mmHg was noted. I proceeded to maximum pressure of 15 mmHg, at which point I removed the Veress needle and introduced an 8 mm blunt da Luly camera trocar. Once this was in place, I am able to confirm intraperitoneal placement using da Luly laparoscope. I then had the patient placed in steep Trendelenburg. I am able to visualize all my findings as described above. I placed two lateral trocars approximately 8 cm lateral to my infraumbilical trocar. These were both 8 mm incisions. The trocars were placed under direct visualization of the laparoscope. Once these are in place, I bring in the da Luly robot and docked in appropriate fashion. I am using da Luly vessel sealer in the left hand and monopolar rosa m in the right hand. I began my dissection by taking down the dense adhesions of the anterior cul-de-sac. Care was taken to stay clear of the bladder. Once my dissection plane is developed, I am able to take this down and visualize the reflection of the anterior colpotomy ring of the Shefali uterine manipulator. Once this was done, I performed the following dissection bilaterally. I grasped the uteroovarian ligament, bipolar cauterized and transected this using vessel sealer. I then grasped the round ligament, bipolar cauterized and transected this using the vessel sealer. I then grasped the entire broad ligament, bipolar cauterized and transected this using the vessel sealer down to the level of the lower uterine segment, at which point I the anterior leaflet and posterior leaflets of the broad ligament. The anterior leaflet was taken around to the anterior vaginal fornix. The posterior leaflet was taken around to the posterior vaginal fornix. This allows me to skeletonize the uterine vessels laterally, which I then bipolar cauterized and transected using the vessel sealer. I then performed colpotomy at 12 o'clock position using monopolar rosa m and took this circumferentially around the Shefali colpotomy ring, amputating the cervix away from the vagina. The entire uterus and cervix was then removed through the vagina. I then closed the lateral vaginal apices of the vaginal cuff using 2-0 Vicryl suture in a requad-ss-lwjag fashion them to the uterosacral ligaments. I closed the middle portion of the vaginal cuff using 2-0 V-Loc in a running fashion, after which there was no active bleeding noted from any of my dissection planes. I then undocked the da Luly robot and proceeded with remainder of the case laparoscopically. I copiously irrigated the pelvis using normal saline. Once again, there was no active bleeding noted from any of my dissection planes. I placed FloSeal hemostatic agent over all my planes of dissection to ensure excellent postoperative hemostasis. I then removed the lateral trocars under direct visualization and laparoscope. The infraumbilical trocar was left in place to release insufflation and to introduce 10 mL of 0.25% Marcaine into the peritoneal cavity for postoperative pain management. I then removed this trocar as well. The skin was then reapproximated using 4-0 Monocryl in interrupted subcuticular stitches. Dermabond was applied to the incisions and Band-Aids were placed over the incisions as well. Lap and sponge counts were correct at the end of the procedure. Instrument count was correct as well. Mejia catheter was left in place. Two grams of Ancef, 500 mg of Flagyl were given preoperatively for infection prophylaxis. The patient tolerated the procedure well and sent to recovery area in stable condition. Job ID: [id number] DocumentID: [id number] Dictated Date: 03/09/2019 12:29:45 [place] Date: 03/09/2019 15:23:33 Dictated By: DO DEBORAH WERNERD
--- NOTE | 2019-03-09 16:14 | NUR ---
regular diet served. @ side.
--- NOTE | 2019-03-09 16:59 | NUR ---
potts catheter dc'd. 75 cc cloudy urine noted. sediment present. v-pad in place.
--- NOTE | 2019-03-09 17:20 | NUR ---
called into pt's room. vomiting into urine collection hat. approx 500cc white emesis noted.
--- NOTE | 2019-03-09 17:55 | NUR ---
assisted up to BR. unable to void. edyta-care offered. v-pad and panties in place. assisted back to bed.
--- NOTE | 2019-03-09 18:20 | NUR ---
Annette Terrazas was called r/t pt's cont c/o nausea. order received for Phenergan IV.
[2019-03-09] MEDS ORDERED: PROMETHAZINE INJ 25 MG/ML (PHENERGAN) AMP ONE (18:39)
[2019-03-09] MEDS ORDERED: PROMETHAZINE INJ 25 MG/ML (PHENERGAN) AMP IVP PRN (19:15)
--- NOTE | 2019-03-09 19:15 | NUR ---
report given to next shift.
[2019-03-09 19:45] VITALS: BP 125/75
--- NOTE | 2019-03-09 19:45 | NUR ---
Pt sitting up in bed, stand by assist with pt while she gets up to void, void noted. pericare done. food tray at bedside, fresh ice water given and ice pack to abdomen.
[2019-03-09] MEDS: HYDROcodone/APAP 7.5 MG/325 MG (LORTAB, LORCET PLUS) TABLET PO PRN (21:30)
[2019-03-09] MEDS: DOCUSATE SODIUM 100 MG (COLACE) CAP PO PRN (21:30)
[2019-03-10 00:10] VITALS: BP 125/67
[2019-03-10] MEDS: HYDROcodone/APAP 7.5 MG/325 MG (LORTAB, LORCET PLUS) TABLET PO PRN ×2 (00:15→06:33)
[2019-03-10] MEDS: KETOROLAC 30 MG/ML VIAL IV PRN (01:10)
[2019-03-10] MEDS ORDERED: IBUPROFEN 600 MG (MOTRIN) TAB PO PRN (03:30)
[2019-03-10 04:10] VITALS: BP 123/63
--- NOTE | 2019-03-10 06:50 | NUR ---
Pt up to shower at this time.
[2019-03-10 07:55] VITALS: BP 133/71
[2019-03-10] MEDS: DOCUSATE SODIUM 100 MG (COLACE) CAP PO PRN (08:06)
[2019-03-10] MEDS ORDERED: ONDA4TAB11 PO (09:29)
[2019-03-10] MEDS ORDERED: FLUC150T PO (09:46)
--- NOTE | 2019-03-10 10:10 | NUR ---
Home instructions and prescriptions given. Verbalized understanding. To exit ambulatory - accompanied by staff and S.O.
--- NOTE | 2019-03-10 13:12 | Anesthesia-General Post-Op ---
General Patient Condition Mental Status/LOC: Same as Preop Cardiovascular: Satisfactory Nausea/Vomiting: Present Respiratory: Satisfactory Pain: Controlled Complications: Absent Post Op Complications Complications None Follow Up Care/Instructions Patient Instructions None needed. Anesthesia/Patient Condition Patient Condition Patient is doing well this am. She reports she had PONV and received medications for that most of the evening. Stable vital signs, no other apparent adverse anesthesia problems. No complications reported per nursing. JAIDEN BISHOP CRNA Mar 10, 2019 13:12
== END 2019-03-10 10:10 | disposition home or self-care (01) ==
LOC: SDC 08:50 → LDRP 12:55 → SDC 03-10 10:10
PROVIDERS: ATTEND Obstetrics & Gynecology
DX: N93.8 Other specified abnormal uterine and vaginal bleeding (principal); N94.6 Dysmenorrhea, unspecified; J45.909 Unspecified asthma, uncomplicated; K21.9 Gastro-esophageal reflux disease without esophagitis; G43.909 Migraine, unspecified, not intractable, without status migrainosus; F41.9 Anxiety disorder, unspecified; E28.2 Polycystic ovarian syndrome; F17.210 Nicotine dependence, cigarettes, uncomplicated; N94.19 Other specified dyspareunia; E66.9 Obesity, unspecified; Z68.41 Body mass index [BMI] 40.0-44.9, adult; A60.09 Herpesviral infection of other urogenital tract; Z91.040 Latex allergy status; Z79.899 Other long term (current) drug therapy; Z80.49 Family history of malignant neoplasm of other genital organs; Z80.41 Family history of malignant neoplasm of ovary; Z82.3 Family history of stroke; Z83.3 Family history of diabetes mellitus; Z82.49 Family history of ischemic heart disease and other diseases of the circulatory system; Z81.8 Family history of other mental and behavioral disorders; Z88.6 Allergy status to analgesic agent
CPT/HCPCS: 36415; 84703; 86850; 86900; 86901; 87081; 88307; 94664

== ENCOUNTER 2020-03-15 12:26 | Emergency (ER) | payer MEDICAID ==
[~2020-03-15] VITALS: Ht 157.5 cm; Wt 107.5 kg
[~2020-03-15 12:26] MED LIST changes: +FLUC150T PO; +HYDR-34 PO; -INDO25CA15 PO; +INDO25CA99 PO; +ONDA4TAB11 PO; +SIME80TA16 PO; -VALA500T PO; +VALA500T7 PO
[2020-03-15 13:32] LABS: BILIRUBIN,URINE NEGATIVE (NEGATIVE); CLARITY,URINE CLEAR; COLOR,URINE YELLOW; GLUCOSE, URINE (UA) NEGATIVE (NEGATIVE); KETONES,URINE NEGATIVE (NEGATIVE); LEUKOCYTE ESTERASE ,URINE NEGATIVE (NEGATIVE); NITRITE,URINE NEGATIVE (NEGATIVE); PH,URINE 7.5 (5-9); PROTEIN,URINE NEGATIVE (NEGATIVE)
[2020-03-15 13:41] LABS: BACTERIA,URINE NEGATIVE /HPF; SQUAMOUS EPITHELIAL CELL,UR 0-2 /HPF
--- NOTE | 2020-03-15 13:44 | ED Hip Pain/Injury ---
General Chief Complaint: Hip/Pelvic Problems Stated Complaint: LOWER BACK/HIP PAIN Nursing Triage Note: Pt ambulates to room #3 with c/o R hip discomfort. Pt reports intermittent discomfort to R hip for >1 month despite gabapentin prescription, heat, et therapy regimens. Pt denies any known injury at time s/s began. Pt reports to be preforming pelvic floor therapy r/t discomfort. Pt reports @ 0300 on this day she was awoken to R hip discomfort radiating to R flank. Pt denies urinary s/s. Source: patient Exam Limitations: no limitations History of Present Illness Date Seen by Provider: Mar 15, 2020 Time Seen by Provider: 13:39 Initial Comments To ER with right hip pain for 3 months without known cause. She sees a therapist for pelvic floor dysfunction and does some exercises for this. She had troubles with sciatica during and saw primary care [employer] Jeffry Bledsoe at the onset of this pain and was given gabapentin to use when necessary. That hasn't helped much. Pain now does not radiate down the lateral aspect of the leg but seems confined to the anterior. It is worsened by movement and was so intense that it awakened her from sleep at 3 AM this morning. No fevers or chills. Timing/Duration: constant Severity: moderate Location: hip (R) Associated Symptoms: denies symptoms Allergies and Home Medications Allergies Coded Allergies: latex (Unverified Allergy, Unknown, 05/14/16) tramadol (Unverified Allergy, Unknown, Pt has received Lortab & hydromorphone in the past, 03/09/19) Home Medications Citalopram Hydrobromide 20 Mg Tablet, 20 MG PO DAILY, (Reported) Docusate Sodium 100 Mg Capsule, 100 MG PO BID PRN for CONSTIPATION-1ST LINE Prescribed by: NED MULLINS on 03/09/19 1055 Fluconazole 150 Mg Tablet, 150 MG PO ONCE Prescribed by: SHADI PACHECO on 03/10/19 0946 Hydrocodone Bit/Acetaminophen 1 Ea Tablet, 2 EA PO Q6H PRN for Pain-See Instructions Prescribed by: NED MULLINS on 03/09/19 1055 Hydrocodone/Acetaminophen 1 Each Tablet, 1 EACH PO Q4-6HR PRN for PAIN-MODERATE Prescribed by: ELKIN LITTLE on 03/15/20 1406 Ibuprofen 600 Mg Tablet, 600 MG PO Q6H PRN for PAIN-MODERATE Prescribed by: NED MULLINS on 03/09/19 1055 Meloxicam 7.5 Mg Tablet, 7.5 MG PO DAILY Prescribed by: ELKIN LITTLE on 03/15/20 1405 Ondansetron 4 Mg Tab.rapdis, 4 MG PO Q4H PRN for NAUSEA/VOMITING-1ST LINE Prescribed by: SHADI PACHECO on 03/10/19 0929 Simethicone 80 Mg Tab.chew, 40 MG PO TID PRN for INDIGESTION 2ND LINE Prescribed by: NED MULLINS on 03/09/19 1055 Valacyclovir HCl 500 Mg Tablet, 500 MG PO BID PRN for outbreak, (Reported) Patient Home Medication List Home Medication List Reviewed: Yes Review of Systems Constitutional: see HPI; No chills, No fever EENTM: see HPI Respiratory: no symptoms reported Cardiovascular: no symptoms reported Genitourinary: no symptoms reported Musculoskeletal: see HPI Skin: no symptoms reported Psychiatric/Neurological: No Symptoms Reported Past Wpsummm-Elnkkr-Pxrtly Hx Patient Social History Alcohol Use: Rarely Uses Number of Drinks Today: 0 Recreational Drug Use: No Smoking Status: Current Everyday Smoker Type Used: Cigarettes Former Smoker, Quit: Mar 07, 2019 2nd Hand Smoke Exposure: No Recent Foreign Travel: No Contact w/Someone Who Travel: No Recent Infectious Disease Expo: No Recent Hopitalizations: No Immunizations Up To Date Tetanus Booster (TDap): Less than 5yrs PED Vaccines UTD: Yes Date of Influenza Vaccine: May 27, 2018 Seasonal Allergies Seasonal Allergies: Yes Past Medical History Surgeries: Yes (D&C, biopsy on neck, left ankle nerve sx, c/s x2) Adenoidectomy, Section, Orthopedic, Tonsillectomy Respiratory: Yes Asthma Currently Using CPAP: No Currently Using BIPAP: No Cardiac: Yes (murmur hasn't been heard for several years) Hypertension Neurological: Yes Headaches /Migraines Reproductive Disorders: Yes Female Reproductive Disorders: Polycystic Ovarian Dis Sexually Transmitted Disease: Yes HIV/AIDS: No Genitourinary: No Gastrointestinal: Yes Colitis, Gastroesophageal Reflux, Chronic Constipation Musculoskeletal: Yes (Sciatica) Scoliosis Endocrine: No HEENT: No Cancer: No Psychosocial: Yes Anxiety Integumentary: Yes Eczema, Recent Skin Changes, Herpes Blood Disorders: No Adverse Reaction/Blood Tranf: No Family Medical History Alcoholism 19 FATHER (father) Aphasia Arthritis 19 MOTHER (maternal grandmother, mother) Asthma 19 MOTHER (maternal grandmother, sister) Cardiovascular disease 19 FATHER (father) 19 MOTHER (maternal grandparents.) Cataracts 19 MOTHER (grandparents) Completed stroke 19 MOTHER (grandfatgher) Coronary thrombosis 19 MOTHER (grandfather) Dementia 19 MOTHER (grandmother) Diabetes mellitus 19 MOTHER (mother, grandfather) Drug abuse 19 FATHER (father) 19 MOTHER (mother) Dysphasia 19 MOTHER (grandfather) Fibrocystic disease of breast 19 MOTHER (mother) Hypercholesterolemia 19 MOTHER (grandmother, mother) Hypertension 19 FATHER (father) 19 MOTHER (mother, grandfather) Kidney disease 19 MOTHER (grandfather) Myocardial infarction 19 FATHER (dad) 19 MOTHER (grandfather) Psychosocial problem 19 MOTHER (mother-anxiety, depression grandmother. grandfather) Respiratory disorder 19 MOTHER (grandmother- COPD) Seizure disorder Thyroid disease 19 MOTHER (grandfather) No Pertinent Family Hx Physical Exam Vital Signs Vital Signs - First Documented 03/15/20 12:50 Temp 36.8 Pulse 77 Resp 18 B/P (MAP) 123/78 (93) Pulse Ox 98 O2 Delivery Room Air Capillary Refill : Less Than 3 Seconds Height, Weight, BMI Height: 5'2.00" Weight: 238lbs. 0.0oz. 107.464333py; 43.00 BMI Method:Stated General Appearance: No Apparent Distress, WD/WN Cardiovascular: Regular Rate, Rhythm, Normal Peripheral Pulses Respiratory: Normal Breath Sounds, No Accessory Muscle Use, No Respiratory Distress Gastrointestinal: Normal Bowel Sounds, Non Tender, Soft Extremity: Normal Capillary Refill, Other (pain to right hip worsened by movement. ) Neurologic/Psychiatric: Alert, Oriented x3 Progress/Results/Core Measures Results/Orders Lab Results Laboratory Tests Test 03/15/20 09:43 Range/Units Urine Color YELLOW Urine Clarity CLEAR Urine pH 7.5 5-9 Urine Specific [place] <=1.005 1.016-1.022 Urine Protein NEGATIVE NEGATIVE Urine Glucose (UA) NEGATIVE NEGATIVE Urine Ketones NEGATIVE NEGATIVE Urine Nitrite NEGATIVE NEGATIVE Urine Bilirubin NEGATIVE NEGATIVE Urine Urobilinogen 0.2 < = 1.0 MG/DL Urine Leukocyte Esterase NEGATIVE NEGATIVE Urine RBC (Auto) NEGATIVE NEGATIVE Urine RBC NONE /HPF Urine WBC NONE /HPF Urine Squamous Epithelial Cells 0-2 /HPF Urine Crystals NONE /LPF Urine Bacteria NEGATIVE /HPF Urine Casts NONE /LPF Urine Mucus NEGATIVE /LPF Urine Culture Indicated NO My Orders Orders - ELKIN LITTLE APRN Ua Culture If Indicated (03/15/20 13:15) Hip, Right, 2 Views (03/15/20 13:15) Hydrocodone/Apap 5/325 Tablet (Lortab 5 (03/15/20 13:45) Ketorolac Injection (Toradol Injection) (03/15/20 13:45) Medications Given in ED Current Medications Medications Dose Ordered Sig/Lm Route Start Time Stop Time Status Last Admin Dose Admin Acetaminophen/ Hydrocodone Bitart 1 tab ONCE ONCE PO 03/15/20 13:45 03/15/20 13:46 DC 03/15/20 13:50 1 TAB Ketorolac Tromethamine 60 mg ONCE ONCE IM 03/15/20 13:45 03/15/20 13:46 DC 03/15/20 13:50 60 MG Vital Signs/I&O 03/15/20 12:50 Temp 36.8 Pulse 77 Resp 18 B/P (MAP) 123/78 (93) Pulse Ox 98 O2 Delivery Room Air Blood Pressure Mean: 93 Departure Impression Primary Impression: Right hip pain Disposition: HOME, SELF-CARE Condition: Stable Departure-Patient Inst. Decision time for Depature: 14:03 Referrals: NED MULLINS DO (PCP) Primary Care Physician Patient Instructions: Hip Pain Add. Discharge Instructions: Follow-up with your doctor next week. Call scheduling department on Wednesday to make an appointment for the MRI. All discharge instructions reviewed with patient and/or family. Voiced un derstanding. Scripts Hydrocodone/Acetaminophen (Lorcet 5-325 mg Tablet) 1 Each Tablet 1 EACH PO Q4-6HR PRN for PAIN-MODERATE MDD 10 for 7 Days, #10 TAB Prov: ELKIN LITTLE APRN 03/15/20 Meloxicam (Meloxicam) 7.5 Mg Tablet 7.5 MG PO DAILY, #14 TAB Prov: ELKIN LITTLE APRN 03/15/20 Work/School Note: Work Release Form Date Seen in the Emergency Department: Mar 15, 2020 Return to Work: Mar 17, 2020 ELKIN LITTLE APRN Mar 15, 2020 13:43
[2020-03-15] MEDS ORDERED: HYDROcodone/APAP 5 MG/325 MG (LORTAB) TAB PO ONE (13:45)
[2020-03-15] MEDS ORDERED: KETOROLAC 60 MG/2 ML VIAL IM ONE (13:45)
--- NOTE | 2020-03-15 13:57 | Diagnostic Imaging Report ---
INDICATION: Right hip pain. FINDINGS: 2 views. Femoral head is in normal articulation with the acetabulum. Articulating surfaces are smooth. Joint spaces are well-maintained. There are no fractures. No hypertrophic bony changes. No soft tissue calcification. IMPRESSION: Normal right hip. Dictated by: Dictated on workstation # [id number]
[2020-03-15] MEDS ORDERED: MELO7.5T46 PO (14:05)
[2020-03-15] MEDS ORDERED: HYDR-3870 PO (14:05)
[2020-03-15 14:14] VITALS: BP 119/73
--- OUTSIDE RECORDS SUMMARY | 2020-03-15 17:34 | XMS REPORT ---
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 20 Active 714011202 Problem Moderate episode of recurrent major depressive disorder F33.1 Active 735320109 ALLERGIES No Information ENCOUNTERS Encounter Location Date Diagnosis [place] [address] [place] [id number] [place] [id number] 13 Nov, 2019 Dyshidrotic eczema L30.1 and Perineal irritation L98.9 [place] [address] [place] [id number] [place] [phone] Oct, [facility] [address] [place] [address] [id number] [place] [id number] 14 Aug, 2019 Exposure to the flu Z20.828 [facility] [address] [place] [id number] [place] [phone] 15 Jul, 2019 Otitis externa of right ear, unspecified chronicity, unspecified type H60.91 and Non-recurrent acute suppurative otitis media of right ear without spontaneous rupture of tympanic membrane H66.001 [facility] [address] [place] [id number] [place] [phone] 03 Jul, 2019 Moderate episode of recurren t major depressive disorder F33.1 ; Mild intermittent asthma without complication J45.20 and Vaginal sophia B37.3 [facility] [address] [address] Jun, Non-recurrent acute suppurat pauline otitis media of right ear without spontaneous rupture of tympanic membrane H66.001 and Fever, unspecified fever cause R50.[address] [address] Jun, [address] [address] Jun, Migraine without aura and wi thout status migrainosus, not intractable G43.009 ; Chronic diarrhea K52.9 and Moderate episode of recurrent major depressive disorder F33.[address] [address] Apr, Migraine without aura and wi thout status migrainosus, not intractable G43.009 ; Morbid obesity E66.01 ; major depression in remission F53.0 ; Other mental disorders complicating the puerperium O99.345 ; Mild intermittent asthma without complication J45.20 and Dyshidrotic eczema L30.1 [facility] [place] [address] [address] Feb, Unprotected sexual intercour se Z72.51 ; At risk for sexually transmitted disease due to unprotected sex Z91.89 and Morbid obesity E66.01 [facility] [place] [address] [address] Oct, Sore throat J02.9 ; Viral ph aryngitis J02.9 and BMI 40.0-44.9, adult Z68.41 [facility] [place] [address] [address] 13 Jul, 2017 Sore throat J02.9 and Pharyn gitis due to other organism J02.8 [facility] [place] [address] [place] [id number] [place] [id number] May, Encounter for immunization Z 23 [facility] [place] [address] [place] [phone] 29 Mar, 2017 Gastroenteritis and colitis, viral A08.4 [facility] [address] [facility] [id number] [address] [place] [phone] 15 Mar, 2017 Acute middle ear effusion, r ight H65.191 [facility] [address] [place] [id number] [place] [id number] Mar, Neck pain M54.2 and Chronic headaches R51 [place] [address] [place] [id number] [place] [phone] 10 Mar, 2017 Chronic headaches R51 ; Neck pain M54.2 ; HTN (hypertension) I10 ; Major depressive disorder, single episode, severe F32.2 and Polycystic ovaries E28.2 [place] [address] [address] Jan, HTN (hypertension) I10 [place] [address] [address] Jan, [place] [address] [address] Sep, Major depressive disorder, s min episode, severe F32.2 [place] [address] [place] [id number] [place] [phone] Sep, [place] [address] [address] Jul, Gastroenteritis K52.9 [place] [address] [address] 23 Jun, 2016 Tinea pedis of both feet B35 .3 and Normal in multigravida in first trimester Z34.81 [place] [address] [place] [id number] [place] [phone] 14 Jun, 2016 Visit for TB skin test Z11.1 [place] [address] [address] Jun, Pre-employment drug screenin g Z02.1 [place] [address] [place] [id number] [place] [phone] Apr, [place] [address] [place] [id number] [place] [phone] Apr, confirmed by posit pauline urine test Z32.01 and in first trimester with history of infertility, antepartum O09.01 [facility] [place] [address] [address] 08 Apr, 2016 Laceration T14.8 [facility] [place] [address] [place] [id number] [place] [phone] Mar, Pelvic cramping R10.2 ; Othe r specified bacterial agents as the cause of diseases classified elsewhere B96.89 and Acute vaginitis N76.0 [place] [address] [address] Feb, [place] [address] [place] [id number] [place] [phone] Feb, Lower abdominal pain R10.30 ; Metabolic syndrome E88.81 and Morbid obesity, unspecified obesity type E66.01 [place] [address] [place] [id number] [place] [address] Feb, Encounter for test , result unknown Z32.00 [place] [address] [place] [address] December, Herpes simplex vulvovaginiti s A60.04 [place] [address] [facility] [id number] [address] [place] [phone] December, Morbid obesity, unspecified obesity type E66.01 [place] [address] [facility] [id number] [address] [place] [address] Nov, Perineal irritation L98.9 [place] [address] [place] [id number] [place] [id number] Oct, [place] [address] [address] Oct, HTN (hypertension) I10 ; Obe sity, unspecified E66.9 ; Polycystic ovaries E28.2 ; Hx of migraines Z86.69 ; Headache R51 and Fungal dermatitis B36.[address] [address] Oct, [place] [address] [address] Sep, Metabolic syndrome E88.81 ; Chronic headaches R51 ; Polycystic ovaries E28.2 ; History of PCOS Z87.42 and HTN (hypertension) I10 [address] [address] Aug, [address] [address] Jul, Low grade intrepith lesion c yto smr crvx (LGSIL) R87.[address] [address] 10 Jul, 2015 Encounter for screening for malignant neoplasm of cervix Z12.4 ; Well woman exam Z01.419 ; Morbid obesity, unspecified obesity type E66.01 ; Unprotected sexual intercourse Z72.51 ; Vaginal discharge N89.8 ; Lower abdominal pain R10.30 ; Cervicitis N72 ; History of PCOS Z87.42 ; Vaginal dryness N89.8 and Hx of migraines Z86.69 [place] [address] [address] 09 Jun, 2015 Nausea & vomiting R11.2 ; Ac [place] upper respiratory infection, unspecified J06.9 and Other viral agents as the cause of diseases classified elsewhere B97.[address] [address] May, Chronic headaches R51 ; [place] bolic syndrome E88.81 ; Environmental allergies Z91.09 and HTN (hypertension) I10 [facility] [address] [id number] [address] [place] [id number] 09 May, 2015 [facility] [address] [facility] [id number] [address] [place] [id number] 18 Apr, 2015 Sophia albicans infection 1 12.9 [facility] [address] [facility] [id number] [address] [place] [id number] 15 Apr, 2015 [facility] [address] [id number] [address] [place] [phone] 14 Apr, 2015 [facility] [address] [facility] [id number] [address] [place] [id number] 09 Apr, 2015 Obesity, unspecified 278.00 ; Polycystic ovaries 256.4 ; Headache 784.0 ; Environmental allergies V15.09 and UTI (urinary tract infection) 599.0 [facility] [address] [facility] [id number] [address] [place] [id number] Feb, Routine general medical exam ination at a health care facility V70.0 ; Polycystic ovaries 256.4 ; Obesity, unspecified 278.00 and Essential hypertension 401.9 [facility] [address] [facility] [id number] [address] [place] [phone] Nov, [facility] [address] [facility] [id number] [address] [place] [phone] Nov, [facility] [address] [facility] [id number] [address] [place] [phone] Oct, [facility] [address] [id number] [address] [place] [phone] Oct, [facility] [address] [facility] [id number] [address] [place] [phone] Sep, [facility] [address] [facility] [id number] [address] [place] [phone] Sep, [facility] [address] [facility] [id number] [address] [place] [phone] Sep, [facility] [address] [id number] [address] [place] [id number] Sep, [facility] [address] [id number] [address] [place] [phone] Sep, [facility] [address] [id number] [address] [place] [phone] Sep, [facility] [address] [id number] [address] [place] [phone] Aug, [facility] [address] [id number] [address] [place] [phone] Aug, [facility] [address] [id number] [address] [place] [id number] Aug, [facility] [address] [id number] [address] [place] [phone] Aug, [facility] [address] [id number] [address] [place] [phone] Aug, IMMUNIZATIONS No Known Immunizations SOCIAL HISTORY Never Assessed REASON FOR VISIT PLAN OF CARE VITAL SIGNS Height 62 in 2014-09-03 Weight 275.38 lbs 2014-09-03 Temperature 99.1 degrees Fahrenheit 2014-09-03 Heart Rate 100 bpm 2014-09-03 Respiratory Rate 20 2014-09-03 Blood pressure systolic 132 mmHg 2014-09-03 Blood pressure diastolic 86 mmHg 2014-09-03 MEDICATIONS Unknown Medications RESULTS No Results PROCEDURES No Known procedures INSTRUCTIONS MEDICATIONS ADMINISTERED No Known Medications MEDICAL (GENERAL) HISTORY Type Description Date Medical History hypertension Medical History PCOS Medical History Ulcers as a kid Medical History Chronic headaches Medical History Metabolic syndrome Medical History Obesity, unspecified Medical History Anxiety state, unspecified Medical History Polycystic ovaries Medical History Irregular menses Medical History HTN (hypertension) Surgical History D and C 12/2013 Surgical History left ankle surgery 2004 Surgical History tonsillectomy Surgical History c section 2016 Surgical History partial hysterectomy, still has her ovar ies 02/2019 Hospitalization History surgery Hospitalization History child
--- OUTSIDE RECORDS SUMMARY | 2020-03-15 17:34 | XMS REPORT ---
Author Author [facility] [employer] [facility] Address [address] [address] Care Team Providers Care Trouble Clerk Name Role Phone HARPREET, NED S Unavailable MARY HALL Unavailable Unavailable [facility] Unavailable KENDALL DAVIS Unavailable Unavailable JAZZ MARTE Unavailable MARY HALL Unavailable MERLENE GUIDO Unavailable Unavailable FENOSCAR, NED S Unavailable SELENE STONE Unavailable GWEN HERNANDEZ Unavailable Unavailable CESAR JAMES Unavailable Unavailable NORMAN THOMAS Unavailable Unavailable [facility] Unavailable KENDALL DAVIS Unavailable RYAN TALBOT Unavailable SASCHA Torres Unavailable NORMAN THOMAS Unavailable LEANDRO CARROLL Unavailable MARY HALL Unavailable [facility] Unavailable SELENE STONE MD Unavailable Unavailable SHILPA COLE Unavailable Unavailable NORMAN DE LA CRUZ DO Unavailable Unavailable ORTIZ DELACRUZ Unavailable Unavailable CESAR ESTRADA DO Unavailable Unavailable CARMELITA DONG MD Unavailable Unavailable FENECH DO NED S Unavailable Unavailable Migration, Doctor Unavailable Unavailable Migration, Doctor Unavailable Unavailable LUCINA Wong Unavailable zNabil LCUINA Unavailable zNabil LUCINA Unavailable zzHEIMAN, LUCINA Unavailable [facility] PCP KENDALL Travis Unavailable Unavailable FENECH DO, NED S Unavailable Unavailable FENECH DO, NED S Unavailable Unavailable KELLEY ALCARAZ Unavailable Unavailable FeliciaLEANDRO Holm Unavailable IKER NATION, CARMELITA Balderas Unavailable Unavailable ELKIN LITTLE APRN Unavailable Unavailable Unavailable Unavailable Unavailable Unavailable Unavailable Unavailable Unavailable Unavailable Allergies The data below is from unstructured sources Allergen Type Severity Reaction Status Last Updated No Known Allergies Allergy Mild Active 08/10/09 No Information Encounters Encounter Date Encounter Type Encounter Diagnosis Care Provider Facility Start: Emergency department CARMELITA DONG MD [facility] 03-15-2020 patient visit [facility] End: 03-15-2020 Start: Patient encounter NED S FENECH DO [facility] 03-14-2020 procedure [facility] Start: Patient encounter NED S FENECH DO [facility] 03-12-2020 [facility] Start: Patient encounter KELLEY ALCARAZ [facility] 02-21-2020 procedure [facility] Start: Telephone encounter Dyshidrosis KELLEY [facility] 11-27-2019 [pompholyx] Start: Telephone encounter KELLEY ALCARAZ [facility] 11-09-2019 Start: Patient encounter NA AZUL [facility] 08-29-2019 procedure [facility] ([id number]) Start: [facility] Contact with and CRYSTAL NINA AN [facility] 08-29-2019 CARE (suspected) exposure CARE to other viral communicable diseases Start: Patient encounter KELLEY ALCARAZ [facility] 07-30-2019 procedure [facility] ([id number]) Start: [facility] Unspecified otitis [place] BLADIMIRO Anna [facility] 07-30-2019 CARE externa, right ear CARE Start: [facility] Major depressive [facility] 07-18-2019 disorder, recurrent, moderate Start: [facility] Acute suppurative [place] BERNOT [facility] 07-08-2019 CARE otitis media without CARE spontaneous rupture of ear drum, right ear Start: Patient encounter KELLEY [facility] 07-08-2019 procedure [facility] ([id number]) Start: [facility] Migraine without KELLEY ALCARAZ [facility] 06-20-2019 aura, not intractable, without status migrainosus Start: Telephone encounter KELLEY [facility] 06-20-2019 Start: Patient encounter KENDALL Travis [facility] 04-20-2019 procedure [facility] ([id number]) Start: [facility] Migraine without KELLEY [facility] 04-20-2019 aura, not intractable, without status migrainosus Start: Patient encounter NED MULLINS DO [facility] 03-09-2019 procedure [facility] ([id number]) End: 03-10-2019 Start: Patient encounter NED MULLINS [facility] 03-06-2019 procedure Work Phone: [facility] ([id number]) End: 03-06-2019 Start: Patient encounter NED MULLINS DO [facility] 03-06-2019 procedure [facility] ([id number]) End: 03-06-2019 Start: Patient encounter KENDALL BearDCTOM [facility] 03-02-2019 procedure [facility] ([id number]) Start: Patient encounter [facility] 03-02-2019 procedure [facility] ([id number]) Start: [facility] High risk [facility] 03-02-2019 CARE heterosexual behavior CARE Start: Patient encounter NED MULLINS DO Not Avai lable ([id number]) 11-25-2018 procedure Start: Evaluation and NED MULLINS Not Availabl e ([id number]) 07-13-2018 management of Work Phone: inpatient End: 07-15-2018 Start: Patient encounter HENRI DONATO DO Not Availab le ([id number]) 07-13-2018 procedure End: 07-15-2018 Start: Patient encounter HENRI DONATO Not Availab le ([id number]) 07-05-2018 procedure End: 07-05-2018 Start: Patient encounter SELENE STONE Not Available ([id number]) 07-02-2018 procedure End: 07-02-2018 Start: Patient encounter NED MULLINS Not Avail able ([id number]) 05-29-2018 procedure End: 05-30-2018 Start: Evaluation and NED MULLINS Not Availabl e ([id number]) 05-26-2018 management of Work Phone: inpatient End: 05-27-2018 Start: Patient encounter NED MULLINS DO Not Avai lable ([id number]) 05-26-2018 procedure End: 05-27-2018 Start: Emergency department [place] PEREZ Not Avai lable ([id number]) 03-25-2018 patient visit End: 03-25-2018 Start: Patient encounter NA NA Not Availab le ([id number]) 03-25-2018 procedure Start: Patient encounter NED MULLINS Not Avail able ([id number]) 03-17-2018 procedure Start: Patient encounter 10-28-2017 procedure Start: Patient encounter ORTIZ RAY YASMEEN Not Trisha ilable ([id number]) 04-04-2017 procedure Start: Patient encounter SHILPA COLE Not Availab le ([id number]) 12-27-2016 procedure Patient encounter NA NA Not Available (0000 0) procedure Encounter for NED MULLINS DO [facility] laboratory ([id number]) examination Medical Equipment No Information Goals No Information Immunizations Immunizatio Immunization Notes Care Provider Facility n Date 05-27-2018 influenza, NA NA Not Available ( [id number]) injectable,quadrivalen t, preservative free, pediatric Interventions No Information Medications Medication Drug Dates Sig Sig (Original) Class(es) (Normalized) Control , Unknown End: Dose Not Applicable 05-27-2018 (6 sources) citalopram 20 mg oral Serotonin take 1 tablet Citalopr am Hydrobromide (Citalopram Hbr) tablet Reuptake by mouth once 20 Mg Tablet 20 Mg ORAL Daily (1 source) Inhibitor daily diphenhydrAMINE Histamine- End: Diphenhydramin e Hcl (Benadryl) 25 Mg hydrochloride 25 mg oral 1 Receptor 03-06-2019 Capsu le, 25 Mg Oral Bedtime Discontinued capsule Antagonist (6 sources) indomethacin 25 mg oral Nonsteroid Start: Indome thacin 25 Mg Capsule, 50 Mg Oral capsule al 05-27-2018 Give Every 6 Hr On Schedule 05/27/18 (6 sources) Anti-infla Discontinued mmatory End: Drug 05-29-2018 Melatonin/Pyridoxine Hcl Melatonin/Pyridoxine Hcl (B6) (Melatonin (B6) (Melatonin 1 Mg 1 Mg Tablet) 1 Each Tablet 1 Each ORAL Tablet) 1 Each Tablet Bedtime (5 sources) Melatonin/Pyridoxine Hcl End: Melatonin/Py ridoxine Hcl (B6) (Melatonin (B6) (Melatonin 1 Mg 03-06-2019 1 Mg Tablet) 1 E ach Tablet, 1 Each Oral Tablet) 1 Each Tablet, 1 Bedtime Discontinued Each Oral (1 source) Mupirocin (Bactroban) 22 Start: Mupirocin (B actroban) 22 Gm Oint...g., Gm Oint...g., 22 Gm 05-11-2015 22 Gm Topical As Directed 05/11/15 Topical Discontinued (4 sources) End: 05-14-2016 Vit/Iron Vit/Iron Fumarate/ Fa ( Fumarate/Fa ( Tablet) 1 Each Tablet 1 Eac h ORAL Daily Tablet) 1 Each Tablet (5 sources) Vit/Iron End: Vit/Iron F umarate/Fa ( Fumarate/Fa ( 03-06-2019 Tablet) 1 Each Tablet, 1 Each Oral Daily Tablet) 1 Each Tablet, 1 Discontinued Each Oral (1 source) Payers No Information Plan of Treatment Date Care Activity Detail Author Start: Electrocardiographic Tracing only of [facility] 03-25-2018 procedure electrocardiogram [place] (0 0000) Problems Active Problems Problem Problem Date Last Documented Episodic/Chr Provider Classificati Recorded Date onic on Asthma Unspecified asthma, uncomplicated ; Chronic ORTIZ Translations: [Mild intermittent CORY PA (15 asthma] sources) E Codes: Other accidents Episodic NA NA Natural/envi ronment (4 sources) Early or False labor, unspecified ; Episodic N A NA threatened Translations: [False labor before labor 37 completed weeks of gesta tion, (17 sources) third trimester] Esophageal Gastro-esophageal reflux disease Chronic NED disorders without esophagitis FENECH DO (3 sources) Fluid and Dehydration ; Translations: Episodic NA NA electrolyte [Dehydration] disorders (10 sources) Genitourinar Personal history of other diseases Episodic NA NA y symptoms of urinary system and ill-defined conditions (3 sources) Headache; Migraine, unspecified, not Chronic M ICHAEL including intractable, without status FENECH DO migraine migrainosus ; Translations: (20 sources) [Migraine without aura, not refractory ] Hypertension Unspecified maternal hypertension, Chronic SHILPA DOUGLAS complicating complicating the puerperium ; ; Translations: [Unspecified maternal childbirth hypertension, second trimes ter] and the puerperium (7 sources) Hypertension Gestational [-induced] Episodic SELENE complicating hypertension without significant HI GGINBOTHAM ; proteinuria, third trimester MD childbirth and the puerperium (6 sources) Open wounds Open wound of vagina, without Episodic NA NA of head; mention of complication neck; and trunk (4 sources) Other Other watermelon inspector (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) drug Episodic NED aftercare therapy FENECH DO (3 sources) Other Anemia complicating the puerperium Chronic NED complication FENECH DO s of ; puerperium affecting management of mother (4 sources) Other Infection of bladder following Episodic SHILPA DOUGLAS complication delivery s of ; puerperium affecting management of mother (4 sources) Other Decreased movements, third Episodic SELENE complication trimester, not applicable or HIGGIN BOTHAM s of unspecified MD (22 sources) Other Diseases of the nervous system Episodic NED complication complicating , third FENEC H DO s of trimester ; Translations: [ VOMITING OF , UNSPECIFIED] (10 sources) Other Other specified related Episodic NA NA complication conditions, first trimester s of (4 sources) Other Other viral diseases complicating Episodic NA NA complication , third trimester s of (10 sources) Other Endocrine, nutritional and Episodic N A NA complication metabolic diseases complica ting s of , second trimester ; Translations: [OTH DISEASES AND (3 sources) CONDITIONS COMPL PREG/C] Other Other mental disorders complicating Episodic NA NA complication , second trimester s of (3 sources) Other Personal history of other diseases Episodic ORTIZ connective of the musculoskeletal system and M LENCHO PA tissue connective tissue disease (6 sources) Other ear Unspecified otitis externa, right Chronic LEANDRO and sense ear ; Translations: [ - Otitis zzRA JOTTE organ externa of right ear, unspecified O ther Phone: disorders chronicity, unspecified type [phone] (1 source) D86.43] 3 Other female Abnormal uterine and vaginal Chronic ORTIZ genital bleeding, unspecified CORY ARANA disorders (6 sources) Other female Other specified dyspareunia 03-13-2020 Chronic NED genital FENECH DO disorders (7 sources) Other female Other specified abnormal uterine Chronic NED genital and vaginal bleeding FENECH DO disorders (3 sources) Other female Vaginismus 03-13-2020 Episodic NED genital FENECH DO disorders (3 sources) Other Personal history of other diseases Episodic ORTIZ gastrointest of the digestive system CORY ARANA inal disorders (9 sources) Other Personal history of other Episodic GR ETCHEN infections; infectious and parasitic diseases Maninder ARANA including parasitic (6 sources) Other Other acute postprocedural pain Episodic SHILPA DOUGLAS nervous system disorders (4 sources) Residual Weeks of gestation of not Episodic NA NA codes; specified unclassified (6 sources) Residual 35 weeks gestation of Episodic NA NA codes; unclassified (9 sources) Residual 37 weeks gestation of ; Episodic NA NA codes; Translations: [BODY MASS IN DEX unclassified (BMI) 40.0-44.9, ADULT] (14 sources) Residual 14 weeks gestation of Episodic NA NA codes; unclassified (4 sources) Residual Procedure and treatment not carried Episodic NA NA codes; out due to patient leaving prior to unclassified being seen by health care p malik (4 sources) Residual 26 weeks gestation of Episodic NED codes; FENECH DO unclassified (6 sources) Residual Acquired absence of other organs ; Episodic ORTIZ codes; Translations: [ACQUIRED ABSENCE OF CORY ARANA unclassified OTHER SPECIFIED PART] (9 sources) Residual Less than 8 weeks gestation of Episodic NA NA codes; unclassified (4 sources) Residual 29 weeks gestation of Episodic SELENE codes; CHASE unclassified MD (9 sources) Residual Edema, unspecified Episodic SHILPA WEL LER codes; unclassified (4 sources) Residual 21 weeks gestation of Episodic NA NA codes; unclassified (2 sources) Residual 20 weeks gestation of Episodic NA NA codes; unclassified (3 sources) Residual Family history of ischemic heart Episodic GROVER codes; disease and other diseases of the B ERNOT unclassified circulatory system (4 sources) Residual 30 weeks gestation of Episodic NED codes; FENECH DO unclassified (7 sources) Residual Family history of malignant Episodic NED codes; neoplasm of ovary FENECH DO unclassified (7 sources) Residual Family history of diabetes mellitus Episodic NED codes; FENECH DO unclassified (3 sources) Residual Family history of malignant Episodic NED codes; neoplasm of other genital organs FE NECH DO unclassified (3 sources) Residual Family history of other mental and Episodic NED codes; behavioral disorders FENECH DO unclassified (3 sources) Residual Family history of stroke Episodic SAVANAH HAEL codes; FENECH DO unclassified (3 sources) Screening Personal history of nicotine Episodic NA NA and history dependence of mental health and substance abuse codes (3 sources) Substance-re Nicotine dependence, cigarettes, Chronic ORTIZ lated uncomplicated CORY PA disorders (9 sources) Syncope Syncope ; Translations: [Syncope Episodic NA NA (10 sources) and collapse] Past or Other Problems Problem Problem Date Last Documented Episodic/Chr Provider Classificati Recorded Date onic on Deficiency Anemia, unspecified Episodic NED and other FENECH DO anemia (4 sources) Miscellaneou depression ; Episodic TRACY YL s mental Translations: [ - major Zola depression in remission F53.0] Othe r Phone: disorders [phone] (1 source) 3 Other Diseases of the nervous system Episodic GROVER complication complicating , second BLADIMIR OT s of trimester (2 sources) Other Diseases of the respiratory system Episodic GROEVR complication complicating , second BLADIMIR OT s of trimester (2 sources) Other Other specified diseases and Episodic GROVER complication conditions complicating , BERNOT s of childbirth and the puerperi um (3 sources) Other Streptococcus B carrier state Episodic NED complication complicating FENECH DO s of (4 sources) Other Vomiting of , unspecified Episodic NED complication FENECH DO s of (5 sources) Other Other mental disorders complicating Episodic LEANDRO complication the puerperium ; Translations: [ - zzRAJOTTE s of Other mental disorders complicating Other Phone: the puerperium O99.345] [phone] (1 source) 3 Other skin Dyshidrosis [pompholyx] ; Episodic CH ERYL disorders Translations: [ - Dyshidrotic Maureen COREY (2 sources) eczema L30.1] Other Phone: Other skin Vesicular eczema ; Translations: Episodic LEANDRO disorders [Dyshidrotic eczema] Bijal (1 source) Other Phone: Previous Maternal care for low transverse Episodic NED scar from previous FENECH DO (4 sources) delivery Residual Personal history of other Episodic GR ETCHEN codes; complications of , CORY ARANA unclassified childbirth and the puerperi um (6 sources) Residual Acquired absence of other specified Episodic ORTIZ codes; parts of digestive tract CORY ARANA unclassified (5 sources) Residual Other specified personal risk Episodic LEANDRO codes; factors, not elsewhere classified ; Bijal unclassified Translations: [ - At risk for Other Phone: (1 source) sexually transmitted disease due to [phone] unprotected sex Z91.89] 3 Procedures Date Procedure Procedure Detail Performing Cl inician Start: section NED MULLINS 07-13-2018 Start: Ultrasound scan - NED MULLINS 03-17-2018 obstetric Work Phone: EXTRACTION OF POC, NA NA LOW CERVICAL, OPEN AP RESECTION OF NED MULLINS DO BILATERAL FALLOPIAN TUBES, Results Test Name Value Interpreta Reference Facilit Date tion Range y Time not yet categorized on null Exp date 11/2019 Invalid Communi Interpreta ty tion Code [facility] ([id number]) Exp date Negative Invalid Communi Interpreta ty tion Code [facility] ([id number]) Exp date 08/2021 Invalid Communi Interpreta ty tion Code [facility] ([id number]) Lot # [id number] Invalid Communi Interpreta ty tion Code [facility] ([id number]) Lot # [id number] Invalid Communi Interpreta ty tion Code [facility] ([id number]) laboratory on 2020-03-15 Bacteria LM Ql Negative Invalid PENDING (Urine sed) Interpreta LOCATIO 020 tion Code N [facility] 05:43-0 (72146) 400 Bilirubin Ql (U) Negative Invalid NEGATIVE PENDING Interpreta LOCATIO 020 tion Code N [facility] 05:43-0 (40722) 400 Casts LM Ql (Urine NONE Invalid PENDING sed) Interpreta LOCATIO 020 tion Code N [facility] 05:43-0 (72146) 400 Clarity (U) CLEAR Invalid PENDING Interpreta LOCATIO 020 tion Code N [facility] 05:43-0 (39513) 400 Color (U) YELLOW Invalid PENDING Interpreta LOCATIO 020 tion Code N [facility] 05:43-0 (69875) 400 Crystals LM Ql NONE Invalid PENDING (Urine sed) Interpreta LOCATIO 020 tion Code N [facility] 05:43-0 (84394) 400 Epithelial 0-2 Invalid PENDING cells.squamous LM Ql Interpreta LOCATIO 020 (Urine sed) tion Code N [facility] 05:43-0 (27500) 400 Glucose Auto test Negative Invalid NEGATIVE PENDING 03-15 strip Ql (U) Interpreta LOCATIO 020 tion Code [facility] 05:43-0 (50455) 400 Ketones Auto test Negative Invalid NEGATIVE PENDING 03-15 strip Ql (U) Interpreta LOCATIO 020 tion Code [facility] 05:43-0 (81052) 400 Leukocyte esterase Negative Invalid NEGATIVE PENDING 02-15 Test strip Ql (U) Interpreta LOCATIO 020 tion Code [facility] 05:43-0 (83383) 400 Mucus Ql (Urine sed) Negative Invalid PENDING 03-15 Interpreta LOCATIO 020 tion Code N [facility] 05:43-0 (77001) 400 Nitrite Ql (U) Negative Invalid NEGATIVE PENDING Interpreta LOCATIO 020 tion Code [facility] 05:43-0 (00916) 400 pH (U) 7.5 [pH] Invalid 5-9 PENDING Interpreta LOCATIO 020 tion Code [facility] 05:43-0 (12424) 400 Protein Ql (U) Negative Invalid NEGATIVE PENDING Interpreta LOCATIO 020 tion Code N [facility] 05:43-0 (33406) 400 RBC LM.HPF (Urine NONE Invalid PENDING sed) [#/Area] Interpreta LOCATIO 020 tion Code N [facility] 05:43-0 (09806) 400 RBC Ql (U) Negative Invalid NEGATIVE PENDING Interpreta LOCATIO 020 tion Code N [facility] 05:43-0 (53942) 400 Specific gravity (U) <= Invalid 1.016-1.02 PENDING 0 [Rel density] Interpreta 2 LOCATIO 020 tion Code N [facility] 05:43-0 (52201) 400 Urinalysis complete NO Invalid PENDING W Reflex Culture Interpreta LOCATIO 020 panel - Urine tion Code N [facility] 05:43-0 (67412) 400 Urobilinogen (U) 0.2 mg/dL Invalid < = 1.0 PENDING [Mass/Vol] Interpreta mg/dL LOCATIO 020 tion Code N [facility] 05:43-0 (30285) 400 WBC LM.HPF (Urine NONE Invalid PENDING sed) [#/Area] Interpreta LOCATIO 020 tion Code [facility] 05:43-0 (54705) 400 not yet categorized on 2019-07-08 Exp date Negative [facility] ty [facility] ([id number]) Exp date 06/30/21 Invalid [facility] Interpreta ty tion Code [facility] ([id number]) Lot # [id number] [facility] Code [facility] (18588) wbc auto (bld) [#/vol] on 2019-03-06 WBC (Bld) [#/Vol] 8.4 10*3/uL 4.3-11.0 [facility] (16993) rbc auto (bld) [#/vol] on 2019-03-06 RBC (Bld) [#/Vol] 4.77 10*6/uL 4.35-5.85 [facility] (89037) platelets auto (bld) [#/vol] on 2019-03-06 Platelets (Bld) 253 10*3/uL 130-400 [facility] [#/Vol] on [facility] (88511) platelet mean volume auto (bld) [entitic vol] on 2019-03-06 Platelet mean volume 10.7 fL High 7.4-10.4 [facility] (Bld) [Entitic vol] on [facility] (46597) neutrophils/100 wbc auto (bld) on 2019-03-06 Neutrophils/100 WBC 70 % 42-75 [facility] (Bld) on [facility] (32119) neutrophils auto (bld) [#/vol] on 2019-03-06 Neutrophils (Bld) 5.9 10*3/uL 1.8-7.8 [facility] [#/Vol] on [facility] (73291) monocytes/100 wbc (bld) on 2019-03-06 Monocytes/100 WBC 4 % 0-12 [facility] (Bld) on [facility] (54508) monocytes auto (bld) [#/vol] on 2019-03-06 Monocytes (Bld) 0.3 10*3/uL 0.0-1.0 [facility] [#/Vol] on [facility] (96769) mcv auto (rbc) [entitic vol] on 2019-03-06 MCV (RBC) [Entitic 90 fL 80-99 [facility] vol] on [facility] (27227) mchc auto (rbc) [mass/vol] on 2019-03-06 MCHC (RBC) 32 g/dL 32-36 [facility] [Mass/Vol] on [facility] (59757) mch auto (rbc) [entitic mass] on 2019-03-06 MCH (RBC) [Entitic 29 pg 25-34 [facility] mass] on [facility] (83815) lymphocytes/100 wbc auto (bld) on 2019-03-06 Lymphocytes/100 WBC 24 % 12-44 [facility] (Bld) on [facility] (24731) lymphocytes auto (bld) [#/vol] on 2019-03-06 Lymphocytes (Bld) 2.0 10*3/uL 1.0-4.0 [facility] [#/Vol] on [facility] (39018) hemoglobin (bldv) [mass/vol] on 2019-03-06 Hemoglobin (Bld) 13.8 g/dL 11.5-16.0 [facility] [Mass/Vol] on [facility] (86111) hematocrit (bld) [volume fraction] on 2019-03-06 Hematocrit (Bld) 43 % 35-52 [facility] [Volume fraction] on [facility] (20861) erythrocyte distribution width auto (rbc) [ratio] on 2019-03-06 Erythrocyte 14.6 % High 10.0-14.5 [facility] distribution width on Via (RBC) [Ratio] [facility] (43171) eosinophils/100 wbc auto (bld) on 2019-03-06 Eosinophils/100 WBC 2 % 0-10 [facility] (Bld) on Via [facility] (11011) eosinophils auto (bld) [#/vol] on 2019-03-06 Eosinophils (Bld) 0.2 10*3/uL 0.0-0.3 [facility] [#/Vol] on [facility] (71564) basophils/100 wbc auto (bld) on 2019-03-06 Basophils/100 WBC 0 % 0-10 [facility] (Bld) on [facility] (43521) basophils auto (bld) [#/vol] on 2019-03-06 Basophils (Bld) 0.0 10*3/uL 0.0-0.1 [facility] [#/Vol] on [facility] (24434) not yet categorized on 2019-03-02 COMMENT Invalid Communi Interpreta ty tion [facility] (22553) laboratory on 2019-03-02 Bacteria identified SEE NOTE Invalid Communi Aer cx Nom (Genital Interpreta ty specimen) tion [facility] ([id number]) C. trachomatis rRNA Not detected Normal NOT Commu ni DOM+probe Ql (Unsp DETECTED ty spec) [facility] ([id number]) HAV IgM IA Ql NON-REACTIVE Normal NON-REACTI Communi VE ty [facility] ([id number]) HBV core IgM IA Ql NON-REACTIVE Normal NON-REACTI Commun i VE ty [facility] (37057) HBV surface Ag IA Ql NON-REACTIVE Normal NON-REACTI Comm uni VE ty [facility] ([id number]) HCV Ab IA Ql NON-REACTIVE Normal NON-REACTI Communi VE [facility] (73569) HCV Ab Signal/Cutoff 0.05 {ratio} Normal <1.00 Comm uni IA [Rel units/Vol] [facility] (03605) HIV 1+2 Ab+HIV1 p24 NON-REACTIVE Normal NON-REACTI Commu ni Ag IA Ql VE [facility] (21878) N. gonorrhoeae rRNA Not detected Normal NOT Commu ni DOM+probe Ql (Unsp DETECTED ty spec) [facility] ([id number]) Reagin Ab RPR Ql (S) NON-REACTIVE Normal NON-REACTI Comm uni [facility] (03938) wbc auto (bld) [#/vol] on 2018-07-14 WBC (Bld) [#/Vol] 11.2 10*3/uL High 4.3-11.0 Via [facility] (94782) rbc auto (bld) [#/vol] on 2018-07-14 RBC (Bld) [#/Vol] 3.15 10*6/uL Low 4.35-5.85 Via [facility] rg (37212) platelets auto (bld) [#/vol] on 2018-07-14 Platelets (Bld) 194 10*3/uL 130-400 Via [#/Vol] [facility] rg (01641) platelet mean volume auto (bld) [entitic vol] on 2018-07-14 Platelet mean volume 11.2 fL High 7.4-10.4 Via (Bld) [Entitic vol] [facility] rg (57756) neutrophils/100 wbc auto (bld) on 2018-07-14 Neutrophils/100 WBC 72 % 42-75 Via (Bld) [facility] rg (50907) neutrophils auto (bld) [#/vol] on 2018-07-14 Neutrophils (Bld) 8.0 10*3/uL High 1.8-7.8 Via [#/Vol] [facility] rg (73823) monocytes/100 wbc (bld) on 2018-07-14 Monocytes/100 WBC 8 % 0-12 Via (Bld) [facility] mark [facility] (43934) monocytes auto (bld) [#/vol] on 2018-07-14 Monocytes (Bld) 0.9 10*3/uL 0.0-1.0 Via [#/Vol] [facility] mark [facility] (39586) mcv auto (rbc) [entitic vol] on 2018-07-14 MCV (RBC) [Entitic 88 fL 80-99 Via vol] [facility] (30881) mchc auto (rbc) [mass/vol] on 2018-07-14 MCHC (RBC) 33 g/dL 32-36 Via [Mass/Vol] [facility] (40118) mch auto (rbc) [entitic mass] on 2018-07-14 MCH (RBC) [Entitic 29 pg 25-34 Via mass] [facility] (77253) lymphocytes/100 wbc auto (bld) on 2018-07-14 Lymphocytes/100 WBC 20 % 12-44 Via (Bld) [facility] mark [facility] (00464) lymphocytes auto (bld) [#/vol] on 2018-07-14 Lymphocytes (Bld) 2.2 10*3/uL 1.0-4.0 Via [#/Vol] [facility] mark [facility] rg (95679) hemoglobin (bldv) [mass/vol] on 2018-07-14 Hemoglobin (Bld) 9.1 g/dL Low 11.5-16.0 Via [Mass/Vol] [facility] mark [facility] (24042) hematocrit (bld) [volume fraction] on 2018-07-14 Hematocrit (Bld) 28 % Low 35-52 Via [Volume fraction] [facility] (80609) erythrocyte distribution width auto (rbc) [ratio] on 2018-07-14 Erythrocyte 14.0 % 10.0-14.5 Via distribution width Dara (RBC) [Ratio] [facility] (04428) eosinophils/100 wbc auto (bld) on 2018-07-14 Eosinophils/100 WBC 1 % 0-10 Via (Bld) [facility] (48561) eosinophils auto (bld) [#/vol] on 2018-07-14 Eosinophils (Bld) 0.1 10*3/uL 0.0-0.3 Via [#/Vol] [facility] (40890) basophils/100 wbc auto (bld) on 2018-07-14 Basophils/100 WBC 0 % 0-10 Via (Bld) [facility] (82173) basophils auto (bld) [#/vol] on 2018-07-14 Basophils (Bld) 0.0 10*3/uL 0.0-0.1 Via [#/Vol] [facility] mark [facility] (76950) wbc lm.hpf (urine sed) [#/area] on 2018-07-13 WBC LM.HPF (Urine Invalid Via sed) [#/Area] Interpreta Dara Palacio [facility] mark [facility] (60380) urobilinogen auto test strip (u) [mass/vol] on 2018-07-13 Urobilinogen (U) NORMAL NORMAL Via [Mass/Vol] [facility] (11348) urinalysis complete w reflex culture panel (u) on 2018-07-13 Urinalysis complete YES Via W Reflex Culture [facility] panel - Urine [facility] mark [facility] (73270) specific gravity test strip (u) [rel density] on 2018-07-13 Specific gravity (U) 1.020 1.016-1.02 Via [Rel density] 2 [facility] (61615) rbc lm.hpf (urine sed) [#/area] on 2018-07-13 RBC LM.HPF (Urine NONE Via sed) [#/Area] [facility] (13296) rbc lm ql (urine sed) on 2018-07-13 RBC Ql (U) Negative NEGATIVE Via [facility] (23109) protein test strip ql (u) on 2018-07-13 Protein Ql (U) Negative NEGATIVE Via [facility] (91332) ph test strip (u) on 2018-07-13 pH (U) 6 [pH] 5-9 Via [facility] (89729) nitrite test strip ql (u) on 2018-07-13 Nitrite Ql (U) Negative NEGATIVE Via [facility] (27945) mucus lm ql (urine sed) on 2018-07-13 Mucus Ql (Urine sed) MODERATE Invalid Via Interpreta Dara tion Code [facility] [place] [facility] (68361) leukocyte esterase test strip ql (u) on 2018-07-13 Leukocyte esterase 2+ Invalid NEGATIVE Via Test strip Ql (U) Interpreta Dara tion Code [facility] [place] [facility] (19752) ketones auto test strip ql (u) on 2018-07-13 Ketones Auto test Negative NEGATIVE Via strip Ql (U) D[facility] [place] [facility] (19145) glucose auto test strip ql (u) on 2018-07-13 Glucose Auto test Negative NEGATIVE Via strip Ql (U) [facility] (30630) epithelial cells.squamous lm ql (urine sed) on 2018-07-13 Epithelial Via cells.squamous LM Ql Dara (Urine sed) [facility] [place] [facility] (24641) epithelial cells.renal lm ql (urine sed) on 2018-07-13 Epithelial NONE Via cells.renal LM Ql Dara (Urine sed) [facility] [place] [facility] (77719) crystals lm ql (urine sed) on 2018-07-13 Crystals LM Ql NONE Via (Urine sed) [facility] [place] [facility] (44844) color (u) on 2018-07-13 Color (U) YELLOW Via D[facility] [place] (44368) clarity (u) on 2018-07-13 Clarity (U) CLEAR Via D[facility] (61545) casts lm ql (urine sed) on 2018-07-13 Casts LM Ql (Urine NONE Via sed) [facility] (70474) bilirubin test strip ql (u) on 2018-07-13 Bilirubin Ql (U) Negative NEGATIVE Via [facility] [place] (00467) bacteria lm ql (urine sed) on 2018-07-13 Bacteria LM Ql FEW Invalid Via (Urine sed) Interpreta Dara tion Code [facility] [place] (14436) bacteria identified cx nom (u) on 2018-07-13 Bacteria identified Organism: GROUP B STREPTOCOCCI Via Cx Nom (U) [facility] (78710) Bacteria identified Organism: SEE REPORT Via Cx Nom (U) [facility] (70862) wbc auto (bld) [#/vol] on 2018-05-29 WBC (Bld) [#/Vol] 12.1 10*3/uL High 4.3-11.0 Via Dara [facility] mark [facility] (62996) urea nitrogen/creatinine [mass ratio] on 2018-05-29 Urea 10 mg/mg Via nitrogen/Creatinine Dara [Mass ratio] [facility] mark [facility] (08081) urea nitrogen [mass/vol] on 2018-05-29 Urea nitrogen 6 mg/dL Low 7-18 Via [Mass/Vol] Dara [facility] mark [facility] (06076) sodium [moles/vol] on 2018-05-29 Sodium [Moles/Vol] 139 mmol/L 135-145 Via [facility] (01315) rbc auto (bld) [#/vol] on 2018-05-29 RBC (Bld) [#/Vol] 3.19 10*6/uL Low 4.35-5.85 Via Dara [facility] (98681) protein [mass/vol] on 2018-05-29 Protein [Mass/Vol] 5.8 g/dL Low 6.4-8.2 Via [facility] [place] (47143) potassium [moles/vol] on 2018-05-29 Potassium 3.7 mmol/L 3.6-5.0 Via [Moles/Vol] [facility] (28041) platelets auto (bld) [#/vol] on 2018-05-29 Platelets (Bld) 228 10*3/uL 130-400 Via [#/Vol] [facility] (67136) platelet mean volume auto (bld) [entitic vol] on 2018-05-29 Platelet mean volume 11.1 fL High 7.4-10.4 Via (Bld) [Entitic vol] [facility] (24540) neutrophils/100 wbc auto (bld) on 2018-05-29 Neutrophils/100 WBC 73 % 42-75 Via (Bld) [facility] (11373) neutrophils auto (bld) [#/vol] on 2018-05-29 Neutrophils (Bld) 8.8 10*3/uL High 1.8-7.8 Via [#/Vol] [facility] (95936) monocytes/100 wbc (bld) on 2018-05-29 Monocytes/100 WBC 9 % 0-12 Via (Bld) [facility] (82288) monocytes auto (bld) [#/vol] on 2018-05-29 Monocytes (Bld) 1.1 10*3/uL High 0.0-1.0 Via [#/Vol] [facility] mark [facility] (80254) mcv auto (rbc) [entitic vol] on 2018-05-29 MCV (RBC) [Entitic 91 fL 80-99 Via vol] [facility] (95460) mchc auto (rbc) [mass/vol] on 2018-05-29 MCHC (RBC) 34 g/dL 32-36 Via [Mass/Vol] [facility] (17605) mch auto (rbc) [entitic mass] on 2018-05-29 MCH (RBC) [Entitic 30 pg 25-34 Via mass] [facility] (19658) lymphocytes/100 wbc auto (bld) on 2018-05-29 Lymphocytes/100 WBC 18 % 12-44 Via (Bld) [facility] (84213) lymphocytes auto (bld) [#/vol] on 2018-05-29 Lymphocytes (Bld) 2.1 10*3/uL 1.0-4.0 Via [#/Vol] [facility] (13033) hemoglobin (bldv) [mass/vol] on 2018-05-29 Hemoglobin (Bld) 9.7 g/dL Low 11.5-16.0 Via [Mass/Vol] [facility] (61910) hematocrit (bld) [volume fraction] on 2018-05-29 Hematocrit (Bld) 29 % Low 35-52 Via [Volume fraction] [facility] (12394) glucose [mass/vol] on 2018-05-29 Glucose [Mass/Vol] 92 mg/dL 70-105 Via [facility] (87765) erythrocyte distribution width auto (rbc) [ratio] on 2018-05-29 Erythrocyte 13.3 % 10.0-14.5 Via distribution width Dara (RBC) [Ratio] [facility] (58402) eosinophils/100 wbc auto (bld) on 2018-05-29 Eosinophils/100 WBC 0 % 0-10 Via (Bld) [facility] (83086) eosinophils auto (bld) [#/vol] on 2018-05-29 Eosinophils (Bld) 0.0 10*3/uL 0.0-0.3 Via [#/Vol] [facility] (97573) creatinine and glomerular filtration rate.predicted panel (s/p/bld) on 2018-05-29 GFR/1.73 sq Via M.predicted among [facility] non-blacks MDRD Hospita (S/P/Bld) [Vol l rate/Area] [facility] (61480) creatinine [mass/vol] on 2018-05-29 Creatinine 0.60 mg/dL 0.60-1.30 Via [Mass/Vol] [facility] (91408) chloride [moles/vol] on 2018-05-29 Chloride [Moles/Vol] 111 mmol/L High 98-107 Via [facility] (06323) carbon dioxide on 2018-05-29 CO2 [Moles/Vol] 18 mmol/L Low 21-32 Via [facility] (34276) calcium measurement corrected for albumin on 2018-05-29 Albumin [Mass/Vol] 9.2 g/dL 8.5-10.1 Via [facility] (94850) calcium [mass/vol] on 2018-05-29 Calcium [Mass/Vol] 8.6 mg/dL 8.5-10.1 Via [facility] (08357) bilirubin [mass/vol] on 2018-05-29 Bilirubin [Mass/Vol] 0.2 mg/dL 0.1-1.0 Via [facility] (35129) basophils/100 wbc auto (bld) on 2018-05-29 Basophils/100 WBC 0 % 0-10 Via (Bld) [facility] (66777) basophils auto (bld) [#/vol] on 2018-05-29 Basophils (Bld) 0.0 10*3/uL 0.0-0.1 Via [#/Vol] [facility] (79728) ast [catalytic activity/vol] on 2018-05-29 AST [Catalytic 51 U/L High 5-34 Via activity/Vol] [facility] (32578) anion gap [moles/vol] on 2018-05-29 Anion gap 10 mmol/L 5-14 Via [Moles/Vol] [facility] () alt [catalytic activity/vol] on 2018-05-29 ALT [Catalytic 50 U/L 0-55 Via activity/Vol] [facility] () alp [catalytic activity/vol] on 2018-05-29 ALP [Catalytic 63 U/L 40-136 Via activity/Vol] [facility] (78576) albumin [mass/vol] on 2018-05-29 Albumin [Mass/Vol] 3.2 g/dL 3.2-4.5 Via [facility] (01482) wbc lm.hpf (urine sed) [#/area] on 2018-05-26 WBC LM.HPF (Urine Via sed) [#/Area] [facility] (23403) urobilinogen auto test strip (u) [mass/vol] on 2018-05-26 Urobilinogen (U) 1 mg/dL NORMAL Via [Mass/Vol] [facility] (61597) urinalysis complete w reflex culture panel (u) on 2018-05-26 Urinalysis complete NO Via W Reflex Culture Dara panel - Urine [facility] () specific gravity test strip (u) [rel density] on 2018-05-26 Specific gravity (U) 1.025 Invalid 1.016-1.02 Via [Rel density] Interpreta 2 Dara tion Code [facility] (50000) segmented neutrophils/100 wbc manual cnt (bld) on 2018-05-26 Segmented 96 % Via neutrophils/100 WBC Dara (Bld) [facility] (01984) rbc morphology finding nom (bld) on 2018-05-26 RBC morphology NORMAL Via finding Nom (Bld) [facility] (60287) rbc lm.hpf (urine sed) [#/area] on 2018-05-26 RBC LM.HPF (Urine RARE Via sed) [#/Area] [facility] (91853) rbc lm ql (urine sed) on 2018-05-26 RBC Ql (U) Negative NEGATIVE Via D[facility] [place] [facility] (25096) protein test strip ql (u) on 2018-05-26 Protein Ql (U) 2+ Invalid NEGATIVE Via Interpreta Dara tion Code [facility] [place] [facility] (17955) ph test strip (u) on 2018-05-26 pH (U) 5 [pH] 5-9 [facility] (08052[facility] nitrite test strip ql (u) on 2018-05-26 Nitrite Ql (U) Negative NEGATIVE Via [facility] (36786) mucus lm ql (urine sed) on 2018-05-26 Mucus Ql (Urine sed) MODERATE Invalid Via Interpreta Dara tion Code [facility] [place] (48704) monocytes/100 wbc (bld) on 2018-05-26 Monocytes/100 WBC 0 % Via (Bld) [facility] [place] [facility] (19397) lymphocytes/100 wbc manual cnt (bld) on 2018-05-26 Lymphocytes/100 WBC 4 % Via (Bld) [facility] (38416) leukocyte esterase test strip ql (u) on 2018-05-26 Leukocyte esterase 1+ Invalid NEGATIVE Via Test strip Ql (U) Interpreta Dara tion Code [facility] [place] [facility] (22705) ketones auto test strip ql (u) on 2018-05-26 Ketones Auto test 4+ Invalid NEGATIVE Via strip Ql (U) Interpreta Dara tion Code [facility] [place] [facility] (83038) glucose auto test strip ql (u) on 2018-05-26 Glucose Auto test 4+ Invalid NEGATIVE Via strip Ql (U) Interpreta Dara tion Code [facility] [place] [facility] (80506) epithelial cells.squamous lm ql (urine sed) on 2018-05-26 Epithelial Via cells.squamous LM Ql Dara (Urine sed) [facility] [place] [facility] (59034) eosinophils/100 wbc manual cnt (nose) on 2018-05-26 Eosinophils/100 WBC 0 % Via (Nose) [facility] (23667) crystals lm ql (urine sed) on 2018-05-26 Crystals LM Ql NONE Via (Urine sed) [facility] [place] [facility] (77384) color (u) on 2018-05-26 Color (U) YELLOW Via [facility] [facility] (45504) clarity (u) on 2018-05-26 Clarity (U) CLEAR Via [facility] [facility] (68364) casts lm ql (urine sed) on 2018-05-26 Casts LM Ql (Urine NONE Via sed) [facility] [place] [facility] (30017) bilirubin test strip ql (u) on 2018-05-26 Bilirubin Ql (U) Negative NEGATIVE Via [facility] (93252) basophils/100 wbc manual cnt (bld) on 2018-05-26 Basophils/100 WBC 0 % Via (Bld) [facility] [place] [facility] (51459) band form neutrophils/100 wbc (bld) on 2018-05-26 Band form 0 % Via neutrophils/100 WBC Dara (Bld) [facility] [place] [facility] (03510) bacteria lm ql (urine sed) on 2018-05-26 Bacteria LM Ql NONE Via (Urine sed) [facility] [place] [facility] (53759) wbc lm.hpf (urine sed) [#/area] on 2018-03-25 WBC LM.HPF (Urine Via sed) [#/Area] [facility] [place] [facility] (44347) wbc auto (bld) [#/vol] on 2018-03-25 WBC (Bld) [#/Vol] 10.7 10*3/uL 4.3-11.0 Via [facility] (27549) urobilinogen auto test strip (u) [mass/vol] on 2018-03-25 Urobilinogen (U) NORMAL NORMAL Via [Mass/Vol] [facility] [place] [facility] (32438) urinalysis complete w reflex culture panel (u) on 2018-03-25 Urinalysis complete NO Via W Reflex Culture Dara panel - Urine [facility] () urea nitrogen/creatinine [mass ratio] on 2018-03-25 Urea 13 mg/mg Via nitrogen/Creatinine [facility] [Mass ratio] [facility] (03239) urea nitrogen [mass/vol] on 2018-03-25 Urea nitrogen 8 mg/dL 7-18 Via [Mass/Vol] [facility] (52747) specific gravity test strip (u) [rel density] on 2018-03-25 Specific gravity (U) 1.020 1.016-1.02 Via [Rel density] 2 [facility] (81588) sodium [moles/vol] on 2018-03-25 Sodium [Moles/Vol] 138 mmol/L 135-145 Via [facility] () rbc lm.hpf (urine sed) [#/area] on 2018-03-25 RBC LM.HPF (Urine NONE Via sed) [#/Area] [facility] (94991) rbc lm ql (urine sed) on 2018-03-25 RBC Ql (U) Negative NEGATIVE Via [facility] (60178) rbc auto (bld) [#/vol] on 2018-03-25 RBC (Bld) [#/Vol] 3.61 10*6/uL Low 4.35-5.85 Via [facility] (89856) protein test strip ql (u) on 2018-03-25 Protein Ql (U) Negative NEGATIVE Via [facility] (84263) protein [mass/vol] on 2018-03-25 Protein [Mass/Vol] 6.4 g/dL 6.4-8.2 Via [facility] (65794) potassium [moles/vol] on 2018-03-25 Potassium 3.7 mmol/L 3.6-5.0 Via [Moles/Vol] [facility] (36448) platelets auto (bld) [#/vol] on 2018-03-25 Platelets (Bld) 238 10*3/uL 130-400 Via [#/Vol] [facility] (36615) platelet mean volume auto (bld) [entitic vol] on 2018-03-25 Platelet mean volume 11.3 fL High 7.4-10.4 Via (Bld) [Entitic vol] [facility] (63219) ph test strip (u) on 2018-03-25 pH (U) 6 [pH] 5-9 Via Dara [facility] (26941) nitrite test strip ql (u) on 2018-03-25 Nitrite Ql (U) Negative NEGATIVE Via [facility] (75641) neutrophils/100 wbc auto (bld) on 2018-03-25 Neutrophils/100 WBC 78 % High 42-75 Via (Bld) [facility] (66148) neutrophils auto (bld) [#/vol] on 2018-03-25 Neutrophils (Bld) 8.4 10*3/uL High 1.8-7.8 Via [#/Vol] [facility] (56235) mucus lm ql (urine sed) on 2018-03-25 Mucus Ql (Urine sed) Negative Via [facility] (53412) monocytes/100 wbc (bld) on 2018-03-25 Monocytes/100 WBC 5 % 0-12 Via (Bld) [facility] (11653) monocytes auto (bld) [#/vol] on 2018-03-25 Monocytes (Bld) 0.5 10*3/uL 0.0-1.0 Via [#/Vol] [facility] (79196) mcv auto (rbc) [entitic vol] on 2018-03-25 MCV (RBC) [Entitic 90 fL 80-99 Via vol] [facility] (19599) mchc auto (rbc) [mass/vol] on 2018-03-25 MCHC (RBC) 34 g/dL 32-36 Via [Mass/Vol] [facility] (79668) mch auto (rbc) [entitic mass] on 2018-03-25 MCH (RBC) [Entitic 31 pg 25-34 Via mass] Dara [facility] (46851) lymphocytes/100 wbc auto (bld) on 2018-03-25 Lymphocytes/100 WBC 17 % 12-44 Via (Bld) [facility] (26506) lymphocytes auto (bld) [#/vol] on 2018-03-25 Lymphocytes (Bld) 1.8 10*3/uL 1.0-4.0 Via [#/Vol] [facility] (88787) leukocyte esterase test strip ql (u) on 2018-03-25 Leukocyte esterase 2+ Invalid NEGATIVE Via Test strip Ql (U) Interpreta Dara tion Code [facility] (77183) ketones auto test strip ql (u) on 2018-03-25 Ketones Auto test Negative NEGATIVE Via strip Ql (U) [facility] (43990) hemoglobin (bldv) [mass/vol] on 2018-03-25 Hemoglobin (Bld) 11.1 g/dL Low 11.5-16.0 Via [Mass/Vol] [facility] (47599) hematocrit (bld) [volume fraction] on 2018-03-25 Hematocrit (Bld) 32 % Low 35-52 Via [Volume fraction] [facility] (26520) glucose auto test strip ql (u) on 2018-03-25 Glucose Auto test 2+ Invalid NEGATIVE Via strip Ql (U) Interpreta Dara romo Code [facility] (94893) glucose [mass/vol] on 2018-03-25 Glucose [Mass/Vol] 102 mg/dL 70-105 Via Dara [facility] (99736) erythrocyte distribution width auto (rbc) [ratio] on 2018-03-25 Erythrocyte 13.8 % 10.0-14.5 Via distribution width Dara (RBC) [Ratio] [facility] (66586) epithelial cells.squamous lm ql (urine sed) on 2018-03-25 Epithelial Invalid Via cells.squamous LM Ql Interpreta Dara (Urine sed) tion Code [facility] (39657) eosinophils/100 wbc auto (bld) on 2018-03-25 Eosinophils/100 WBC 0 % 0-10 Via (Bld) [facility] (70059) eosinophils auto (bld) [#/vol] on 2018-03-25 Eosinophils (Bld) 0.0 10*3/uL 0.0-0.3 Via [#/Vol] [facility] [place] [facility] (15944) crystals lm ql (urine sed) on 2018-03-25 Crystals LM Ql NONE Via (Urine sed) [facility] [place] [facility] (20207) creatinine and glomerular filtration rate.predicted panel (s/p/bld) on 2018-03-25 GFR/1.73 sq Via M.predicted among Dara non-blacks MDRD Hospita (S/P/Bld) [Vol l rate/Area] [place] [facility] (16383) creatinine [mass/vol] on 2018-03-25 Creatinine 0.62 mg/dL 0.60-1.30 Via [Mass/Vol] [facility] [place] [facility] (35490) color (u) on 2018-03-25 Color (U) YELLOW Via [facility] [place] [facility] (84344) clarity (u) on 2018-03-25 Clarity (U) CLEAR Via [facility] [place] [facility] (87799) chloride [moles/vol] on 2018-03-25 Chloride [Moles/Vol] 110 mmol/L High 98-107 Via [facility] [place] [facility] (54557) casts lm ql (urine sed) on 2018-03-25 Casts LM Ql (Urine NONE Via sed) [facility] [place] [facility] (77297) carbon dioxide on 2018-03-25 CO2 [Moles/Vol] 20 mmol/L Low 21-32 Via [facility] [place] [facility] (15472) calcium measurement corrected for albumin on 2018-03-25 Albumin [Mass/Vol] 10.1 g/dL 8.5-10.1 Via [facility] [place] [facility] (78997) calcium [mass/vol] on 2018-03-25 Calcium [Mass/Vol] 9.6 mg/dL 8.5-10.1 Via [facility] [place] [facility] (76190) bilirubin test strip ql (u) on 2018-03-25 Bilirubin Ql (U) Negative NEGATIVE Via [facility] [place] [facility] (01773) bilirubin [mass/vol] on 2018-03-25 Bilirubin [Mass/Vol] 0.4 mg/dL 0.1-1.0 Via [facility] [place] [facility] (58711) basophils/100 wbc auto (bld) on 2018-03-25 Basophils/100 WBC 0 % 0-10 Via (Bld) Dara [facility] mark [facility] (36389) basophils auto (bld) [#/vol] on 2018-03-25 Basophils (Bld) 0.0 10*3/uL 0.0-0.1 Via [#/Vol] [facility] (38111) bacteria lm ql (urine sed) on 2018-03-25 Bacteria LM Ql TRACE Via (Urine sed) [facility] (40504) ast [catalytic activity/vol] on 2018-03-25 AST [Catalytic 13 U/L 5-34 Via activity/Vol] [facility] (20406) anion gap [moles/vol] on 2018-03-25 Anion gap 8 mmol/L 5-14 Via [Moles/Vol] [facility] (21871) alt [catalytic activity/vol] on 2018-03-25 ALT [Catalytic 11 U/L 0-55 Via activity/Vol] [facility] (61198) alp [catalytic activity/vol] on 2018-03-25 ALP [Catalytic 52 U/L 40-136 Via activity/Vol] [facility] (95664) albumin [mass/vol] on 2018-03-25 Albumin [Mass/Vol] 3.4 g/dL 3.2-4.5 [facility] (05102) not yet categorized on 2017-10-28 Exp date Negative Invalid Not Interpreta Availab tion Code le (53731) Social History No Information Vital Signs Date Time Vital Sign Value Performing Clinician Facil ity 09-03-2014 Body height 157.48 cm LEANDRO [facility] 12:33-0500 Other Phone: [facility] [place] [employer]) 09-03-2014 Body temperature 99.1 [degF] LEANDRO [facility] 12:33-0500 Other Phone: [facility] [place] [employer]) 09-03-2014 Body weight 124.91 kg [facility] [facility] 12:33-0500 Other Phone: [facility] ([id number]) Functional Status The data below is from unstructured sources Query Response Date Owen rded Patient Orientation Person Place Time Situation Normal For Age December 20, 2016 9:55am Query Response Date Owen rded Comprehension Ability Understands Co ncepts March 25, 2018 11:41am Mental Status No Information History general Narrative - Reported Note Date & Note Facility Type History general Narrative - Reported Type Medical hypertension History Medical PCOS History Medical Ulcers as a kid History Medical Chronic headaches History Medical Metabolic syndrome History Medical Obesity, unspecified History Medical Anxiety state, unspecified History Medical Polycystic ovaries History Medical Irregular menses History Medical HTN (hypertension) History Surgical D and C 12/2013 History Surgical left ankle surgery 2004 History Surgical tonsillectomy History Surgical c section 2016 History Surgical partial hysterectomy, still has her ova josefina 02/2019 History Hospitalizatio surgery n History Hospitalizatio child n History [facility] ([id number]) Advance Directives Directive Response Recor ded Date/Time Advance Directives No 6:00am Health Care Power of Investor Relations Director No 12/18/16 6:00am Organ Donor Yes 12/18/16 6:00am Resuscitation Status Full Code 12/18/16 6:00am Directive Response Recor ded Date/Time Advance Directives No 4:45am Health Care Power of Investor Relations Director No 05/14/16 4:45am Organ Donor No 05/14/16 4:45am Resuscitation Status Full Code 05/14/16 4:45am Directive Response Recor ded Date/Time Advance Directives No 4:08pm Health Care Power of Investor Relations Director No 12/27/16 4:08pm Organ Donor Yes 12/27/16 4:08pm Resuscitation Status Full Code 12/27/16 4:08pm Directive Response Recor ded Date/Time Advance Directives No 4:45am Health Care Power of Investor Relations Director No 05/14/16 4:45am Organ Donor No 05/14/16 4:45am Directive Response Recor ded Date/Time Advance Directives No 4:30pm Health Care Power of Investor Relations Director No 08/31/16 4:30pm Organ Donor No 08/31/16 4:30pm Resuscitation Status Full Code 08/31/16 4:30pm Directive Response Recor ded Date/Time Advance Directives No 9:00pm Health Care Power of Investor Relations Director No 10/04/16 9:00pm Organ Donor Yes 10/04/16 9:00pm Resuscitation Status Full Code 10/04/16 9:00pm Directive Response Recor ded Date/Time Advance Directives No 5:26pm Health Care Power of Investor Relations Director No 10/26/16 5:26pm Organ Donor Yes 10/26/16 5:26pm Resuscitation Status Full Code 10/26/16 5:26pm Directive Response Recor ded Date/Time Advance Directives No 12:20pm Health Care Power of Investor Relations Director No 12/07/16 12:20pm Organ Donor Yes 12/07/16 12:20pm Resuscitation Status Full Code 12/07/16 12:20pm Directive Response Recor ded Date/Time Advance Directives No 4:58pm Health Care Power of Investor Relations Director No 12/16/16 4:58pm Organ Donor Yes 12/16/16 4:58pm Resuscitation Status Full Code 12/16/16 4:58pm Directive Response Recor ded Date/Time Advance Directives No 3:18am Resuscitation Status Full Code 01/06/15 3:18am Directive Response Recor ded Date/Time Advance Directives No 5:11pm Health Care Power of Investor Relations Director No 05/11/15 5:11pm Organ Donor No 05/11/15 5:11pm Resuscitation Status Full Code 05/11/15 5:11pm Directive Response Recor ded Date/Time Advance Directives No 4:25pm Health Care Power of Investor Relations Director No 04/04/17 4:25pm Organ Donor Yes 04/04/17 4:25pm Resuscitation Status Full Code 04/04/17 4:25pm Directive Response Recor ded Date/Time Advance Directives No 11:41am Health Care Power of Investor Relations Director No 03/25/18 11:41am Organ Donor Yes 03/25/18 11:41am Resuscitation Status Full Code 03/25/18 11:41am Directive Response Recor ded Date/Time Advance Directives No 5:25pm Health Care Power of Investor Relations Director No 05/29/18 5:25pm Organ Donor Yes 05/29/18 5:25pm Resuscitation Status Full Code 05/29/18 5:25pm Directive Response Recor ded Date/Time Advance Directives No 4:28am Health Care Power of Investor Relations Director No 07/02/18 4:28am Organ Donor Yes 07/02/18 4:28am Resuscitation Status Full Code 07/02/18 4:28am Directive Response Recor ded Date/Time Advance Directives No 9:00am Health Care Power of Investor Relations Director No 07/13/18 9:00am Organ Donor Yes 07/13/18 9:00am Resuscitation Status Full Code 07/13/18 9:00am Directive Response Recor ded Date/Time Advance Directives No 3:30pm Health Care Power of Investor Relations Director No 07/05/18 3:30pm Organ Donor Yes 07/05/18 3:30pm Resuscitation Status Full Code 07/05/18 3:30pm Directive Response Recor ded Date/Time Advance Directives No 9:10am Health Care Power of Investor Relations Director No 03/06/19 9:10am Organ Donor Yes 03/06/19 9:10am Resuscitation Status Full Code 03/06/19 9:10am Summary Purpose eClinicalWorks SubmissioneClinicalWorks SubmissioneClinicalWorks SubmissioneClinicalWorks SubmissioneClinicalWorks SubmissioneClinicalWorks SubmissioneClinicalWorks SubmissioneClinicalWorks SubmissioneClinicalWorks SubmissioneClinicalWorks SubmissioneClinicalWorks SubmissioneClinicalWorks SubmissioneClinicalWorks SubmissioneClinicalWorks SubmissioneClinicalWorks Submission Discharge Instructions No hospital discharge instructions.No hospital discharge instruction information available.No hospital discharge instructions.No hospital discharge instructions.No hospital discharge instructions.No hospital discharge instructions.No hospital discharge instruction information available.No hospital discharge instruction information available.No hospital discharge instructions.No hospital discharge instructions.No hospital discharge instruction information available.No hospital discharge instruction information available.No hospital discharge instruction information available.No hospital discharge instruction information available.No hospital discharge instruction information available.No hospital discharge instruction information available.No hospital discharge instruction information available.No hospital discharge instruction information available.No hospital discharge instruction information available. Additional Source Comments This clinical document has been generated using [employer] software that has been certified by the Office of the National Coordinator for Health Information Technology (ONC 15.99.04.3023.Diam.31.00.0.059816) and the National Committee for [employer] (NCQA, as an eMeasure certified technology). FOR RECORDS PERTAINING TO PATIENTS WHO ARE OR HAVE BEEN ENROLLED IN A CHEMICAL D EPENDENCY/SUBSTANCE ABUSE PROGRAM, SOME INFORMATION MAY BE OMITTED. This clinica l summary was aggregated from multiple sources. Caution should be exercised in using it in the provision of clinical care. This summary normalizes information from multiple sources, and as a consequence, information in this document may ma terially change the coding, format and clinical context of patient data. In kourtney tion, data may be omitted in some cases. CLINICAL DECISIONS SHOULD BE BASED ON T HE PRIMARY CLINICAL RECORDS. [employer] provides no warranty or guara ntee of the accuracy or completeness of information in this document.The followi ng information is based on time limited clinical information UNRECOGNIZED CONTENT PROVIDED BELOW FOR UNRECOGNIZED SECTION REASON FOR VISIT NLT-LylFLC-Edy
--- OUTSIDE RECORDS SUMMARY | 2020-03-15 17:34 | XMS REPORT ---
Author Author Elliott FRANCISCO Organization [facility] Address [address] [place] [address] Care Team Providers Care Collet Gluer Name Role Phone DORA FRANCISCO Unavailable PROBLEMS Type Condition ICD9-CM Code EWF56-LN Code Onset Dates Condition S tatus SNOMED Code Problem Migraine without aura and without status migrain osus, not intractable G43.009 Active 768402408 Problem Dyshidrotic eczema L30.1 Active 1 [id number] Problem Mild intermittent asthma without complication J45. 20 Active 523679066 Problem Moderate episode of recurrent major depressive disorder F33.1 Active [id number] ALLERGIES No Information ENCOUNTERS Encounter Location Date Diagnosis [facility] [address] [address] Nov, Dyshidrotic eczema L30.1 and Perineal irritation L98.9 [facility] [address] [address] Oct, [facility] [address] [place] [id number] [place] [id number] Aug, Exposure to the flu Z20.828 [facility] [address] [place] [id number] [place] [address] Jul, Otitis externa of right ear, unspecified chronicity, unspecified type H60.91 and Non-recurrent acute suppurative otitis media of right ear without spontaneous rupture of tympanic membrane H66.001 [facility] [address] [address] 03 Jul, 2019 Moderate episode of recurren t major depressive disorder F33.1 ; Mild intermittent asthma without complication J45.20 and Vaginal sophia B37.3 [facility] [address] [address] Jun, Non-recurrent acute suppurat pauline otitis media of right ear without spontaneous rupture of tympanic membrane H66.001 and Fever, unspecified fever cause R50.9 [facility] [address] [address] Jun, [place] [address] [address] Jun, Migraine without aura and wi thout status migrainosus, not intractable G43.009 ; Chronic diarrhea K52.9 and Moderate episode of recurrent major depressive disorder F33.1 [place] [address] [address] Apr, Migraine without aura and wi thout status migrainosus, not intractable G43.009 ; Morbid obesity E66.01 ; major depression in remission F53.0 ; Other mental disorders complicating the puerperium O99.345 ; Mild intermittent asthma without complication J45.20 and Dyshidrotic eczema L30.1 [facility] [place] [address] [address] Feb, Unprotected sexual intercour se Z72.51 ; At risk for sexually transmitted disease due to unprotected sex Z91.89 and Morbid obesity E66.01 [facility] [address] [address] Oct, Sore throat J02.9 ; Viral ph aryngitis J02.9 and BMI 40.0-44.9, adult Z68.41 [facility] [place] [address] [address] 13 Jul, 2017 Sore throat J02.9 and Pharyn gitis due to other organism J02.8 [facility] [address] [place] [id number] [place] [id number] May, Encounter for immunization Z 23 [facility] [place] [address] [address] Mar, Gastroenteritis and colitis, viral A08.4 [facility] [address] [place] [id number] Mar, Acute middle ear effusion, r ight H65.191 [facility] [address] [address] Mar, Neck pain M54.2 and Chronic headaches R51 [facility] [address] [address] Mar, Chronic headaches R51 ; Neck pain M54.2 ; HTN (hypertension) I10 ; Major depressive disorder, single episode, severe F32.2 and Polycystic ovaries E28.2 [place] [address] [address] Jan, HTN (hypertension) I10 [place] [address] [address] Jan, [place] [address] [address] Sep, Major depressive disorder, s min episode, severe F32.2 [place] [address] [address] Sep, [place] [address] [address] Jul, Gastroenteritis K52.9 [place] [address] [address] Jun, Tinea pedis of both feet B35 .3 and Normal in multigravida in first trimester Z34.81 [place] [address] [address] 14 Jun, 2016 Visit for TB skin test Z11.1 [place] [address] [address] 11 Jun, 2016 Pre-employment drug screenin g Z02.1 [place] [address] [place] [id number] [place] [phone] Apr, [place] [address] [place] [id number] [place] [phone] Apr, confirmed by posit pauline urine test Z32.01 and in first trimester with history of infertility, antepartum O09.01 [facility] [place] [address] [place] [id number] [place] [id number] 08 Apr, 2016 Laceration T14.8 [facility] [place] [address] [place] [id number] [place] [id number] Mar, Pelvic cramping R10.2 ; Othe r specified bacterial agents as the cause of diseases classified elsewhere B96.89 and Acute vaginitis N76.0 [place] [address] [address] Feb, [place] [address] [place] [id number] [place] [id number] Feb, Lower abdominal pain R10.30 ; Metabolic syndrome E88.81 and Morbid obesity, unspecified obesity type E66.01 [place] [address] [place] [id number] [place] [address] Feb, Encounter for test , result unknown Z32.00 [place] [address] [place] [id number] [place] [id number] December, Herpes simplex vulvovaginiti s A60.04 [place] [address] [address] [facility] [id number] [address] [place] [address] December, Morbid obesity, unspecified obesity type E66.01 [place] [address] [place] [id number] [place] [id number] Nov, Perineal irritation L98.9 [place] [address] [place] [id number] [place] [id number] Oct, [place] [address] [address] Oct, HTN (hypertension) I10 ; Obe sity, unspecified E66.9 ; Polycystic ovaries E28.2 ; Hx of migraines Z86.69 ; Headache R51 and Fungal dermatitis B36.9 [place] [address] [address] Oct, [place] [address] [address] Sep, Metabolic syndrome E88.81 ; Chronic headaches R51 ; Polycystic ovaries E28.2 ; History of PCOS Z87.42 and HTN (hypertension) I10 [place] [address] [address] Aug, [place] [address] [address] Jul, Low grade intrepith lesion c yto smr crvx (LGSIL) R87.[address] [address] 10 Jul, 2015 Encounter for screening for malignant neoplasm of cervix Z12.4 ; Well woman exam Z01.419 ; Morbid obesity, unspecified obesity type E66.01 ; Unprotected sexual intercourse Z72.51 ; Vaginal discharge N89.8 ; Lower abdominal pain R10.30 ; Cervicitis N72 ; History of PCOS Z87.42 ; Vaginal dryness N89.8 and Hx of migraines Z86.69 [place] [address] [address] 09 Jun, 2015 Nausea & vomiting R11.2 ; Ac [place] upper respiratory infection, unspecified J06.9 and Other viral agents as the cause of diseases classified elsewhere B97.89 [place] [address] [address] May, Chronic headaches R51 ; Payette bolic syndrome E88.81 ; Environmental allergies Z91.09 and HTN (hypertension) I10 [facility] [address] [id number] [address] [place] [id number] 09 May, 2015 [facility] [address] [id number] [address] [place] [id number] 18 Apr, 2015 Sophia albicans infection 1 12.9 [facility] [address] [id number] [address] [place] [id number] 15 Apr, 2015 [facility] [address] [id number] [address] [place] [id number] 14 Apr, 2015 [facility] [address] [id number] [address] [place] [id number] Apr, Obesity, unspecified 278.00 ; Polycystic ovaries 256.4 ; Headache 784.0 ; Environmental allergies V15.09 and UTI (urinary tract infection) 599.0 [facility] [address] [facility] [id number] [address] [place] [id number] Feb, Routine general medical exam ination at a health care facility V70.0 ; Polycystic ovaries 256.4 ; Obesity, unspecified 278.00 and Essential hypertension 401.9 [facility] [address] [id number] [address] [place] [id number] Nov, [facility] [address] [id number] [address] [place] [id number] Nov, [facility] [address] [id number] [address] [place] [id number] Oct, [facility] [address] [id number] [address] [place] [phone] Oct, [facility] [address] [id number] [address] [place] [id number] Sep, [facility] [address] [id number] [address] [place] [id number] Sep, [facility] [address] [facility] [id number] [address] [place] [id number] Sep, [facility] [address] [id number] [address] [place] [phone] Sep, [facility] [address] [id number] [address] [place] [phone] Sep, [facility] [address] [id number] [address] [place] [phone] Sep, [facility] [address] [id number] [address] [place] [phone] Aug, [facility] [address] [id number] [address] [place] [phone] Aug, [facility] [address] [id number] [address] [place] [id number] Aug, [facility] [address] [facility] [id number] [address] [place] [phone] Aug, [facility] [address] [facility] [id number] [address] [place] [id number] Aug, IMMUNIZATIONS No Known Immunizations SOCIAL HISTORY Never Assessed REASON FOR VISIT PLAN OF CARE VITAL SIGNS Height 62 in 2014-09-24 Weight 276.9 lbs 2014-09-24 Temperature 98.2 degrees Fahrenheit 2014-09-24 Heart Rate 86 bpm 2014-09-24 Respiratory Rate 18 2014-09-24 Blood pressure systolic 118 mmHg 2014-09-24 Blood pressure diastolic 76 mmHg 2014-09-24 MEDICATIONS Unknown Medications RESULTS No Results PROCEDURES Procedure Date Ordered Result Body Site INFLUENZA ASSAY W/OPTIC Sep 24, 2014 INSTRUCTIONS MEDICATIONS ADMINISTERED No Known Medications [...] History tonsillectomy Surgical History c section 2017 Surgical History partial hysterectomy, still has her ovar ies 02/2019 Hospitalization History surgery Hospitalization History child
--- OUTSIDE RECORDS SUMMARY | 2020-03-15 17:36 | XMS REPORT | Continuity of Care Document ---
Author Organization Unknown Address Unknown Phone Unavailable Allergies Active Description Code Type Severity Reaction Onset Reported/Identified Relationship to Patient Clinical Status Yes NKANo Known Allergies NKA Miscellaneous Allergy Mild N/A 08/10/2009 Yes latex OA N/A N/A 09/03/2014 Yes latex [id number] Drug Allergy Unknown N/A 05/14/2016 Yes tramadol [id number] Drug Allergy Unknown N/A 05/14/2016 Yes tramadol [id number] Drug Allergy Unknown Pt has received 03/09/2019 Medications There is no data. Problems Date Dx Coded Attending Type Code Diagnosis Diagnosed By 11/15/2006 Ot 719.46 11/15/2006 Ot 724.2 11/15/2006 Ot V57.1 04/04/2008 LUCINA CORTEZ APRN A V7 0.5 PREEMPLOYMENT/PRESCHOOL EXAM 04/04/2008 DORA FRANCISCO APRN R V70.5 PREEMPLOYMENT/PRESCHOOL EXAM 04/04/2008 LUCINA CORTEZ APRN A V7 0.5 PREEMPLOYMENT/PRESCHOOL EXAM 04/04/2008 LORRIE BOND APRN V70.5 PREEMPLOYMENT/PRESCHOOL EXAM 04/04/2008 LORRIE BOND APRN V70.5 PREEMPLOYMENT/PRESCHOOL EXAM 04/04/2008 MERLENE GUIDO MD V70.5 PREEMPLOYMENT/PRESCHOOL EXAM 09/03/2014 LUCINA CORTEZ APRN A 278.00 OBESITY 09/03/2014 LUCINA CORTEZ APRN A 46 5.9 UPPER RESPIRATORY INFECTION 09/03/2014 DORA FRANCISCO APRN R 278.00 OBESITY 09/03/2014 DORA FRANCISCO APRN R 465.9 UPPER RESPIRATORY INFECTION 09/03/2014 LUCINA CORTEZ APRN A 278.00 OBESITY 09/03/2014 LUCINA CORTEZ APRN A 46 5.9 UPPER RESPIRATORY INFECTION 09/03/2014 VARUN SALVAGE WINDER AND INSPECTOR, LORRIE R 278.00 OBESITY 09/03/2014 VARUN SALVAGE WINDER AND INSPECTOR, LORRIE R 465.9 UPPER RESPIRATORY INFECTION 09/03/2014 VARUN SALVAGE WINDER AND INSPECTOR, LORRIE R 278.00 OBESITY 09/03/2014 VARUN SALVAGE WINDER AND INSPECTOR, LORRIE R 465.9 UPPER RESPIRATORY INFECTION 09/03/2014 MERLENE GUIDO MD 278.0 0 OBESITY 09/03/2014 MERLENE GUIDO MD 465.9 UPPER RESPIRATORY INFECTION 09/10/2014 DANA SALVAGE WINDER AND INSPECTOR, LUCINA A 25 6.4 POLYCYSTIC OVARIES 09/10/2014 DANA SALVAGE WINDER AND INSPECTOR, LCUINA A 300.00 ANXIETY STATE UNSPECIFIED 09/10/2014 DANA SALVAGE WINDER AND INSPECTOR, LUCINA A 62 6.4 IRREGULAR MENSTRUAL CYCLE 09/10/2014 DANA SALVAGE WINDER AND INSPECTOR, LUCINA A V7 4.5 STD SCREEN 09/10/2014 MARYAM DONAHUEN, DORA R 256.4 POLYCYSTIC OVARIES 09/10/2014 MARYAM DONAHUEN, DORA R 300.00 ANXIETY STATE UNSPECIFIED 09/10/2014 MARYAM DONAHUEN, DORA R 626.4 IRREGULAR MENSTRUAL CYCLE 09/10/2014 MARYAM DONAHUEN, DORA R V74.5 STD SCREEN 09/10/2014 DANA SALVAGE WINDER AND INSPECTOR, LUCINA A 25 6.4 POLYCYSTIC OVARIES 09/10/2014 DANA SALVAGE WINDER AND INSPECTOR, LUCINA A 300.00 ANXIETY STATE UNSPECIFIED 09/10/2014 DANA SALVAGE WINDER AND INSPECTOR, LUCINA A 62 6.4 IRREGULAR MENSTRUAL CYCLE 09/10/2014 DANA SALVAGE WINDER AND INSPECTOR, LUCINA A V7 4.5 STD SCREEN 09/10/2014 VARUN DONAHUEN, LORRIE R [...] 256.4 POLYCYSTIC OVARIES 09/10/2014 MERLENE GUIDO MD 300.0 0 ANXIETY STATE UNSPECIFIED 09/10/2014 MERLENE GUIDO MD 626.4 IRREGULAR MENSTRUAL CYCLE 09/10/2014 MERLENE GUIDO MD V74.5 STD SCREEN 09/24/2014 DORA FRANCISCO APRN R 487.1 INFLUENZA 09/24/2014 LUCINA CORTEZ APRN A 48 7.1 INFLUENZA 09/24/2014 LORRIE BOND APRN R 487.1 INFLUENZA 09/24/2014 KOBE BOND APRNINA R 487.1 INFLUENZA 09/24/2014 MERLENE GUIDO MD 487.1 INFLUENZA 10/11/2014 LUCINA CORTEZ APRN A 79 6.2 ELEVATED BLOOD PRESSURE READING WITHOUT DIAGNOSIS OF HYPERTENSION 10/11/2014 LORRIE BOND APRN R 796.2 ELEVATED BLOOD PRESSURE READING WITHOUT DIAGNOSIS OF H YPERTENSION 10/11/2014 LORRIE BOND APRN R 796.2 ELEVATED BLOOD PRESSURE READING WITHOUT DIAGNOSIS OF H YPERTENSION 10/11/2014 MERLENE GUIDO MD 796.2 ELEVATED BLOOD PRESSURE READING WITHOUT DIAGNOSIS OF HYPERTENSION 11/08/2014 LUCINA CORTEZ APRN A V72.62 LAB SCREENING- GENERAL PHYSICAL 11/08/2014 KOBE BOND APRNINA R V72.62 LAB SCREENING- GENERAL PHYSICAL 11/08/2014 LORRIE BOND APRN R V72.62 LAB SCREENING- GENERAL PHYSICAL 11/08/2014 MERLENE GUIDO MD V72.6 2 LAB SCREENING- GENERAL PHYSICAL 11/22/2014 LORRIE BOND APRN R 401.1 HYPERTENSION, BENIGN ESSENTIAL 11/22/2014 LORRIE BOND APRN R 623.5 LEUKORRHEA NOT SPECIFIED INFECTIVE 11/22/2014 KOBE BOND APRNINA R 788.41 URINARY FREQUENCY 11/22/2014 KOBE BOND APRNINA R V70.0 ROUTINE GENERAL MEDICAL EXAMINATION AT [facility] 11/22/2014 LORRIE BOND APRN R 401.1 HYPERTENSION, BENIGN ESSENTIAL 11/22/2014 LORRIE BOND APRN R 623.5 LEUKORRHEA NOT SPECIFIED INFECTIVE 11/22/2014 LORRIE BOND APRN R 788.41 URINARY FREQUENCY 11/22/2014 LORRIE BOND APRN R V70.0 ROUTINE [facility] 11/22/2014 MERLENE GUIDO MD 401.1 HYPERTENSION, BENIGN ESSENTIAL 11/22/2014 MERLENE GUIDO MD 623.5 LEUKORRHEA NOT SPECIFIED INFECTIVE 11/22/2014 MERLENE GUIDO MD 788.4 1 URINARY FREQUENCY 11/22/2014 MERLENE GUIDO MD V70.0 ROUTINE GENERAL MEDICAL EXAMINATION AT A HEALTH CARE FACILITY 12/07/2014 MERLENE GUIDO MD 466.0 ACUTE BRONCHITIS 01/06/2015 [place], CARMELITA Balderas Ot 599.0 URIN TRACT INFECTION NOS 01/06/2015 [place] [place], CARMELITA Balderas Ot 789.04 ABDOMINAL PAIN, LEFT LOWER QUADRANT 05/11/2015 ASHA DELACRUZEN L Ot 616.10 VAGINITIS NOS 05/11/2015 ASHA DELACRUZEN L Ot 878.6 OPEN WOUND OF VAGINA 05/11/2015 ASHA DELACRUZEN L Ot 911.0 ABRASION TRUNK 05/11/2015 ASHA DELACRUZEN L Ot E928.8 ACCIDENT NEC 05/14/2016 NORMAN [...] 14 WEEKS GESTATION OF 07/13/2016 CESAR ESTRADA DO Ot Z53.21 PROC/TRTMT NOT [...] G43.909 MIGRAINE, UNSP, NOT INTRACTABLE, WITHOUT 10/10/2016 NED MULLINS DO Ot O21.9 VOMITING OF , UNSPECIFIED 10/10/2016 NED MULLINS DO Ot O99.353 DISEASES OF THE NERVOUS SYS COMP PREGNAN 10/10/2016 NED MULLINS DO Ot Z3A.26 26 WEEKS GESTATION OF 10/15/2016 NED MULLINS DO Ot Z3 6 ENCOUNTER FOR SCREENING OF MOT 10/16/2016 NED MULLINS DO Ot Z3 6 ENCOUNTER FOR SCREENING OF MOT 10/21/2016 NED MULLINS DO Ot Z3 6 ENCOUNTER FOR SCREENING OF MOT 10/26/2016 SELENE STONE MD, Ot O36.8130 DECREASED MOVEMENTS, THIRD TRIMEST 10/26/2016 SELENE STONE MD, Ot Z3A.29 29 WEEKS GESTATION OF 10/28/2016 SELENE STONE MD, Ot O36.8130 DECREASED MOVEMENTS, THIRD TRIMEST 10/28/2016 SELENE STONE MD, Ot Z3A.29 29 WEEKS GESTATION OF 10/28/2016 NED MULLINS DO Ot Z3 6 ENCOUNTER FOR SCREENING OF MOT 11/03/2016 NED MULLINS DO Ot Z3 6 ENCOUNTER FOR SCREENING OF MOT 11/15/2016 SELENE [...] 37 COMPLETED WEEKS OF 12/09/2016 SELENE STONE MD Ot Z3A.35 35 WEEKS GESTATION OF 12/16/2016 NED MULLINS DO Ot O36.8130 DECREASED MOVEMENTS, THIRD TRIMEST 12/16/2016 JESÚSECH NED PELAEZ Ot Z3A.37 37 WEEKS GESTATION OF 12/18/2016 [...] 40.0-44.9, ADULT 12/27/2016 SHILPA COLE MD Ot G89. 18 OTHER ACUTE POSTPROCEDURAL PAIN 12/27/2016 SHILPA COLE MD Ot O16. 5 UNSPECIFIED MATERNAL HYPERTENSION, COMP 12/27/2016 SHILPA COLE MD Ot O86. 22 INFECTION OF BLADDER FOLLOWING DELIVERY 12/27/2016 SHILPA COLE MD Ot R10. 30 LOWER ABDOMINAL PAIN, UNSPECIFIED 12/27/2016 SHILPA COLE MD Ot R50. 9 FEVER, UNSPECIFIED 12/27/2016 SHILPA COLE MD Ot R60. 9 EDEMA, UNSPECIFIED 01/02/2017 SHILPA COLE MD Ot G89. 18 OTHER ACUTE POSTPROCEDURAL PAIN 01/02/2017 SHILPA COLE MD Ot O16. 5 UNSPECIFIED MATERNAL HYPERTENSION, COMP 01/02/2017 SHILPA COLE MD Ot O86. 22 INFECTION OF BLADDER FOLLOWING DELIVERY 01/02/2017 SHILPA COLE MD Ot R10. 30 LOWER ABDOMINAL PAIN, UNSPECIFIED 01/02/2017 SHILPA COLE MD Ot R50. 9 FEVER, UNSPECIFIED 01/02/2017 SHILPA COLE MD Ot R60. 9 EDEMA, UNSPECIFIED 04/04/2017 ORTIZ DELACRUZ Ot F17.210 NICOTINE DEPENDENCE, CIGARETTES, UNCOMPL 04/04/2017 ORTIZ DELACRUZ Ot F41.9 ANXIETY DISORDER, UNSPECIFIED 04/04/2017 ORTIZ DELACRUZ Ot G43.909 MIGRAINE, UNSP, NOT INTRACTABLE, WITHOUT 04/04/2017 ORTIZ DELACRUZ Ot I 10 ESSENTIAL (PRIMARY) HYPERTENSION 04/04/2017 ORTIZ DELACRUZ Ot [...] NOT INTRACTABLE, WITHOUT 04/05/2017 ORTIZ DELACRUZ Ot I 10 ESSENTIAL (PRIMARY) HYPERTENSION 04/05/2017 ORTIZ DELACRUZ Ot J45.909 UNSPECIFIED ASTHMA, UNCOMPLICATED 04/05/2017 ORTIZ DELACRUZ Ot N93.9 ABNORMAL UTERINE AND VAGINAL BLEEDING, U 04/05/2017 ORTIZ DELACURZ Ot R10.30 LOWER ABDOMINAL PAIN, UNSPECIFIED 04/05/2017 [...] NOT INTRACTABLE, WITHOUT 04/07/2017 ORTIZ DELACRUZ Ot I 10 ESSENTIAL (PRIMARY) HYPERTENSION 04/07/2017 ORTZI DELACRUZ Ot J45.909 UNSPECIFIED ASTHMA, UNCOMPLICATED 04/07/2017 [...] HISTORY OF COMP OF PREG, CHLDBR 04/07/2017 CORY PA, ORTIZ L Ot Z90.49 ACQUIRED ABSENCE OF OTHER SPECIFIED PART 04/07/2017 ORTIZ DELACRUZ Ot Z90.89 ACQUIRED ABSENCE OF OTHER ORGANS 03/25/2018 Ot E86.0 DEHY DRATION 03/25/2018 Ot F41.9 ANXI ETY DISORDER, UNSPECIFIED 03/25/2018 Ot G43.909 PR GRAINE, UNSP, NOT INTRACTABLE, WITHOUT 03/25/2018 Ot J45.909 UN SPECIFIED ASTHMA, UNCOMPLICATED 03/25/2018 Ot O16.2 UNSP ECIFIED MATERNAL HYPERTENSION, SECON 03/25/2018 Ot O99.282 EN DO, NUTRITIONAL AND METAB DISEASES COM 03/25/2018 Ot O99.342 OT H MENTAL DISORDERS COMP , SEC 03/25/2018 Ot O99.352 DI SEASES OF THE NERVOUS SYS COMP PREGNAN 03/25/2018 Ot O99.512 DI SEASES OF THE RESP SYS COMP , 03/25/2018 Ot O99.89 OTH DISEASES AND CONDITIONS COMPL PREG/C 03/25/2018 Ot R55 SYNCOP E AND COLLAPSE 03/25/2018 Ot Z3A.21 21 WEEKS GESTATION OF 03/25/2018 Ot Z82.49 FAM DILLON HX OF ISCHEM HEART DIS AND OTH DI 03/25/2018 Ot Z87.19 PER NIKO HISTORY OF OTHER DISEASES OF TH 03/25/2018 Ot Z87.448 PE RSONAL HISTORY OF OTHER DISEASES OF UR 03/25/2018 Ot Z87.59 PER NIKO HISTORY OF COMP OF PREG, CHLDBR 03/25/2018 Ot Z87.891 PE RSONAL HISTORY OF NICOTINE DEPENDENCE 03/25/2018 Ot Z88.6 MIHIR RGY STATUS TO ANALGESIC AGENT STATUS 03/25/2018 Ot Z90.89 ACQ UIRED ABSENCE OF OTHER ORGANS 03/25/2018 Ot Z91.040 LA KAYLEY ALLERGY STATUS 05/27/2018 JESÚSECH DONED Ot O36.8130 DECREASED MOVEMENTS, THIRD TRIMEST 05/27/2018 JESÚSECH NED PELAEZ Ot O60.03 LABOR WITHOUT DELIVERY, THIRD TR 05/27/2018 HARPREET PELAEZ NED Polo Ot Z2 3 ENCOUNTER FOR IMMUNIZATION 05/27/2018 HARPREET PELAEZ NED Polo Ot Z3A.30 30 WEEKS GESTATION OF 05/30/2018 NED MULLINS DO Ot O47.03 FALSE LABOR BEFORE 37 COMPLETED WEEKS OF 05/30/2018 HARPREET NED PELAEZ Ot Z3A.30 30 WEEKS GESTATION OF 06/02/2018 NED MULLINS DO Ot O47.03 FALSE LABOR BEFORE 37 COMPLETED WEEKS OF 06/02/2018 NED MULLINS DO Ot Z3A.30 30 WEEKS GESTATION OF 07/02/2018 SELENE STONE MD Ot O36.8130 DECREASED MOVEMENTS, THIRD TRIMEST 07/02/2018 SELENE STONE MD Ot Z3A.35 35 WEEKS GESTATION OF 07/05/2018 DONATO DOHENRI Ot O36.8130 DECREASED MOVEMENTS, THIRD TRIMEST 07/05/2018 DONATO DOHENRI Ot Z3A.3 5 35 WEEKS GESTATION OF 2018 DONATO HENRI PELAEZ Ot O36.8130 DECREASED MOVEMENTS, THIRD TRIMEST 2018 HENRI DONATO DO Ot Z3A.3 5 35 WEEKS GESTATION OF 07/15/2018 NED MULLINS [...] Ot Z37.0 SINGLE LIVE 07/15/2018 NED MULLINS DO Ot Z3A.37 37 WEEKS GESTATION OF 07/15/2018 NED MULLINS DO Ot Z80.41 FAMILY HISTORY OF MALIGNANT NEOPLASM OF 11/23/2018 NED MULLINS DO Ot Z3 6 ENCOUNTER FOR SCREENING OF MOT 11/23/2018 FENECH NDE PELAEZ Ot Z34.92 ENCNTR FOR SUPRVSN OF NORMAL PREG, UNSP, 11/23/2018 JESÚSNED MOORE DO Ot Z3A.20 20 WEEKS GESTATION OF 11/28/2018 NED MULLINS DO Ot N94.19 OTHER SPECIFIED DYSPAREUNIA 11/28/2018 NED MULLINS DO Ot R10.2 PELVIC AND PERINEAL PAIN 03/10/2019 NED MULLINS DO Ot N94.6 DYSMENORRHEA, UNSPECIFIED 03/10/2019 NED MULLINS DO Ot Z01.812 ENCOUNTER FOR PREPROCEDURAL LABORATORY E 03/10/2019 NED MULLINS DO Ot A60.09 HERPESVIRAL INFECTION OF OTHER UROGENITA 03/10/2019 NED MULLINS DO Ot E28.2 POLYCYSTIC OVARIAN SYNDROME 03/10/2019 NED MULLINS DO Ot E66.9 OBESITY, UNSPECIFIED 03/10/2019 NED MULLINS DO Ot F17.210 NICOTINE DEPENDENCE, CIGARETTES, UNCOMPL 03/10/2019 NED MULLINS DO Ot F41.9 ANXIETY DISORDER, UNSPECIFIED 03/10/2019 NED MULLINS DO Ot G43.909 MIGRAINE, UNSP, NOT INTRACTABLE, WITHOUT 03/10/2019 NED MULLINS DO Ot J45.909 UNSPECIFIED ASTHMA, UNCOMPLICATED 03/10/2019 NED MULLINS DO Ot K21.9 GASTRO-ESOPHAGEAL REFLUX DISEASE WITHOUT 03/10/2019 HARPREET NED PELAEZ Ot N93.8 OTHER SPECIFIED ABNORMAL UTERINE AND VAG 03/10/2019 NED MULLINS DO Ot N94.19 OTHER SPECIFIED DYSPAREUNIA 03/10/2019 NED MULLINS DO Ot N94.6 DYSMENORRHEA, UNSPECIFIED 03/10/2019 NED MULLINS DO Ot Z68.41 BODY MASS INDEX (BMI) 40.0-44.9, ADULT 03/10/2019 NED MULLINS DO Ot Z79.899 OTHER EMAIL CAMPAIGN SPECIALIST (CURRENT) DRUG THERAPY 03/10/2019 NED MULLINS DO Ot Z80.41 FAMILY HISTORY OF MALIGNANT NEOPLASM OF 03/10/2019 NED MULLINS DO Ot Z80.49 FAMILY HISTORY OF MALIGNANT NEOPLASM OF 03/10/2019 NED MULLINS DO Ot Z81.8 FAMILY HISTORY OF OTHER MENTAL AND BEHAV 03/10/2019 NED MULLINS DO Ot Z82.3 FAMILY HISTORY OF STROKE 03/10/2019 NED MULLINS DO Ot Z82.49 FAMILY HX OF ISCHEM HEART DIS AND OTH DI 03/10/2019 NED MULLINS DO Ot Z83.3 FAMILY HISTORY OF DIABETES MELLITUS 03/10/2019 NED MULLINS DO Ot Z88.6 ALLERGY STATUS TO ANALGESIC AGENT STATUS 03/10/2019 NED MULLINS DO Ot Z91.040 LATEX ALLERGY STATUS 03/29/2019 NED MULLINS DO Ot A60.09 HERPESVIRAL INFECTION OF OTHER UROGENITA 03/29/2019 NED MULLINS DO Ot E28.2 POLYCYSTIC OVARIAN SYNDROME 03/29/2019 NED MULLINS DO Ot E66.9 OBESITY, UNSPECIFIED 03/29/2019 NED MULLINS DO Ot F17.210 NICOTINE DEPENDENCE, CIGARETTES, UNCOMPL 03/29/2019 NED MULLINS DO Ot F41.9 ANXIETY DISORDER, UNSPECIFIED 03/29/2019 NED MULLINS DO Ot G43.909 MIGRAINE, UNSP, NOT INTRACTABLE, WITHOUT 03/29/2019 NED MULLINS DO Ot J45.909 UNSPECIFIED ASTHMA, UNCOMPLICATED 03/29/2019 NED MULLINS DO Ot K21.9 GASTRO-ESOPHAGEAL REFLUX DISEASE WITHOUT 03/29/2019 NED MULLINS DO Ot N93.8 OTHER SPECIFIED ABNORMAL UTERINE AND VAG 03/29/2019 NED MULLINS DO Ot N94.19 OTHER SPECIFIED DYSPAREUNIA 03/29/2019 NED MULLINS DO Ot N94.6 DYSMENORRHEA, UNSPECIFIED 03/29/2019 NED MULLINS DO Ot Z68.41 BODY MASS INDEX (BMI) 40.0-44.9, ADULT 03/29/2019 NED MULLINS DO Ot Z79.899 OTHER EMAIL CAMPAIGN SPECIALIST (CURRENT) DRUG THERAPY 03/29/2019 NED MULLINS DO Ot Z80.41 FAMILY HISTORY OF MALIGNANT NEOPLASM OF 03/29/2019 NED MULLINS DO Ot Z80.49 FAMILY HISTORY OF MALIGNANT NEOPLASM OF 03/29/2019 NED MULLINS DO Ot Z81.8 FAMILY HISTORY OF OTHER MENTAL AND BEHAV 03/29/2019 NED MULLINS DO Ot Z82.3 FAMILY HISTORY OF STROKE 03/29/2019 HARPREET PELAEZ NED Polo Ot Z82.49 FAMILY HX OF ISCHEM HEART DIS AND OTH DI 03/29/2019 HARPREET PELAEZ NED Polo Ot Z83.3 FAMILY HISTORY OF DIABETES MELLITUS 03/29/2019 HARPREET PELAEZ NED Polo Ot Z88.6 ALLERGY STATUS TO ANALGESIC AGENT STATUS 03/29/2019 HARPREET PELAEZ NED Polo Ot Z91.040 LATEX ALLERGY STATUS 03/14/2020 HARPREET PELAEZ NED Polo Ot M54.9 DORSALGIA, UNSPECIFIED 03/14/2020 [facility]o Ot N94.19 OTHER SPECIFIED DYSPAREUNIA 03/14/2020 JESÚSECH , NED Polo Ot N94.2 VAGINISMUS 03/14/2020 HARPREET PELAEZ NED Polo Ot M54.9 DORSALGIA, UNSPECIFIED 03/14/2020 [facility]o Ot N94.19 OTHER SPECIFIED DYSPAREUNIA 03/14/2020 HARPREET PELAEZ NED Polo Ot N94.2 VAGINISMUS Procedures Code Description [place] [address] INFL UENZA A & B (IN-HOUSE) 09/24/2014 87649 CULT URE URINE 11/22/2014 19438 GC/C HLAM URINE (STATE) 11/22/2014 07264 UA W / CULTURE IF INDICATED 11/22/2014 58043 ROUT INE VENIPUNCTURE 11/26/2014 [id number] GF R CALC (RESULT ONLY) 11/26/2014 76344 CMP 11/26/2014 71210 LIPI D PANEL 11/26/2014 37813 TSH 11/26/2014 14548 INSU ALFONSO LEVEL 11/26/2014 20696 CBC 11/27/2014 [id number] EX TRACTION OF POC, LOW CERVICAL, OPEN AP 12/18/2016 [id number] RE SECTION OF BILATERAL FALLOPIAN TUBES, 07/13/2018 [id number] EX TRACTION OF PRODUCTS OF CONCEPTION, LO 07/13/2018 Results Test Result Range Complete urinalysis with reflex to cultu re - 05/14/16 04:58 Urine color determination YELLOW NRG Urine clarity determination CLEAR NR G Urine pH measurement by test strip 6.5 5-9 Specific gravity of urine by test strip 1.010 1.016-1.022 Urine protein assay by test strip, semi-quantitative NEGATIVE NEGATIVE Urine glucose detection by automated test strip NE GATIVE NEGATIVE Erythrocytes detection in urine sediment by light micr oscopy NEGATIVE NEGATIVE Urine ketones detection by automated test strip NE GATIVE NEGATIVE Urine nitrite detection by test strip NEGATIVE NEGATIVE Urine total bilirubin detection by test strip NEGA TIVE NEGATIVE Urine urobilinogen measurement by automated test strip (mass/volume) NORMAL NORMAL Urine leukocyte esterase detection by dipstick NEG ATIVE NEGATIVE Automated urine sediment erythrocyte cou nt by microscopy (number/high power field) NONE NRG Automated urine sediment leukocyte count by microscopy (number/high power field) NONE NRG Bacteria detection in urine sediment by light microsco py TRACE NRG Squamous epithelial cells detection in u rine sediment by light microscopy 5-10 NRG Crystals detection in urine sediment by light microsco py NONE NRG Casts detection in urine sediment by light microscopy NONE NRG Mucus detection in urine sediment by light microscopy NEGATIVE NRG Complete urinalysis with reflex to culture NO NRG Serum or plasma choriogonadotropin measu rement (units/volume) - 05/14/16 04:58 Serum or plasma choriogonadotropin measurement (units/ volume) 38800 m[iU]/mL <5 Chlamydia trachomatis DNA detection by p robe and signal amplification method - 05/14/16 04:58 Chlamydia trachomatis DNA detection by p robe and target amplification method Negative Negative Urine Neisseria gonorrhoeae DNA assay - 05/14/16 04:58 Gonorrhea amp DNA-urine Negative Negati ve Complete urinalysis with reflex to cultu re - 10/04/16 21:00 Urine color determination YELLOW NRG Urine clarity determination SLIGHTLY CLOUDY NRG Urine pH measurement by test strip 8 5-9 Specific gravity of urine by test strip 1.010 1.016-1.022 Urine protein assay by test strip, semi-quantitative 1+ NEGATIVE Urine glucose detection by automated test strip NE GATIVE NEGATIVE Erythrocytes detection in urine sediment by light micr oscopy NEGATIVE NEGATIVE Urine ketones detection by automated test strip NE GATIVE NEGATIVE Urine nitrite detection by test strip NEGATIVE NEGATIVE Urine total bilirubin detection by test strip NEGA TIVE NEGATIVE Urine urobilinogen measurement by automated test strip (mass/volume) NORMAL NORMAL Urine leukocyte esterase detection by dipstick 3+ NEGATIVE Automated urine sediment erythrocyte cou nt by microscopy (number/high power field) NONE NRG Automated urine sediment leukocyte count by microscopy (number/high power field) [HPF] NRG Bacteria detection in urine sediment by light microsco py LARGE NRG Squamous epithelial cells detection in u rine sediment by light microscopy >50 NRG Crystals detection in urine sediment by light microsco py NONE NRG Casts detection in urine sediment by light microscopy NONE NRG Mucus detection in urine sediment by light microscopy NEGATIVE NRG Complete urinalysis with reflex to culture NO NRG Urine protein/creatinine mass ratio - 18:05 Urine protein measurement (mass/volume) 11 mg/dL 6-12 Urine creatinine measurement (mass/volume) 100 mg/ dL 30-125 Urine protein/creatinine mass ratio 0.11 NRG Complete blood count (CBC) with automate d white blood cell (WBC) differential - 11/15/16 18:37 Blood leukocytes automated count (number/volume) 10.9 10*3/uL 4.3-11.0 Blood erythrocytes automated count (number/volume) 3.61 10*6/uL 4.35-5.85 Venous blood hemoglobin measurement (mass/volume) 11.2 g/dL 11.5-16.0 Blood hematocrit (volume fraction) 32 % 35-52 Automated erythrocyte mean corpuscular volume 90 [ foz_us] 80-99 Automated erythrocyte mean corpuscular h emoglobin (mass per erythrocyte) 31 pg 25-34 Automated erythrocyte mean corpuscular h emoglobin concentration measurement (mass/volume) 35 g/dL 32-36 Automated erythrocyte distribution width ratio 13. 0 % 10.0- 14.5 Automated blood platelet count [...] 10*3 1.0-4.0 Blood monocytes automated count (number/volume) 0. 6 10*3 0.0-1.0 Automated eosinophil count 0.1 10*3/uL 0 .0-0.3 Automated blood basophil count (count/volume) 0.0 10*3/uL 0.0-0.1 Comprehensive metabolic panel - 11/15/16 18:37 Serum or plasma sodium measurement (moles/volume) 138 mmol/L 135-145 Serum or plasma potassium measurement (moles/volume) 3.6 mmol/L 3.6-5.0 Serum or plasma chloride measurement (moles/volume) 111 mmol/L 98-107 Carbon dioxide 19 mmol/L 21-32 Serum or plasma anion gap determination (moles/volume) 8 mmol/L 5-14 Serum or plasma urea nitrogen measurement (mass/volume ) 7 mg/dL 7-18 Serum or plasma creatinine measurement (mass/volume) 0.61 mg/dL 0.60-1.30 Serum or plasma urea nitrogen/creatinine mass ratio 11 NRG Serum or plasma creatinine measurement w ith calculation of estimated glomerular filtration rate > NRG Serum or plasma glucose measurement (mass/volume) 75 mg/dL 70-105 Serum or plasma calcium measurement (mass/volume) 8.8 mg/dL 8.5-10.1 Serum or plasma total bilirubin measurement (mass/volu me) 0.2 mg/dL 0.1-1.0 Serum or plasma alkaline phosphatase marcus surement (enzymatic activity/volume) 78 U/L 40-136 Serum or plasma aspartate aminotransfera se measurement (enzymatic activity/volume) 14 U/L 5-34 Serum or plasma alanine aminotransferase measurement (enzymatic activity/volume) 9 U/L 0-55 Serum or plasma protein measurement (mass/volume) 6.0 g/dL 6.4-8.2 Serum or plasma albumin measurement (mass/volume) 3.1 g/dL 3.2-4.5 Complete urinalysis with reflex to cultu re - 12/07/16 12:45 Urine color determination YELLOW NRG Urine clarity determination CLEAR NR G Urine pH measurement by test strip 6 5-9 Specific gravity of urine by test strip 1.015 1.016-1.022 Urine protein assay by test strip, semi-quantitative 1+ NEGATIVE Urine glucose detection by automated test strip 1+ NEGATIVE Erythrocytes detection in urine sediment by light micr oscopy NEGATIVE NEGATIVE Urine ketones detection by automated test strip NE GATIVE NEGATIVE Urine nitrite detection by test strip NEGATIVE NEGATIVE Urine total bilirubin detection by test strip NEGA TIVE NEGATIVE Urine urobilinogen measurement by automated test strip (mass/volume) NORMAL NORMAL Urine leukocyte esterase detection by dipstick 2+ NEGATIVE Automated urine sediment erythrocyte cou nt by microscopy (number/high power field) NONE NRG Automated urine sediment leukocyte count by microscopy (number/high power field) [HPF] NRG Bacteria detection in urine sediment by light microsco py TRACE NRG Squamous epithelial cells detection in u rine sediment by light microscopy 10-25 NRG Crystals detection in urine sediment by light microsco py NONE NRG Casts detection in urine sediment by light microscopy NONE NRG Mucus detection in urine sediment by light microscopy NEGATIVE NRG Complete urinalysis with reflex to culture YES NRG Bacterial urine culture - 12/07/16 12:45 Bacterial urine culture [id number] NRG COLONY COUNT 10,000/ML - 100,000/ML NRG FREE TEXT ENTRY 2 MIXED GRAM POSITIVE LINDEN NRG Complete urinalysis with reflex to cultu re - 12/18/16 05:40 Urine color determination YELLOW NRG Urine clarity determination CLEAR NR G Urine pH measurement by test strip 6.5 5-9 Specific gravity of urine by test strip 1.015 1.016-1.022 Urine protein assay by test strip, semi-quantitative 1+ NEGATIVE Urine glucose detection by automated test strip NE GATIVE NEGATIVE Erythrocytes detection in urine sediment by light micr oscopy NEGATIVE NEGATIVE Urine ketones detection by automated test strip NE GATIVE NEGATIVE Urine nitrite detection by test strip NEGATIVE NEGATIVE Urine total bilirubin detection by test strip NEGA TIVE NEGATIVE Urine urobilinogen measurement by automated test strip (mass/volume) NORMAL NORMAL Urine leukocyte esterase detection by dipstick 2+ NEGATIVE Automated urine sediment erythrocyte cou nt by microscopy (number/high power field) NONE NRG Automated urine sediment leukocyte count by microscopy (number/high power field) [HPF] NRG Bacteria detection in urine sediment by light microsco py TRACE NRG Squamous epithelial cells detection in u rine sediment by light microscopy 5-10 NRG Crystals detection in urine sediment by light microsco py NONE NRG Casts detection in urine sediment by light microscopy NONE NRG Mucus detection in urine sediment by light microscopy NEGATIVE NRG Complete urinalysis with reflex to culture YES NRG Bacterial urine culture - 12/18/16 05:40 Bacterial urine culture [id number] NRG COLONY COUNT 10,000/ML - 100,000/ML NRG FTX;REPORTABLE PLUS, NRG URINE CULTURE RESULTS 10,000/ML - 100,000/ML NRG FREE TEXT ENTRY 2 MIXED GRAM POSITIVES NRG Complete blood count (CBC) with automate d white blood cell (WBC) differential - 12/18/16 09:41 Blood leukocytes automated count (number/volume) 11.9 10*3/uL 4.3-11.0 Blood erythrocytes automated count (number/volume) 4.13 10*6/uL 4.35-5.85 Venous blood hemoglobin measurement (mass/volume) 12.3 g/dL 11.5-16.0 Blood hematocrit (volume fraction) 36 % 35-52 Automated erythrocyte mean corpuscular volume 87 [ foz_us] 80-99 Automated erythrocyte mean corpuscular h emoglobin (mass per erythrocyte) 30 pg 25-34 Automated erythrocyte mean corpuscular h emoglobin concentration measurement (mass/volume) 34 g/dL 32-36 Automated erythrocyte distribution width ratio 13. 4 % 10.0- 14.5 Automated blood platelet count [...] 10*3 1.0-4.0 Blood monocytes automated count (number/volume) 0. 7 10*3 0.0-1.0 Automated eosinophil count 0.0 10*3/uL 0 .0-0.3 Automated blood basophil count (count/volume) 0.0 10*3/uL 0.0-0.1 Blood type T Indirect antibody screen pa [facility] - 12/18/16 09:41 ABO+Rh group OP NRG Transfusion band number [id number] NRG Blood group antibody screen NEGATIVE NR G Complete blood count (CBC) with automate d white blood cell (WBC) differential - 12/19/16 05:30 Blood leukocytes automated count (number/volume) 9.3 10*3/uL 4.3-11.0 Blood erythrocytes automated count (number/volume) 3.76 10*6/uL 4.35-5.85 Venous blood hemoglobin measurement (mass/volume) 11.2 g/dL 11.5-16.0 Blood hematocrit (volume fraction) 33 % 35-52 Automated erythrocyte mean corpuscular volume 89 [ foz_us] 80-99 Automated erythrocyte mean corpuscular h emoglobin (mass per erythrocyte) 30 pg 25-34 Automated erythrocyte mean corpuscular h emoglobin concentration measurement (mass/volume) 34 g/dL 32-36 Automated erythrocyte distribution width ratio 13. 5 % 10.0- 14.5 Automated blood platelet count [...] 10*3 1.0-4.0 Blood monocytes automated count (number/volume) 0. 5 10*3 0.0-1.0 Automated eosinophil count 0.0 10*3/uL 0 .0-0.3 Automated blood basophil count (count/volume) 0.0 10*3/uL 0.0-0.1 Complete blood count (CBC) with automate d white blood cell (WBC) differential - 12/27/16 16:30 Blood leukocytes automated count (number/volume) 10.7 10*3/uL 4.3-11.0 Blood erythrocytes automated count (number/volume) 3.35 10*6/uL 4.35-5.85 Venous blood hemoglobin measurement (mass/volume) 9.9 g/dL 11.5-16.0 Blood hematocrit (volume fraction) 30 % 35-52 Automated erythrocyte mean corpuscular volume 90 [ foz_us] 80-99 Automated erythrocyte mean corpuscular h emoglobin (mass per erythrocyte) 30 pg 25-34 Automated erythrocyte mean corpuscular h emoglobin concentration measurement (mass/volume) 33 g/dL 32-36 Automated erythrocyte distribution width ratio 12. 9 % 10.0- 14.5 Automated blood platelet count [...] 10*3 1.0-4.0 Blood monocytes automated count (number/volume) 0. 7 10*3 0.0-1.0 Automated eosinophil count 0.0 10*3/uL 0 .0-0.3 Automated blood basophil count (count/volume) 0.0 10*3/uL 0.0-0.1 Blood lactic acid measurement (moles/vol ume) - 12/27/16 16:30 Blood lactic acid measurement [...] 5-14 Serum or plasma urea nitrogen measurement (mass/volume ) 14 mg/dL 7-18 Serum or plasma creatinine measurement (mass/volume) 1.00 mg/dL 0.60-1.30 Serum or plasma urea nitrogen/creatinine mass ratio 14 NRG Serum or plasma creatinine measurement w ith calculation of estimated glomerular filtration rate > NRG Serum or plasma glucose measurement (mass/volume) 106 mg/dL 70-105 Serum or plasma calcium measurement (mass/volume) 8.7 mg/dL 8.5-10.1 Serum or plasma total bilirubin measurement (mass/volu me) 0.6 mg/dL 0.1-1.0 Serum or plasma alkaline phosphatase marcus surement (enzymatic activity/volume) 70 U/L 40-136 Serum or plasma aspartate aminotransfera se measurement (enzymatic activity/volume) 11 U/L 5-34 Serum or plasma alanine aminotransferase measurement (enzymatic activity/volume) 11 U/L 0-55 Serum or plasma protein measurement (mass/volume) 5.9 g/dL 6.4-8.2 Serum or plasma albumin measurement (mass/volume) 3.0 g/dL 3.2-4.5 Serum or plasma amylase measurement (enz ymatic activity/volume) - 12/27/16 16:30 Serum or plasma amylase measurement (enzymatic activit y/volume) 41 U/L 25-125 Lipase - 12/27/16 16:30 Lipase 12 U/L 8-78 PT panel in platelet poor plasma by coag ulation assay - 12/27/16 16:30 Prothrombin time (PT) in platelet poor plasma by coagu lation assay 14.1 s 12.2-14.7 INR in platelet poor plasma or blood by coagulation as say 1.1 0.8-1.4 Activated partial thromboplastin time (a PTT) in platelet poor plasma bycoagulation assay - 12/27/16 16:30 Activated partial thromboplastin time (a PTT) in platelet poor plasma bycoagulation assay 38 s 24-35 THYROID STIMULATING HORMONE - 12/27/16 1 6:30 THYROID STIMULATING HORMONE 1.28 u[iU]/mL 0.35-4.94 Bacterial blood culture - 12/27/16 16:30 Bacterial blood culture NG NRG Complete urinalysis with reflex to cultu re - 12/27/16 16:45 Urine color determination YELLOW NRG Urine clarity determination CLEAR NR G Urine pH measurement by test strip 6 5-9 Specific gravity of urine by test strip 1.010 1.016-1.022 Urine protein assay by test strip, semi-quantitative NEGATIVE NEGATIVE Urine glucose detection by automated test strip NE GATIVE NEGATIVE Erythrocytes detection in urine sediment by light micr oscopy 5+ NEGATIVE Urine ketones detection by automated test strip NE GATIVE NEGATIVE Urine nitrite detection by test strip NEGATIVE NEGATIVE Urine total bilirubin detection by test strip NEGA TIVE NEGATIVE Urine urobilinogen measurement by automated test strip (mass/volume) NORMAL NORMAL Urine leukocyte esterase detection by dipstick 3+ NEGATIVE Automated urine sediment erythrocyte cou nt by microscopy (number/high power field) [HPF] NRG Automated urine sediment leukocyte count by microscopy (number/high power field) [HPF] NRG Bacteria detection in urine sediment by light microsco py NEGATIVE NRG Squamous epithelial cells detection in u rine sediment by light microscopy 2-5 NRG Crystals detection in urine sediment by light microsco py NONE NRG Casts detection in urine sediment by light microscopy NONE NRG Mucus detection in urine sediment by light microscopy NEGATIVE NRG Complete urinalysis with reflex to culture YES NRG Bacterial urine culture - 12/27/16 16:45 Bacterial urine culture [id number] NRG COLONY COUNT >100,000/ML NRG FTX;REPORTABLE PLUS, NRG FREE TEXT ENTRY 2 MIXED GRAM POSITIVES <10,000/ML NRG Bacterial blood culture - 12/27/16 17:00 Bacterial blood culture NG NRG Complete urinalysis with reflex to cultu re - 04/04/17 16:20 Urine color determination YELLOW NRG Urine clarity determination CLEAR NR G Urine pH measurement by test strip 8 5-9 Specific gravity of urine by test strip 1.010 1.016-1.022 Urine protein assay by test strip, semi-quantitative NEGATIVE NEGATIVE Urine glucose detection by automated test strip NE GATIVE NEGATIVE Erythrocytes detection in urine sediment by light micr oscopy 3+ NEGATIVE Urine ketones detection by automated test strip NE GATIVE NEGATIVE Urine nitrite detection by test strip NEGATIVE NEGATIVE Urine total bilirubin detection by test strip NEGA TIVE NEGATIVE Urine urobilinogen measurement by automated test strip (mass/volume) NORMAL NORMAL Urine leukocyte esterase detection by dipstick NEG ATIVE NEGATIVE Automated urine sediment erythrocyte cou nt by microscopy (number/high power field) NONE NRG Automated urine sediment leukocyte count by microscopy (number/high power field) NONE NRG Bacteria detection in urine sediment by light microsco py NEGATIVE NRG Squamous epithelial cells detection in u rine sediment by light microscopy 2-5 NRG Crystals detection in urine sediment by light microsco py NONE NRG Casts detection in urine sediment by light microscopy NONE NRG Mucus detection in urine sediment by light microscopy NEGATIVE NRG Complete urinalysis with reflex to culture NO NRG Complete blood count (CBC) with automate d white blood cell (WBC) differential - 04/04/17 16:50 Blood leukocytes automated count (number/volume) 10.5 10*3/uL 4.3-11.0 Blood erythrocytes automated count (number/volume) 4.21 10*6/uL 4.35-5.85 Venous blood hemoglobin measurement (mass/volume) 12.8 g/dL 11.5-16.0 Blood hematocrit (volume fraction) 38 % 35-52 Automated erythrocyte mean corpuscular volume 91 [ foz_us] 80-99 Automated erythrocyte mean corpuscular h emoglobin (mass per erythrocyte) 30 pg 25-34 Automated erythrocyte mean corpuscular h emoglobin concentration measurement (mass/volume) 34 g/dL 32-36 Automated erythrocyte distribution width ratio 12. 9 % 10.0- 14.5 Automated blood platelet count [...] 10*3 1.0-4.0 Blood monocytes automated count (number/volume) 0. 5 10*3 0.0-1.0 Automated eosinophil count 0.3 10*3/uL 0 .0-0.3 Automated blood basophil count (count/volume) 0.0 10*3/uL 0.0-0.1 Comprehensive metabolic panel - 04/04/17 16:50 Serum or plasma sodium measurement (moles/volume) 140 mmol/L 135-145 Serum or plasma potassium measurement (moles/volume) 4.1 mmol/L 3.6-5.0 Serum or plasma chloride measurement (moles/volume) 111 mmol/L 98-107 Carbon dioxide 20 mmol/L 21-32 Serum or plasma anion gap determination (moles/volume) 9 mmol/L 5-14 Serum or plasma urea nitrogen measurement (mass/volume ) 19 mg/dL 7-18 Serum or plasma creatinine measurement (mass/volume) 0.86 mg/dL 0.60-1.30 Serum or plasma urea nitrogen/creatinine mass ratio 22 NRG Serum or plasma creatinine measurement w ith calculation of estimated glomerular filtration rate > NRG Serum or plasma glucose measurement (mass/volume) 83 mg/dL 70-105 Serum or plasma calcium measurement (mass/volume) 9.3 mg/dL 8.5-10.1 Serum or plasma total bilirubin measurement (mass/volu me) 0.3 mg/dL 0.1-1.0 Serum or plasma alkaline phosphatase marcus surement (enzymatic activity/volume) 54 U/L 40-136 Serum or plasma aspartate aminotransfera se measurement (enzymatic activity/volume) 13 U/L 5-34 Serum or plasma alanine aminotransferase measurement (enzymatic activity/volume) 13 U/L 0-55 Serum or plasma protein measurement (mass/volume) 7.0 g/dL 6.4-8.2 Serum or plasma albumin measurement (mass/volume) 4.0 g/dL 3.2-4.5 Complete urinalysis with reflex to cultu re - 03/25/18 11:52 Urine color determination YELLOW NRG Urine clarity determination CLEAR NR G Urine pH measurement by test strip 6 5-9 Specific gravity of urine by test strip 1.020 1.016-1.022 Urine protein assay by test strip, semi-quantitative NEGATIVE NEGATIVE Urine glucose detection by automated test strip 2+ NEGATIVE Erythrocytes detection in urine sediment by light micr oscopy NEGATIVE NEGATIVE Urine ketones detection by automated test strip NE GATIVE NEGATIVE Urine nitrite detection by test strip NEGATIVE NEGATIVE Urine total bilirubin detection by test strip NEGA TIVE NEGATIVE Urine urobilinogen measurement by automated test strip (mass/volume) NORMAL NORMAL Urine leukocyte esterase detection by dipstick 2+ NEGATIVE Automated urine sediment erythrocyte cou nt by microscopy (number/high power field) NONE NRG Automated urine sediment leukocyte count by microscopy (number/high power field) [HPF] NRG Bacteria detection in urine sediment by light microsco py TRACE NRG Squamous epithelial cells detection in u rine sediment by light microscopy 25-50 NRG Crystals detection in urine sediment by light microsco py NONE NRG Casts detection in urine sediment by light microscopy NONE NRG Mucus detection in urine sediment by light microscopy NEGATIVE NRG Complete urinalysis with reflex to culture NO NRG Complete blood count (CBC) with automate d white blood cell (WBC) differential - 03/25/18 12:11 Blood leukocytes automated count (number/volume) 10.7 10*3/uL 4.3-11.0 Blood erythrocytes automated count (number/volume) 3.61 10*6/uL 4.35-5.85 Venous blood hemoglobin measurement (mass/volume) 11.1 g/dL 11.5-16.0 Blood hematocrit (volume fraction) 32 % 35-52 Automated erythrocyte mean corpuscular volume 90 [ foz_us] 80-99 Automated erythrocyte mean corpuscular h emoglobin (mass per erythrocyte) 31 pg 25-34 Automated erythrocyte mean corpuscular h emoglobin concentration measurement (mass/volume) 34 g/dL 32-36 Automated erythrocyte distribution width ratio 13. 8 % 10.0- 14.5 Automated blood platelet count [...] 10*3 1.0-4.0 Blood monocytes automated count (number/volume) 0. 5 10*3 0.0-1.0 Automated eosinophil count 0.0 10*3/uL 0 .0-0.3 Automated blood basophil count (count/volume) 0.0 10*3/uL 0.0-0.1 Comprehensive metabolic panel - 03/25/18 12:11 Serum or plasma sodium measurement (moles/volume) 138 mmol/L 135-145 Serum or plasma potassium measurement (moles/volume) 3.7 mmol/L 3.6-5.0 Serum or plasma chloride measurement (moles/volume) 110 mmol/L 98-107 Carbon dioxide 20 mmol/L 21-32 Serum or plasma anion gap determination (moles/volume) 8 mmol/L 5-14 Serum or plasma urea nitrogen measurement (mass/volume ) 8 mg/dL 7-18 Serum or plasma creatinine measurement (mass/volume) 0.62 mg/dL 0.60-1.30 Serum or plasma urea nitrogen/creatinine mass ratio 13 NRG Serum or plasma creatinine measurement w ith calculation of estimated glomerular filtration rate > NRG Serum or plasma glucose measurement (mass/volume) 102 mg/dL 70-105 Serum or plasma calcium measurement (mass/volume) 9.6 mg/dL 8.5-10.1 Serum or plasma total bilirubin measurement (mass/volu me) 0.4 mg/dL 0.1-1.0 Serum or plasma alkaline phosphatase marcus surement (enzymatic activity/volume) 52 U/L 40-136 Serum or plasma aspartate aminotransfera se measurement (enzymatic activity/volume) 13 U/L 5-34 Serum or plasma alanine aminotransferase measurement (enzymatic activity/volume) 11 U/L 0-55 Serum or plasma protein measurement (mass/volume) 6.4 g/dL 6.4-8.2 Serum or plasma albumin measurement (mass/volume) 3.4 g/dL 3.2-4.5 CALCIUM CORRECTED 10.1 mg/dL 8.5-10.1 Complete urinalysis with reflex to cultu re - 05/26/18 21:55 Urine color determination YELLOW NRG Urine clarity determination CLEAR NR G Urine pH measurement by test strip 5 5-9 Specific gravity of urine by test strip 1.025 1.016-1.022 Urine protein assay by test strip, semi-quantitative 2+ NEGATIVE Urine glucose detection by automated test strip 4+ NEGATIVE Erythrocytes detection in urine sediment by light micr oscopy NEGATIVE NEGATIVE Urine ketones detection by automated test strip 4+ NEGATIVE Urine nitrite detection by test strip NEGATIVE NEGATIVE Urine total bilirubin detection by test strip NEGA TIVE NEGATIVE Urine urobilinogen measurement by automated test strip (mass/volume) 1 mg/dL NORMAL Urine leukocyte esterase detection by dipstick 1+ NEGATIVE Automated urine sediment erythrocyte cou nt by microscopy (number/high power field) RARE NRG Automated urine sediment leukocyte count by microscopy (number/high power field) [HPF] NRG Bacteria detection in urine sediment by light microsco py NONE NRG Squamous epithelial cells detection in u rine sediment by light microscopy 2-5 NRG Crystals detection in urine sediment by light microsco py NONE NRG Casts detection in urine sediment by light microscopy NONE NRG Mucus detection in urine sediment by light microscopy MODERATE NRG Complete urinalysis with reflex to culture NO NRG Complete blood count (CBC) with automate d white blood cell (WBC) differential - 05/26/18 22:09 Blood leukocytes automated count (number/volume) 14.7 10*3/uL 4.3-11.0 Blood erythrocytes automated count (number/volume) 3.73 10*6/uL 4.35-5.85 Venous blood hemoglobin measurement (mass/volume) 11.2 g/dL 11.5-16.0 Blood hematocrit (volume fraction) 33 % 35-52 Automated erythrocyte mean corpuscular volume 89 [ foz_us] 80-99 Automated erythrocyte mean corpuscular h emoglobin (mass per erythrocyte) 30 pg 25-34 Automated erythrocyte mean corpuscular h emoglobin concentration measurement (mass/volume) 34 g/dL 32-36 Automated erythrocyte distribution width ratio 13. 2 % 10.0- 14.5 Automated blood platelet count [...] 10*3 1.0-4.0 Blood monocytes automated count (number/volume) 0. 1 10*3 0.0-1.0 Automated eosinophil count 0.0 10*3/uL 0 .0-0.3 Automated blood basophil count (count/volume) 0.0 10*3/uL 0.0-0.1 Blood manual differential performed dete ction - 05/26/18 22:09 Blood monocytes/100 leukocytes 0 % NRG Manual blood segmented neutrophils/100 leukocytes 96 % NRG Blood band neutrophils/100 leukocytes 0 % NRG Manual blood lymphocytes/100 leukocytes 4 % NRG Manual eosinophils/100 leukocytes in nose 0 % NRG Manual blood basophils/100 leukocytes 0 % NRG Blood erythrocyte morphology finding identification NORMAL NRG Complete blood count (CBC) with automate d white blood cell (WBC) differential - 05/29/18 18:07 Blood leukocytes automated count (number/volume) 12.1 10*3/uL 4.3-11.0 Blood erythrocytes automated count (number/volume) 3.19 10*6/uL 4.35-5.85 Venous blood hemoglobin measurement (mass/volume) 9.7 g/dL 11.5-16.0 Blood hematocrit (volume fraction) 29 % 35-52 Automated erythrocyte mean corpuscular volume 91 [ foz_us] 80-99 Automated erythrocyte mean corpuscular h emoglobin (mass per erythrocyte) 30 pg 25-34 Automated erythrocyte mean corpuscular h emoglobin concentration measurement (mass/volume) 34 g/dL 32-36 Automated erythrocyte distribution width ratio 13. 3 % 10.0- 14.5 Automated blood platelet count [...] 10*3 1.0-4.0 Blood monocytes automated count (number/volume) 1. 1 10*3 0.0-1.0 Automated eosinophil count 0.0 10*3/uL 0 .0-0.3 Automated blood basophil count (count/volume) 0.0 10*3/uL 0.0-0.1 Comprehensive metabolic panel - 05/29/18 18:07 Serum or plasma sodium measurement (moles/volume) 139 mmol/L 135-145 Serum or plasma potassium measurement (moles/volume) 3.7 mmol/L 3.6-5.0 Serum or plasma chloride measurement (moles/volume) 111 mmol/L 98-107 Carbon dioxide 18 mmol/L 21-32 Serum or plasma anion gap determination (moles/volume) 10 mmol/L 5-14 Serum or plasma urea nitrogen measurement (mass/volume ) 6 mg/dL 7-18 Serum or plasma creatinine measurement (mass/volume) 0.60 mg/dL 0.60-1.30 Serum or plasma urea nitrogen/creatinine mass ratio 10 NRG Serum or plasma creatinine measurement w ith calculation of estimated glomerular filtration rate > NRG Serum or plasma glucose measurement (mass/volume) 92 mg/dL 70-105 Serum or plasma calcium measurement (mass/volume) 8.6 mg/dL 8.5-10.1 Serum or plasma total bilirubin measurement (mass/volu me) 0.2 mg/dL 0.1-1.0 Serum or plasma alkaline phosphatase marcus surement (enzymatic activity/volume) 63 U/L 40-136 Serum or plasma aspartate aminotransfera se measurement (enzymatic activity/volume) 51 U/L 5-34 Serum or plasma alanine aminotransferase measurement (enzymatic activity/volume) 50 U/L 0-55 Serum or plasma protein measurement (mass/volume) 5.8 g/dL 6.4-8.2 Serum or plasma albumin measurement (mass/volume) 3.2 g/dL 3.2-4.5 CALCIUM CORRECTED 9.2 mg/dL 8.5-10.1 Streptococcus agalactiae detection by or ganism specific culture - 07/02/18 05:10 Streptococcus agalactiae detection by organism specifi c culture [facility] Complete blood count (CBC) with automate d white blood cell (WBC) differential - 07/13/18 09:00 Blood leukocytes automated count (number/volume) 11.0 10*3/uL 4.3-11.0 Blood erythrocytes automated count (number/volume) 3.75 10*6/uL 4.35-5.85 Venous blood hemoglobin measurement (mass/volume) 10.9 g/dL 11.5-16.0 Blood hematocrit (volume fraction) 32 % 35-52 Automated erythrocyte mean corpuscular volume 86 [ foz_us] 80-99 Automated erythrocyte mean corpuscular h emoglobin (mass per erythrocyte) 29 pg 25-34 Automated erythrocyte mean corpuscular h emoglobin concentration measurement (mass/volume) 34 g/dL 32-36 Automated erythrocyte distribution width ratio 14. 3 % 10.0- 14.5 Automated blood platelet count [...] 10*3 1.0-4.0 Blood monocytes automated count (number/volume) 0. 7 10*3 0.0-1.0 Automated eosinophil count 0.0 10*3/uL 0 .0-0.3 Automated blood basophil count (count/volume) 0.0 10*3/uL 0.0-0.1 Blood type T Indirect antibody screen pa [facility] - 07/13/18 09:00 ABO+Rh group OP NRG Transfusion band number [id number] NRG Blood group antibody screen NEGATIVE NR G Complete urinalysis with reflex to cultu re - 07/13/18 09:25 Urine color determination YELLOW NRG Urine clarity determination CLEAR NR G Urine pH measurement by test strip 6 5-9 Specific gravity of urine by test strip 1.020 1.016-1.022 Urine protein assay by test strip, semi-quantitative NEGATIVE NEGATIVE Urine glucose detection by automated test strip NE GATIVE NEGATIVE Erythrocytes detection in urine sediment by light micr oscopy NEGATIVE NEGATIVE Urine ketones detection by automated test strip NE GATIVE NEGATIVE Urine nitrite detection by test strip NEGATIVE NEGATIVE Urine total bilirubin detection by test strip NEGA TIVE NEGATIVE Urine urobilinogen measurement by automated test strip (mass/volume) NORMAL NORMAL Urine leukocyte esterase detection by dipstick 2+ NEGATIVE Automated urine sediment erythrocyte cou nt by microscopy (number/high power field) NONE NRG Automated urine sediment leukocyte count by microscopy (number/high power field) [HPF] NRG Bacteria detection in urine sediment by light microsco py FEW NRG Squamous epithelial cells detection in u rine sediment by light microscopy 5-10 NRG Crystals detection in urine sediment by light microsco py NONE NRG Casts detection in urine sediment by light microscopy NONE NRG Mucus detection in urine sediment by light microscopy MODERATE NRG Complete urinalysis with reflex to culture YES NRG Renal epithelial cells detection in urin e sediment by light microscopy NONE NRG Bacterial urine culture - 07/13/18 09:25 Bacterial urine culture SEE REPORT NRG COLONY COUNT . NRG Complete blood count (CBC) with automate d white blood cell (WBC) differential - 07/14/18 06:10 Blood leukocytes automated count (number/volume) 11.2 10*3/uL 4.3-11.0 Blood erythrocytes automated count (number/volume) 3.15 10*6/uL 4.35-5.85 Venous blood hemoglobin measurement (mass/volume) 9.1 g/dL 11.5-16.0 Blood hematocrit (volume fraction) 28 % 35-52 Automated erythrocyte mean corpuscular volume 88 [ foz_us] 80-99 Automated erythrocyte mean corpuscular h emoglobin (mass per erythrocyte) 29 pg 25-34 Automated erythrocyte mean corpuscular h emoglobin concentration measurement (mass/volume) 33 g/dL 32-36 Automated erythrocyte distribution width ratio 14. 0 % 10.0- 14.5 Automated blood platelet count [...] 10*3 1.0-4.0 Blood monocytes automated count (number/volume) 0. 9 10*3 0.0-1.0 Automated eosinophil count 0.1 10*3/uL 0 .0-0.3 Automated blood basophil count (count/volume) 0.0 10*3/uL 0.0-0.1 CULTURE, GENITAL - 03/02/19 16:27 CULTURE, GENITAL SEE NOTE NRG GC/CHLAMYDIA (SWAB OR URINE)-RAPID - 16:27 CHLAMYDIA TRACHOMATIS RNA, TMA NOT DETECTED NOT DETECTED NEISSERIA GONORRHOEAE RNA, TMA NOT DETECTED NOT DETECTED COMMENT NRG Methicillin resistant Staphylococcus aur eus (MRSA) screening culture - 03/06/19 09:22 Methicillin resistant Staphylococcus aureus (MRSA) scr eening culture NEG NRG Complete blood count (CBC) with automate d white blood cell (WBC) differential - 03/06/19 09:25 Blood leukocytes automated count (number/volume) 8.4 10*3/uL 4.3-11.0 Blood erythrocytes automated count (number/volume) 4.77 10*6/uL 4.35-5.85 Venous blood hemoglobin measurement (mass/volume) 13.8 g/dL 11.5-16.0 Blood hematocrit (volume fraction) 43 % 35-52 Automated erythrocyte mean corpuscular volume 90 [ foz_us] 80-99 Automated erythrocyte mean corpuscular h emoglobin (mass per erythrocyte) 29 pg 25-34 Automated erythrocyte mean corpuscular h emoglobin concentration measurement (mass/volume) 32 g/dL 32-36 Automated erythrocyte distribution width ratio 14. 6 % 10.0- 14.5 Automated blood platelet count [...] 10*3 1.0-4.0 Blood monocytes automated count (number/volume) 0. 3 10*3 0.0-1.0 Automated eosinophil count 0.2 10*3/uL 0 .0-0.3 Automated blood basophil count (count/volume) 0.0 10*3/uL 0.0-0.1 Blood type T Indirect antibody screen [facility] - 03/06/19 09:25 WRISTBAND NUMBER TNP NRG ABO+Rh group OP NRG Blood group antibody screen NEGATIVE NR G Blood type T Indirect antibody screen pa [place] - 03/09/19 09:25 WRISTBAND NUMBER [id number] NRG ABO+Rh group OP NRG Blood group antibody screen NEGATIVE NR G Methicillin resistant Staphylococcus aur eus (MRSA) screening culture - 03/09/19 09:27 Methicillin resistant Staphylococcus aureus (MRSA) scr eening culture NEG NRG Complete urinalysis with reflex to cultu re - 03/15/20 09:43 Urine color determination YELLOW NRG Urine clarity determination CLEAR NR G Urine pH measurement by test strip 7.5 5-9 Specific gravity of urine by test strip <= 1.016-1.022 Urine protein assay by test strip, semi-quantitative NEGATIVE NEGATIVE Urine glucose detection by automated test strip NE GATIVE NEGATIVE Erythrocytes detection in urine sediment by light micr oscopy NEGATIVE NEGATIVE Urine ketones detection by automated test strip NE GATIVE NEGATIVE Urine nitrite detection by test strip NEGATIVE NEGATIVE Urine total bilirubin detection by test strip NEGA TIVE NEGATIVE Urine urobilinogen measurement by automated test strip (mass/volume) 0.2 mg/dL < = 1.0 Urine leukocyte esterase detection by dipstick NEG ATIVE NEGATIVE Automated urine sediment erythrocyte cou nt by microscopy (number/high power field) NONE NRG Automated urine sediment leukocyte count by microscopy (number/high power field) NONE NRG Bacteria detection in urine sediment by light microsco py NEGATIVE NRG Squamous epithelial cells detection in u rine sediment by light microscopy 0-2 NRG Crystals detection in urine sediment by light microsco py NONE NRG Casts detection in urine sediment by light microscopy NONE NRG Mucus detection in urine sediment by light microscopy NEGATIVE NRG Complete urinalysis with reflex to culture NO NRG Encounters ACCT No. Visit Date/Time Discharge Status Pt. Type Provider Facility Loc./Unit Complaint [id number] 12/07/2014 11:41:00 12/07/2014 23:59: 59 CLS Outpatient MERLENE GUIDO MD [id number] 11/26/2014 08:46:00 11/26/2014 23:59: 59 CLS Outpatient LORRIE BOND APRN [id number] 11/22/2014 14:55:00 11/22/2014 23:59: 59 CLS Outpatient LORRIE BOND APRN [id number] 11/08/2014 15:59:00 11/08/2014 23:59: 59 CLS Outpatient LUCINA CORTEZ APRN [id number] 09/24/2014 13:29:00 09/24/2014 23:59: 59 CLS Outpatient DORA FRANCISCO APRN [id number] 09/10/2014 16:54:00 09/10/2014 23:59: 59 CLS Outpatient LUCINA CORTEZ APRN [id number] 03/15/2020 12:28:00 020 14:13:00 DIS Emergency ELKIN LITTLE APRN [facility] ER LOWER BACK/HIP PAIN [id number] 08/28/2019 11:42:00 020 23:59:59 CLS Preadmit HARPREET DO NED Melani [facility] REHAB VAGINISMUS, DYSPAREUNIA [id number] 03/09/2019 08:50:00 019 10:10:00 DIS Outpatient HARPREET NED Melani [facility] SDC ABNORMAL UTERINE BLEED ING [id number] 03/06/2019 09:05:00 019 09:32:00 DIS Outpatient NED MULLINS DO [facility] PREOP ABNORMAL UTERINE BLEED ING [id number] 11/25/2018 13:24:00 23:59:59 CLS Outpatient HARPREET DO NED Melani [facility] RAD CHRONIC PELVIC PAIN IN FEMALE [id number] 07/13/2018 08:47:00 018 12:20:00 DIS Inpatient HARPREET DO NED Melani [facility] LDRP LABOR-REPEAT C/S [id number] 07/05/2018 15:32:00 018 16:38:00 DIS Outpatient DONATO HENRI C [facility] WSo CONTRACTIONS, PELVIC PA IN,DECREASED MOVEMENT [id number] 07/02/2018 04:20:00 018 05:25:00 DIS Outpatient [place], SELENE Matthews [facility] WSo CONTRACTIONS,ST S SPOTTING YESTERDAY [id number] 05/29/2018 17:23:00 018 18:55:00 DIS Outpatient HARPREET PELAEZ NED Melani [facility] WSo CONTRACTIONS [id number] 05/26/2018 14:00:00 018 15:57:00 DIS Inpatient HARPREET DO NED Melani [facility] LDRP DECREASED MOVEMEN T [id number] 03/17/2018 14:00:00 018 23:59:59 CLS Outpatient HARPREET DO NED Melani [facility] RAD [id number] 04/20/2017 09:13:00 017 23:59:59 CLS Preadmit KENDALL DAVIS [facility] REHAB CERVICITIS [id number] 04/04/2017 16:13:00 017 19:23:00 DIS Emergency ORTIZ DELACRUZ [facility] ER SPOTTING/PELVIC PAIN [id number] 12/27/2016 15:52:00 017 18:07:00 DIS Emergency SHILPA COLE MD [facility] ER POST OP/BILAT LEG SWELLING/FEVER/INCISION PAIN [id number] 12/18/2016 09:26:00 017 16:15:00 DIS Inpatient NED MULLINS DO [facility] WS CONTRACTIONS,FLUID LEAK AGE,LABOR [id number] 12/16/2016 16:42:00 017 18:30:00 DIS Outpatient NED MULLINS DO [facility] WSo DECREASED MOVEME NT [id number] 12/07/2016 12:15:00 017 13:40:00 DIS Outpatient SELENE STONE MD [facility] WSo CONTRACTIONS [id number] 11/15/2016 17:49:00 017 20:17:00 DIS Outpatient SELENE STONE MD [facility] WSo ELEV BP [id number] 10/26/2016 17:11:00 017 18:30:00 DIS Outpatient SELENE STONE MD [facility] WSo CONTRACTIONS/DE CREASED MOVEMENT [id number] 10/15/2016 11:57:00 017 23:59:59 CLS Outpatient NED MULLINS DO [facility] RAD ,INCOMPLETE V IEWS [id number] 10/04/2016 20:58:00 017 10:15:00 DIS Outpatient NED MULLINS DO [facility] WSo HEADACHE [id number] 08/31/2016 15:48:00 017 16:35:00 DIS Outpatient JESÚSOSCAR NED [facility] WSo FALL/STOMACH PAIN/VAG PRESSURE [id number] 07/10/2016 23:34:00 016 00:16:00 DIS Emergency CESAR ESTRADA DO Erin [facility] ER VOMITING BLOOD,14WKS [place] EG [id number] 05/14/2016 04:34:00 016 07:29:00 DIS Emergency NORMAN DE LA CRUZ DO [facility] ER 7 1/2 WKS PREG,SEVERE C RAMPING,FALL [place] [id number] 05/11/2015 16:39:00 015 19:36:00 DIS Emergency ORTIZ DELACRUZ [facility] ER VAG TEAR [id number] 01/06/2015 03:13:00 015 04:43:00 DIS Emergency CARMELITA DONG MD [facility] ER ABD PAIN [id number] 03/14/2020 09:00:[address] Outpatient NED MULLINS DO Melani [facility] REHAB VAGINISMUS;DYSPAREUNIA [id number] 03/25/2018 12:24:00 Document Registration [id number] 02/26/2015 13:45:00 Document Registration [id number] 02/26/2015 13:45:00 Document Registration [id number] 02/26/2015 13:45:00 Document Registration [id number] 02/26/2015 13:45:00 Document Registration [id number] 02/26/2015 13:45:00 Document Registration [id number] 02/26/2015 13:45:00 Document Registration [id number] 02/26/2015 13:45:00 Document Registration [id number] 02/26/2015 13:45:00 Document Registration [id number] 02/26/2015 13:45:00 Document Registration [id number] 02/26/2015 13:45:00 Document Registration [id number] 11/15/2006 15:32:00 Document Registration [id number] 02/21/2020 16:00:00 02/21/2020 23:59:5 9 CLS Outpatient KELLEY ALCARAZ [facility] [id number] 03/02/2019 15:50:00 Document Registration
== END 2020-03-15 14:13 | disposition home or self-care (01) ==
LOC: EDUNIT# 12:26 → ER 12:28
DX: M25.551 Pain in right hip (principal); J45.909 Unspecified asthma, uncomplicated; I10 Essential (primary) hypertension; K21.9 Gastro-esophageal reflux disease without esophagitis; F41.9 Anxiety disorder, unspecified; Z87.891 Personal history of nicotine dependence
CPT/HCPCS: 73502; 81000

== ENCOUNTER 2020-04-05 08:55 | Outpatient (RCR) | payer MEDICAID ==
[~2020-04-05 08:55] MED LIST changes: +HYDR-3870 PO; +MELO7.5T46 PO
== END 2020-06-06 14:48 | disposition home or self-care (01) ==
PROVIDERS: ATTEND Obstetrics & Gynecology
DX: N94.2 Vaginismus (principal); N94.19 Other specified dyspareunia; M54.9 Dorsalgia, unspecified

== ENCOUNTER 2020-10-21 16:53 | Emergency (ER) | payer MEDICAID ==
[~2020-10-21] VITALS: Ht 157.4 cm; Wt 105.6 kg
--- NOTE | 2020-10-21 17:06 | ED Abdominal Pain ---
General Chief Complaint: Abdominal/GI Problems Stated Complaint: ABD PAIN Source of Information: Patient Exam Limitations: No Limitations History of Present Illness Date Seen by Provider: Oct 21, 2020 Time Seen by Provider: 17:05 Initial Comments To ER by private vehicle with reports of suprapubic abdominal pain onset this morning. It began mild and got progressively worse throughout the day. No dysuria or diarrhea or bowel changes. She has a history of a partial hysterectomy but still has both ovaries and her appendix. She has a history of ovarian cysts and this feels better. Timing/Duration: Getting Worse Severity/Quality: Severe Location: Suprapubic Radiation: No Radiation Activities at Onset: None Allergies and Home Medications Allergies Coded Allergies: latex (Unverified Allergy, Unknown, 05/14/16) tramadol (Unverified Allergy, Unknown, Pt has received Lortab & hydromorphone in the past, 03/09/19) Home Medications Citalopram Hydrobromide 20 Mg Tablet, 20 MG PO DAILY, (Reported) Docusate Sodium 100 Mg Capsule, 100 MG PO BID PRN for CONSTIPATION-1ST LINE Prescribed by: NED MULLINS on 03/09/19 1055 Fluconazole 150 Mg Tablet, 150 MG PO ONCE Prescribed by: SHADI PACHECO on 03/10/19 0946 Hydrocodone Bit/Acetaminophen 1 Ea Tablet, 2 EA PO Q6H PRN for Pain-See Instructions Prescribed by: NED MULLINS on 03/09/19 1055 Hydrocodone/Acetaminophen 1 Each Tablet, 1 EACH PO Q4-6HR PRN for PAIN-MODERATE Prescribed by: ELKIN LITTLE on 03/15/20 1406 Hydrocodone/Acetaminophen 1 Each Tablet, 1 TAB PO Q4H PRN for PAIN-MODERATE (5- 7) Prescribed by: ELKIN LITTLE on 10/21/20 193 Ibuprofen 600 Mg Tablet, 600 MG PO Q6H PRN for PAIN-MODERATE Prescribed by: NED MULLINS on 03/09/19 1055 Meloxicam 7.5 Mg Tablet, 7.5 MG PO DAILY Prescribed by: ELKIN LITTLE on 03/15/20 1405 Ondansetron 4 Mg Tab.rapdis, 4 MG PO Q4H PRN for NAUSEA/VOMITING-1ST LINE Prescribed by: SHADI PACHECO on 03/10/19 0929 Simethicone 80 Mg Tab.chew, 40 MG PO TID PRN for INDIGESTION 2ND LINE Prescribed by: NED MULLINS on 03/09/19 1055 Valacyclovir HCl 500 Mg Tablet, 500 MG PO BID PRN for outbreak, (Reported) Patient Home Medication List Home Medication List Reviewed: Yes Review of Systems Review of Systems Constitutional: see HPI EENTM: No Symptoms Reported Respiratory: No Symptoms Reported Cardiovascular: No Symptoms Reported Gastrointestinal: See HPI, Abdominal Pain Genitourinary: No Symptoms Reported Musculoskeletal: no symptoms reported Skin: no symptoms reported Psychiatric/Neurological: No Symptoms Reported Endocrine: No Symptoms Reported Past Joauyti-Nansmy-Uniyjl Hx Patient Social History Type Used: Cigarettes Former Smoker, Quit: Mar 07, 2019 2nd Hand Smoke Exposure: No Recent Hopitalizations: No Immunizations Up To Date Tetanus Booster (TDap): Less than 5yrs PED Vaccines UTD: Yes Date of Influenza Vaccine: May 27, 2018 Seasonal Allergies Seasonal Allergies: Yes Past Medical History Surgeries: Yes (D&C, biopsy on neck, left ankle nerve sx, c/s x2) Adenoidectomy, Section, Orthopedic, Tonsillectomy Respiratory: Yes Asthma Currently Using CPAP: No Currently Using BIPAP: No Cardiac: Yes (murmur hasn't been heard for several years) Hypertension Neurological: Yes Headaches /Migraines Reproductive Disorders: Yes Female Reproductive Disorders: Polycystic Ovarian Dis Sexually Transmitted Disease: Yes HIV/AIDS: No Genitourinary: No Gastrointestinal: Yes Colitis, Gastroesophageal Reflux, Chronic Constipation Musculoskeletal: Yes (Sciatica) Scoliosis Endocrine: No HEENT: No Cancer: No Psychosocial: Yes Anxiety Integumentary: Yes Eczema, Recent Skin Changes, Herpes Blood Disorders: No Adverse Reaction/Blood Tranf: No Family Medical History Alcoholism 19 FATHER (father) Aphasia Arthritis 19 MOTHER (maternal grandmother, mother) Asthma 19 MOTHER (maternal grandmother, sister) Cardiovascular disease 19 FATHER (father) 19 MOTHER (maternal grandparents.) Cataracts 19 MOTHER (grandparents) Completed stroke 19 MOTHER (grandfatgher) Coronary thrombosis 19 MOTHER (grandfather) Dementia 19 MOTHER (grandmother) Diabetes mellitus 19 MOTHER (mother, grandfather) Drug abuse 19 FATHER (father) 19 MOTHER (mother) Dysphasia 19 MOTHER (grandfather) Fibrocystic disease of breast 19 MOTHER (mother) Hypercholesterolemia 19 MOTHER (grandmother, mother) Hypertension 19 FATHER (father) 19 MOTHER (mother, grandfather) Kidney disease 19 MOTHER (grandfather) Myocardial infarction 19 FATHER (dad) 19 MOTHER (grandfather) Psychosocial problem 19 MOTHER (mother-anxiety, depression grandmother. grandfather) Respiratory disorder 19 MOTHER (grandmother- COPD) Seizure disorder Thyroid disease 19 MOTHER (grandfather) No Pertinent Family Hx Physical Exam Vital Signs Vital Signs - First Documented 10/21/20 17:00 Temp 36.5 Pulse 83 Resp 20 B/P (MAP) 156/86 (109) Pulse Ox 99 O2 Delivery Room Air Capillary Refill : Height/Weight/BMI Height: 5'2.00" Weight: 238lbs. 0.0oz. 107.336245bp; 43.00 BMI Method:Stated General Appearance: WD/WN, no apparent distress Respiratory: no respiratory distress, no accessory muscle use Cardiovascular: regular rate, rhythm, no murmur Gastrointestinal: normal bowel sounds, soft, tenderness (Suprapubic) Neurologic/Psychiatric: alert, normal mood/affect, oriented x 3 Progress/Results/Core Measures Results/Orders Lab Results Laboratory Tests Test 10/21/20 17:04 10/21/20 17:44 Range/Units White Blood Count 8.8 4.3-11.0 10^3/uL Red Blood Count 4.36 3.80-5.11 10^6/uL Hemoglobin 13.3 11.5-16.0 g/dL Hematocrit 40 35-52 % Mean Corpuscular Volume 92 80-99 fL Mean Corpuscular Hemoglobin 31 25-34 pg Mean Corpuscular Hemoglobin Concent 33 32-36 g/dL Red Cell Distribution Width 13.2 10.0-14.5 % Platelet Count 218 130-400 10^3/uL Mean Platelet Volume 12.2 9.0-12.2 fL Immature Granulocyte % (Auto) 0 % Neutrophils (%) (Auto) 62 42-75 % Lymphocytes (%) (Auto) 32 12-44 % Monocytes (%) (Auto) 5 0-12 % Eosinophils (%) (Auto) 1 0-10 % Basophils (%) (Auto) 0 0-10 % Neutrophils # (Auto) 5.5 1.8-7.8 10^3/uL Lymphocytes # (Auto) 2.8 1.0-4.0 10^3/uL Monocytes # (Auto) 0.4 0.0-1.0 10^3/uL Eosinophils # (Auto) 0.1 0.0-0.3 10^3/uL Basophils # (Auto) 0.0 0.0-0.1 10^3/uL Immature Granulocyte # (Auto) 0.0 0.0-0.1 10^3/uL Urine Color YELLOW Urine Clarity OTHER Urine pH 6.0 5-9 Urine Specific Butler <=1.005 1.016-1.022 Urine Protein NEGATIVE NEGATIVE Urine Glucose (UA) NEGATIVE NEGATIVE Urine Ketones NEGATIVE NEGATIVE Urine Nitrite NEGATIVE NEGATIVE Urine Bilirubin NEGATIVE NEGATIVE Urine Urobilinogen 0.2 < = 1.0 MG/DL Urine Leukocyte Esterase NEGATIVE NEGATIVE Urine RBC (Auto) NEGATIVE NEGATIVE Urine RBC NONE /HPF Urine WBC NONE /HPF Urine Squamous Epithelial Cells 0-2 /HPF Urine Renal Epithelial Cells NONE /HPF Urine Crystals NONE /LPF Urine Bacteria NEGATIVE /HPF Urine Casts NONE /LPF Urine Mucus NEGATIVE /LPF Urine Culture Indicated NO Sodium Level 137 135-145 MMOL/L Potassium Level 3.8 3.6-5.0 MMOL/L Chloride Level 110 H 98-107 MMOL/L Carbon Dioxide Level 18 L 21-32 MMOL/L Anion Gap 9 5-14 MMOL/L Blood Urea Nitrogen 26 H 7-18 MG/DL Creatinine 0.86 0.60-1.30 MG/DL Estimat Glomerular Filtration Rate > 60 BUN/Creatinine Ratio 30 Glucose Level 86 70-105 MG/DL Calcium Level 8.9 8.5-10.1 MG/DL Corrected Calcium 8.7 8.5-10.1 MG/DL Total Bilirubin 0.3 0.1-1.0 MG/DL Aspartate Amino Transf (AST/SGOT) 15 5-34 U/L Alanine Aminotransferase (ALT/SGPT) 16 0-55 U/L Alkaline Phosphatase 53 40-136 U/L Total Protein 7.3 6.4-8.2 GM/DL Albumin 4.3 3.2-4.5 GM/DL My Orders Orders - ELKIN LITTLE APRN Cbc With Automated Diff (10/21/20 17:04) Comprehensive Metabolic Panel (10/21/20 17:04) Ed Iv/Invasive Line Start (10/21/20 17:04) Fentanyl Injection (Sublimaze Injection (10/21/20 17:15) Us Non Ob Pelvis Comp/Transvag (10/21/20 17:32) Rx-Hydrocodone/Apap 5-325 Mg (Rx-Vicodin (10/21/20 19:45) Fentanyl Injection (Sublimaze Injection (10/21/20 19:45) Medications Given in ED Current Medications Medications Dose Ordered Sig/Lm Route Start Time Stop Time Status Last Admin Dose Admin Acetaminophen/ Hydrocodone Bitart 1 ea Q4H PRN PO 10/21/20 19:45 10/21/20 19:38 1 EA Fentanyl Citrate 50 mcg ONCE ONCE IVP 10/21/20 17:15 10/21/20 17:16 DC 10/21/20 17:23 50 MCG Fentanyl Citrate 50 mcg ONCE ONCE IVP 10/21/20 19:45 10/21/20 19:46 DC 10/21/20 19:44 50 MCG Vital Signs/I&O 10/21/20 17:00 Temp 36.5 Pulse 83 Resp 20 B/P (MAP) 156/86 (109) Pulse Ox 99 O2 Delivery Room Air Diagnostic Imaging Diagonstic Imaging: Xray, CT Comments NAME: JESS ROMEO [facility] REC#: [id number] PT STATUS: REG ER : 1990 PHYSICIAN: ELKIN LITTLE APRN ADMIT DATE: 10/21/20/ER Draft Date of Exam:10/21/20 US NON OB PELVIS COMP/TRANSVAG PROCEDURE: US Non-ob pelvis comp/trans. TECHNIQUE: Multiple realtime grayscale images were obtained of the pelvis in various projections endovaginally. Transabdominal imaging was also performed. INDICATION: Pelvic pain The patient has had a partial hysterectomy. The right ovary measures 4.9 x 3.9 x 3.9 cm. There is a 4.1 x 2.5 x 2.7 cm cyst on the right ovary with low-level internal echoes. This may be a hemorrhagic cyst. There is blood flow to the ovary. The left ovary appears normal in size with normal blood flow. There is a trace amount of free fluid seen. IMPRESSION: Complex right ovarian cyst which is likely a hemorrhagic cyst. Dictated on workstation # [id number] Dict: 10/21/201924 Trans: 10/21/201927 [facility] [id number] Interpreted by: CARMELITA MALDONADO MD Electronically signed by: Departure Impression Primary Impression: Ovarian cyst Disposition: 01 HOME, SELF-CARE Condition: Stable Departure-Patient Inst. Decision time for Depature: 19:25 Referrals: [facility] [place] Primary Care Physician Patient Instructions: Ovarian Cysts Add. Discharge Instructions: 1. Return to ER for any concerns or worsening symptoms such as increased pain, fever, lightheadedness. 2. Follow-up with your doctor next week. Pain medication as directed. All discharge instructions reviewed with patient and/or family. Voiced understanding. Scripts Hydrocodone/Acetaminophen (Hydrocodone-Acetamin 5-325 mg) 1 Each Tablet 1 TAB PO Q4H PRN for PAIN-MODERATE (5-7), #10 TAB Prov: ELKIN LITTLE APRN 10/21/20 Hydrocodone/Acetaminophen (Hydrocodone-Acetamin 5-325 mg) 1 Each Tablet 1 TAB PO Q4H PRN for PAIN-MODERATE (5-7), #10 TAB Prov: ELKIN LITTLE APRN 10/21/20 Work/School Note: Work Release Form Date Seen in the Emergency Department: Oct 21, 2020 Return to Work: Oct 23, 2020 ELKIN LITTLE APRN Oct 21, 2020 17:06
[2020-10-21] MEDS ORDERED: fentaNYL INJECTION 100 MCG/2 ML AMP IVP ONE ×2 (17:15→19:45)
[2020-10-21 17:23] LABS: BASOPHILS % (AUTO) 0 % (0-10); BILIRUBIN,URINE NEGATIVE (NEGATIVE); CLARITY,URINE OTHER; COLOR,URINE YELLOW; EOSINOPHILS # (AUTO) 0.1 10^3/uL (0.0-0.3); EOSINOPHILS % (AUTO) 1 % (0-10); GLUCOSE, URINE (UA) NEGATIVE (NEGATIVE); HEMATOCRIT 40 % (35-52); HEMOGLOBIN 13.3 g/dL (11.5-16.0); KETONES,URINE NEGATIVE (NEGATIVE); LEUKOCYTE ESTERASE ,URINE NEGATIVE (NEGATIVE); LYMPHOCYTES # (AUTO) 2.8 10^3/uL (1.0-4.0); LYMPHOCYTES % (AUTO) 32 % (12-44); MEAN CORPUSCULAR HEMOGLOBIN 31 pg (25-34); MEAN CORPUSCULAR HGB CONC 33 g/dL (32-36); MEAN CORPUSCULAR VOLUME 92 fL (80-99); MEAN PLATELET VOLUME 12.2 fL (9.0-12.2); MONOCYTES # (AUTO) 0.4 10^3/uL (0.0-1.0); MONOCYTES % (AUTO) 5 % (0-12); NEUTROPHILS # (AUTO) 5.5 10^3/uL (1.8-7.8); NEUTROPHILS % (AUTO) 62 % (42-75); NITRITE,URINE NEGATIVE (NEGATIVE); PLATELET COUNT 218 10^3/uL (130-400); PROTEIN,URINE NEGATIVE (NEGATIVE); WHITE BLOOD COUNT 8.8 10^3/uL (4.3-11.0)
[2020-10-21 17:31] LABS: BACTERIA,URINE NEGATIVE /HPF; SQUAMOUS EPITHELIAL CELL,UR 0-2 /HPF
[2020-10-21 17:59] LABS: ALBUMIN 4.3 GM/DL (3.2-4.5); CHLORIDE 110 MMOL/L (98-107); POTASSIUM 3.8 MMOL/L (3.6-5.0); SODIUM 137 MMOL/L (135-145)
[2020-10-21 18:00] LABS: CALCIUM 8.9 MG/DL (8.5-10.1)
[2020-10-21 18:01] LABS: GLUCOSE 86 MG/DL (70-105)
[2020-10-21 18:02] LABS: TOTAL PROTEIN 7.3 GM/DL (6.4-8.2)
[2020-10-21 18:03] LABS: CARBON DIOXIDE 18 MMOL/L (21-32)
[2020-10-21 18:04] LABS: BILIRUBIN,TOTAL 0.3 MG/DL (0.1-1.0)
[2020-10-21 18:05] LABS: ALKALINE PHOSPHATASE 53 U/L (40-136); CREATININE SERUM 0.86 MG/DL (0.60-1.30); GFR ESTIMATED > 60
[2020-10-21 18:06] LABS: BUN/CREATININE RATIO 30
[2020-10-21 18:08] LABS: ALANINE AMINOTRANSFERASE 16 U/L (0-55)
--- NOTE | 2020-10-21 19:29 | Diagnostic Imaging Report ---
PROCEDURE: US Non-ob pelvis comp/trans. TECHNIQUE: Multiple realtime grayscale images were obtained of the pelvis in various projections endovaginally. Transabdominal imaging was also performed. INDICATION: Pelvic pain The patient has had a partial hysterectomy. The right ovary measures 4.9 x 3.9 x 3.9 cm. There is a 4.1 x 2.5 x 2.7 cm cyst on the right ovary with low-level internal echoes. This may be a hemorrhagic cyst. There is blood flow to the ovary. The left ovary appears normal in size with normal blood flow. There is a trace amount of free fluid seen. IMPRESSION: Complex right ovarian cyst which is likely a hemorrhagic cyst. Dictated by: Dictated on workstation # [id number]
[2020-10-21] MEDS ORDERED: ACHD5005 PO ×2 (19:36→19:54)
[2020-10-21] MEDS ORDERED: RX-HYDROCODONE/APAP 5/325 MG #4 TAB PK PO PRN (19:45)
[2020-10-21 19:57] VITALS: BP 117/70
== END 2020-10-21 19:57 | disposition home or self-care (01) ==
LOC: EDUNIT# 16:53 → ER 16:54
DX: N83.201 Unspecified ovarian cyst, right side (principal); Z88.5 Allergy status to narcotic agent; Z91.040 Latex allergy status; Z87.891 Personal history of nicotine dependence; Z82.61 Family history of arthritis; Z82.49 Family history of ischemic heart disease and other diseases of the circulatory system; Z83.3 Family history of diabetes mellitus
CPT/HCPCS: 36415; 76830; 76856; 80053; 81000; 84703; 85025

== ENCOUNTER 2020-10-24 17:33 | Emergency (ER) | payer MEDICAID ==
[~2020-10-24] VITALS: Ht 157 cm; Wt 108.0 kg
[2020-10-24 18:00] LABS: BILIRUBIN,URINE NEGATIVE (NEGATIVE); CLARITY,URINE CLEAR; COLOR,URINE YELLOW; GLUCOSE, URINE (UA) NEGATIVE (NEGATIVE); KETONES,URINE NEGATIVE (NEGATIVE); LEUKOCYTE ESTERASE ,URINE NEGATIVE (NEGATIVE); NITRITE,URINE NEGATIVE (NEGATIVE); PROTEIN,URINE NEGATIVE (NEGATIVE)
[2020-10-24 18:06] LABS: BACTERIA,URINE TRACE /HPF; SQUAMOUS EPITHELIAL CELL,UR 0-2 /HPF
[2020-10-24] MEDS ORDERED: LACTATED RINGERS 1,000 ML IV ONE (18:30)
--- NOTE | 2020-10-24 18:33 | ED Abdominal Pain ---
General Chief Complaint: Abdominal/GI Problems Stated Complaint: DX: OVARIAN CYST / PAIN Nursing Triage Note: pt presents to ed with complaints of lower abdominal pain x 10/20/20. pt reports she was seen 10/21/20 in ed and diagnosed with an ovarian cyst. pt reports she saw her obgyn on 10/22 and was told to come to the ed if her pain got worse. pt reports nausea but denies vomiting. Sepsis Screen: No Definite Risk Source of Information: Patient, Old Records History of Present Illness Date Seen by Provider: Oct 24, 2020 Time Seen by Provider: 18:15 Initial Comments PT ARRIVES VIA POV FROM HOME PT C/O LOWER ABDOMINAL PAIN SINCE 10/20/20. PAIN ALL ACROSS LOWER ABDOMEN, WORSE IN SUPRAPUBIC AREA AND LLQ PAIN IS CONSTANT. NOTHING WORSENS OR IMPROVES PAIN. NO RADIATION OF PAIN SEEN HERE 10/21/20 AND DX WITH RIGHT OVARIAN CYST AND GIVEN RX FOR HYDROCODONE SAW DR. MULLINS/OB-INDUSTRIAL RELATIONS REPRESENTATIVE ON 10/22/20. STATES WAS TOLD IF HER PAIN GOT WORSE, TO COME HERE. PAIN WORSE TODAY + NAUSEA, NO VOMITING HAD A NORMAL BM TODAY HAS URINARY FREQUENCY BUT NO PAIN ON URINATION NO FEVER NO VAGINAL BLEEDING OR DISCHARGE. PT HAS HAD A HYSTERECTOMY 2 YEARS AGO FOR DUB, ENDOMETRIOSIS AND PCOS. STILL HAS BOTH OVARIES PT TAKES MELOXICAM DAILY FOR HIP PAIN, AND TOOK A DOSE THIS MORNING PT TOOK 1 HYDROCODONE EARLY THIS AM, OTHERWISE HAS NOT TAKEN ANYTHING FOR PAIN FOR THE REMAINDER OF THE DAY. PCP: [facility] DIRECTOR HEART: DR. MULLINS Allergies and Home Medications Allergies Coded Allergies: latex (Unverified Allergy, Unknown, 05/14/16) tramadol (Unverified Allergy, Unknown, Pt has received Lortab & hydromorphone in the past, 03/09/19) Home Medications Citalopram Hydrobromide 20 Mg Tablet, 20 MG PO DAILY, (Reported) Docusate Sodium 100 Mg Capsule, 100 MG PO BID PRN for CONSTIPATION-1ST LINE Prescribed by: NED MULLINS on 03/09/19 1055 Fluconazole 150 Mg Tablet, 150 MG PO ONCE Prescribed by: SHADI PACHECO on 03/10/19 0946 Hydrocodone Bit/Acetaminophen 1 Ea Tablet, 2 EA PO Q6H PRN for Pain-See Instructions Prescribed by: NED MULLINS on 03/09/19 1055 Hydrocodone/Acetaminophen 1 Each Tablet, 1 EACH PO Q4-6HR PRN for PAIN-MODERATE Prescribed by: ELKIN LITTLE on 03/15/20 140 Hydrocodone/Acetaminophen 1 Each Tablet, 1 TAB PO Q4H PRN for PAIN-MODERATE (5- 7) Prescribed by: ELKIN LITTLE on 10/21/201935 Hydrocodone/Acetaminophen 1 Each Tablet, 1 TAB PO Q4H PRN for PAIN-MODERATE (5- 7) Prescribed by: ELKIN LITTLE on 10/21/201954 Ibuprofen 600 Mg Tablet, 600 MG PO Q6H PRN for PAIN-MODERATE Prescribed by: NED MULLINS on 03/09/19 105 Meloxicam 7.5 Mg Tablet, 7.5 MG PO DAILY Prescribed by: ELKIN LITTLE on 03/15/20 140 Ondansetron 4 Mg Tab.rapdis, 4 MG PO Q4H PRN for NAUSEA/VOMITING-1ST LINE Prescribed by: SHADI PACHECO on 03/10/19 0929 Simethicone 80 Mg Tab.chew, 40 MG PO TID PRN for INDIGESTION 2ND LINE Prescribed by: NED MULLINS on 03/09/19 105 Valacyclovir HCl 500 Mg Tablet, 500 MG PO BID PRN for outbreak, (Reported) Patient Home Medication List Home Medication List Reviewed: Yes Review of Systems Review of Systems Constitutional: no symptoms reported; No chills, No diaphoresis, No fever EENTM: No Symptoms Reported Respiratory: No Symptoms Reported Cardiovascular: No Symptoms Reported Gastrointestinal: See HPI, Abdominal Pain; Denies Constipated, Denies Diarrhea; Nausea; Denies Vomiting Genitourinary: See HPI, Frequency; Denies Flank Pain, Denies Hematuria Musculoskeletal: no symptoms reported Skin: no symptoms reported Psychiatric/Neurological: No Symptoms Reported Endocrine: No Symptoms Reported Hematologic/Lymphatic: No Symptoms Reported Past Wlxeezx-Dhqshd-Xgnhqs Hx Past Med/Social Hx: Reviewed and Corrections made Patient Social History Alcohol Use: Denies Use Smoking Status: Current Everyday Smoker Type Used: Cigarettes 2nd Hand Smoke Exposure: No Recent Infectious Disease Expo: No Recent Hopitalizations: No Immunizations Up To Date Tetanus Booster (TDap): Less than 5yrs PED Vaccines UTD: Yes Date of Influenza Vaccine: May 27, 2018 Seasonal Allergies Seasonal Allergies: Yes Past Medical History Surgeries: Yes (D&C, biopsy on neck, left ankle nerve sx, c/s x2) Adenoidectomy, Section, Hysterectomy, Orthopedic, Tonsillectomy Respiratory: Yes Asthma Currently Using CPAP: No Currently Using BIPAP: No Cardiac: Yes (murmur hasn't been heard for several years) Hypertension Neurological: Yes Headaches /Migraines Reproductive Disorders: Yes Female Reproductive Disorders: Polycystic Ovarian Dis INDUSTRIAL RELATIONS REPRESENTATIVE History: Hysterectomy Sexually Transmitted Disease: Yes HIV/AIDS: No Genitourinary: No Gastrointestinal: Yes Colitis, Gastroesophageal Reflux, Chronic Constipation Musculoskeletal: Yes (Sciatica; HIP PAIN ) Scoliosis Endocrine: No HEENT: No Cancer: No Psychosocial: Yes Anxiety, Depression Integumentary: Yes Eczema, Recent Skin Changes, Herpes Blood Disorders: No Adverse Reaction/Blood Tranf: No Family Medical History Alcoholism 19 FATHER (father) Aphasia Arthritis 19 MOTHER (maternal grandmother, mother) Asthma 19 MOTHER (maternal grandmother, sister) Cardiovascular disease 19 FATHER (father) 19 MOTHER (maternal grandparents.) Cataracts 19 MOTHER (grandparents) Completed stroke 19 MOTHER (grandfatgher) Coronary thrombosis 19 MOTHER (grandfather) Dementia 19 MOTHER (grandmother) Diabetes mellitus 19 MOTHER (mother, grandfather) Drug abuse 19 FATHER (father) 19 MOTHER (mother) Dysphasia 19 MOTHER (grandfather) Fibrocystic disease of breast 19 MOTHER (mother) Hypercholesterolemia 19 MOTHER (grandmother, mother) Hypertension 19 FATHER (father) 19 MOTHER (mother, grandfather) Kidney disease 19 MOTHER (grandfather) Myocardial infarction 19 FATHER (dad) 19 MOTHER (grandfather) Psychosocial problem 19 MOTHER (mother-anxiety, depression grandmother. grandfather) Respiratory disorder 19 MOTHER (grandmother- COPD) Seizure disorder Thyroid disease 19 MOTHER (grandfather) No Pertinent Family Hx Physical Exam Vital Signs Vital Signs - First Documented 10/24/20 17:49 Temp 35.8 Pulse 76 Resp 18 B/P (MAP) 165/97 (119) Pulse Ox 100 Capillary Refill : Less Than 3 Seconds Height/Weight/BMI Height: 5'2.00" Weight: 238lbs. 0.0oz. 107.059321in; 43.00 BMI Method:Stated General Appearance: WD/WN, no apparent distress, obese, other (WALKS UPRIGHT AND MOVES WITHOUT DIFFICULTY. LAYING OUTSTRETCHED, DOES NOT APPEAR TO BE IN ANY DISCOMFORT OR DISTRESS. 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, no motor/sensory deficits, alert, normal mood/affect, oriented x 3 Skin: normal color, warm/dry Progress/Results/Core Measures Results/Orders Lab Results Laboratory Tests Test 10/24/20 17:47 Range/Units Urine Color YELLOW Urine Clarity CLEAR Urine pH 6.0 5-9 Urine Specific [place] 1.010 L 1.016-1.022 Urine Protein NEGATIVE NEGATIVE Urine Glucose (UA) NEGATIVE NEGATIVE Urine Ketones NEGATIVE NEGATIVE Urine Nitrite NEGATIVE NEGATIVE Urine Bilirubin NEGATIVE NEGATIVE Urine Urobilinogen 0.2 < = 1.0 MG/DL Urine Leukocyte Esterase NEGATIVE NEGATIVE Urine RBC (Auto) NEGATIVE NEGATIVE Urine RBC NONE /HPF Urine WBC NONE /HPF Urine Squamous Epithelial Cells 0-2 /HPF Urine Crystals NONE /LPF Urine Bacteria TRACE /HPF Urine Casts NONE /LPF Urine Mucus NEGATIVE /LPF Urine Culture Indicated NO Urine Test NEGATIVE NEGATIVE My Orders Orders - SEANCESAR Anoop DO Hcg,Qualitative Urine (10/24/20 18:05) Ed Iv/Invasive Line Start (10/24/20 18:22) Amylase (10/24/20 18:22) Cbc With Automated Diff (10/24/20 18:22) Comprehensive Metabolic Panel (10/24/20 18:22) Protime With Inr (10/24/20 18:22) Partial Thromboplastin Time (10/24/20 18:22) Us Non Ob Transvaginal 99600 (10/24/20 18:22) Ed Iv/Invasive Line Start (10/24/20 18:22) Lactated Ringers (Lr 1000 Ml Iv Solution (10/24/20 18:30) Vital Signs/I&O 10/24/20 10/24/20 17:49 20:24 Temp 35.8 Pulse 76 80 Resp 18 16 B/P (MAP) 165/97 (119) 165/97 Pulse Ox 100 98 Blood Pressure Mean: 119 Progress Progress Note : Progress Note UNABLE TO OBTAIN LAB DRAW, MULTIPLE ATTEMPTS BY MULTIPLE STAFF MEMBERS, INCLUDING BILL BOARD POSTER'S AND LAB TECHS Diagnostic Imaging Comments PELVIC ULTRASOUND--PER RADIOLOGIST REPORT AT 2015 FINDINGS: Patient had a partial hysterectomy. The right ovary measures 4.7 x 4.7 x 4.4 cm. There is a 3.8 x 3.1 x 3.0 cm cystic area with organized septations within it resembling an evolving hemorrhagic cyst. This is similar to previous exam done on 10/21/2020. Left ovary appears normal. Both ovaries have blood flow. There is a small amount of free fluid. IMPRESSION: Complex cyst of right ovary has not appreciably changed over the past three days. There is no evidence of torsion. This may represent a hemorrhagic cyst. Recommend follow-up ultrasound in 1-2 months. Reviewed: Reviewed by Me Departure Impression Primary Impression: Right ovarian cyst Disposition: 01 HOME, SELF-CARE Condition: Stable Departure-Patient Inst. Referrals: [facility] (PCP/Family) Primary Care Physician NED MULLINS DO Patient Instructions: Ovarian Cyst ED Add. Discharge Instructions: TAKE YOUR HOME PAIN MEDICATIONS PRESCRIBED FOLLOW UP WITH DR. MULLINS FOR FURTHER CARE All discharge instructions reviewed with patient and/or family. Voiced understanding. CESAR ESTRADA DO Oct 24, 2020 18:33
--- NOTE | 2020-10-24 20:10 | Diagnostic Imaging Report ---
PROCEDURE: US Non-OB, transvaginal. TECHNIQUE: Multiple real-time grayscale images were obtained of the pelvis in various projections, endovaginally. INDICATION: Pelvic pain. FINDINGS: Patient had a partial hysterectomy. The right ovary measures 4.7 x 4.7 x 4.4 cm. There is a 3.8 x 3.1 x 3.0 cm cystic area with organized septations within it resembling an evolving hemorrhagic cyst. This is similar to previous exam done on 10/21/2020. Left ovary appears normal. Both ovaries have blood flow. There is a small amount of free fluid. IMPRESSION: Complex cyst of right ovary has not appreciably changed over the past three days. There is no evidence of torsion. This may represent a hemorrhagic cyst. Recommend follow-up ultrasound in 1-2 months. Dictated by: Dictated on workstation # [id number]
[2020-10-24 20:24] VITALS: BP 165/97
[2020-10-29] MEDS ORDERED: ACHD5005 PO (16:23)
[2020-10-29] MEDS ORDERED: IBUP-1773 PO (16:23)
== END 2020-10-24 20:24 | disposition home or self-care (01) ==
LOC: EDUNIT# 17:33 → ER 17:35
DX: N83.291 Other ovarian cyst, right side (principal); I10 Essential (primary) hypertension; K21.9 Gastro-esophageal reflux disease without esophagitis; K59.09 Other constipation; M41.9 Scoliosis, unspecified; F41.9 Anxiety disorder, unspecified; F32.9 Major depressive disorder, single episode, unspecified; F17.210 Nicotine dependence, cigarettes, uncomplicated; Z88.5 Allergy status to narcotic agent; Z91.040 Latex allergy status; Z32.02 Encounter for pregnancy test, result negative; Z79.1 Long term (current) use of non-steroidal anti-inflammatories (NSAID)
CPT/HCPCS: 76830; 81000; 84703

== ENCOUNTER 2020-10-29 14:03 | Day surgery (SDC) | payer MEDICAID ==
[2020-10-29] VITALS (13 sets, daily range): BP systolic 102–142; BP diastolic 53–93
[~2020-10-29] VITALS: Ht 157.5 cm; Wt 105.5 kg
[2020-10-29] MEDS ORDERED: BUPIVACAINE 0.25% 30 ML (SENSORCAINE) VIAL ONE (14:53)
[2020-10-29] MEDS ORDERED: SCOPOLAMINE 1.5 MG (TRANSDERM-SCOP) PATCH TOP ONE (15:00)
[2020-10-29] MEDS ORDERED: FAMOTIDINE 20MG/2ML IV (PEPCID) IV ONE (15:00)
[2020-10-29] MEDS ORDERED: LACTATED RINGERS 1,000 ML IV PRN (15:00)
[2020-10-29] MEDS ORDERED: ONDANSETRON 4 MG/2 ML (SDV) Z0FRAN IV ONE (15:00)
[2020-10-29] MEDS ORDERED: MIDAZOLAM 2 MG/2 ML (VERSED) VIAL ONE (15:14)
[2020-10-29] MEDS ORDERED: fentaNYL INJ 100 MCG/2 ML AMP ONE (15:14)
[2020-10-29] MEDS ORDERED: LIDOCAINE PF 2% 5 ML (XYLOCAINE) VIAL ONE (15:23)
[2020-10-29] MEDS ORDERED: PROPOFOL INJECTION 50 ML IV ONE ×2 (15:23→16:37)
[2020-10-29] MEDS ORDERED: PROPOFOL INJECTION 0 ML IV ONE (15:23)
[2020-10-29] MEDS ORDERED: SUCCINYLCHOLINE INJ 100 MG/5 ML SYR/VIAL ONE ×3 (15:24→17:00)
[2020-10-29] MEDS ORDERED: proPOfol 200 MG/20 ML (DIPRIVAN) VIAL IV ONE (15:24)
[2020-10-29] MEDS ORDERED: ROCURONIUM 10 MG/ML 5 ML SYRINGE IV ONE ×2 (15:24→16:41)
[2020-10-29] MEDS ORDERED: ONDANSETRON 4 MG/2 ML (SDV) Z0FRAN ONE (15:24)
[2020-10-29] MEDS ORDERED: SEVOFLURANE (ULTANE) 15 ML INHAL SOLN ONE (15:24)
[2020-10-29] MEDS ORDERED: ceFAZolin 2 GM IV Premixed 50 ML ONE (15:30)
[2020-10-29] MEDS ORDERED: LACTATED RINGERS 1,000 ML IV SCH (15:45)
[2020-10-29] MEDS ORDERED: 0.9% SODIUM CHLORIDE PF INJ 20 ML VIAL ONE (16:11)
[2020-10-29] MEDS ORDERED: ceFAZolin INJECTION 1,000 MG ONE (16:11)
[2020-10-29] MEDS ORDERED: GLYCOPYRROLATE 0.2 MG/ML (ROBINUL) 2 ML VIAL ONE ×3 (16:23→16:44)
[2020-10-29] MEDS ORDERED: ACHD5005 PO (16:23)
[2020-10-29] MEDS ORDERED: IBUP-1773 PO (16:23)
--- NOTE | 2020-10-29 16:24 | Discharge Inst-Women's Service ---
Discharge Inst-Women's Serv Depart Medication/Instructions New, Converted or Re-Newed RX: RX on Chart Problems Reviewed?: Yes Consults/Follow Up Additional Follow Up: Yes Orders/Referrals Dr. Bryant in 7-10 days Activity Activity: Activity as Tolerated Driving Instructions: No Driving for 1 Week NO SMOKING: NO SMOKING Nothing Inside Vagina: No Douching, No [place], No Tampons Diet Discharge Diet: No Restrictions Symptoms to Report to : Bleeding Excessive, Pain Increased For Any Problems or Questions: Contact Your Physician Skin/Wound Care Infection Signs and Symptoms: Increased Redness, Foul Odor of Wound, Increased Drainage, Skin Itchy or Has a Rash, Increased Swelling, Temperature Above 101 F Operative Area Clean and Dry: Keep Incision Clean/Dry Stitches/Leyla/Dermabond: Dermabond, Care of Stitches Bathing Instructions: NED Velasquez DO Oct 29, 2020 16:24
[2020-10-29] MEDS ORDERED: ONDANSETRON 4 MG/2 ML (SDV) Z0FRAN IVP PRN ×2 (16:30→17:15)
[2020-10-29] MEDS ORDERED: D5 LR IV SOLUTION 1,000 ML IV SCH ×2 (16:30)
[2020-10-29] MEDS ORDERED: KETOROLAC 30 MG/ML VIAL IVP ONE (16:30)
[2020-10-29] MEDS ORDERED: HYDROmorphone 2 MG/ML VIAL (DILAUDID) ONE ×2 (16:35→17:00)
[2020-10-29] MEDS ORDERED: NEOSTIGMINE 3 MG/3 ML VIAL ONE (16:44)
[2020-10-29] MEDS ORDERED: SUGAMMADEX 500 MG/5 ML VIAL (BRIDION) IV ONE (16:47)
[2020-10-29] MEDS ORDERED: HYDROmorphone 2 MG/ML VIAL (DILAUDID) IV ONE (17:15)
[2020-10-29] MEDS: HYDROcodone/APAP 5 MG/325 MG (LORTAB) TAB PO PRN (20:55)
--- NOTE | 2020-10-29 21:12 | OPERATIVE REPORT ---
DATE OF SERVICE: PREOPERATIVE DIAGNOSES: 1. A 30-year-old female with severe lower abdominal pain. 2. Right ovarian mass approximately 3 x 4 cm. POSTOPERATIVE DIAGNOSES: 1. A 30-year-old female with severe lower abdominal pain. 2. Right ovarian mass approximately 3 x 4 cm. PROCEDURE: Laparoscopic right oophorectomy with lysis of adhesions. SURGEON: James Bryant DO ANESTHESIA: General endotracheal. ESTIMATED BLOOD LOSS: Minimal. URINE OUTPUT: 150 mL clear. FLUIDS: 800 mL lactated Ringer's solution. FINDINGS: Filmy adhesions of the omentum to the anterior abdominal wall as well as filmy adhesions of the omentum to the right adnexa, grossly normal appearing left ovary, right ovary that is approximately 3 to 3.5 cm x 4 to 4.5 cm that was enlarged and evidence of previous hemorrhage noted on the ovary itself. SPECIMEN SENT: Right ovary. INDICATIONS FOR PROCEDURE: This 30-year-old female is a patient who had sought care in my office last week about this time. She came to the office following up after an ER visit, which brought her to her knees for lower abdominal pain. She was found to have a complex ovarian mass on the right side. At that point, I recommended conservative management and watching the patient; however, she reported her pain significantly got worse throughout the week to the point where she ended up going back to the Emergency Department on Wednesday and having a repeat ultrasound, which showed no improvement in this right ovarian complex cyst due to no improvement and the patient's intolerance of the pain. She returned to the office requesting for this to be addressed surgically. I reviewed with the patient conservative management may still be the better option; however, she wished to proceed aggressively due to her inability to function at home as a mother or at work risk of the procedure were discussed with the patient in detail and after all of her questions were answered, consent was obtained, the patient was taken to the operating room. OPERATIVE REPORT IN DETAIL: Once in the operating room, general anesthesia was administered and found to be adequate. She was placed in the supine position and prepped and draped in normal sterile fashion. A timeout was performed. A Mejia catheter was placed using sterile technique. Infraumbilical area of approximately 5 mm was infiltrated using 0.25% Marcaine to make a 5 mm incision with a knife and directed Veress needle through the incision until intraperitoneal placement was confirmed using saline drop test. An opening pressure of 6 mmHg was noted, proceeded to maximum pressure of 15 mmHg, at which point I removed the Veress needle and introduced a 5 mm laparoscopic blunt trocar. Once this was in place, I am able to confirm intraperitoneal placement using the laparoscope. There was no evidence of damage upon my entry site. There were some filmy adhesions in the anterior lower abdomen that have to be taken down, but I need a separate trocars for this. Therefore, I placed a 12 mm trocar over her previous incision scar line. The skin was infiltrated using 0.25% Marcaine. Incision was made with a knife and the trocar was placed under direct visualization of laparoscope. Then, I had the patient placed in steep Trendelenburg. I started by taking down the filmy adhesions using the LigaSure device,I dissect and cut down the adhesion planes. I then identified the right ovary, which is enlarged as documented in my findings above. I isolate the infundibulopelvic ligament, which I grasped with the LigaSure bipolar cauterized sealed and transected using the LigaSure. I then removed the ovary through the suprapubic trocar site using an Endopouch bag, after which there was no active bleeding noted from any of my dissection planes. I copiously irrigated the pelvis using normal saline. Once again, no active bleeding noted from any of my dissection planes. I then had the patient taken out of steep Trendelenburg. I then removed the trocars and released insufflation and introduced 10 mL of 0.25% Marcaine into the peritoneal cavity for postoperative pain management. I then reapproximated the fascia of the suprapubic trocar due to it being larger using 0 Vicryl suture in interrupted fashion. The skin reapproximated using 4-0 Monocryl in both trocar sites, the skin was covered using Dermabond and Band-Aids were placed over the incision. A 1 gram of Ancef given preoperatively for infection prophylaxis. The patient tolerated the procedure well and sent to recovery in stable condition. Mejia catheter was removed at the end of procedure. Job ID: [id number] DocumentID: [id number] Dictated Date: 10/29/2020 18:54:03 Fire Controlman Date: 10/29/2020 21:12:23 Dictated By: DO SILVIO WERNER
[2020-10-30] MEDS: HYDROcodone/APAP 5 MG/325 MG (LORTAB) TAB PO PRN (02:58)
[2020-10-30 04:53] VITALS: BP 104/64
--- NOTE | 2020-10-30 06:34 | Anesthesia-General Post-Op ---
General Patient Condition Mental Status/LOC: Same as Preop Cardiovascular: Satisfactory Nausea/Vomiting: Absent Respiratory: Satisfactory Pain: Controlled Complications: Absent Post Op Complications Complications None Follow Up Care/Instructions Patient Instructions None needed. Anesthesia/Patient Condition Patient Condition Patient is doing well, no complaints, stable vital signs, no apparent adverse anesthesia problems. No complications reported per nursing. JAIDEN BISHOP CRNA Oct 30, 2020 06:34
[2020-10-30 08:00] VITALS: BP 103/52
[2020-10-30 09:40] VITALS: BP 103/52
== END 2020-10-30 09:40 | disposition home or self-care (01) ==
LOC: SDC 14:03 → WS 18:37 → SDC 10-30 09:40
PROVIDERS: ATTEND Obstetrics & Gynecology
DX: N83.291 Other ovarian cyst, right side (principal); N73.6 Female pelvic peritoneal adhesions (postinfective); N94.89 Other specified conditions associated with female genital organs and menstrual cycle; J45.909 Unspecified asthma, uncomplicated; K21.9 Gastro-esophageal reflux disease without esophagitis; F17.210 Nicotine dependence, cigarettes, uncomplicated; Z90.89 Acquired absence of other organs; Z91.040 Latex allergy status; Z88.5 Allergy status to narcotic agent; Z90.710 Acquired absence of both cervix and uterus; Z79.891 Long term (current) use of opiate analgesic; Z79.899 Other long term (current) drug therapy; Z82.49 Family history of ischemic heart disease and other diseases of the circulatory system; Z83.3 Family history of diabetes mellitus; Z80.41 Family history of malignant neoplasm of ovary
CPT/HCPCS: 87081; 88305

== ENCOUNTER 2020-12-24 14:33 | Emergency (ER) | payer MEDICAID ==
[~2020-12-24] VITALS: Ht 157.4 cm; Wt 107.2 kg
--- NOTE | 2020-12-24 15:22 | ED Chest Pain ---
General Chief Complaint: Chest Wall Stated Complaint: CP,COUGH Source: patient Exam Limitations: no limitations History of Present Illness Date Seen by Provider: December 24, 2020 Time Seen by Provider: 15:12 Initial Comments Patient is a 30-year-old female who presents to the emergency department with a chief complaint of chest heaviness and tightness and a feeling of some shortness of breath. Patient has had symptoms ongoing for about 24 hours. She was sent home from work early today secondary to her symptoms. She took some Tylenol this morning without any relief of symptoms. She states the pain and discomfort seems to go into her back. She denies any nausea, diaphoresis. Nothing makes it any worse or any better. She has never had symptoms like this before. She denies any recent fevers, chills, cough or congestion. She states she does have a history of some allergies. She used her inhaler twice without any relief of symptoms. She is a smoker but she is trying to quit. No personal history of coronary artery disease or family history of early coronary artery disease. All other review of systems reviewed and negative except as stated above. 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 Associated Symptoms: denies symptoms Allergies and Home Medications Allergies Coded Allergies: latex (Unverified Allergy, Unknown, 05/14/16) tramadol (Unverified Allergy, Unknown, Pt has received Lortab & hydromorphone in the past, 03/09/19) Home Medications Citalopram Hydrobromide 20 Mg Tablet, 20 MG PO DAILY, (Reported) Fluconazole 150 Mg Tablet, 150 MG PO ONCE Prescribed by: SHADI PACHECO on 03/10/19 0946 Hydrocodone Bit/Acetaminophen 1 Tab Tab, 1-2 EA PO Q6HR PRN for PAIN-MODERATE (5-7) Prescribed by: NED MULLINS on 10/29/20 1623 Ibuprofen 600 Mg Tablet, 600 MG PO Q6H Prescribed by: NED MULLINS on 10/29/20 1623 Valacyclovir HCl 500 Mg Tablet, 500 MG PO BID PRN for outbreak, (Reported) Patient Home Medication List Home Medication List Reviewed: Yes Review of Systems Review of Systems Constitutional: see HPI EENTM: See HPI Respiratory: Shortness of Air Cardiovascular: Chest Pain Gastrointestinal: No Symptoms Reported Genitourinary: No Symptoms Reported Musculoskeletal: no symptoms reported Skin: no symptoms reported Psychiatric/Neurological: No Symptoms Reported All Other Systems Reviewed Negative Unless Noted: Yes Past Xyhocoo-Xiugwn-Pryzqr Hx Patient Social History Type Used: Cigarettes Former Smoker, Quit: Mar 07, 2019 2nd Hand Smoke Exposure: No Recent Hopitalizations: No Immunizations Up To Date Tetanus Booster (TDap): Less than 5yrs PED Vaccines UTD: Yes Date of Influenza Vaccine: Jun 03, 2020 Seasonal Allergies Seasonal Allergies: Yes Past Medical History Surgeries: Yes (D&C, biopsy on neck, left ankle nerve sx, c/s x2) Adenoidectomy, Section, Hysterectomy, Orthopedic, Tonsillectomy Respiratory: Yes Asthma Currently Using CPAP: No Currently Using BIPAP: No Cardiac: Yes (murmur hasn't been heard for several years) Hypertension Neurological: Yes Headaches /Migraines Reproductive Disorders: Yes Female Reproductive Disorders: Polycystic 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 Sexually Transmitted Disease: Yes HIV/AIDS: No Genitourinary: No Gastrointestinal: Yes Colitis, Gastroesophageal Reflux, Chronic Constipation Musculoskeletal: Yes (Sciatica; HIP PAIN ) Scoliosis Endocrine: No HEENT: No Cancer: No Psychosocial: Yes Anxiety, Depression Integumentary: Yes Eczema, Recent Skin Changes, Herpes Blood Disorders: No Adverse Reaction/Blood Tranf: No Family Medical History Alcoholism 19 FATHER (father) Aphasia Arthritis 19 MOTHER (maternal grandmother, mother) Asthma 19 MOTHER (maternal grandmother, sister) Cardiovascular disease 19 FATHER (father) 19 MOTHER (maternal grandparents.) Cataracts 19 MOTHER (grandparents) Completed stroke 19 MOTHER (grandfatgher) Coronary thrombosis 19 MOTHER (grandfather) Dementia 19 MOTHER (grandmother) Diabetes mellitus 19 MOTHER (mother, grandfather) Drug abuse 19 FATHER (father) 19 MOTHER (mother) Dysphasia 19 MOTHER (grandfather) Fibrocystic disease of breast 19 MOTHER (mother) Hypercholesterolemia 19 MOTHER (grandmother, mother) Hypertension 19 FATHER (father) 19 MOTHER (mother, grandfather) Kidney disease 19 MOTHER (grandfather) Myocardial infarction 19 FATHER (dad) 19 MOTHER (grandfather) Psychosocial problem 19 MOTHER (mother-anxiety, depression grandmother. grandfather) Respiratory disorder 19 MOTHER (grandmother- COPD) Seizure disorder Thyroid disease 19 MOTHER (grandfather) No Pertinent Family Hx Physical Exam Vital Signs Vital Signs - First Documented 12/24/20 15:08 Temp 36.7 Pulse 75 Resp 18 B/P (MAP) 145/72 (96) Pulse Ox 100 O2 Delivery Room Air Capillary Refill : Height, Weight, BMI Height: 5'2.00" Weight: 238lbs. 0.0oz. [id number]; 42.52 BMI Method:Stated General Appearance: No Apparent Distress, WD/WN Neck: Normal Inspection Respiratory: Lungs Clear, Normal Breath Sounds, No Accessory Muscle Use, No Respiratory Distress Cardiovascular: Regular Rate, Rhythm, No Murmur, Normal Peripheral Pulses Gastrointestinal: Normal Bowel Sounds, Non Tender, Soft Extremity: Normal Inspection, Normal Range of Motion, Non Tender, No Calf Tenderness Neurologic/Psychiatric: Alert, Oriented x3, No Motor/Sensory Deficits, Normal Mood/Affect Skin: Normal Color, Warm/Dry Progress/Results/Core Measures Results/Orders My Orders Orders - AMERICA CHE MD Ekg Tracing (12/24/20 15:23) Sucralfate Tablet (Carafate Tablet) (12/24/20 15:30) Lidocaine 2% Viscous 15 Ml (Xylocaine Vi (12/24/20 15:30) Antacid Suspension (Mylanta Suspension (12/24/20 15:30) Medications Given in ED Current Medications Medications Dose Ordered Sig/Lm Route Start Time Stop Time Status Last Admin Dose Admin Al Hydrox/Mg Hydrox/Simethicone 30 ml ONCE ONCE PO 12/24/20 15:30 12/24/20 15:31 DC 12/24/20 15:37 30 ML Lidocaine HCl 5 ml ONCE ONCE PO 12/24/20 15:30 12/24/20 15:31 DC 12/24/20 15:37 5 ML Sucralfate 1 gm ONCE ONCE PO 12/24/20 15:30 12/24/20 15:31 DC 12/24/20 15:36 1 GM Vital Signs/I&O 12/24/20 15:08 Temp 36.7 Pulse 75 Resp 18 B/P (MAP) 145/72 (96) Pulse Ox 100 O2 Delivery Room Air Progress Progress Note : Time: 16:24 Progress Note Patient states her chest feels much better. She is a little queasy after the lidocaine. I have reassured the patient that she has no clinical or objective findings to warrant further testing from the emergency department at this time. I recommended [id number] PPI for the next 2 to 3 weeks. Patient verbalizes understanding and appears comfortable with the plan of care. All questions were sought and answered. Patient is stable for discharge. Initial ECG Impression Date: December 24, 2020 Initial ECG Impression Time: 15:13 Initial ECG Rate: 73 Initial ECG Rhythm: Normal Sinus Initial ECG Intervals: Normal Initial ECG Impression: Normal Departure Impression Primary Impression: Gastroesophageal reflux Qualified Codes: K21.9 - Gastro-esophageal reflux disease without esophagitis Additional Impression: Chest pain Qualified Codes: R07.89 - Other chest pain Disposition: 01 HOME, SELF-CARE Condition: Stable Departure-Patient Inst. Decision time for Depature: 16:25 Referrals: [facility] [place] (PCP/Family) Primary Care Physician Patient Instructions: Acid Reflux and Gastroesophageal Reflux Disease in Adults Add. Discharge Instructions: Take an ebhh-oui-nhoynrr acid commercial real estate broker such as Nexium, Prilosec or Pepcid, daily as instructed on the box. Return to the emergency room for any return of chest pain especially with fever, shortness of breath, vomiting or any other emergent concerning symptoms. Follow-up with your primary care provider as needed. AMERICA CHE MD December 24, 2020 15:22
[2020-12-24] MEDS ORDERED: SUCRALFATE 1 GM (CARAFATE) TAB PO ONE (15:30)
[2020-12-24] MEDS ORDERED: LIDOCAINE 2% VISCOUS 15 ML UDC PO ONE (15:30)
[2020-12-24] MEDS ORDERED: ANTACID SUSP 30 ML UDC (MYLANTA) PO ONE (15:30)
[2020-12-24 16:33] VITALS: BP 133/69
== END 2020-12-24 16:30 | disposition home or self-care (01) ==
LOC: EDUNIT# 14:33 → ER 14:34
DX: K21.9 Gastro-esophageal reflux disease without esophagitis (principal); I10 Essential (primary) hypertension; J45.909 Unspecified asthma, uncomplicated; F41.9 Anxiety disorder, unspecified; F32.9 Major depressive disorder, single episode, unspecified; F17.200 Nicotine dependence, unspecified, uncomplicated; Z91.040 Latex allergy status; Z88.5 Allergy status to narcotic agent; Z79.899 Other long term (current) drug therapy
CPT/HCPCS: 93005

== ENCOUNTER → 2021-02-20 | Outpatient (CLI) | payer MEDICAID ==
--- NOTE | 2021-02-20 18:11 | Diagnostic Imaging Report ---
Clinical indication: Patient has migraines. Exam: MRI of the brain performed without IV contrast. Sequences include axial DWI, ADC map, axial gradient echo, axial T2, axial FLAIR, axial T1, axial T1 post IV contrast and sagittal T1. Comparison: None. Findings: There is no evidence of acute cerebral infarct, intracranial hemorrhage or gross mass effect. The brain parenchymal volume appears appropriate for patient's age. There is normal dodson-white matter distinction. There is no significant midline shift or herniation. The [place] vascular structures show no gross abnormality, as visualized. There is no evidence of hydrocephalus. The basal cisterns are unremarkable. The skull, extracranial soft tissue and orbits are unremarkable. The paranasal sinuses are unremarkable. Temporal bones show no significant abnormality. Impression: Unremarkable MRI of the brain without contrast. Dictated by: Dictated on workstation # [id number]
== END ==
LOC: RAD 15:30
PROVIDERS: ATTEND Pediatrics
DX: G43.111 Migraine with aura, intractable, with status migrainosus (principal)
CPT/HCPCS: 70551

== ENCOUNTER 2021-03-02 13:08 | Emergency (ER) | payer MEDICAID ==
[~2021-03-02] VITALS: Ht 157 cm; Wt 104.0 kg
[2021-03-02] MEDS ORDERED: SERT-413 (13:35)
[2021-03-02] MEDS ORDERED: ONDANSETRON 4 MG (ZOFRAN) ORAL DISSOLVE TAB PO STA (13:36)
--- NOTE | 2021-03-02 13:44 | ED Headache ---
General Chief Complaint: Head/Cervical Problems Stated Complaint: NECK PAIN,MIGRAINE,NAUSEA Nursing Triage Note: ARRIVED VIA AMB TO FAST TRACK. STATES SHE FELT A POP IN HER NECK ON WEDNESDAY THAT HAS CAUSED HER TO HAVE A MIGRAINE SINCE. ALSO COMPLAINS OF NAUSEA. Source: patient History of Present Illness Date Seen by Provider: Mar 02, 2021 Time Seen by Provider: 13:30 Initial Comments PT ARRIVES VIA POV FROM HOME STATES THAT HER NECK POPPED ON Wednesday02/28/21 AND HAS HAD A SEVERE MIGRAINE SINCE THEN ALSO C/O CONTINUED NECK PAIN HEADACHE IS GLOBAL NO PARESTHESIAS OR MOTOR DEFICITS VISION IS BLURRY C/O DIZZINESS C/O NAUSEA AND HAS VOMITED X 3 TODAY NO FEVER OR RECENT ILLNESS NO URI SYMPTOMS OR ALLERGY SYMPTOMS TOOK HER REGULAR MEDICATIONS AN HOUR AGO WITHOUT RELIEF PT STATES SHE GETS HEADACHES "MIGRAINES" SEVERAL TIMES A MONTH, BUT NOT NORMALLY THIS BAD ALSO STATES HER NECK POPS ALOT, BUT NEVER CAUSED PAIN LIKE THIS HAD MRI 02/20/21 FOR HEADACHES--NORMAL EXAM PCP: REINIER Allergies and Home Medications Allergies Coded Allergies: latex (Unverified Allergy, Unknown, 05/14/16) tramadol (Unverified Allergy, Unknown, Pt has received Lortab & hydromorphone in the past, 03/09/19) Home Medications Citalopram Hydrobromide 20 Mg Tablet, 20 MG PO DAILY, (Reported) Cyclobenzaprine HCl 10 Mg Tablet, 10 MG PO Q8H PRN for SPASMS Prescribed by: CESAR ESTRADA on 03/02/21 142 Ondansetron 8 Mg Tab.rapdis, 8 MG PO Q6H Prescribed by: CESAR ESTRADA on 03/02/21 142 Prednisone 20 Mg Tab, 40 MG PO DAILY Prescribed by: CESAR ESTRADA on 03/02/21 142 Valacyclovir HCl 500 Mg Tablet, 500 MG PO BID PRN for outbreak, (Reported) Patient Home Medication List Home Medication List Reviewed: Yes Review of Systems Review of Systems Constitutional: see HPI, dizziness Eyes: See HPI, Blurred Vision Ears, Nose, Mouth, Throat: no symptoms reported Respiratory: no symptoms reported Cardiovascular: no symptoms reported Gastrointestinal: see HPI, nausea, vomiting Genitourinary: no symptoms reported : No (HYSTERECTOMY) Musculoskeletal: see HPI, neck pain Skin: no symptoms reported Psychiatric/Neurological: See HPI, Headache; Denies Numbness, Denies Paresthesia, Denies Seizure, Denies Tingling, Denies Tremors, Denies Weakness Past Adpzfdz-Ctfghv-Ztoylt Hx Patient Social History Tobacco Use?: Yes Tobacco type used: Cigarettes Smoking Status: Current Everyday Smoker Substance use?: No Alcohol Use?: Yes Alcohol Frequency: Couple times a week Immunizations Up To Date Tetanus Booster (TDap): Less than 5yrs PED Vaccines UTD: Yes Seasonal Allergies Seasonal Allergies: Yes Past Medical History Surgery/Hospitalization HX: D&C BIOPSY OF NECK AREA X 2 HYSTERECTOMY TONSILLECTOMY/ADENOIDECTOMY LEFT ANKLE SURGERY ON NERVE Surgeries: Yes (D&C, biopsy on neck, left ankle nerve sx, c/s x2) Adenoidectomy, Section, Hysterectomy, Orthopedic, Tonsillectomy Respiratory: Yes Asthma Currently Using CPAP: No Currently Using BIPAP: No Cardiac: Yes (murmur hasn't been heard for several years) Hypertension Neurological: Yes Headaches /Migraines Reproductive Disorders: Yes Female Reproductive Disorders: Polycystic 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 Sexually Transmitted Disease: Yes HIV/AIDS: No Genitourinary: No Gastrointestinal: Yes Colitis, Gastroesophageal Reflux, Chronic Constipation Musculoskeletal: Yes (Sciatica; HIP PAIN ) Scoliosis Endocrine: No HEENT: No Cancer: No Psychosocial: Yes Anxiety, Depression Integumentary: Yes Eczema, Herpes Blood Disorders: No Adverse Reaction/Blood Tranf: No Family Medical History Alcoholism 19 FATHER (father) Aphasia Arthritis 19 MOTHER (maternal grandmother, mother) Asthma 19 MOTHER (maternal grandmother, sister) Cardiovascular disease 19 FATHER (father) 19 MOTHER (maternal grandparents.) Cataracts 19 MOTHER (grandparents) Completed stroke 19 MOTHER (grandfatgher) Coronary thrombosis 19 MOTHER (grandfather) Dementia 19 MOTHER (grandmother) Diabetes mellitus 19 MOTHER (mother, grandfather) Drug abuse 19 FATHER (father) 19 MOTHER (mother) Dysphasia 19 MOTHER (grandfather) Fibrocystic disease of breast 19 MOTHER (mother) Hypercholesterolemia 19 MOTHER (grandmother, mother) Hypertension 19 FATHER (father) 19 MOTHER (mother, grandfather) Kidney disease 19 MOTHER (grandfather) Myocardial infarction 19 FATHER (dad) 19 MOTHER (grandfather) Psychosocial problem 19 MOTHER (mother-anxiety, depression grandmother. grandfather) Respiratory disorder 19 MOTHER (grandmother- COPD) Seizure disorder Thyroid disease 19 MOTHER (grandfather) No Pertinent Family Hx Physical Exam Vital Signs Vital Signs - First Documented 03/02/21 13:20 Temp 37.0 Pulse 79 Resp 16 B/P (MAP) 144/101 (115) Pulse Ox 99 O2 Delivery Room Air Capillary Refill : Less Than 3 Seconds Height, Weight, BMI Height: 5'2.00" Weight: 238lbs. 0.0oz. 107.597389oz; 42.00 BMI Method:Stated General Appearance: WD/WN, no apparent distress, other (DRY HEAVING) HEENT: PERRL/EOMI, normal ENT inspection Neck: tender midline Cardiovascular: regular rate, rhythm, no murmur Respiratory: normal breath sounds Gastrointestinal: soft Back: no CVA tenderness, no vertebral tenderness Extremities: normal inspection Psychiatric: alert, oriented x 3 Crainal Nerves: normal hearing, normal speech, PERRL Coordination/Gait: normal gait Motor/Sensory: no motor deficit, no sensory deficit Skin: normal color (PT IS BLACK), warm/dry; No rash Progress/Results/Core Measures Results/Orders My Orders Orders - CESAR ESTRADA DO Ondansetron Oral Dissolve Tab (Zofran (03/02/21 13:36) Ketorolac Injection (Toradol Injection) (03/02/21 13:45) Ct Cervical Spine Wo (03/02/21 13:36) Orphenadrine Inj (Ed Only) (Norflex Inje (03/02/21 13:45) Diphenhydramine Injection (Benadryl Inje (03/02/21 13:45) Medications Given in ED Current Medications Medications Dose Ordered Sig/Lm Route Start Time Stop Time Status Last Admin Dose Admin Diphenhydramine HCl 25 mg ONCE ONCE IM 03/02/21 13:45 03/02/21 13:46 DC 03/02/21 13:48 25 MG Ketorolac Tromethamine 60 mg ONCE ONCE IM 03/02/21 13:45 03/02/21 13:46 DC 03/02/21 13:48 60 MG Orphenadrine Citrate 60 mg ONCE ONCE IM 03/02/21 13:45 03/02/21 13:46 DC 03/02/21 13:49 60 MG Vital Signs/I&O 03/02/21 13:20 Temp 37.0 Pulse 79 Resp 16 B/P (MAP) 144/101 (115) Pulse Ox 99 O2 Delivery Room Air Blood Pressure Mean: 115 Progress Progress Note : Progress Note GIVEN TORADOL, NORFLEX, BENADRYL AND ZOFRAN WITH COMPLETE RESOLUTION OF SYMPTOMS Diagnostic Imaging Comments CT CERVICAL SPINE--PER RADIOLOGIST REPORT AT 1424 FINDINGS: No acute fracture or dislocation is seen in the cervical spine. Alignment is anatomic. The craniocervical junction is intact. The vertebral body heights and disc spaces are well-maintained. No focal osseous lesions are seen. No evidence of acute spinal canal stenosis. No significant degenerative changes are seen in the cervical spine. The soft tissues of the neck are unremarkable. The included lung apices are clear. IMPRESSION: No acute fracture or dislocation in the cervical spine. No high-grade spinal canal or foraminal stenosis Reviewed: Reviewed by Me Departure Impression Primary Impression: Headache Additional Impression: Neck sprain Disposition: 01 HOME, SELF-CARE Condition: Improved Departure-Patient Inst. Decision time for Depature: 14:25 Referrals: [facility] (PCP/Family) Primary Care Physician Patient Instructions: Headache, Adult (DC), Neck Sprain (DC) Add. Discharge Instructions: MOIST HEAT TO NECK AT 20 MINUTE INTERVALS CONTINUE YOUR REGULAR MEDICATION PRESCRIBED FOLLOW UP WITH YOUR DR IN 1-2 DAYS IF NO BETTER All discharge instructions reviewed with patient and/or family. Voiced understanding. Scripts Ondansetron (Ondansetron Odt) 8 Mg Tab.rapdis 8 MG PO Q6H, #10 TAB Prov: CESAR ESTRADA DO 03/02/21 Prednisone (Prednisone) 20 Mg Tab 40 MG PO DAILY, #6 TAB 0 Refills Prov: CESAR ESTRADA DO 03/02/21 Cyclobenzaprine HCl (Cyclobenzaprine HCl) 10 Mg Tablet 10 MG PO Q8H PRN for SPASMS, #15 TAB 0 Refills Prov: CESAR ESTRADA DO 03/02/21 CESAR ESTRADA DO Mar 02, 2021 13:44
[2021-03-02] MEDS ORDERED: ORPHENADRINE 60 MG/2 ML (NORFLEX) AMP (ED ONLY) IM ONE (13:45)
[2021-03-02] MEDS ORDERED: KETOROLAC 60 MG/2 ML VIAL IM ONE (13:45)
[2021-03-02] MEDS ORDERED: diphenhydrAMINE 50 MG/ML INJ (BENADRYL) IM ONE (13:45)
--- NOTE | 2021-03-02 14:20 | Diagnostic Imaging Report ---
PROCEDURE: CT cervical spine without contrast. TECHNIQUE: Multiple contiguous axial images were obtained through the cervical spine without the use of intravenous contrast. Sagittal and coronal reformations were then performed. Auto Exposure Controls were utilized during the CT exam to meet ALARA standards for radiation dose reduction. INDICATION: Migraine. Neck pain. Nausea and vomiting. COMPARISON: None. FINDINGS: No acute fracture or dislocation is seen in the cervical spine. Alignment is anatomic. The craniocervical junction is intact. The vertebral body heights and disc spaces are well-maintained. No focal osseous lesions are seen. No evidence of acute spinal canal stenosis. No significant degenerative changes are seen in the cervical spine. The soft tissues of the neck are unremarkable. The included lung apices are clear. IMPRESSION: No acute fracture or dislocation in the cervical spine. No high-grade spinal canal or foraminal stenosis. Dictated by: Dictated on workstation # [id number]
[2021-03-02] MEDS ORDERED: CYCL10TA9 PO (14:26)
[2021-03-02] MEDS ORDERED: ONDA8TAB13 PO (14:26)
[2021-03-02] MEDS ORDERED: PRD20T PO (14:26)
[2021-03-02 14:42] VITALS: BP 144/101
== END 2021-03-02 14:41 | disposition home or self-care (01) ==
LOC: EDUNIT# 13:08 → ER 13:11
DX: S13.9XXA Sprain of joints and ligaments of unspecified parts of neck, initial encounter (principal); J45.909 Unspecified asthma, uncomplicated; I10 Essential (primary) hypertension; F41.9 Anxiety disorder, unspecified; F32.9 Major depressive disorder, single episode, unspecified; F17.210 Nicotine dependence, cigarettes, uncomplicated; Z79.899 Other long term (current) drug therapy; X50.0XXA Overexertion from strenuous movement or load, initial encounter
CPT/HCPCS: 72125; 99284

== ENCOUNTER → 2021-08-18 | Outpatient (CLI) | payer MEDICAID ==
[~2021-08-18] VITALS: Ht 62 cm; Wt 104.0 kg
[~2021-08-18] MED LIST changes: +ACETAMINOPHEN 500 MG TAB (TYLENOL) PO PRN; +BAMLANIVIMAB 700 MG/ETESEVIMAB 1,400 MG IN NS IV ONE; +CYCL10TA25 PO; +EPINEPHrine INJECTION 1 MG/ML AMP IM PRN; +ONDANSETRON 4 MG/2 ML (SDV) Z0FRAN IV PRN; +PRD20T PO; +SERT-413; +diphenhydrAMINE 50 MG/ML INJ (BENADRYL) IV PRN
[2021-08-18 09:54] VITALS: BP 144/89
[2021-08-18 11:09] VITALS: BP 129/50
== END ==
LOC: INFUSION 09:18
PROVIDERS: ATTEND Pediatrics
DX: U07.1 COVID-19 (principal)

== ENCOUNTER 2022-04-26 19:35 | Emergency (ER) | payer MEDICAID ==
[~2022-04-26] VITALS: Ht 152.4 cm; Wt 117.9 kg
[~2022-04-26 19:35] MED LIST changes: -ACETAMINOPHEN 500 MG TAB (TYLENOL) PO PRN; -ASPI-789 PO; +ASPI1TAB23 PO; -BAMLANIVIMAB 700 MG/ETESEVIMAB 1,400 MG IN NS IV ONE; -EPINEPHrine INJECTION 1 MG/ML AMP IM PRN; +FLUC100T10 PO; -FLUC100T6 PO; -ONDANSETRON 4 MG/2 ML (SDV) Z0FRAN IV PRN; -diphenhydrAMINE 50 MG/ML INJ (BENADRYL) IV PRN
[2022-04-26] MEDS ORDERED: IBUPROFEN 800 MG (MOTRIN) TAB PO STA (20:11)
--- NOTE | 2022-04-26 20:11 | ED Lower Extremity ---
General Chief Complaint: Lower Extremity Stated Complaint: R FOOT PAIN History of Present Illness Date Seen by Provider: Apr 26, 2022 Time Seen by Provider: 19:50 Initial Comments 31 year old female presents for right foot pain. She was going down stairs 2 weeks ago and twisted her foot. It was tolerable initially but the symptoms have gotten worse. Foot feels better when she has pressure on it/walking. More pain when the foot is dangling. She took Excedrin at noon today No previous injuries. Pain/Injury Location: right foot Method of Injury: twisted Allergies and Home Medications Allergies Coded Allergies: latex (Unverified Allergy, Unknown, 05/14/16) tramadol (Unverified Allergy, Unknown, Pt has received Lortab & hydromorphone in the past, 03/09/19) Patient Home Medication List Home Medication List Reviewed: Yes Citalopram Hydrobromide (Citalopram HBr) 20 Mg Tablet, 20 MG PO DAILY, (Reported) Entered as Reported by: XENIA JARAMILLO on 03/06/19 0949 Cyclobenzaprine HCl (Cyclobenzaprine HCl) 10 Mg Tablet, 10 MG PO Q8H PRN for SPASMS Prescribed by: CESAR ESTRADA on 03/02/21 1426 Ondansetron (Ondansetron Odt) 8 Mg Tab.rapdis, 8 MG PO Q6H Prescribed by: CESAR ESTRADA on 03/02/21 1426 Prednisone (Prednisone) 20 Mg Tab, 40 MG PO DAILY Prescribed by: CESAR ESTRADA on 03/02/21 1426 Sertraline HCl (Sertraline HCl) 50 Mg Tablet, (Reported) Entered as Reported by: LAEE OWEN on 03/02/21 1335 Valacyclovir HCl (Valtrex) 500 Mg Tablet, 500 MG PO BID PRN for outbreak, (Reported) Entered as Reported by: EMANUEL DIAZ on 07/02/18 0438 Review of Systems Constitutional: no symptoms reported, see HPI Musculoskeletal: see HPI, joint pain (right foot pain) All Other Systems Reviewed Negative Unless Noted: Yes Past Nlkdzje-Ruldlx-Eqwxll Hx Patient Social History Tobacco Use?: Yes Tobacco type used: Cigarettes Smoking Status: Current Everyday Smoker Smokeless Tobacco Frequency: Never a User Use of E-Cig and/or Vaping dev: No Use of E-Cig and/or Vaping Jarrett: Never a User Substance use?: No Alcohol Use?: No Pt feels they are or have been: No Immunizations Up To Date Tetanus Booster (TDap): Less than 5yrs PED Vaccines UTD: Yes 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: [employer] Seasonal Allergies Seasonal Allergies: Yes Past Medical History Surgery/Hospitalization HX: D&C BIOPSY OF NECK AREA X 2 HYSTERECTOMY TONSILLECTOMY/ADENOIDECTOMY LEFT ANKLE SURGERY ON NERVE Surgeries: Yes (D&C, biopsy on neck, left ankle nerve sx, c/s x2) Adenoidectomy, Section, Hysterectomy, Orthopedic, Tonsillectomy Respiratory: Yes Asthma Currently Using CPAP: No Currently Using BIPAP: No Cardiac: Yes (murmur hasn't been heard for several years) Hypertension Neurological: Yes Headaches /Migraines Reproductive Disorders: Yes Female Reproductive Disorders: Polycystic Ovarian Dis 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 Sexually Transmitted Disease: Yes HIV/AIDS: No Genitourinary: No Gastrointestinal: Yes Colitis, Gastroesophageal Reflux, Chronic Constipation Musculoskeletal: Yes (Sciatica; HIP PAIN ) Scoliosis Endocrine: No HEENT: No Cancer: No Psychosocial: Yes Anxiety, Depression Integumentary: Yes Eczema, Herpes Blood Disorders: No Adverse Reaction/Blood Tranf: No Family Medical History Reviewed Nursing Family Hx Alcoholism 19 FATHER (father) Aphasia Arthritis 19 MOTHER (maternal grandmother, mother) Asthma 19 MOTHER (maternal grandmother, sister) Cardiovascular disease 19 FATHER (father) 19 MOTHER (maternal grandparents.) Cataracts 19 MOTHER (grandparents) Completed stroke 19 MOTHER (grandfatgher) Coronary thrombosis 19 MOTHER (grandfather) Dementia 19 MOTHER (grandmother) Diabetes mellitus 19 MOTHER (mother, grandfather) Drug abuse 19 FATHER (father) 19 MOTHER (mother) Dysphasia 19 MOTHER (grandfather) Fibrocystic disease of breast 19 MOTHER (mother) Hypercholesterolemia 19 MOTHER (grandmother, mother) Hypertension 19 FATHER (father) 19 MOTHER (mother, grandfather) Kidney disease 19 MOTHER (grandfather) Myocardial infarction 19 FATHER (dad) 19 MOTHER (grandfather) Psychosocial problem 19 MOTHER (mother-anxiety, depression grandmother. grandfather) Respiratory disorder 19 MOTHER (grandmother- COPD) Seizure disorder Thyroid disease 19 MOTHER (grandfather) No Pertinent Family Hx Physical Exam Vital Signs Vital Signs - First Documented 04/26/22 19:46 Temp 37.0 Pulse 76 Resp 18 B/P (MAP) 137/86 (103) O2 Delivery Room Air Capillary Refill : Height, Weight, BMI Height: 5'2.00" Weight: 238lbs. 0.0oz. [id number]; 42.00 BMI Method:Stated General Appearance: WD/WN, no apparent distress Cardiovascular: normal peripheral pulses, regular rate, rhythm Respiratory: chest non-tender, lungs clear, normal breath sounds Ankles: right ankle non-tender, right ankle normal inspection, right ankle normal range of motion, right ankle no evidence of injury Feet: right foot normal inspection, right foot normal range of motion, right foot no evidence of injury, right foot bone tenderness (distal metatarsals), right foot soft tissue tenderness (mid foot) Neurologic/Psychiatric: no motor/sensory deficits, alert, normal mood/affect, oriented x 3 Progress/Results/Core Measures Results/Orders My Orders Orders - ONUR MORRISON Foot, Right, 3 View (04/26/22 19:56) Ibuprofen Tablet (Motrin Tablet) (04/26/22 20:11) Vital Signs/I&O 04/26/22 19:46 Temp 37.0 Pulse 76 Resp 18 B/P (MAP) 137/86 (103) O2 Delivery Room Air Diagnostic Imaging Diagonstic Imaging: Xray Comments NAME: JESS ROMEO [employer] REC#: [id number] PT STATUS: REG ER : 1990 PHYSICIAN: ONUR MORRISON ADMIT DATE: 04/26/22/ER Draft Date of Exam:04/26/22 FOOT, RIGHT, 3 VIEW INDICATION: Right foot pain post injury. EXAMINATION: AP, oblique and lateral views of the right foot were obtained. No fracture or acute bony abnormality is seen. Joint spaces appear unremarkable. IMPRESSION: Negative right foot. Dictated on workstation # [id number] Dict: 04/26/222015 Trans: 04/26/222023 [facility] [id number] Interpreted by: MANDY CONTRERAS MD Electronically signed by: Departure Impression Primary Impression: Sprain of foot, right Qualified Codes: S93.601A - Unspecified sprain of right foot, initial encounter Disposition: 01 HOME, SELF-CARE Condition: Improved Departure-Patient Inst. Decision time for Depature: 20:20 Referrals: [facility] [place] (PCP/Family) Primary Care Physician MIGUEL A ONOFRE MD Patient Instructions: Sprain (DC) Add. Discharge Instructions: Alternate heat and ice to your right foot. Alternate Tylenol 650 mg and ibuprofen 600 mg every 4 hours for pain. Virgilio wrap for the next week and then discontinue. Wear supportive shoes at all times. If symptoms or not improving or worsen follow-up with your primary care provider or seek care from orthopedics. Return to the emergency department for new, urgent healthcare problems. All discharge instructions reviewed with patient and/or family. Voiced understanding. Copy Copies To 1: PUJA YAÑEZ AMY ARNP Apr 26, 2022 20:11
[2022-04-26 20:25] VITALS: BP 134/82
--- NOTE | 2022-04-26 20:26 | Diagnostic Imaging Report ---
INDICATION: Right foot pain post injury. EXAMINATION: AP, oblique and lateral views of the right foot were obtained. No fracture or acute bony abnormality is seen. Joint spaces appear unremarkable. IMPRESSION: Negative right foot. Dictated by: Dictated on workstation # [id number]
== END 2022-04-26 20:25 | disposition home or self-care (01) ==
LOC: EDUNIT# 19:35 → ER 19:36
DX: S93.601A Unspecified sprain of right foot, initial encounter (principal); F17.210 Nicotine dependence, cigarettes, uncomplicated; Z91.040 Latex allergy status; X50.1XXA Overexertion from prolonged static or awkward postures, initial encounter
CPT/HCPCS: 73630

== ENCOUNTER → 2022-07-28 | Outpatient (CLI) | payer MEDICAID ==
--- NOTE | 2022-07-28 13:52 | Diagnostic Imaging Report ---
PROCEDURE: Pelvic comp/transvaginal sonogram. TECHNIQUE: Complete transabdominal and transvaginal pelvic ultrasound was performed. In addition, limited pelvic Doppler was performed. INDICATION: Partial hysterectomy. Patient complains of left-sided pelvic pain. The uterus is surgically absent. The right ovary is surgically absent. Left ovary measures 3.8 x 2.9 x 2.47 cm. The left ovary contains multiple follicles. There is blood flow to left ovary. No adnexal mass or free fluid is detected. IMPRESSION: Status post hysterectomy and right oophorectomy. Study is otherwise unremarkable. Dictated by: Dictated on workstation # [id number]
== END ==
LOC: RAD 10:00
PROVIDERS: ATTEND Nurse Practitioner Women's Health
DX: R10.2 Pelvic and perineal pain (principal); Z90.710 Acquired absence of both cervix and uterus; Z90.721 Acquired absence of ovaries, unilateral
CPT/HCPCS: 76830; 76856

== ENCOUNTER 2022-10-12 21:11 | Emergency (ER) | payer MEDICAID ==
[2022-10-12] MEDS ORDERED: NS IV 1000 ML 1,000 ML IV STA (21:41)
--- NOTE | 2022-10-12 21:46 | ED GI ---
General Chief Complaint: Abdominal/GI Problems Stated Complaint: UPPER ABD PAIN/PAIN BETWEEN SHOULDER BLADES Source of Information: Patient Exam Limitations: No Limitations (GETACHEW SUN) History of Present Illness Date Seen by Provider: Oct 12, 2022 Time Seen by Provider: 21:43 Initial Comments Patient is a 32-year-old female with a history of anxiety, GERD who presents ED with epigastric pain. This started early Wednesday morning. Pain is sharp with radiation between her shoulder blades in the right side of her abdomen and chest. Pain has been constant but intensifies with a sharp pain. No worsening pain with eating. She reports of burping, difficulty keeping food down. She has vomited twice. She vomited this morning and was able to eat this afternoon. She states it feels like something is stuck in the back of her throat when she eats. She has tried Tums, naproxen, Tylenol, milk without much improvement. History of , hysterectomy. Denies current chest pain, shortness of breath, cough, diarrhea. Denies of any recent travels or surgeries. Denies basilio ving history of similar symptoms. Denies body aches, chills, fever, urinary symptoms (GETACHEW SUN) Allergies and Home Medications Allergies Coded Allergies: latex (Unverified Allergy, Unknown, 05/14/16) tramadol (Unverified Allergy, Unknown, Pt has received Lortab & hydromorphone in the past, 03/09/19) Patient Home Medication List Home Medication List Reviewed: Yes (GETACHEW SUN) Amoxicillin/Potassium Clav (Amox Tr-K Clv 875-125 mg Tab) 875 Mg-125 Mg Tablet, 1 EACH PO BID Prescribed by: CARMELITA DONG on 10/13/22 0333 Citalopram Hydrobromide (Citalopram HBr) 20 Mg Tablet, 20 MG PO DAILY, (Reported) Entered as Reported by: XENIA JARAMILLO on 03/06/19 0949 Cyclobenzaprine HCl (Cyclobenzaprine HCl) 10 Mg Tablet, 10 MG PO Q8H PRN for SPASMS Prescribed by: CESAR ESTRADA on 03/02/21 1426 Fluconazole (Diflucan) 150 Mg Tablet, 150 MG PO UD Prescribed by: CARMELITA DONG on 10/13/22 0417 Last Action: New Order Hydrocodone/Acetaminophen (Hydrocodone-Acetamin 5-325 mg) 5 Mg-325 Mg Tablet, 1 TAB PO Q6H PRN for PAIN-MODERATE (5-7) Prescribed by: CARMELITA DONG on 10/13/22 0334 Ondansetron (Ondansetron Odt) 8 Mg Tab.rapdis, 8 MG PO Q6H Prescribed by: CESAR ESTRADA on 03/02/21 1426 Prednisone (Prednisone) 20 Mg Tab, 40 MG PO DAILY Prescribed by: CESAR ESTRADA on 03/02/21 1426 Sertraline HCl (Sertraline HCl) 50 Mg Tablet, (Reported) Entered as Reported by: ALEE OWEN on 03/02/21 1335 Valacyclovir HCl (Valtrex) 500 Mg Tablet, 500 MG PO BID PRN for outbreak, (Reported) Entered as Reported by: EMANUEL DIAZ on 07/02/18 0438 Review of Systems Review of Systems Constitutional: No chills, No diaphoresis, No fever, No malaise, No weakness EENTM: No Blurred Vision, No Eye Pain, No Ear Pain, No Mouth Pain, No Mouth Swelling Respiratory: Denies Cough, Denies Orthopnea, Denies Shortness of Air, Denies SOA at Rest Cardiovascular: Denies Chest Pain Gastrointestinal: Abdominal Pain; Denies Diarrhea; Nausea, Vomiting Genitourinary: Denies Burning, Denies Discharge Musculoskeletal: No back pain, No joint pain Skin: No change in color, No change in hair/nails (GETACHEW SUN) All Other Systems Reviewed Negative Unless Noted: Yes (GETACHEW SUN) Past Xtroxsh-Zafkyq-Ndicom Hx Immunizations Up To Date Tetanus Booster (TDap): Less than 5yrs PED Vaccines UTD: Yes (GETACHEW SUN) Seasonal Allergies Seasonal Allergies: Yes (GETACHEW SUN) Past Medical History Surgery/Hospitalization HX: D&C BIOPSY OF NECK AREA X 2 HYSTERECTOMY TONSILLECTOMY/ADENOIDECTOMY LEFT ANKLE SURGERY ON NERVE Surgeries: Yes (D&C, biopsy on neck, left ankle nerve sx, c/s x2) Adenoidectomy, Section, Hysterectomy, Orthopedic, Tonsillectomy Respiratory: Yes Asthma Currently Using CPAP: No Currently Using BIPAP: No Cardiac: Yes (murmur hasn't been heard for several years) Hypertension Neurological: Yes Headaches /Migraines Reproductive Disorders: Yes Female Reproductive Disorders: Polycystic Ovarian Dis 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 Sexually Transmitted Disease: Yes HIV/AIDS: No Genitourinary: No Gastrointestinal: Yes Colitis, Gastroesophageal Reflux, Chronic Constipation Musculoskeletal: Yes (Sciatica; HIP PAIN ) Scoliosis Endocrine: No HEENT: No Cancer: No Psychosocial: Yes Anxiety, Depression Integumentary: Yes Eczema, Herpes Blood Disorders: No Adverse Reaction/Blood Tranf: No (GETACHEW SUN) Family Medical History Alcoholism 19 FATHER (father) Aphasia Arthritis 19 MOTHER (maternal grandmother, mother) Asthma 19 MOTHER (maternal grandmother, sister) Cardiovascular disease 19 FATHER (father) 19 MOTHER (maternal grandparents.) Cataracts 19 MOTHER (grandparents) Completed stroke 19 MOTHER (grandfatgher) Coronary thrombosis 19 MOTHER (grandfather) Dementia 19 MOTHER (grandmother) Diabetes mellitus 19 MOTHER (mother, grandfather) Drug abuse 19 FATHER (father) 19 MOTHER (mother) Dysphasia 19 MOTHER (grandfather) Fibrocystic disease of breast 19 MOTHER (mother) Hypercholesterolemia 19 MOTHER (grandmother, mother) Hypertension 19 FATHER (father) 19 MOTHER (mother, grandfather) Kidney disease 19 MOTHER (grandfather) Myocardial infarction 19 FATHER (dad) 19 MOTHER (grandfather) Psychosocial problem 19 MOTHER (mother-anxiety, depression grandmother. grandfather) Respiratory disorder 19 MOTHER (grandmother- COPD) Seizure disorder Thyroid disease 19 MOTHER (grandfather) No Pertinent Family Hx (GETACHEW SUN) Physical Exam Vital Signs Vital Signs - First Documented 10/12/22 21:33 Temp 36.7 Pulse 83 Resp 16 B/P (MAP) 169/96 (120) Pulse Ox 100 O2 Delivery Room Air (CARMELITA DONG MD) Vital Signs Capillary Refill : (GETACHEW SUN) Height/Weight/BMI Height: 5'2.00" Weight: 238lbs. 0.0oz. [id number]; 50.00 BMI Method:Stated General Appearance: WD/WN, no apparent distress HEENT: PERRL/EOMI, normal ENT inspection, TMs normal, pharynx normal Neck: non-tender, full range of motion, supple Respiratory: chest non-tender, lungs clear, normal breath sounds, no respiratory distress, no accessory muscle use Cardiovascular: regular rate, rhythm, no edema, no gallop, no JVD Gastrointestinal: normal bowel sounds, soft; No no organomegaly, No no pulsatile mass; tenderness (Epigastric tenderness on palpation.) Extremities: normal range of motion, non-tender, normal inspection, no pedal edema Back: normal inspection, no CVA tenderness, no vertebral tenderness 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, no motor/sensory deficits, alert, normal mood/affect, oriented x 3 Skin: normal color, warm/dry (GETACHEW SUN) Progress/Results/Core Measures Results/Orders Lab Results Laboratory Tests Test 10/12/22 22:35 Range/Units White Blood Count 11.3 H 4.3-11.0 10^3/uL Red Blood Count 3.96 3.80-5.11 10^6/uL Hemoglobin 12.3 11.5-16.0 g/dL Hematocrit 37 35-52 % Mean Corpuscular Volume 92 80-99 fL Mean Corpuscular Hemoglobin 31 25-34 pg Mean Corpuscular Hemoglobin Concent 34 32-36 g/dL Red Cell Distribution Width 13.5 10.0-14.5 % Platelet Count 227 130-400 10^3/uL Mean Platelet Volume 11.0 9.0-12.2 fL Immature Granulocyte % (Auto) 0 % Neutrophils (%) (Auto) 67 42-75 % Lymphocytes (%) (Auto) 25 12-44 % Monocytes (%) (Auto) 5 0-12 % Eosinophils (%) (Auto) 3 0-10 % Basophils (%) (Auto) 0 0-10 % Neutrophils # (Auto) 7.6 1.8-7.8 10^3/uL Lymphocytes # (Auto) 2.8 1.0-4.0 10^3/uL Monocytes # (Auto) 0.6 0.0-1.0 10^3/uL Eosinophils # (Auto) 0.3 0.0-0.3 10^3/uL Basophils # (Auto) 0.0 0.0-0.1 10^3/uL Immature Granulocyte # (Auto) 0.0 0.0-0.1 10^3/uL Sodium Level 139 135-145 MMOL/L Potassium Level 3.5 L 3.6-5.0 MMOL/L Chloride Level 109 H 98-107 MMOL/L Carbon Dioxide Level 21 21-32 MMOL/L Anion Gap 9 5-14 MMOL/L Blood Urea Nitrogen 17 7-18 MG/DL Creatinine 0.83 0.60-1.30 MG/DL Estimat Glomerular Filtration Rate 95 BUN/Creatinine Ratio 20 Glucose Level 94 70-105 MG/DL Calcium Level 8.9 8.5-10.1 MG/DL Corrected Calcium 9.1 8.5-10.1 MG/DL Total Bilirubin 0.3 0.1-1.0 MG/DL Aspartate Amino Transf (AST/SGOT) 12 5-34 U/L Alanine Aminotransferase (ALT/SGPT) 13 0-55 U/L Alkaline Phosphatase 48 40-136 U/L Total Protein 6.7 6.4-8.2 GM/DL Albumin 3.7 3.2-4.5 GM/DL Lipase 25 8-78 U/L (CARMELITA DONG MD) Medications Given in ED Current Medications Medications Dose Ordered Sig/Lm Route Start Time Stop Time Status Last Admin Dose Admin Famotidine 20 mg ONCE ONCE PO 10/12/22 23:15 10/12/22 23:16 DC 10/12/22 23:21 20 MG Iohexol 100 ml ONCE ONCE IV 10/13/22 00:00 10/13/22 00:01 DC 10/13/22 00:00 80 ML Ondansetron HCl 4 mg ONCE ONCE IVP 10/12/22 23:15 10/12/22 23:16 DC 10/12/22 23:22 4 MG Pantoprazole 40 mg ONCE ONCE IV 10/12/22 23:15 10/12/22 23:16 DC 10/12/22 23:22 40 MG Sodium Chloride 10 ml NEEDED PRN IV 10/13/22 00:00 10/13/22 00:00 10 ML Sodium Chloride 100 ml ONCE ONCE IV 10/13/22 00:00 10/13/22 00:01 DC 10/13/22 00:00 80 ML (CARMELITA DONG MD) Vital Signs/I&O 10/12/22 21:33 Temp 36.7 Pulse 83 Resp 16 B/P (MAP) 169/96 (120) Pulse Ox 100 O2 Delivery Room Air 10/13/22 00:00 Intake Total 1000 ml Balance 1000 ml (CARMELITA DONG MD) Progress Progress Note : Progress Note Assumed care of the patient from YASMEEN Thakkar pending CT scan and labs.. Patient did have CBC and CMP ordered. Patient does have orders for normal saline 1 L bolus, Zofran 4 mg IV, Pepcid 20 mg p.o. and Protonix 40 mg IV in progress. Patient had markedly delayed labs and IV meds due to difficulty with IV. I was able to start an IV the ultrasound guidance to the left AC 20-gauge. We will initiate fluids and meds. Monitor patient. 0230: Labs reviewed and show mildly elevated white count with normal hemoglobin. CMP is grossly normal with normal LFTs. 0301: I did discuss the case with Dr. Roach. He would like to see her in clinic on Wednesday. Patient to call the clinic for appointment. We will initiate Augmentin outpatient and I will prescribe short course of pain medicine. CT results noted as below. I do note gallstones on CT scan on my interpretation. Discharged home with return precautions. Patient verbalized understanding instructions and agreement with plan. (CARMELITA DONG MD) Diagnostic Imaging Diagonstic Imaging: CT Plain Films/CT/US/NM/MRI: abdomen, pelvis Comments No acute findings involving the solid abdominal organs. Negative for obstructive uropathy. The gallbladder is contracted and contains multiple gallstones. Mild prominence of the gastric wall is likely in part secondary to incomplete distention. Mild wall thickening throughout the duodenum as well as multiple segments of small bowel. Mild adjacent inflammatory changes. There is also mild wall thickening involving portions of the left colon. Negative for obstruction, pneumatosis or extraluminal gas. Findings are compatible with gastroenteritis and colitis. Normal appendix. Nonspecific prominence of the vaginal cuff. 4.0 x 3.5 cm cystic mass left adnexa, indeterminate but likely prominent functional cyst. Per radiology stat rad report. Reviewed: Reviewed [place] Study, Reviewed by Me (CARMELITA DONG MD) Departure Communication (PCP) Patient presents ED with epigastric, right upper quadrant pain since Wednesday morning. Radiates to the upper back and right sided chest. Pain is intermittent. Concerning for gastritis, esophagitis, biliary colic, gallbladder disease. Due to patient's complaints CBC, CMP, lipase and CT abdomen pelvis was ordered. Reviewed previous ER visits, H&P's, testing without history of similar symptoms. She has a history of total hysterectomy, right oophorectomy.. Patient was given Pepcid, Protonix and Zofran for nausea. She refused anything else for pain. Patient was discussed with Dr. Shah who took over care at 11 PM who will provide disposition and plan of action for patient. Patient is resting comfortably at this time. (GETACHEW SUN) Impression Primary Impression: Gallstones without obstruction of gallbladder Qualified Codes: K80.20 - Calculus of gallbladder without cholecystitis without obstruction Disposition: HOME, SELF-CARE Condition: Stable Departure-Patient Inst. Decision time for Depature: 03:31 (CARMELITA DONG MD) Referrals: LEANN ROACH CASEY V DO (PCP/Family) Primary Care Physician Patient Instructions: Gallstones (DC) Add. Discharge Instructions: All discharge instructions reviewed with patient and/or family. Voiced understanding. Call Dr. Roach's office in the morning for appointment on Wednesday. Let the automobile body repair supervisor know that case was discussed with him and he wants to see you on Wednesday. Take medications as directed. If you are not taking the prescribed pain medicine, you may take Tylenol/acetaminophen 1000 mg every 6 hours as needed for pain. Do not take both at the same time as they both have acetaminophen in them. Clear liquid diet for the next 24 hours or until you are seen in clinic. Return for worse pain, fever, vomiting, weakness, breathing problems or other concerns as needed. Scripts Fluconazole (Diflucan) 150 Mg Tablet 150 MG PO UD, #1 TAB Take tablet at end of antibiotic dosing if yeast infection symptoms noted. Prov: CARMELITA DONG MD 10/13/22 Hydrocodone/Acetaminophen (Hydrocodone-Acetamin 5-325 mg) 5 Mg-325 Mg Tablet 1 TAB PO Q6H PRN for PAIN-MODERATE (5-7) for 7 Days, #10 TAB 0 Refills Prov: CARMELITA DONG MD 10/13/22 Amoxicillin/Potassium Clav (Amox Tr-K Clv 875-125 mg Tab) 875 Mg-125 Mg Tablet 1 EACH PO BID for 7 Days, #14 TAB Prov: CARMELITA DONG MD 10/13/22 Copy Copies To 1: LEANN ROACH ZACHARY A PA Oct 12, 2022 21:46 CARMELITA DONG MD Oct 13, 2022 03:30
[2022-10-12 22:41] LABS: BASOPHILS % (AUTO) 0 % (0-10); EOSINOPHILS # (AUTO) 0.3 10^3/uL (0.0-0.3); EOSINOPHILS % (AUTO) 3 % (0-10); HEMATOCRIT 37 % (35-52); HEMOGLOBIN 12.3 g/dL (11.5-16.0); LYMPHOCYTES # (AUTO) 2.8 10^3/uL (1.0-4.0); LYMPHOCYTES % (AUTO) 25 % (12-44); MEAN CORPUSCULAR HEMOGLOBIN 31 pg (25-34); MEAN CORPUSCULAR HGB CONC 34 g/dL (32-36); MEAN CORPUSCULAR VOLUME 92 fL (80-99); MONOCYTES # (AUTO) 0.6 10^3/uL (0.0-1.0); MONOCYTES % (AUTO) 5 % (0-12); NEUTROPHILS # (AUTO) 7.6 10^3/uL (1.8-7.8); NEUTROPHILS % (AUTO) 67 % (42-75); PLATELET COUNT 227 10^3/uL (130-400); WHITE BLOOD COUNT 11.3 10^3/uL (4.3-11.0)
[2022-10-12 22:51] LABS: ALBUMIN 3.7 GM/DL (3.2-4.5); POTASSIUM 3.5 MMOL/L (3.6-5.0)
[2022-10-12 22:52] LABS: CALCIUM 8.9 MG/DL (8.5-10.1)
[2022-10-12 22:54] LABS: TOTAL PROTEIN 6.7 GM/DL (6.4-8.2)
[2022-10-12 22:55] LABS: BILIRUBIN,TOTAL 0.3 MG/DL (0.1-1.0)
[2022-10-12 22:57] LABS: CREATININE SERUM 0.83 MG/DL (0.60-1.30)
[2022-10-12] MEDS ORDERED: PANTOPRAZOLE 40 MG (PROTONIX) VIAL IV ONE (23:15)
[2022-10-12] MEDS ORDERED: FAMOTIDINE 20 MG (PEPCID) TABLET PO ONE (23:15)
[2022-10-12] MEDS ORDERED: ONDANSETRON 4 MG/2 ML (SDV) Z0FRAN IVP ONE (23:15)
[2022-10-13] MEDS ORDERED: IOHEXOL 350 MG/ML 100 ML (OMNIPAQUE 350) VIAL IV ONE
[2022-10-13] MEDS ORDERED: CATHETER FLUSH 10 ML SYR IV PRN
[2022-10-13] MEDS ORDERED: NS 100 ML (IVPB) BAG IV ONE
[2022-10-13] MEDS ORDERED: ACHD5005 PO (03:33)
[2022-10-13] MEDS ORDERED: AMOX1TAB12 PO (03:33)
[2022-10-13 03:48] VITALS: BP 150/85
[2022-10-13] MEDS ORDERED: FLUC150T PO (04:17)
--- NOTE | 2022-10-13 06:59 | Diagnostic Imaging Report ---
EXAMINATION: CT abdomen and pelvis with intravenous contrast. TECHNIQUE: Multiple contiguous axial images were obtained through the abdomen and pelvis after the uneventful administration of intravenous contrast. All CT scans use one or more of the following dose optimizing techniques: automated exposure control, MA and/or KvP adjustment based on patient size and exam type or iterative reconstruction. HISTORY: Right upper quadrant abdominal pain. COMPARISON: None available. FINDINGS: The heart is unremarkable. Small amount of dependent atelectasis is seen in the lung bases. Cholelithiasis is seen without CT evidence of acute cholecystitis. The liver, spleen, pancreas, adrenal glands, and kidneys have a normal appearance. There is no pathologically enlarged mesenteric or retroperitoneal adenopathy. The bowel loops are nondilated. The appendix is visualized in the right lower quadrant and has a normal appearance. Scattered diverticula are seen in the descending and sigmoid colon There is no free fluid or free air. No acute osseous abnormalities. Bilateral pars defects are seen at L4 . Ureters and bladder are grossly normal. Dominant follicle/cyst is seen in the left adnexa measuring 3.8 cm. There is no free air, loculated collection, or adenopathy in the pelvis. IMPRESSION: 1. No acute abnormalities in the abdomen and pelvis. 2. Dominant follicle/cyst in the left adnexa. 3. Cholelithiasis without CT evidence of acute cholecystitis. Consider liver gallbladder ultrasound to further evaluate. Agree with overnight report. Dictated by: Dictated on workstation # [id number]
[2022-10-13] MEDS ORDERED: PROP80TA3 PO (16:01)
[2022-10-13] MEDS ORDERED: NAPR-1071 PO (16:01)
[2022-10-13] MEDS ORDERED: TOPI25TA10 PO (16:01)
[2022-10-14] MEDS ORDERED: TOPI50TA13 PO (11:22)
[2022-10-14] MEDS ORDERED: PHEN37.58 PO (11:22)
[2022-10-14] MEDS ORDERED: SERT-414 PO (11:22)
[2022-10-14] MEDS ORDERED: ALB0.5V INH (11:30)
[2022-10-14] MEDS ORDERED: LEVO1TAB9 PO (11:30)
== END 2022-10-13 03:48 | disposition home or self-care (01) ==
LOC: EDUNIT# 21:11 → ER 21:15
DX: K80.20 Calculus of gallbladder without cholecystitis without obstruction (principal); D72.829 Elevated white blood cell count, unspecified; Z87.19 Personal history of other diseases of the digestive system; Z91.040 Latex allergy status; Z88.5 Allergy status to narcotic agent
CPT/HCPCS: 36415; 74177; 80053; 83690; 85025

== ENCOUNTER 2022-10-13 15:07 | Outpatient (CLI) | payer MEDICAID ==
[~2022-10-13] VITALS: Ht 154.9 cm; Wt 113.6 kg
[~2022-10-13 15:07] MED LIST changes: +AMOX1TAB12 PO
[2022-10-13] MEDS ORDERED: TOPI25TA10 PO (16:01)
[2022-10-13] MEDS ORDERED: NAPR-1071 PO (16:01)
[2022-10-13] MEDS ORDERED: PROP80TA3 PO (16:01)
[2022-10-14] MEDS ORDERED: TOPI50TA13 PO (11:22)
[2022-10-14] MEDS ORDERED: SERT-414 PO (11:22)
[2022-10-14] MEDS ORDERED: PHEN37.58 PO (11:22)
[2022-10-14] MEDS ORDERED: LEVO1TAB9 PO (11:30)
[2022-10-14] MEDS ORDERED: ALB0.5V INH (11:30)
== END 2022-10-13 16:39 | disposition home or self-care (01) ==
LOC: PREOP 15:07
PROVIDERS: ATTEND Surgery
DX: Z01.818 Encounter for other preprocedural examination (principal)

== ENCOUNTER 2022-10-14 09:35 | Day surgery (SDC) | payer MEDICAID ==
[~2022-10-14] VITALS: Ht 154.9 cm; Wt 113.6 kg
[2022-10-14] VITALS (11 sets, daily range): BP systolic 85–140; BP diastolic 46–108
[~2022-10-14 09:35] MED LIST changes: +NAPR-1071 PO; +PROP80TA3 PO; +TOPI25TA10 PO
[2022-10-14] MEDS ORDERED: ceFAZolin INJECTION 2,000 MG in NS (IVPB) 50 ML IV ONE (10:00)
[2022-10-14] MEDS ORDERED: BUP/EPI 0.5% 1:200,000 (SENSORCAINE) 30 ML VIAL ONE (10:05)
[2022-10-14] MEDS ORDERED: SCOPOLAMINE 1.5 MG (TRANSDERM-SCOP) PATCH TOP ONE (10:15)
[2022-10-14] MEDS ORDERED: ONDANSETRON 4 MG/2 ML (SDV) Z0FRAN IV ONE (10:15)
[2022-10-14] MEDS ORDERED: FAMOTIDINE 20MG/2ML IV (PEPCID) IV ONE (10:15)
[2022-10-14] MEDS: LACTATED RINGERS 1,000 ML IV PRN ×2 (10:27→12:14)
[2022-10-14] MEDS ORDERED: MIDAZOLAM 2 MG/2 ML (VERSED) VIAL ONE ×2 (10:46→11:29)
[2022-10-14] MEDS ORDERED: MIDAZOLAM 2 MG/2 ML (VERSED) VIAL IVP ONE (11:00)
[2022-10-14] MEDS ORDERED: PHEN37.58 PO (11:22)
[2022-10-14] MEDS ORDERED: SERT-414 PO (11:22)
[2022-10-14] MEDS ORDERED: TOPI50TA13 PO (11:22)
[2022-10-14] MEDS ORDERED: ROCURONIUM 50 MG/5 ML (ZEMURON) VIAL IV ONE (11:28)
[2022-10-14] MEDS ORDERED: ONDANSETRON 4 MG/2 ML (SDV) Z0FRAN ONE ×2 (11:28→13:13)
[2022-10-14] MEDS ORDERED: LIDOCAINE PF 2% 5 ML (XYLOCAINE) VIAL ONE (11:28)
[2022-10-14] MEDS ORDERED: fentaNYL INJ 100 MCG/2 ML AMP ONE (11:28)
[2022-10-14] MEDS ORDERED: proPOfol 200 MG/20 ML (DIPRIVAN) VIAL IV ONE (11:28)
[2022-10-14] MEDS ORDERED: ALB0.5V INH (11:30)
[2022-10-14] MEDS ORDERED: LEVO1TAB9 PO (11:30)
[2022-10-14] MEDS ORDERED: GLYCOPYRROLATE 0.2 MG/ML (ROBINUL) 2 ML VIAL ONE (12:22)
[2022-10-14] MEDS ORDERED: NEOSTIGMINE 3 MG/3 ML VIAL ONE (12:22)
--- NOTE | 2022-10-14 12:29 | Progress Note-Post Operative ---
Post-Operative Progess Note Surgeon (s)/Early Breastfeeding Care Specialist (s) Surgeon LEONEL ANGULO DO Early Breastfeeding Care Specialist: Sariah Pre-Operative Diagnosis CHOLELITHIASIS/CHOLECYSTITIS Post-Operative Diagnosis Same Procedure & Operative Findings Date of Procedure 10/14/22 Procedure Performed/Findings PROCEDURE: Laparoscopic cholecystectomy with intraoperative cholangiogram. COMPLICATIONS: None. PROCEDURE: The patient was taken to the operating suite and was prepped and draped in sterile fashion. A surgical pause was performed. Just superior to the umbilicus, a 12 mm incision was made. Dissection was taken down to the fascia, which was then scored and grasped with a Raven and the abdomen was then entered. A 0 Vicryl suture was placed in a [id number] fashion and a Cruz trocar was placed and secured. Pneumoperitoneum was achieved. A 5mm tro[address] place in the subxyphoid and 2 in the right upper quadrant. The gallbladder was then grasped at the fundus and elevated in the superior direction. Another grasper used to grab Rascon's pouch and pull in the inferolateral direction. There were adhesions to the gallbladd er, which usually indicates previous attacks. These were taken down with bovie cautery. The cystic duct and cystic artery were then dissected out. Clip was placed on the distal portion of the cystic duct which was then partially transected. An arrow catheter was inserted into the duct. The cholangiogram was then performed. No filling defects and contrast made its way into the duodenum. Catheter removed. Clips were placed on proximal portion of the cystic duct and then the duct was then transected. Clips were placed along the proximal and distal portion of the cystic artery which was then transected. Hook cautery was used to dissect the gallbladder from the gallbladder fossa achieving hemostasis. The gallbladder was placed in an Endobag and removed through the 12 mm trocar site. The abdomen was then reinspected. Copious amounts of irrigation were used to irrigate the abdomen and there were no signs of active bleeding. Hemostasis had been achieved. The 12 mm fascial defect was then closed with 0 Vicryl suture that had been placed in a [id number] fashion. The abdomen was then desufflated, the trocars were removed. The abdomen was then washed and dried. The skin was then closed using 4-0 Monocryl in a subcuticular fashion. The abdomen was washed and dried and Skin Affix was place over incisions. Patient tolerated the procedure well without any complications and was taken to the recovery room in stable condition. Dr. Rolle assisted on this case helping to make incisions, close incisions, identify anatomy hold anatomy out of the way. Anesthesia Type GET Estimated Blood Loss Estimated blood loss (mL): scant Specimens/Packing Specimens Removed GB and contents LEONEL ANGULO DO Oct 14, 2022 12:29
[2022-10-14] MEDS ORDERED: SEVOFLURANE (ULTANE) 15 ML INHAL SOLN ONE (12:30)
--- NOTE | 2022-10-14 12:33 | Discharge Inst-Surgical ---
Discharge Inst-Surgical Depart Medication/Instructions New, Converted or Re-Newed RX: Other (Use meds prescribed by ER) Patient Instructions Follow up Appt: Make appointment for 1 week. [phone] Instructions: No lifting greater than 20 pounds. No strenuous activity. May shower in 24 hours, no tub bath or soaking. Use incentive spirometer at home as directed. No Smoking Skin/Wound Care: May remove bandages in am. You need to leave the Dermabond on incision it will fall off on it's own. Symptoms to Report: Appetite Changes, Extremity Discoloration, Numbness/Tingling, Swelling Increased, Bleeding Excessive, Eyesight Changes, Pain Increased, Urine Color Change, Constipation(Persistent), Fever over 101 degree F, Pain/Pressure in chest, Urinating Difficulty, Cough Up/Vomit Blood, Heart Beat Irreg/Pounding, Pain/Pressure in jaw, Cramps in feet or legs, Lightheadedness, Pain/Pressure in shoulder, Diarrhea(Persistent), Memory Changes Suddenly, Questions/Concerns, Weight gain consecutive days, Dizziness/Fainting, Nausea/Vomiting, Shortness of Breath, Weight gain over 2 pounds If questions or concerns contact your physician Or seek help at emergency department. Activity Activity as Tolerated: Yes Activity Instructions: Avoid Stress to Incision Driving Instructions: No Driving/Refer to Diet Discharge Diet: Avoid Fatty Foods, Low Fat/Low Cholesterol Diet After 24 Hours: Clear Liquid if Nauseous If Any Problems/Questions/Issu: Contact Your Physician, Go to Emergency Room Skin/Wound Care Infection Signs and Symptoms: Increased Redness, Foul Odor of Wound, Increased Drainage, Skin Itchy or Has a Rash, Increased Swelling, Temperature Above 101 F Wound Care Comment: Heating pad to shoulder or neck tonight for pain Bathing Instructions: Shower Stitches/Ruth/Dermabond Dis: Dermabond Ice Pack: Ice On and Off Site LEONEL ANGULO DO Oct 14, 2022 12:33
[2022-10-14] MEDS ORDERED: BUP/EPI 0.5% 1:200,000 (SENSORCAINE) 30 ML VIAL INJ ONE (12:51)
[2022-10-14] MEDS ORDERED: IOHEXOL 300 MG/ML 100 ML (OMNIPAQUE 300) VIAL INJ ONE (12:52)
[2022-10-14] MEDS ORDERED: ONDANSETRON 4 MG/2 ML (SDV) Z0FRAN IVP PRN (13:00)
[2022-10-14] MEDS ORDERED: morphine INJ 10 MG/ML 1ML (SYR OR VIAL) IVP ONE (13:00)
[2022-10-14] MEDS ORDERED: HYDROmorphone 2 MG/ML VIAL (DILAUDID) IV ONE (13:00)
--- NOTE | 2022-10-14 13:48 | Anesthesia-General Post-Op ---
General Patient Condition Mental Status/LOC: Same as Preop Cardiovascular: Satisfactory Nausea/Vomiting: Absent Respiratory: Satisfactory Pain: Controlled Complications: Absent Post Op Complications Complications None Follow Up Care/Instructions Patient Instructions None needed. Anesthesia/Patient Condition Patient Condition Patient was seen in PACU and doing well. She did complain of nausea early in PACU but improved after an additional dose of ondansetron. She had stable vital signs, no apparent adverse anesthesia problems. No complications reported per nursing. BRIANNE ALEXANDER DO Oct 14, 2022 13:48
[2022-10-14] MEDS ORDERED: HYDROcodone/APAP 5 MG/325 MG (LORTAB) TAB PO ONE (14:45)
[2022-10-14] MEDS ORDERED: HYDROcodone/APAP 5 MG/325 MG (LORTAB) TAB ONE (14:59)
--- NOTE | 2022-10-14 15:43 | Diagnostic Imaging Report ---
INDICATION: Cholecystectomy. TECHNIQUE: The operative cholangiogram was performed in the routine fashion with the portable intensifier in Surgery. 46 images were obtained. 8.8 seconds of fluoroscopy time was used. FINDINGS: The intraoperative views demonstrate the biliary tree to be nondilated. Contrast flows to the duodenum without obstruction. There are no filling defects in the common duct. IMPRESSION: Unremarkable operative cholangiogram. Dictated by: Dictated on workstation # [id number]
== END 2022-10-14 16:25 | disposition home or self-care (01) ==
LOC: SDC 09:35
PROVIDERS: ATTEND Surgery
DX: K80.10 Calculus of gallbladder with chronic cholecystitis without obstruction (principal); K66.0 Peritoneal adhesions (postprocedural) (postinfection); F17.210 Nicotine dependence, cigarettes, uncomplicated; K42.9 Umbilical hernia without obstruction or gangrene; E66.9 Obesity, unspecified; Z68.42 Body mass index [BMI] 45.0-49.9, adult
CPT/HCPCS: 76000; 87081

== ENCOUNTER 2022-11-25 06:38 | Outpatient (CLI) | payer MEDICAID ==
[~2022-11-25] VITALS: Ht 157.5 cm; Wt 113.4 kg
[~2022-11-25 06:38] MED LIST changes: +ALB0.5V INH; +LEVO1TAB9 PO; +PHEN37.58 PO; +SERT-414 PO; +TOPI-241 PO; -TOPI50TA13 PO
== END 2022-11-25 11:25 | disposition home or self-care (01) ==
LOC: PREOP 06:38
PROVIDERS: ATTEND Surgery
DX: Z01.818 Encounter for other preprocedural examination (principal)

== ENCOUNTER 2022-11-30 11:02 | Day surgery (SDC) | payer MEDICAID ==
[~2022-11-30] VITALS: Ht 157.5 cm; Wt 113.4 kg
[2022-11-30] MEDS ORDERED: LACTATED RINGERS 1,000 ML IV STA (11:13)
[2022-11-30 11:30] VITALS: BP 123/75
--- NOTE | 2022-11-30 11:31 | Progress Note-Pre Operative ---
Pre-Operative Progress Note Date of Available H&P: Nov 19, 2022 Date H&P Reviewed: Nov 30, 2022 Time H&P Reviewed: 11:28 History & Physical: H&P Reviewed, Patient Examed, No changes noted Pre-Operative Diagnosis: Colitis, Chronic Reflux LEONEL ANGULO DO Nov 30, 2022 11:31
[2022-11-30] MEDS ORDERED: HURRICAINE EXT TUBE (BENZOCAINE) XX ONE (11:50)
[2022-11-30] MEDS ORDERED: PROPOFOL INJECTION 50 ML IV ONE (12:07)
--- NOTE | 2022-11-30 12:36 | Anesthesia-General Post-Op ---
MAC Patient Condition Mental Status/LOC: Same as Preop Cardiovascular: Satisfactory Nausea/Vomiting: Absent Respiratory: Satisfactory Pain: Controlled Complications: Absent Post Op Complications Complications None Follow Up Care/Instructions Patient Instructions None needed. Anesthesiology Discharge Order Discharge Order Patient is doing well, no complaints, stable vital signs, no apparent adverse anesthesia problems. No complications reported per nursing. GARETH MONTERROSO CRNA Nov 30, 2022 12:36
[2022-11-30 12:38] VITALS: BP 115/59
[2022-11-30 12:40] VITALS: BP 111/59
--- NOTE | 2022-11-30 12:41 | Progress Note-Post Operative ---
Post-Operative Progess Note Surgeon (s)/Improvement Engineer (s) Surgeon LEONEL ANGULO DO Improvement Engineer: Deon Ronquillo, MSIII Pre-Operative Diagnosis Colitis, Chronic Reflux Post-Operative Diagnosis Gastritis Small sliding hiatal hernia Esophagitis Diverticula int hemorrhoids poor prep Procedure & Operative Findings Date of Procedure 11/30/22 Procedure Performed/Findings EGD with biopsy Colonoscopy with cold biopsy PROCEDURE NOTE: After informed consent was obtained, the patient was brought to the endoscopy suite, placed in bed in left lateral decubitus position. She was administered IV sedation by the ELECTRONICS PROCESSOR who then monitored vitals the entire time, heart rate, blood pressure and pulse ox and the scope was inserted down the mouth through the esophagus into the stomach. On the way down, noted some mild esophagitis, took a picture, pushed into the stomach, pushed past the antrum into the duodenum. Duodenum looked good. Pulled back and did a biopsy of antrum, then retroflexed the scope, saw very small sliding hiatal hernia, took a picture of this and then pulled the scope into the GE junction, took a picture and then did a biopsy of the GE junction. Pushed the scope back into the stomach, suctioned all the air out of the stomach. At this point pulled the scope up the esophagus and out the mouth. Switched camera, switched gloves, went down below and started the colonoscopy. Pushed all the way to about 150 cm and pushed into the cecum, took a picture of appendiceal orifice and noted the ileocecal valve. On the right sided of the colon the wu were completely covered with stool and I was unable to flush it all off. From the cecum, slowly withdrew the scope insufflating to look circumferentially at the wu up the ascending colon to the hepatic flexure, then down the transverse colon to the splenic flexure, into the descending colon and down into the sigmoid. I saw a couple small diverticula, took a picture and then into the rectal vault and retroflexed the scope. Took picture of the internal hemorrhoids. I did not see any colitis, but took a few random biopsies from the transverse, descending and sigmoid colon. The patient tolerated the procedure and she recovered in the endoscopy suite. Recommended for repeat colonoscopy in 10 years Anesthesia Type IV sedation by ELECTRONICS PROCESSOR Estimated Blood Loss Estimated blood loss (mL): scant Specimens/Packing Specimens Removed antral bx GE jxn bx Transverse, descending and sigmoid colon bx LEONEL ANGULO DO Nov 30, 2022 12:41
--- NOTE | 2022-11-30 12:42 | Endoscopy Discharge Instruct ---
Endo Procedure/Findings Findings 1.: Gastritis 2.: Hiatal Hernia 3.: Diverticulosis 4.: Internal Hemorrhoids Discharge Instructions - Activity: You might feel a little sleepy until tomorrow. This is due to the medicine you received to relax you. Until tomorrow, you should: NOT drive a car, operate machinery or power tools. NOT drink any alcoholic beverages. NOT make any important decisions or sign importortant papers. Do not return to work until tomorrow, unless otherwise instructed. Resume previous activities tomorrow. Diet: Start by taking liquids. If you tolerate liquids, advance to solid food. 1.: EGD in 3 years 2.: Colonscopy in 10 years Notify Physician - If you experience excessive bleeding, unusual abdominal pain, fever, or chest pain, contact your doctor immediately. Follow-Up: Other Follow up in my office in a week LEONEL ANGULO DO Nov 30, 2022 12:42
[2022-11-30 12:45] VITALS: BP 126/67
[2022-11-30 13:15] VITALS: BP 135/80
[2022-11-30 13:22] VITALS: BP 135/80
== END 2022-11-30 13:22 | disposition home or self-care (01) ==
LOC: ENDO 11:02
PROVIDERS: ATTEND Surgery
DX: K29.50 Unspecified chronic gastritis without bleeding (principal); K44.9 Diaphragmatic hernia without obstruction or gangrene; K21.00 Gastro-esophageal reflux disease with esophagitis, without bleeding; K57.30 Diverticulosis of large intestine without perforation or abscess without bleeding; K64.8 Other hemorrhoids; K63.89 Other specified diseases of intestine; E66.01 Morbid (severe) obesity due to excess calories; K59.09 Other constipation; Z68.42 Body mass index [BMI] 45.0-49.9, adult; F17.210 Nicotine dependence, cigarettes, uncomplicated